=== PATIENT | female | born 1950 | race Caucasian/White ===

== ENCOUNTER → 2016-10-16 | Outpatient (CLI) | payer MEDICARE ==
[2016-10-16 18:04] LABS: ANION GAP 7 MMOL/L (5-14); BLOOD UREA NITROGEN 19 MG/DL (7-18); BUN/CREATININE RATIO 22; CALCIUM 8.6 MG/DL (8.5-10.1); CARBON DIOXIDE 23 MMOL/L (21-32); CHLORIDE 110 MMOL/L (98-107); CREATININE SERUM 0.85 MG/DL (0.60-1.30); GFR ESTIMATED > 60; GLUCOSE 95 MG/DL (70-105); POTASSIUM 4.8 MMOL/L (3.6-5.0); SODIUM 140 MMOL/L (135-145)
== END ==
LOC: LAB 15:49
PROVIDERS: ATTEND Internal Medicine Endocrinology, Diabetes & Metabolism
DX: M81.0 Age-related osteoporosis without current pathological fracture (principal)
CPT/HCPCS: 36415; 80048

== ENCOUNTER → 2017-01-04 | Outpatient (CLI) | payer MEDICARE ==
[2017-01-04 07:19] LABS: BASOPHILS % (AUTO) 1 % (0-10); EOSINOPHILS # (AUTO) 0.2 10^3/uL (0.0-0.3); EOSINOPHILS % (AUTO) 3 % (0-10); LYMPHOCYTES # (AUTO) 2.8 X 10^3 (1.0-4.0); LYMPHOCYTES % (AUTO) 40 % (12-44); MEAN CORPUSCULAR HEMOGLOBIN 31 PG (25-34); MEAN CORPUSCULAR HGB CONC 33 G/DL (32-36); MEAN CORPUSCULAR VOLUME 95 FL (80-99); MEAN PLATELET VOLUME 9.5 FL (7.4-10.4); MONOCYTES # (AUTO) 0.8 X 10^3 (0.0-1.0); MONOCYTES % (AUTO) 12 % (0-12); NEUTROPHILS # (AUTO) 3.2 X 10^3 (1.8-7.8); NEUTROPHILS % (AUTO) 45 % (42-75); PLATELET COUNT 361 10^3/uL (130-400); RED BLOOD COUNT 4.19 10^6/uL (4.35-5.85); RED CELL DISTRIBUTION WIDTH 13.5 % (10.0-14.5)
[2017-01-04 07:37] LABS: ALANINE AMINOTRANSFERASE 32 U/L (0-55); ANION GAP 10 MMOL/L (5-14); ASPARTATE AMINO TRANSFERASE 20 U/L (5-34); BILIRUBIN,TOTAL 0.4 MG/DL (0.1-1.0); BLOOD UREA NITROGEN 17 MG/DL (7-18); BUN/CREATININE RATIO 20 (0-20); CALCIUM 9.4 MG/DL (8.5-10.1); CARBON DIOXIDE 21 MMOL/L (21-32); CHLORIDE 111 MMOL/L (98-107); CHOLESTEROL 151 MG/DL (< 200); CREATININE SERUM 0.85 MG/DL (0.60-1.30); DIRECT LDL 83 MG/DL (1-129); GFR ESTIMATED > 60; GLUCOSE 110 MG/DL (70-105); HEMOLYSIS 6 (0-29); ICTERUS 0.4 (0-1.9); LIPEMIA 4 (0-49); MAGNESIUM 2.1 MG/DL (1.8-2.4); POTASSIUM 3.8 MMOL/L (3.6-5.0); SODIUM 142 MMOL/L (135-145); TOTAL PROTEIN 8.3 GM/DL (6.4-8.2); TRIGLYCERIDES 75 MG/DL (<150); VLDL CHOLESTEROL 15 MG/DL (5-40)
[2017-01-04 07:58] LABS: THYROID STIMULATING HORMONE 6.37 UIU/ML (0.35-4.94)
== END ==
LOC: LAB 06:42
PROVIDERS: ATTEND Family Medicine
DX: I10 Essential (primary) hypertension (principal); R25.2 Cramp and spasm; Z79.899 Other long term (current) drug therapy
CPT/HCPCS: 36415; 80053; 80061; 83036; 83735; 84439; 84443; 85025

== ENCOUNTER 2017-03-03 16:12 | Emergency (ER) | payer MEDICARE ==
[~2017-03-03] VITALS: Ht 165.1 cm; Wt 68.0 kg
[2017-03-03] MEDS ORDERED: LEVO25TA5 (16:48)
[2017-03-03] MEDS ORDERED: BUSP10TA95 (16:48)
[2017-03-03] MEDS ORDERED: TRAM50TA2 (16:48)
[2017-03-03] MEDS ORDERED: LORA1TAB (16:48)
[2017-03-03] MEDS ORDERED: TRAZODONE (16:48)
[2017-03-03] MEDS ORDERED: KETOROLAC 30 MG/ML VIAL IVP STA (16:56)
--- NOTE | 2017-03-03 17:09 | ED General ---
General Chief Complaint: Cough/Cold/Flu Symptoms Stated Complaint: COPD/R SIDE CHEST PAIN/PRODUCTIVE COUGH Nursing Triage Note: ARRIVED VIA AMB TO ROOM 09. COMPLAINS OF RIGHT SIDED CHEST PAIN WITH A PRODUCTIVE COUGH STARTING LAST NIGHT. STATES SHE STARTED A NEW JOB AT A [employer] AND NOT USE TO THE WORK ET THINKING SHE MIGHT HAVE PULLED A MUSCLE. Nursing Sepsis Screen: No Definite Risk Source of Information: Patient, Other Exam Limitations: No Limitations History of Present Illness Time Seen by Provider: 16:48 Initial Comments 66-year-old female patient presents to the emergency department complaints of right-sided chest/rib pain beginning yesterday. Also complains of clear productive cough. Reports starting a new job at [employer] and [employer] 2 weeks ago and states she may have pulled a muscle. Does report a h/o COPD that was diagnosed in 2013- on CXR here at [facility]. Location Injury Occurred: denies known injury Timing/Duration: 1-2 Days Modifying Factors: worse with Other (worse with palpation) Allergies and Home Medications Allergies Coded Allergies: Penicillins (Verified Allergy, Severe, RASH, 03/03/17) Home Medications Buspirone HCl 10 Mg Tablet, #60 (Reported) Levothyroxine Sodium 25 Mcg Tablet, #30 (Reported) Lorazepam 1 Mg Tablet, #30 (Reported) Prednisone 20 Mg Tab, 20 MG PO BID, #8 Ref 0 Prescribed by: CLAUDIA LARSON on 03/03/171855 Tramadol HCl 50 Mg Tablet, #90 (Reported) Tramadol HCl 50 Mg Tablet, 50 MG PO Q4H PRN for pain, #10 Ref 0 Prescribed by: CLAUDIA LARSON on 03/03/171855 [Trazodone] , #30 (Reported) Constitutional: No chills, No diaphoresis, No dizziness, No fever, No malaise EENTM: other (rhinorrhea a couple of days ago, but resolved now.), No ear pain , No nose congestion, No throat pain Respiratory: cough, No dyspnea on exertion, No hemoptysis, No orthopnea, phlegm , short of breath, wheezing Cardiovascular: see HPI, chest pain, No edema, No palpitations, No syncope Gastrointestinal: No abdominal pain, No constipation, No diarrhea, No loss of appetite, No nausea, No vomiting Genitourinary: no symptoms reported Musculoskeletal: see HPI, No back pain, No neck pain, other (rt sided rib pain) Skin: no symptoms reported Psychiatric/Neurological: No Symptoms Reported All Other Systems Reviewed Negative Unless Noted: Yes (Negative excepted noted.) Past Bibbehz-Enzbvk-Wkrpkw Hx Patient Social History Alcohol Use: Denies Use Recreational Drug Use: No Smoking Status: Current Everyday Smoker Recent Foreign Travel: No Contact w/Someone Who Travel: No Recent Infectious Disease Expo: No Respiratory Hx Respiratory Disorders: Yes Respiratory Disorders: COPD Cardiovascular Hx Cardiac Disorders: No Neurological Hx Neurological Disorders: No Genitourinary Hx Genitourinary Disorders: No Gastrointestinal Hx Gastrointestinal Disorders: No Musculoskeletal Hx Musculoskeletal Disorders: No Endocrine Hx Endocrine Disorders: Yes Endocrine Disorders: Hypothyroidsim HEENT HX ENT Disorders: No Psychosocial Hx Psychiatric Problems: Yes Behavioral Health Disorders: Sleep Difficulties, Anxiety, Depression Reviewed Nursing Assessment Reviewed/Agree w Nursing PMH: Yes Family Medical History Significant Family History: No Pertinent Family Hx Physical Exam Vital Signs Vital Sign - Last 12Hours 03/03/17 16:30 Temp 97.5 Pulse 70 Resp 16 B/P (MAP) 141/81 Pulse Ox 98 O2 Delivery Room Air Capillary Refill : Less Than 3 Seconds General Appearance: No Apparent Distress, WD/WN HEENT: PERRL/EOMI, Pharynx Normal Neck: Normal Inspection, Supple Respiratory: Lungs Clear, No Accessory Muscle Use, No Respiratory Distress, Decreased Breath Sounds (rt lung), No Rales, No Rhonci, No Wheezing, Other ( right sided anterior ribs ttp without deformity or swelling.) Cardiovascular: Regular Rate, Rhythm, No Edema, No Murmur, Normal Peripheral Pulses Gastrointestinal: Normal Bowel Sounds, No Organomegaly, Non Tender, Soft Back: Normal Inspection, No Vertebral Tenderness, No Decreased Range of Motion Extremity: Normal Capillary Refill, No Pedal Edema Neurologic/Psychiatric: Alert, Oriented x3, Normal Mood/Affect Skin: Normal Color, Warm/Dry Progress/Results/Core Measures Results/Orders Lab Results Laboratory Tests Test 03/03/17 17:05 Range/Units White Blood Count 6.0 4.3-11.0 10^3/uL Red Blood Count 3.84 L 4.35-5.85 10^6/uL Hemoglobin 12.0 11.5-16.0 G/DL Hematocrit 37 35-52 % Mean Corpuscular Volume 96 80-99 FL Mean Corpuscular Hemoglobin 31 25-34 PG Mean Corpuscular Hemoglobin Concent 33 32-36 G/DL Red Cell Distribution Width 13.7 10.0-14.5 % Platelet Count 280 130-400 10^3/uL Mean Platelet Volume 9.1 7.4-10.4 FL Neutrophils (%) (Auto) 70 42-75 % Lymphocytes (%) (Auto) 19 12-44 % Monocytes (%) (Auto) 8 0-12 % Eosinophils (%) (Auto) 2 0-10 % Basophils (%) (Auto) 0 0-10 % Neutrophils # (Auto) 4.2 1.8-7.8 X 10^3 Lymphocytes # (Auto) 1.2 1.0-4.0 X 10^3 Monocytes # (Auto) 0.5 0.0-1.0 X 10^3 Eosinophils # (Auto) 0.1 0.0-0.3 10^3/uL Basophils # (Auto) 0.0 0.0-0.1 10^3/uL Prothrombin Time 11.6 L 12.2-14.7 SEC INR Comment 0.9 0.8-1.4 Activated Partial Thromboplast Time 27 24-35 SEC D-Dimer 0.68 H 0.00-0.49 UG/ML Sodium Level 138 135-145 MMOL/L Potassium Level 4.2 3.6-5.0 MMOL/L Chloride Level 108 H 98-107 MMOL/L Carbon Dioxide Level 24 21-32 MMOL/L Anion Gap 6 5-14 MMOL/L Blood Urea Nitrogen 18 7-18 MG/DL Creatinine 0.91 0.60-1.30 MG/DL Estimat Glomerular Filtration Rate > 60 BUN/Creatinine Ratio 20 Glucose Level 109 H 70-105 MG/DL Calcium Level 9.3 8.5-10.1 MG/DL Magnesium Level 1.8 1.8-2.4 MG/DL Total Bilirubin 0.3 0.1-1.0 MG/DL Aspartate Amino Transf (AST/SGOT) 15 5-34 U/L Alanine Aminotransferase (ALT/SGPT) 16 0-55 U/L Alkaline Phosphatase 58 40-136 U/L Total Creatine Kinase 59 29-168 U/L Creatine Kinase MB 0.7 <6.6 NG/ML Troponin I < 0.30 <0.30 NG/ML Total Protein 7.0 6.4-8.2 GM/DL Albumin 3.3 3.2-4.5 GM/DL Free Thyroxine 0.71 0.70-1.48 NG/DL TSH [place] Testing 6.65 H 0.35-4.94 UIU/ML My Orders Orders - CLAUDIA LARSON Saline Lock/Iv-Start (03/03/17 16:56) Ekg Tracing (03/03/17 16:56) Cbc With Automated Diff (03/03/17 16:56) Comprehensive Metabolic Panel (03/03/17 16:56) Creatine Kinase (03/03/17 16:56) Creatine Kinase Mb (03/03/17 16:56) Fibrin Degradation Products (03/03/17 16:56) Magnesium (03/03/17 16:56) Protime With Inr (03/03/17 16:56) Partial Thromboplastin Time (03/03/17 16:56) Thyroid Analyzer (03/03/17 16:56) Troponin I (03/03/17 16:56) Chest 1 View, Ap/Pa Only (03/03/17 16:56) Ketorolac Injection (Toradol Injection) (03/03/17 16:56) Free T4 (Free Thyroxine) (03/03/17 17:05) Rx-Albuterol Inhaler (Rx-Proair) (03/03/17 18:52) Prednisone Tablet (Deltasone Tablet) (03/03/17 19:00) Rx-Tramadol Hcl (Rx-Ultram) (03/03/17 18:52) Vital Signs/I&O Blood Pressure Mean: 101 ECG Initial ECG Impression Date: Mar 03, 2017 Initial ECG Impression Time: 17:09 Initial ECG Rate: 57 Initial ECG Rhythm: S.Emerson Initial ECG Comparisson: No Previous ECG Available Comment Sinus rhythm with LAD. No STEMI or arrhythmia noted. ECG reviewed by Dr. Rivas. Diagnostic Imaging Diagonstic Imaging: Xray Plain Films/CT/US/NM/MRI: chest Comments FINDINGS: Normal heart size and pulmonary vascularity. The lungs are well aerated and clear. No large pleural effusion or pneumothorax is seen. The visualized osseous structures show no acute abnormalities. IMPRESSION: No acute cardiopulmonary process. Dictated by: Dictated on workstation # [id number] Reviewed: Reviewed by Me (radiology report reviewed by me. ) Departure Communication Progress Notes Laboratory findings and diagnostic study findings discussed with the patient. Patient reports improvement with medications given in the emergency department.. Patient was given albuterol inhaler in the emergency department for wheezing and SOB. Patient states she used to have an inhaler at home for the COPD, but rarely had to use it. States the inhaler and she did not get a refill. Patient is trying to quit smoking, but has not been able to stop due to stress. Patient is seeing Dr. Ganesh Hanley for this. I've advised patient to follow-up with Dr. Hanley for recheck. All return precautions were discussed with the patient as described in the discharge instructions of this report. Patient voices understanding and agrees with the treatment plan. Impression Impression: Primary Impression: Costochondritis Additional Impressions: History of COPD Hypothyroidism Qualified Codes: E03.9 - Hypothyroidism, unspecified Disposition: HOME, SELF-CARE Condition: Improved Departure-Patient Inst. Decision time for Depature: 18:55 Referrals: GANESH HANLEY MD (PCP/Family) Primary Care Physician Patient Instructions: Costochondritis (DC), Exacerbation of COPD (DC) Add. Discharge Instructions: All discharge instructions reviewed with patient and/or family. Voiced understanding. Medications as instructed. Tylenol extra strength over-the- counter as directed for pain. Ibuprofen 800 mg by mouth every 8 hours as needed for pain. Ice pack or heating pads as needed for pain. Follow-up with Dr. Ganesh Hanley has now patient this week for recheck and possible need for thyroid medication adjustment, call first thing Saturday morning for appointment time. Return to the emergency department for worsened pain, shortness of air, dizziness, difficulty swallowing, fever, or any other concerns. Scripts Tramadol HCl (Tramadol HCl) 50 Mg Tablet 50 MG PO Q4H Y for pain, #10 TAB 0 Refills Prov: CLAUDIA LARSON 03/03/17 Prednisone (Prednisone) 20 Mg Tab 20 MG PO BID, #8 TAB 0 Refills Prov: CLAUDIA LARSON 03/03/17 CLAUDIA LARSON Mar 03, 2017 17:09
[2017-03-03 17:19] LABS: BASOPHILS % (AUTO) 0 % (0-10); EOSINOPHILS # (AUTO) 0.1 10^3/uL (0.0-0.3); EOSINOPHILS % (AUTO) 2 % (0-10); LYMPHOCYTES # (AUTO) 1.2 X 10^3 (1.0-4.0); LYMPHOCYTES % (AUTO) 19 % (12-44); MEAN CORPUSCULAR HEMOGLOBIN 31 PG (25-34); MEAN CORPUSCULAR HGB CONC 33 G/DL (32-36); MEAN CORPUSCULAR VOLUME 96 FL (80-99); MEAN PLATELET VOLUME 9.1 FL (7.4-10.4); MONOCYTES # (AUTO) 0.5 X 10^3 (0.0-1.0); MONOCYTES % (AUTO) 8 % (0-12); NEUTROPHILS # (AUTO) 4.2 X 10^3 (1.8-7.8); NEUTROPHILS % (AUTO) 70 % (42-75); PLATELET COUNT 280 10^3/uL (130-400); RED BLOOD COUNT 3.84 10^6/uL (4.35-5.85); RED CELL DISTRIBUTION WIDTH 13.7 % (10.0-14.5)
[2017-03-03 17:27] LABS: INR 0.9 (0.8-1.4); PROTHROMBIN TIME PATIENT 11.6 SEC (12.2-14.7)
--- NOTE | 2017-03-03 17:27 | Diagnostic Imaging Report ---
INDICATION: Chest pain. COMPARISON: None. EXAMINATION: Single frontal view of the chest was obtained. FINDINGS: Normal heart size and pulmonary vascularity. The lungs are well aerated and clear. No large pleural effusion or pneumothorax is seen. The visualized osseous structures show no acute abnormalities. IMPRESSION: No acute cardiopulmonary process. Dictated by: Dictated on workstation # [id number]
[2017-03-03 17:37] LABS: ALANINE AMINOTRANSFERASE 16 U/L (0-55); ALBUMIN 3.3 GM/DL (3.2-4.5); ANION GAP 6 MMOL/L (5-14); ASPARTATE AMINO TRANSFERASE 15 U/L (5-34); BILIRUBIN,TOTAL 0.3 MG/DL (0.1-1.0); BLOOD UREA NITROGEN 18 MG/DL (7-18); BUN/CREATININE RATIO 20; CALCIUM 9.3 MG/DL (8.5-10.1); CARBON DIOXIDE 24 MMOL/L (21-32); CHLORIDE 108 MMOL/L (98-107); CREATINE KINASE 59 U/L (29-168); CREATININE SERUM 0.91 MG/DL (0.60-1.30); GFR ESTIMATED > 60; GLUCOSE 109 MG/DL (70-105); MAGNESIUM 1.8 MG/DL (1.8-2.4); POTASSIUM 4.2 MMOL/L (3.6-5.0); SODIUM 138 MMOL/L (135-145)
[2017-03-03 17:56] LABS: TROPONIN I < 0.30 NG/ML (<0.30)
[2017-03-03] MEDS ORDERED: RX-ALBUTEROL INHALER (PROAIR) 8 GM IH STA (18:52)
[2017-03-03] MEDS ORDERED: RX-TRAMADOL 50 MG (ULTRAM) TAB PPK#4 PO STA (18:52)
[2017-03-03] MEDS ORDERED: PRD20T PO (18:56)
[2017-03-03] MEDS ORDERED: TRAM50TA2 PO (18:56)
[2017-03-03] MEDS ORDERED: predniSONE 20 MG TAB PO ONE (19:00)
[2017-03-03 19:05] VITALS: BP 139/87
== END 2017-03-03 19:04 | disposition home or self-care (01) ==
LOC: EDUNIT# 16:12 → ER 16:14
DX: M94.0 Chondrocostal junction syndrome [Tietze] (principal); J44.9 Chronic obstructive pulmonary disease, unspecified; E03.9 Hypothyroidism, unspecified; F41.9 Anxiety disorder, unspecified; F32.9 Major depressive disorder, single episode, unspecified; F17.200 Nicotine dependence, unspecified, uncomplicated
CPT/HCPCS: 36415; 71010; 80053; 82550; 82553; 83735; 84439; 84443; 84484; 85025; 85379; 85610; 85730; 93005; 96374

== ENCOUNTER → 2017-10-23 | Outpatient (CLI) | payer MEDICARE ==
[~2017-10-23] MED LIST: BUSP10TA95; LEVO25TA5; LORA1TAB; PRD20T PO; TRAM50TA2; TRAM50TA2 PO; TRAZODONE
[2017-10-23 11:10] LABS: HEMOGLOBIN 13.2 G/DL (11.5-16.0); MEAN PLATELET VOLUME 9.2 FL (7.4-10.4); RED BLOOD COUNT 3.94 10^6/uL (4.35-5.85); RED CELL DISTRIBUTION WIDTH 12.9 % (10.0-14.5); WHITE BLOOD COUNT 6.9 10^3/uL (4.3-11.0)
[2017-10-23 11:43] LABS: ALANINE AMINOTRANSFERASE 146 U/L (0-55); ALBUMIN 3.9 GM/DL (3.2-4.5); ALKALINE PHOSPHATASE 140 U/L (40-136); BILIRUBIN,TOTAL 0.3 MG/DL (0.1-1.0); BUN/CREATININE RATIO 23; CALCIUM 9.2 MG/DL (8.5-10.1); CARBON DIOXIDE 25 MMOL/L (21-32); CHLORIDE 109 MMOL/L (98-107); CREATININE SERUM 0.75 MG/DL (0.60-1.30); GFR ESTIMATED > 60; GLUCOSE 101 MG/DL (70-105); POTASSIUM 4.1 MMOL/L (3.6-5.0); SODIUM 138 MMOL/L (135-145); TOTAL PROTEIN 8.2 GM/DL (6.4-8.2)
== END ==
LOC: LAB 10:51
PROVIDERS: ATTEND Internal Medicine Endocrinology, Diabetes & Metabolism
DX: M81.0 Age-related osteoporosis without current pathological fracture (principal)
CPT/HCPCS: 36415; 80053; 82306; 84443; 85027

== ENCOUNTER → 2017-10-31 | Outpatient (CLI) | payer MEDICARE ==
--- NOTE | 2017-10-31 09:34 | Diagnostic Imaging Report ---
Indication: Osteoporosis. Comparison: Made with prior study from 12/01/2015. Bone mineral analysis was performed of the lumbar spine and both hips. The bone mineral density of the lumbar spine L2-L4 is 0.993 with a T score of -1.7. This compares with 1.021 and -1.5 on prior. The bone mineral density of the left femoral neck is 0.673 with T score -2.6. This compares with 0.743 and -2.1. The bone mineral density of the right femoral neck is 0.636 with a T score -2.9. This compares with 0.693 and -2.5. Impression: Findings consistent with osteopenia of the lumbar spine with osteoporosis of bilateral femoral necks. Dictated by: Dictated on workstation # [id number]
== END ==
LOC: RAD 08:06
PROVIDERS: ATTEND Internal Medicine Endocrinology, Diabetes & Metabolism
DX: M81.0 Age-related osteoporosis without current pathological fracture (principal); M85.88 Other specified disorders of bone density and structure, other site
CPT/HCPCS: 77080

== ENCOUNTER 2022-03-25 08:36 | Inpatient (IN) | payer MEDICARE ==
[2022-03-25] VITALS (7 sets, daily range): BP systolic 97–135; BP diastolic 55–81
[~2022-03-25] VITALS: Ht 154.9 cm; Wt 52.8 kg
[~2022-03-25 08:36] MED LIST changes: -TRAM50TA2; -TRAM50TA2 PO; +TRM50T; +TRM50T PO
--- NOTE | 2022-03-25 09:01 | ED General ---
General Stated Complaint: SKIN TEAR Source of Information: Patient, EMS History of Present Illness Date Seen by Provider: Mar 25, 2022 Time Seen by Provider: 08:40 Initial Comments Patient is a 71-year-old female who presents to the emergency department by ambulance today chief complaint of skin tear to the left forearm. Patient states that she woke up at 1 point this morning and noticed blood "everywhere". She cleaned herself up and went back to bed. When she woke up she had continued bleeding and became scared. She does not remember falling during the night. She has no idea how she sustained the injury to her left forearm. She denies pain anywhere other than at the location of the skin tear. She has an obvious large bruise to the left forehead and left upper scalp. She is on Coumadin with a history of atrial fibrillation. She has multiple myeloma and is followed by a team in [place]. She states she lives by herself and continues to drive. She denies headache, vision changes. No chest pain or shortness of breath. No abdominal pain, nausea. No extremity pain other than the left forearm in the area of the skin tear. All other review of systems reviewed and negative except as stated. Severity: Mild Associated Systoms: Denies Symptoms Allergies and Home Medications Allergies Coded Allergies: Penicillins (Verified Allergy, Severe, RASH, 03/03/17) Patient Home Medication List Home Medication List Reviewed: Yes Allopurinol (Allopurinol) 100 Mg Tablet, 100 MG PO HS, (Reported) Entered as Reported by: KELLI OSORIO on 03/25/22 1433 Last Action: Reviewed Amiodarone HCl (Amiodarone HCl) 200 Mg Tablet, 200 MG PO DAILY, (Reported) Entered as Reported by: KELLI OSORIO on 03/25/22 1433 Last Action: Reviewed Buspirone HCl (Buspirone HCl) 10 Mg Tablet, 5 MG PO TID, (Reported) Entered as Reported by: MOLLY JOHNSON on 03/27/22 1240 Last Action: Reviewed Calcium Carbonate (Calcium) 500 Mg Calcium (1250 Mg) Tablet, 500 MG PO BID, (Reported) Entered as Reported by: MOLLY JOHNSON on 03/27/22 1240 Last Action: Reviewed Calcium Carbonate (Calcium) 500 Mg Calcium (1250 Mg) Tablet, 1,000 MG PO 1300, (Reported) Entered as Reported by: MOLLY JOHNSON on 03/27/221239 Last Action: Reviewed Cholecalciferol (Vitamin D3) (Vitamin D3) 25 Mcg (1000 Unit) Capsule, 75 MCG PO 1300, (Reported) Entered as Reported by: MOLLY JOHNSON on 03/27/221239 Last Action: Reviewed Cyanocobalamin (Vitamin B-12) (Vitamin B-12) 500 Mcg Tablet, 500 MCG PO HS, (Reported) Entered as Reported by: MOLLY JOHNSON on 03/27/221239 Last Action: Reviewed Fentanyl (Fentanyl Patch 25 MCG) 25 Mcg/Hour Patch.td72, 25 MCG TD Q72H, (Reported) Entered as Reported by: KELLI OSORIO on 03/25/221432 Last Action: Reviewed Ferrous Sulfate (Iron) 325 Mg (65 Mg Iron) Tablet, 325 MG PO DAILY, (Reported) Entered as Reported by: MOLLY JOHNSON on 03/27/221239 Last Action: Reviewed Furosemide (Furosemide) 20 Mg Tablet, 20 MG PO DAILY, (Reported) Entered as Reported by: MOLLY JOHNSON on 03/27/221239 Last Action: Reviewed Hydrocodone/Acetaminophen (Hydrocodone-Acetamin 10-325 mg) 10 Mg-325 Mg Tablet, 10-325 MG PO TID PRN for PAIN-MODERATE (5-7), (Reported) Entered as Reported by: KELLI OSORIO on 03/25/221432 Last Action: Reviewed Levothyroxine Sodium (Euthyrox) 50 Mcg Tablet, 50 MG PO DAILY, (Reported) Entered as Reported by: KELLI OSORIO on 03/25/221432 Last Action: Reviewed Lidocaine (Lidocaine 5% Patch) 5 % Adh..patch, 1-2 PATCH TD DAILY PRN for PAIN- BREAKTHROUGH, (Reported) Entered as Reported by: KELLI OSORIO on 03/25/221432 Last Action: Reviewed Metoprolol Tartrate (Metoprolol Tartrate) 25 Mg Tablet, 25 MG PO BID, (Reported) Entered as Reported by: KELLI OSORIO on 03/25/221432 Last Action: Reviewed Omeprazole (Omeprazole) 20 Mg Capsule.dr, 20 MG PO DAILY, (Reported) Entered as Reported by: KELLI OSORIO on 03/25/221432 Last Action: Reviewed Ondansetron (Ondansetron Odt) 4 Mg Tab.rapdis, 4 MG PO Q8H PRN for NAUSEA/VOMITING-1ST LINE, (Reported) Entered as Reported by: KELLI OSORIO on 03/25/221432 Last Action: Reviewed Potassium Chloride (Potassium Chloride) 20 Meq Tab.er.prt, 20 MEQ PO DAILY, (Reported) Entered as Reported by: KELLI OSORIO on 03/25/221432 Last Action: Reviewed Trazodone HCl (Trazodone HCl) 100 Mg Tablet, 100 MG PO HS PRN for SLEEP, (Reported) Entered as Reported by: KELLI OSORIO on 03/25/221432 Last Action: Reviewed Discontinued Medications Aspirin (Aspirin EC) 81 Mg Tablet.dr, 81 MG PO HS, (Reported) Entered as Reported by: MOLLY JOHNSON on 03/27/22 1240 Last Action: Reviewed Buspirone HCl (Buspirone HCl) 10 Mg Tablet, (Reported) Entered as Reported by: PRASHANT MINOR on 03/03/171647 Last Action: Discontinued Levothyroxine Sodium (Levothyroxine Sodium) 25 Mcg Tablet, (Reported) Discontinued Reason: No Longer Taking Entered as Reported by: PRASHANT MINOR on 03/03/171647 Last Action: Discontinued Lorazepam (Lorazepam) 1 Mg Tablet, (Reported) Discontinued Reason: No Longer Taking Entered as Reported by: PRASHANT MINOR on 03/03/171647 Last Action: Discontinued Prednisone (Prednisone) 20 Mg Tab, 20 MG PO BID Prescribed by: CLAUDIA LARSON on 03/03/171855 Last Action: Discontinued Tramadol HCl (Tramadol HCl) 50 Mg Tablet, (Reported) Discontinued Reason: No Longer Taking Entered as Reported by: PRASHANT MINOR on 03/03/171647 Last Action: Discontinued Tramadol HCl (Tramadol HCl) 50 Mg Tablet, 50 MG PO Q4H PRN for pain Discontinued Reason: No Longer Taking Prescribed by: CLAUDIA LARSON on 03/03/171855 Last Action: Discontinued Warfarin Sodium (Warfarin Sodium) 2.5 Mg Tablet, 2.5 MG PO GEORGE,TU,WE,TH,FR,SA @H, (Reported) Entered as Reported by: KELLI OSORIO on 03/25/22 1433 Last Action: Reviewed Warfarin Sodium (Warfarin Sodium) 2.5 Mg Tablet, 1.25 MG PO MON @HS, (Reported) Entered as Reported by: MOLLY JOHNSON on 03/27/22 1240 Last Action: Reviewed [Trazodone] , (Reported) Discontinued Reason: No Longer Taking Entered as Reported by: PRASHANT MINOR on 03/03/17 1648 Last Action: Discontinued Review of Systems Review of Systems Constitutional: see HPI EENTM: no symptoms reported Respiratory: no symptoms reported Cardiovascular: no symptoms reported Gastrointestinal: no symptoms reported : No Musculoskeletal: no symptoms reported Skin: other (skin tear left arm) All Other Systems Reviewed Negative Unless Noted: Yes Past Hagoqgk-Funicz-Soabob Hx Past Medical History Respiratory: Yes COPD Cardiac: No Neurological: No Genitourinary: No Gastrointestinal: No Musculoskeletal: No Endocrine: No Hypothyroidsim Cancer: No Psychosocial: Yes Sleep Difficulties, Anxiety, Depression Integumentary: No Family Medical History No Pertinent Family Hx Physical Exam Vital Signs Vital Signs - First Documented 03/25/22 08:45 Temp 36.4 Pulse 65 Resp 12 B/P (MAP) 97/55 (69) Pulse Ox 96 Capillary Refill : Height, Weight, BMI Height: 5'5.00" Weight: 150lbs. oz. 68.104276wt; BMI Method:Estimated General Appearance: No Apparent Distress, Chronically ill, Thin Eyes: Bilateral Eye Normal Inspection, Bilateral Eye PERRL, Bilateral Eye EOMI HEENT: PERRL/EOMI, TMs Normal, Moist Mucous Membranes Neck: Full Range of Motion, Non Tender Respiratory: Lungs Clear, Normal Breath Sounds, No Accessory Muscle Use, No Respiratory Distress Cardiovascular: Regular Rate, Rhythm, Normal Peripheral Pulses Gastrointestinal: Non Tender, Soft Extremity: Normal Inspection, No Calf Tenderness, No Pedal Edema Neurologic/Psychiatric: Alert, Oriented x3, No Motor/Sensory Deficits, Normal M ood/Affect, drapery cutter II-XII Norm as Tested Skin: Normal Color, Warm/Dry, Other (skin tear 3cm left forearm; mild bleeding; large hematoma left forehead - no opem wounds there.) Progress/Results/Core Measures Suspected Sepsis SIRS Temperature: Pulse: Respiratory Rate: Laboratory Tests 03/25/22 09:32: White Blood Count 3.6L Blood Pressure / Mean: Laboratory Tests 03/25/22 09:32: Creatinine 1.09, INR Comment 8.6*H, Platelet Count 104L Results/Orders Lab Results Laboratory Tests Test 03/25/22 09:32 Range/Units White Blood Count 3.6 L 4.3-11.0 10^3/uL Red Blood Count 2.25 L 3.80-5.11 10^6/uL Hemoglobin 8.0 L 11.5-16.0 g/dL Hematocrit 24 L 35-52 % Mean Corpuscular Volume 108 H 80-99 fL Mean Corpuscular Hemoglobin 36 H 25-34 pg Mean Corpuscular Hemoglobin Concent 33 32-36 g/dL Red Cell Distribution Width 17.2 H 10.0-14.5 % Platelet Count 104 L 130-400 10^3/uL Mean Platelet Volume 11.4 9.0-12.2 fL Immature Granulocyte % (Auto) 1 % Neutrophils (%) (Auto) 53 42-75 % Lymphocytes (%) (Auto) 27 12-44 % Monocytes (%) (Auto) 11 0-12 % Eosinophils (%) (Auto) 7 0-10 % Basophils (%) (Auto) 1 0-10 % Neutrophils # (Auto) 1.9 1.8-7.8 10^3/uL Lymphocytes # (Auto) 1.0 1.0-4.0 10^3/uL Monocytes # (Auto) 0.4 0.0-1.0 10^3/uL Eosinophils # (Auto) 0.2 0.0-0.3 10^3/uL Basophils # (Auto) 0.0 0.0-0.1 10^3/uL Immature Granulocyte # (Auto) 0.0 0.0-0.1 10^3/uL Percent Immature Platelet Fraction 5.3 0.0-7.6 % Prothrombin Time 71.3 *H 12.2-14.7 SEC INR Comment 8.6 *H 0.8-1.4 Sodium Level 145 135-145 MMOL/L Potassium Level 2.5 *L 3.6-5.0 MMOL/L Chloride Level 112 H 98-107 MMOL/L Carbon Dioxide Level 22 21-32 MMOL/L Anion Gap 11 5-14 MMOL/L Blood Urea Nitrogen 14 7-18 MG/DL Creatinine 1.09 0.60-1.30 MG/DL Estimat Glomerular Filtration Rate 54 BUN/Creatinine Ratio 13 Glucose Level 73 70-105 MG/DL Calcium Level 6.9 L 8.5-10.1 MG/DL My Orders Orders - KELLI TRAN MD Cbc With Automated Diff (03/25/22 09:01) Basic Metabolic Panel (03/25/22 09:01) Protime With Inr (03/25/22 09:01) Ct Head/Cervical Spine Wo (03/25/22 09:01) General/Regular (03/25/22 Lunch) Type And Screen (03/25/22 10:52) Fresh Frozen Plasma (03/25/22 10:52) Ns Iv 500 Ml (Sodium Chloride 0.9%) (03/25/22 11:00) Phytonadione Oral Solution (Mephyton Ora (03/25/22 11:00) Ed Admission (Communication) (03/25/22 11:54) Vital Signs/I&O 03/25/22 08:45 Temp 36.4 Pulse 65 Resp 12 B/P (MAP) 97/55 (69) Pulse Ox 96 Capillary Refill : Progress Note #1: Time: 08:59 Progress Note wound to left forearm cleansed and surgicell placed with dressing. No active bleeding. Progress Note #2: Time: 10:59 Progress Note Patient is quite agitated, confused as to where she is. SHe thinks she is in [place]. SHe knows the president is [place] but not the year or day of the week. SHe is VERY concerned about her little dog at home. (we will call PD and have them fruit picker machine operator her little dog and take it to a respite care facility here in [place]) - per GAVIOTA Johnston her nurse.)She states she still drives and goes back and forth to her team in [place] for Multiple Myeolma treatment. She says she has no "help" at home. I am very concerned about her safety at home and she does act quite concussed. Is hungry - would like to eat. Potassium is low at 2.5, Discussed with Dr Grayson - would like 1u of FFP and 5mg vit K PO. Will admit to cardiac step down - Dr Grayson is going to put in que'd orders. Diagnostic Imaging Diagonstic Imaging: CT Comments [facility], [place] NAME: BINDU [facility]ORR[facility] REC#: [id number] PT STATUS: REG ER : 1950 PHYSICIAN: KELLI TRAN MD ADMIT DATE: 03/25/22/ER Signed Date of Exam:03/25/22 CT HEAD/CERVICAL SPINE WO PROCEDURE: CT head and CT cervical spine without contrast. TECHNIQUE: Multiple contiguous axial images were obtained through the brain and cervical spine without the use of intravenous contrast. Sagittal and coronal reformations through the cervical spine were then performed. Auto Exposure Controls were utilized during the CT exam to meet ALARA standards for radiation dose reduction. INDICATION: Scalp contusion. Head and neck pain. Possible fall. Confusion. COMPARISON: None. FINDINGS: CT head: No large acute territorial ischemia, mass, or hemorrhage. No midline shift or mass effect. The ventricles, cortical sulci, and basilar cisterns are patent and unremarkable. The calvarium is intact. Small mucous retention cyst is seen in the left maxillary sinus. The mastoid air cells are clear. CT cervical spine: No acute fracture or dislocation is seen in the cervical spine. No focal osseous lesions. Vertebral body heights are well-maintained. There is generalized osteopenia. The craniocervical junction is well-maintained. Mild degenerative changes are seen in the cervical spine with disc osteophyte complexes and uncovertebral arthropathy. Soft tissues of the neck are unremarkable. Small left pleural effusion. IMPRESSION: 1. No hemorrhage or focal intra-axial mass. No CT evidence of large acute territorial ischemia. 2. No acute fracture or dislocation in the cervical spine. Dictated by: Dictated on workstation # [id number] Dict: 03/25/22 0959 Trans: 03/25/[address] [place] [address] [id number] Interpreted by: MARTINE MAKI DO Electronically signed by: MARTINE MAKI DO 03/25/22 1007 Departure Communication (Admissions) Time/Spoke to Admitting Phy: 10:[address] Grayson Impression Primary Impression: Hematoma of left parietal scalp Qualified Codes: S00.03XA - Contusion of scalp, initial encounter Additional Impressions: Skin tear Chronic anticoagulation Disposition: ADMITTED INPATIENT Condition: Stable Admissions Decision to Admit Reason: Admit from ER (General) Decision to Admit/Date: Mar 25, 2022 Time/Decision to Admit Time: 10:58 KELLI TRAN MD Mar 25, 2022 09:01
[2022-03-25 09:39] LABS: MEAN PLATELET VOLUME 11.4 fL (9.0-12.2)
[2022-03-25 09:41] LABS: BASOPHILS % (AUTO) 1 % (0-10); EOSINOPHILS # (AUTO) 0.2 10^3/uL (0.0-0.3); EOSINOPHILS % (AUTO) 7 % (0-10); HEMATOCRIT 24 % (35-52); LYMPHOCYTES % (AUTO) 27 % (12-44); MEAN CORPUSCULAR HEMOGLOBIN 36 pg (25-34); MEAN CORPUSCULAR HGB CONC 33 g/dL (32-36); MEAN CORPUSCULAR VOLUME 108 fL (80-99); MONOCYTES # (AUTO) 0.4 10^3/uL (0.0-1.0); MONOCYTES % (AUTO) 11 % (0-12); NEUTROPHILS # (AUTO) 1.9 10^3/uL (1.8-7.8); NEUTROPHILS % (AUTO) 53 % (42-75); PLATELET COUNT 104 10^3/uL (130-400); WHITE BLOOD COUNT 3.6 10^3/uL (4.3-11.0)
--- NOTE | 2022-03-25 10:03 | Diagnostic Imaging Report ---
PROCEDURE: CT head and CT cervical spine without contrast. TECHNIQUE: Multiple contiguous axial images were obtained through the brain and cervical spine without the use of intravenous contrast. Sagittal and coronal reformations through the cervical spine were then performed. Auto Exposure Controls were utilized during the CT exam to meet ALARA standards for radiation dose reduction. INDICATION: Scalp contusion. Head and neck pain. Possible fall. Confusion. COMPARISON: None. FINDINGS: CT head: No large acute territorial ischemia, mass, or hemorrhage. No midline shift or mass effect. The ventricles, cortical sulci, and basilar cisterns are patent and unremarkable. The calvarium is intact. Small mucous retention cyst is seen in the left maxillary sinus. The mastoid air cells are clear. CT cervical spine: No acute fracture or dislocation is seen in the cervical spine. No focal osseous lesions. Vertebral body heights are well-maintained. There is generalized osteopenia. The craniocervical junction is well-maintained. Mild degenerative changes are seen in the cervical spine with disc osteophyte complexes and uncovertebral arthropathy. Soft tissues of the neck are unremarkable. Small left pleural effusion. IMPRESSION: 1. No hemorrhage or focal intra-axial mass. No CT evidence of large acute territorial ischemia. 2. No acute fracture or dislocation in the cervical spine. Dictated by: Dictated on workstation # [id number]
[2022-03-25 10:06] LABS: CALCIUM 6.9 MG/DL (8.5-10.1)
[2022-03-25 10:10] LABS: CREATININE SERUM 1.09 MG/DL (0.60-1.30)
[2022-03-25 10:16] LABS: PROTHROMBIN TIME PATIENT 71.3 SEC (12.2-14.7)
[2022-03-25 10:17] LABS: INR 8.6 (0.8-1.4)
[2022-03-25 10:46] LABS: POTASSIUM 2.5 MMOL/L (3.6-5.0)
[2022-03-25] MEDS ORDERED: VITAMIN K 1 MG/ML ORAL SOLN 1 ML SYRINGE PO ONE (11:00)
[2022-03-25] MEDS ORDERED: NS IV 500 ML 500 ML IV SCH (11:00)
--- NOTE | 2022-03-25 11:06 | History & Physical-Hospitalist ---
History of Present Illness HPI/Chief Complaint Chief complaint: Altered mental status with coagulopathy HPI: This is a 71-year-old female who presented to the ER with a laceration that was bleeding patient was found to have INR of 8.6. Minimal history obtained from the patient due to confusion and agitation. Patient was wearing a tank top and has bands and other bizarre clothing items on. Source: RN/MD Exam Limitations: clinical condition Date Seen 03/25/22 Time Seen by a Provider: 12:00 Attending Physician PCP Admitting Physician: Attending Physician: Referring Physician Date of Admission Home Medications & Allergies Home Medications Reviewed patient Home Medication Reconciliation performed by pharmacy medication reconciliations surveying technician and/or nursing. Patients Allergies have been reviewed. Allergies Allergies Coded Allergies Penicillins (Verified Allergy, Severe, RASH, 03/03/17) Past Ersupxb-Lguuos-Yhrckb Hx Patient Social History Marrital Status: single Tobacco Use?: Yes Tobacco type used: Cigarettes Smoking Status: Current Everyday Smoker Smokeless type used: Chew Smokeless Tobacco Frequency: Current Everyday User Use of E-Cig and/or Vaping dev: No Alcohol Use?: No Pt feels they are or have been: No Immunizations Up To Date First/Initial COVID19 Vaccinat: 2020 Second COVID19 Vaccination Carlos: 2020 Current Status Advance Directives: No Communicates: Verbally Primary Language: Croatian Preferred Spoken Language: Croatian Past Medical History COPD Hypothyroidsim Sleep Difficulties, Anxiety, Depression Family Medical History No Pertinent Family Hx Review of Systems Constitutional: see HPI Physical Exam Physical Exam Vital Signs Vital Signs - First Documented 03/25/22 08:45 Temp 36.4 Pulse 65 Resp 12 B/P (MAP) 97/55 (69) Pulse Ox 96 Capillary Refill : Less Than 3 Seconds Height, Weight, BMI Height: 5'5.00" Weight: 150lbs. oz. 68.374837rf; 19.00 BMI Method:Estimated General Appearance: No Apparent Distress, Chronically ill, Thin Respiratory: Lungs Clear, Normal Breath Sounds Cardiovascular: Regular Rate, Rhythm Neurologic/Psychiatric: Other (Sedated) Results Results/Procedures Labs Laboratory Tests 03/25/22 09:32 Patient resulted labs reviewed. Assessment/Plan Admission Diagnosis Assessment: Altered mental status Coagulopathy from Coumadin 8.6 INR Laceration now bleeding stopped Plan: Monitor closely FFP and vitamin K given in ER Admission Status: Inpatient Order (span 2 midnights) Reason for Inpatient Admission: inr 8.6 with AMS YANA MAGALLANES DO Mar 25, 2022 11:06
[2022-03-25] MEDS ORDERED: BISACODYL 10 MG SUPP (DULCOLAX) PR PRN (14:00)
[2022-03-25] MEDS ORDERED: diphenhydrAMINE 50 MG/ML INJ (BENADRYL) IVP PRN (14:00)
[2022-03-25] MEDS ORDERED: ONDANSETRON 4 MG (ZOFRAN) ORAL DISSOLVE TAB PO PRN (14:00)
[2022-03-25] MEDS ORDERED: ONDANSETRON 4 MG/2 ML (SDV) Z0FRAN IV PRN (14:00)
[2022-03-25] MEDS ORDERED: HALOPERIDOL 5 MG/ML (HALDOL) VIAL IM PRN (14:00)
[2022-03-25] MEDS ORDERED: MELATONIN 3 MG TABLET PO PRN (14:00)
[2022-03-25] MEDS ORDERED: polyethylene glycoL POWDER 17 GM (MIRALAX) PACK PO PRN (14:00)
[2022-03-25] MEDS ORDERED: LACTULOSE SYRUP 10GM/15ML (ENULOSE) 30ML UDC PO PRN (14:00)
[2022-03-25] MEDS ORDERED: MILK OF MAGNESIA 400 MG/5 ML 30 ML UDC PO PRN (14:00)
[2022-03-25] MEDS ORDERED: diphenhydrAMINE 25 MG TAB (BENADRYL) PO PRN (14:00)
[2022-03-25] MEDS ORDERED: ACETAMINOPHEN 325 MG TABLET PO PRN (14:00)
[2022-03-25] MEDS ORDERED: CALCIUM CARBONATE 500 MG (TUMS) TAB.CHEW PO PRN (14:00)
[2022-03-25] MEDS ORDERED: ANTACID SUSP 30 ML UDC (MYLANTA) PO PRN (14:00)
[2022-03-25] MEDS ORDERED: POTA-179 PO (14:33)
[2022-03-25] MEDS ORDERED: FENT1PAT8 TD (14:33)
[2022-03-25] MEDS ORDERED: METO-333 PO (14:33)
[2022-03-25] MEDS ORDERED: ALLO100T PO (14:33)
[2022-03-25] MEDS ORDERED: LIDO700A45 TD (14:33)
[2022-03-25] MEDS ORDERED: HYDR-3820 PO (14:33)
[2022-03-25] MEDS ORDERED: ONDA4TAB11 PO (14:33)
[2022-03-25] MEDS ORDERED: AMIO200T65 PO (14:33)
[2022-03-25] MEDS ORDERED: WRF2.5T PO (14:33)
[2022-03-25] MEDS ORDERED: TRAZ-227 PO (14:33)
[2022-03-25] MEDS ORDERED: LEVO-129 PO (14:33)
[2022-03-25] MEDS ORDERED: OMEP20CA18 PO (14:33)
[2022-03-25] MEDS ORDERED: RT-ALBUTEROL/IPRATROPIUM 3 ML (DUONEB) VIAL INH PRN (15:00)
[2022-03-25 15:26] LABS: ALBUMIN 2.4 GM/DL (3.2-4.5)
[2022-03-25 15:29] LABS: TOTAL PROTEIN 4.4 GM/DL (6.4-8.2)
[2022-03-25 15:31] LABS: BILIRUBIN,TOTAL 0.5 MG/DL (0.1-1.0)
[2022-03-25 15:34] LABS: BILIRUBIN,DIRECT 0.3 MG/DL (0.0-0.3); BILIRUBIN,INDIRECT 0.2 MG/DL
[2022-03-25 15:35] LABS: MAGNESIUM 1.2 MG/DL (1.6-2.4)
[2022-03-25] MEDS ORDERED: NS IV 500 ML 500 ML ONE (16:03)
[2022-03-25] MEDS: KCL 20 MEQ TAB (K-DUR) PO SCH ×2 (16:24→18:18)
--- NOTE | 2022-03-25 18:36 | Tele-ICU Consult ---
Progress Note 71 y/o female with a hx of a fib on coumadin who injured her left arm and bled. Comes to ED anemic with INR over 8 PLAN: admit to ICU Monitor H/H correct coagulopathy Focused Exam Height, Weight, BMI Height: 5'5.00" Weight: 150lbs. oz. 68.697679ar; 22.00 BMI Method:Estimated Labs Laboratory Tests 03/25/22 09:32 Results Results/Procedures Labs Laboratory Tests 03/25/22 09:32 Patient resulted labs reviewed. Results Labs Labs Laboratory Tests 03/25/22 09:32: White Blood Count 3.6L, Red Blood Count 2.25L, Hemoglobin 8.0L, Hematocrit 24L, Mean Corpuscular Volume 108H, Mean Corpuscular Hemoglobin 36H, Mean Corpuscular Hemoglobin Concent 33, Red Cell Distribution Width 17.2H, Platelet Count 104L, Mean Platelet Volume 11.4, Immature Granulocyte % (Auto) 1, Neutrophils (%) (Auto) 53, Lymphocytes (%) (Auto) 27, Monocytes (%) (Auto) 11, Eosinophils (%) (Auto) 7, Basophils (%) (Auto) 1, Neutrophils # (Auto) 1.9, Lymphocytes # (Auto) 1.0, Monocytes # (Auto) 0.4, Eosinophils # (Auto) 0.2, Basophils # (Auto) 0.0, Immature Granulocyte # (Auto) 0.0, Percent Immature Platelet Fraction 5.3, Prothrombin Time 71.3*H, INR Comment 8.6*H, Sodium Level 145, Potassium Level 2.5*L, Chloride Level 112H, Carbon Dioxide Level 22, Anion Gap 11, Blood Urea Nitrogen 14, Creatinine 1.09, Estimat Glomerular Filtration Rate 54, BUN/Creatinine Ratio 13, Glucose Level 73, Calcium Level 6.9L 03/25/22 14:41: Magnesium Level 1.2L, Total Bilirubin 0.5, Direct Bilirubin 0.3, Indirect Bilirubin 0.2, Aspartate Amino Transf (AST/SGOT) 14, Alanine Aminotransferase (ALT/SGPT) 27, Alkaline Phosphatase 63, Total Protein 4.4L, Albumin 2.4L, Thyroid Stimulating Hormone (TSH) 2.97 ELIZABETH AHUMADA MD Mar 25, 2022 18:36
[2022-03-25] MEDS: DOCUSATE SODIUM 100 MG (COLACE) CAP PO SCH (19:04)
[2022-03-25] MEDS: SENNOSIDES 8.6 MG (SENOKOT) TAB PO SCH (19:05)
[2022-03-25] MEDS: morphine INJ 4 MG/ML 1 ML (VIAL/SYRINGE) IV PRN (22:07)
[2022-03-26] VITALS (15 sets, daily range): BP systolic 109–143; BP diastolic 51–94
[2022-03-26] MEDS: morphine INJ 4 MG/ML 1 ML (VIAL/SYRINGE) IV PRN (03:33)
[2022-03-26 05:41] LABS: BASOPHILS % (AUTO) 1 % (0-10); MEAN CORPUSCULAR HGB CONC 33 g/dL (32-36); PLATELET COUNT 106 10^3/uL (130-400)
[2022-03-26 05:43] LABS: EOSINOPHILS # (AUTO) 0.1 10^3/uL (0.0-0.3); EOSINOPHILS % (AUTO) 4 % (0-10); HEMATOCRIT 23 % (35-52); HEMOGLOBIN 7.5 g/dL (11.5-16.0); LYMPHOCYTES # (AUTO) 1.1 10^3/uL (1.0-4.0); LYMPHOCYTES % (AUTO) 33 % (12-44); MEAN CORPUSCULAR HEMOGLOBIN 36 pg (25-34); MEAN CORPUSCULAR VOLUME 107 fL (80-99); MEAN PLATELET VOLUME 11.6 fL (9.0-12.2); MONOCYTES # (AUTO) 0.5 10^3/uL (0.0-1.0); MONOCYTES % (AUTO) 14 % (0-12); NEUTROPHILS # (AUTO) 1.5 10^3/uL (1.8-7.8); NEUTROPHILS % (AUTO) 48 % (42-75); WHITE BLOOD COUNT 3.2 10^3/uL (4.3-11.0)
[2022-03-26 05:53] LABS: INR 1.4 (0.8-1.4); PROTHROMBIN TIME PATIENT 17.7 SEC (12.2-14.7)
[2022-03-26 05:54] LABS: ALBUMIN 2.4 GM/DL (3.2-4.5); POTASSIUM 2.9 MMOL/L (3.6-5.0)
[2022-03-26 05:57] LABS: TOTAL PROTEIN 4.3 GM/DL (6.4-8.2)
[2022-03-26 05:58] LABS: BILIRUBIN,TOTAL 0.5 MG/DL (0.1-1.0)
--- NOTE | 2022-03-26 06:58 | Progress Note - Hospitalist ---
Subjective HPI/CC On Admission Date Seen by Provider: Mar 26, 2022 Time Seen by Provider: 11:00 Chief complaint: Altered mental status with coagulopathy HPI: This is a 71-year-old female who presented to the ER with a laceration that was bleeding patient was found to have INR of 8.6. Minimal history obtained from the patient due to confusion and agitation. Patient was wearing a tank top and has bands and other bizarre clothing items on. Subjective/Events-last exam Much improved status INR 1/4 Consulting Cardiology Amiodarone restarted Home meds restarted Fentanyl patch and pain pills restarted Review of Systems General: Fatigue, Malaise Musculoskeletal: back pain Objective Exam Vital Signs Vital Signs Date Time Temp Pulse Resp B/P (MAP) Pulse Ox O2 Delivery O2 Flow Rate FiO2 03/26/22 16:32 37.2 71 20 137/70 (92) 94 Room Air Capillary Refill : Less Than 3 Seconds General Appearance: No Apparent Distress, WD/WN, Chronically ill Respiratory: Lungs Clear, Normal Breath Sounds Cardiovascular: Regular Rate, Rhythm Neurologic/Psychiatric: Alert, Oriented x3, No Motor/Sensory Deficits, Normal Mood/Affect Results/Procedures Lab Laboratory Tests 03/26/22 04:45 Patient resulted labs reviewed. Assessment/Plan Assessment and Plan Assess & Plan/Chief Complaint Assessment: Altered mental status improved Coagulopathy from Coumadin 8.6 INR now 1.4 s/p 1 unit FFP and vitamin K given in ER Laceration now bleeding stopped AF Falls Plan: Monitor closely Move to 4th Clinical Quality Measures DVT/VTE Risk/Contraindication: Contraindications-Pharm: Other *list below* Other: coagulopathy YANA MAGALLANES DO Mar 26, 2022 06:58
[2022-03-26] MEDS ORDERED: NS IV 500 ML 500 ML ONE (08:28)
[2022-03-26] MEDS: DOCUSATE SODIUM 100 MG (COLACE) CAP PO SCH ×2 (08:31→20:26)
[2022-03-26] MEDS: SENNOSIDES 8.6 MG (SENOKOT) TAB PO SCH ×2 (08:31→20:26)
[2022-03-26] MEDS: KCL 20 MEQ TAB (K-DUR) PO SCH ×3 (08:31→18:12)
[2022-03-26] MEDS: POTASSIUM CL 10MEQ/50ML IVPB 50 ML IV SCH ×8 (08:31→16:01)
[2022-03-26] MEDS: MAGNESIUM 1 GM/100 ML IVPB 100 ML IV SCH ×4 (08:31→11:52)
--- NOTE | 2022-03-26 09:43 | Tele-ICU Progress Note ---
Subjective Date Seen by a Provider: Mar 26, 2022 Time Seen by a Provider: 09:42 Subjective/Events-last exam (Tele-ICU Physician , Progress Note ) Available chart/ vitals / labs / Images reviewed Video assessment done using teleICU camera, rest of exam as per RN Discussed with RN Events overnight : Afebrile hemodynamically stable Respiratory - I/O = Drips: Pressors- no Consultants: Hospital course: A/P Altered mental status - CTH negative, now AAO Coagulopathy from Coumadin 8.6 INR -FFP and vitamin K given in ER - AC as per PCP / cards to resume vs NOAC Laceration from fall -now bleeding stopped Anemia - ? acute vs cheonic Electrolyte dysbalance, low protein - reported chronic diarrhea - as per PCP Lines : , (Central Line Necessity Reviewed) Saravia: OG: Nutrition: Analgesia: Anxiety/ delirium VTE Prophylaxis: follwo INR Stress Ulcer Prophylaxis: na Plans in collaboration with bedside consultants and IM MDs. Discussed with RN to reach out if any questions or concerns A total of 10 minutes of critical care time was devoted to this patient today, required to treat and/or prevent further deterioration of critical care condition ( as above ) . Sepsis Event Evaluation Height, Weight, BMI Height: 5'5.00" Weight: 150lbs. oz. 68.991020iu; 22.00 BMI Method:Estimated Exam Exam Patient acknowledged, consented, and participated in this virtual visit which was conducted using real time audio/video Vital Signs Date Time Temp Pulse Resp B/P (MAP) Pulse Ox O2 Delivery O2 Flow Rate FiO2 03/26/22 08:00 72 20 136/82 (100) 96 Room Air 03/26/22 07:25 68 03/26/22 07:23 36.8 64 19 132/72 (92) Room Air 03/26/22 06:00 62 14 130/78 (95) 94 Room Air 03/26/22 05:00 64 124/69 (87) 97 Room Air 03/26/22 04:00 65 132/69 (90) 97 Room Air 03/26/22 04:00 37.6 03/26/22 03:00 70 15 122/63 (82) 98 Room Air 03/26/22 02:00 66 13 124/67 (86) 96 Room Air 03/26/22 01:00 70 03/26/22 00:00 65 12 109/53 (71) 97 Room Air 03/25/22 20:00 Room Air 03/25/22 20:00 125 12 135/71 (92) 98 Room Air 03/25/22 20:00 36.8 03/25/22 19:00 72 03/25/22 18:52 37.3 79 17 115/81 98 Room Air 03/25/22 16:44 36.9 62 20 130/64 98 Room Air 03/25/22 16:29 37.1 62 18 127/74 100 Room Air 03/25/22 16:00 36.4 63 19 127/74 (91) 96 Room Air 03/25/22 14:55 36.4 56 96 03/25/22 14:17 56 03/25/22 14:00 36.2 54 18 114/61 (78) 100 Room Air 03/25/22 14:00 Room Air 03/25/22 13:45 65 18 102/60 98 I & O 03/26/22 07:00 Intake Total 1320 ml Output Total 2 ml Balance 1318 ml Height & Weight Height: 5'5.00" Weight: 150lbs. oz. 68.636848vd; 22.00 BMI Method:Estimated General Appearance: No Apparent Distress, Chronically ill, Thin HEENT: PERRL/EOMI, TMs Normal, Moist Mucous Membranes Neck: Full Range of Motion, Non Tender Respiratory: Lungs Clear, Normal Breath Sounds Cardiovascular: Regular Rate, Rhythm Capillary Refill: Less Than 3 Seconds Extremity: Normal Inspection, No Calf Tenderness, No Pedal Edema Neurologic/Psychiatric: Other (Sedated) Skin: Normal Color, Warm/Dry, Other (skin tear 3cm left forearm; mild bleeding; large hematoma left forehead - no opem wounds there.) Results Lab Laboratory Tests 03/25/22 09:32 03/26/22 04:45 Assessment/Plan Assessment/Plan 1 CM RIVERA MD Mar 26, 2022 09:43
[2022-03-26] MEDS ORDERED: traZODone 100 MG (DESYREL) TAB PO PRN (11:30)
[2022-03-26] MEDS ORDERED: ONDANSETRON 4 MG (ZOFRAN) ORAL DISSOLVE TAB PO PRN (11:30)
--- NOTE | 2022-03-26 11:40 | Physical Therapy Evaluation ---
PT Evaluation-General Medical Diagnosis Admission Date Mar 25, 2022 at 11:54 Medical Diagnosis: Mental status change; arm and head contusion from fall Onset Date: Mar 25, 2022 Therapy Diagnosis Therapy Diagnosis: impairment of mobility Height/Weight Height (Feet): 5 Height (Inches): 5.00 Weight (Pounds): 150 Precautions Precautions/Isolations: Fall Prevention, Standard Precautions Weight Bear Status Full Weight Bearing Full Weight Bearing Referral Physician: Ruth Grayson Reason for Referral: Evaluation/Treatment Medical History Pertinent Medical History: Atrial Fib, COPD, Hypothroidism Additional Medical History Multiple Myeloma, depression, anxiety Current History Pt admitted to ER with skin tear to the right arm. Pt has no recollection of falling. In the ER she was found to have a laceration on her head as well as a contusion. Pt had altered mental status with confusion and agitation. Social History Current Living Status: Alone Pt reports she lives alone. She does not use an assistive device for mobility but admits she was unsteady and fatigued easily prior to this event. Prior Prior Level of Function SCALE: Activities may be completed with or without assistive devices. 5-Hoxrwnghke-gcujkjj completes the activity by him/herself with no assistance from a helper. 5-Set-up or Clean-up Assistance-helper sets up or cleans up; patient completes activity. [place] assists only prior to or following the activity. 4-Supervision or Touching Assistance-helper provides verbal cues and/or touching/steadying and/or contact guard assistance as patient completes activity. Assistance may be provided throughout the activity or intermittently. 3-Partial/Moderate Assistance-helper does LESS THAN HALF the effort. [place] lifts, holds or supports trunk or limbs, but provides less than half the effort. 2-Substantial/Maximal Assistance-helper does MORE THAN HALF the effort. [place] lifts or holds trunk or limbs and provides more than half the effort. 7-Fmtyumyow-vtxzkq does ALL the effort. Patient does none of the effort to complete the activity. Or, the assistance of 2 or more helpers is required for the patient to complete the activity. If activity was not attempted, code reason: 7-Patient Refused. 9-Not Applicable-not attempted and the patient did not perform the activity before the current illness, exacerbation or injury. 10-Not Attempted due to Environmental Limitations-(lack of equipment, weather restraints, etc.). 88-Not Attempted due to Medical Conditions or Safety Concerns. Bed Mobility: 6 Transfers (B,C,W/C): 6 Gait: 6 Stairs: 6 PT Evaluation-Current Subjective Pt reports she has no recollection of falling. She admits to having physical decline, especially since being treated for her myelomo. Objective Patient Orientation: Person, Place, Time, Situation Attachments: Saravia Catheter, IV ROM/Strength ROM Lower Extremities WFL Strength Lower Extremities WFL Sensory Vision: Functional Hearing: Functional Sensation Right Upper Extremit: Intact Sensation Left Upper Extremity: Intact Transfers Roll Left to Right (QC): 6 Sit to Lying (QC): 6 Lying to Sitting/Side of Bed(Q: 6 Sit to Stand (QC): 4 Chair/Bxy-nl-Jxoiw Xfer(QC): 4 Min Assist for balance transitioning sit to stand. She did not need physical assist for lifting Gait Does the Patient Walk?: Yes Mode of Locomotion: Walk Anticipated Mode of Locomotion: Walk Walk 50 ft with 2 Turns(QC): 4 Gait Assistive Device: None Comments/Gait Description Ambulate 50ft with assist for IV pole and hand held assist for minor steadying of balance. Balance Sitting Static: Normal Sitting Dynamic: Normal Standing Static: Fair Standing Dynamic: Fair Assessment/Needs Pt has decreased strength and functional mobility due to disuse muscle atrophy and balance loss. She will benefit from PT to address strength, balance, and mobility issues. Rehab Potential: Good PT Hydroelectric Component Machinist Goals Hydroelectric Component Machinist Goals PT Usp Goals Time Frame: Apr 02, 2022 Roll Left & Right (QC): 6 Sit to Lying (QC): 6 Lying-Sitting on Side/Bed(QC): 6 Sit to Stand (QC): 6 Chair/Ghv-zq-Rojqw Xfer(QC): 6 Toilet Transfer (QC): 6 Walk 150 ft (QC): 6 4 Steps (QC): 6 PT Plan Problem List Problem List: Activity Tolerance, Functional Strength, Balance, Gait, Transfer Treatment/Plan Treatment Plan: Continue Plan of Care Treatment Plan: Bed Mobility, Education, Functional Strength, Gait Treatment Duration: Apr 02, 2022 Frequency: 11 times per week Estimated Hrs Per Day: .25 hour per day Patient and/or Family Agrees t: Yes Discharge Recommendations Target Placement home with home health services Time/GCodes Time In: 1015 Time Out: 1030 Total Billed Treatment Time: 15 Total Billed Treatment visit, evaluation moderate complexity 15min JEIMY MORRISON PT Mar 26, 2022 11:40
--- NOTE | 2022-03-26 11:59 | Occupational Therapy Eval ---
OT Evaluation-General/PLF Medical Diagnosis Admission Date Mar 25, 2022 at 11:54 Medical Diagnosis: Chonic anticoalgulation, concussion Onset Date: Mar 25, 2022 Therapy Diagnosis Therapy Diagnosis: impaired endurance Height/Weight Height (Feet): 5 Height (Inches): 5.00 Weight (Pounds): 150 Precautions Precautions/Isolations: Fall Prevention, Standard Precautions Safety Interventions: Bed Exit Alarm Referral Physician: Ruth Grayson Medical History Pertinent Medical History: Atrial Fib, COPD, Hypothroidism Current History Pt admitted to ER with skin tear to the right arm. Pt has no recollection of falling. In the ER she was found to have a laceration on her head as well as a contusion. Pt had altered mental status with confusion and agitation. Per patient, she lives alone in a single story home. Indep with adls and iadls at baseline, however does report fatigue/difficulty with bathing. She reports she was not using any AD but does own a walker. Reviewed History: Yes Social History Home: Single Level Current Living Status: Alone Steps Into Home: 1 Steps Inside Home: 0 ADL-Prior Level of Function SCALE: Activities may be completed with or without assistive devices. 1-Olrlplzjxe-oabxvks completes the activity by him/herself with no assistance from a helper. 5-Set-up or Clean-up Assistance-helper sets up or cleans up; patient completes activity. [place] assists only prior to or following the activity. 4-Supervision or Touching Assistance-helper provides verbal cues and/or touching/steadying and/or contact guard assistance as patient completes activity. Assistance may be provided throughout the activity or intermittently. 3-Partial/Moderate Assistance-helper does LESS THAN HALF the effort. [place] lifts, holds or supports trunk or limbs, but provides less than half the effort. 2-Substantial/Maximal Assistance-helper does MORE THAN HALF the effort. [place] lifts or holds trunk or limbs and provides more than half the effort. 6-Dfizxkpie-gqzkvy does ALL the effort. Patient does none of the effort to complete the activity. Or, the assistance of 2 or more helpers is required for the patient to complete the activity. If activity was not attempted, code reason: 7-Patient Refused. 9-Not Applicable-not attempted and the patient did not perform the activity before the current illness, exacerbation or injury. 10-Not Attempted due to Environmental Limitations-(lack of equipment, weather restraints, etc.). 88-Not Attempted due to Medical Conditions or Safety Concerns. Self Care: Independent Functional Cognition: Independent DME/Equipment: Tub/Shower (Pt reports sometimes she sits down in the tub to "soak" ) Drive Self: Yes (Car is broken down at the moment) OT Current Status Subjective Pt laying in bed with nurse tech in room upon arrival. She agrees to a OT therapy eval. Appearance Pt left lying in bed with all needs within reach. Mental Status/Objective Patient Orientation: Person, Place, Time, Situation Attachments: IV, Telemetry Current Glasses/Contacts: Yes (readers) Hearing Aids: No Dentures/Partials: Yes (at home) Upper Extremity ROM WNL for all ROM [place] Upper Extremity Coordination WNL Upper Extremity Sensation WNL Upper Extremity Strength 5/5 WNL Edema: None ADL-Treatment Eating (QC): 6 Oral Hygiene (QC): 6 (per clinical) Lower Body Dressing (QC): 6 (per clinical judgement) On/Off Footwear (QC): 6 Bed mobility: indep. Good sitting balance at edge. She was able to don/doff bilateral socks without difficulty. She stood with close supervision and able to maintain her balance without UE support. Pt reached in multiple planes, no LOB. Thus, anticipate no difficulty with managing clothing pre/post toileting. Pt does report that at home, she fatigues easily after bathing. Pt does have decreased endurance/strength due to disuse muscle atrophy. She could benefit from short term OT for education on energy conservation strategies/AE and overall strengthening. Education OT Patient Education: Purpose of tx/functional activities, Rehab process Teaching Recipient: Patient Teaching Methods: Discussion Response to Teaching: Verbalize Understanding OT Rod Tape Operator Goals Rod Tape Operator Goals Time Frame: Apr 02, 2022 Eating (QC): 6 Oral Hygiene (QC): 6 Toileting Hygiene (QC): 6 Shower/Bathe Self (QC): 6 Upper Body Dressing (QC): 6 Lower Body Dressing (QC): 6 On/Off Footwear (QC): 6 Indep with home exercise program Additional Goals: 1-Demonstrate ADL Tasks, 2-Verbalize Understanding, 3- ImproveStrength/[place] 1=Demonstrate adherence to instructed precautions during ADL tasks. 2=Patient will verbalize/demonstrate understanding of assistive devices/modifications for ADL. 3=Patient will improve strength/tolerance for activity to enable patient to perform ADL's. OT Education/Plan Problem List/Assessment Assessment: Decreased Activ Tolerance, Impaired I ADL's Discharge Recommendations Plan/Recommendations: Continue POC Therapy Discharge Recommendati: Home & Family (anticipate return home pending progress) Equpiment Recommendations-D/C: Bath Chair Treatment Plan/Plan of Care Treatment,Training & Education: Yes Patient would benefit from OT for education, treatment and training to promote independence in ADL's, mobility, safety and/or upper extremity function for ADL's. Plan of Care: ADL Retraining, Functional Mobility, UE Funct Exercise/Act Treatment Duration: Apr 02, 2022 Frequency: 3 times per week (3-5 per week) Estimated Hrs Per Day: .25 hour per day Agreement: Yes Rehab Potential: Fair Time/GCodes Start Time: 11:10 Stop Time: 11:28 Total Time Billed (hr/min): 18 Billed Treatment Time 1 visit Rea Dela Cruz OT Mar 26, 2022 11:59
[2022-03-26] MEDS ORDERED: FENTANYL PATCH REMOVAL TP SCH (12:59)
[2022-03-26] MEDS ORDERED: fentaNYL PATCH 25 MCG (DURAGESIC) TD SCH (13:00)
--- NOTE | 2022-03-26 16:04 | Consultation-Cardiology ---
HPI-Cardiology Cardiology Consultation: Date of Consultation 03/26/22 Time Seen by a Provider: 13:30 Date of Admission Attending Physician Keysha,Local Physician Admitting Physician Admitting Physician: Ruth Grayson DO Attending Physician: Ruth Grayson DO Consulting Physician DIANNE KESSLER MD, MA, FACP, FACC, FSCAI, CCDS Physician requesting consult: Dr Grayson HPI: Chief Complaint: Reason for Card consultation: H/o A Fib 71 yo woman admitted to Dr Grayson after she presented to the ER for treatment of an injury to the L forearm. This has been managed by the ER physician and Dr Grayson. The patient states that she had returned home from the grocery store and does not recall anything after that until she awoke on the floor and found herself bleeding from the L arm/forearm. She thinks she may have passed out. Has never passed out before. Does report a h/o A Fib diagnosed many years ago and for which she has followed with a senior construction project manager in [place]. Has recently moved here and has established pcp care with [facility] in [place], [place]. Has been on warfarin managed by her pcp. Was found to have significant elevated INR at admission. Denies cp or syncope. Occasionally has a feeling of pal (rapid, irreg heart beat) that resolves in a few min. This is chronic. Denies swelling. Denies fever or chills. Lives by herself Review of Systems-Cardiology Review of Systems Constitutional: malaise, tiredness; No weight loss, No weight gain Eyes: No vision change Ears/Nose/Throat: No ear discharge, No nasal drainage, No recent hearing loss Respiratory: As described under HPI Cardiovascular: As described under HPI Gastrointestinal: No diarrhea, No nausea, No vomiting Genitourinary: No dysuria, No hematuria, No urine frequency changes : No Musculoskeletal: back pain (chronic) Skin: other (she HPI) Psychiatric/Neurological: syncope (see HPI); No seizure, No focal weakness Hematologic: other (see HPI); No bleeding abnormalities All Other Systems Reviewed Negative Unless Noted: Yes SVF-Jjoggz-Hhxwii Hx Patient Social History Marrital Status: single Smoking Status: Current Everyday Smoker Have you traveled recently?: No Alcohol Use?: No Pt feels they are or have been: No Tobacco type used: Cigarettes Past Medical History PMH As described under Assessment. Family Medical History Family Medical History: Does not report fam h/o early CAD Allergies and Home Medications Allergies Coded Allergies: Penicillins (Verified Allergy, Severe, RASH, 03/03/17) Patient Home Medication List Home Medication List Reviewed: Yes Allopurinol (Allopurinol) 100 Mg Tablet, 100 MG PO DAILY, (Reported) Entered as Reported by: KELLI OSORIO on 03/25/221432 Last Action: Continued Amiodarone HCl (Amiodarone HCl) 200 Mg Tablet, 200 MG PO DAILY, (Reported) Entered as Reported by: KELLI OSORIO on 03/25/221432 Last Action: Continued Buspirone HCl (Buspirone HCl) 10 Mg Tablet, (Reported) Entered as Reported by: PRASHANT MINOR on 03/03/17 1648 Last Action: Held Fentanyl (Fentanyl Patch 25 MCG) 25 Mcg/Hour Patch.td72, 25 MCG TD Q72H, (Reported) Entered as Reported by: KELLI OSORIO on 03/25/221432 Last Action: Continued Hydrocodone/Acetaminophen (Hydrocodone-Acetamin 10-325 mg) 10 Mg-325 Mg Tablet, 10-325 MG PO TID PRN for PAIN-MODERATE (5-7), (Reported) Entered as Reported by: KELLI OSORIO on 03/25/221432 Last Action: Continued Levothyroxine Sodium (Euthyrox) 50 Mcg Tablet, 50 MG PO DAILY, (Reported) Entered as Reported by: KELLI OSORIO on 03/25/221432 Last Action: Continued Lidocaine (Lidocaine 5% Patch) 5 % Adh..patch, 1 PATCH TD DAILY, (Reported) Entered as Reported by: KELLI OSORIO on 03/25/221432 Last Action: Continued Metoprolol Tartrate (Metoprolol Tartrate) 25 Mg Tablet, 25 MG PO BID, (Reported) Entered as Reported by: KELLI OSORIO on 03/25/221432 Last Action: Continued Omeprazole (Omeprazole) 20 Mg Capsule.dr, 20 MG PO DAILY, (Reported) Entered as Reported by: KELLI OSORIO on 03/25/221432 Last Action: Continued Ondansetron (Ondansetron Odt) 4 Mg Tab.rapdis, 4 MG PO Q8H PRN for NAUSEA-1ST LINE, (Reported) Entered as Reported by: KELLI OSORIO on 03/25/221432 Last Action: Continued Potassium Chloride (Potassium Chloride) 20 Meq Tab.er.prt, 20 MEQ PO DAILY, (Reported) Entered as Reported by: KELLI OSORIO on 03/25/221432 Last Action: Continued Prednisone (Prednisone) 20 Mg Tab, 20 MG PO BID Prescribed by: CLAUDIA LARSON on 03/03/171855 Last Action: Held Trazodone HCl (Trazodone HCl) 100 Mg Tablet, 100 MG PO HS PRN for SLEEP, (Report ed) Entered as Reported by: KELLI OSORIO on 03/25/221432 Last Action: Continued Warfarin Sodium (Warfarin Sodium) 2.5 Mg Tablet, 2.5 MG PO DAILY, (Reported) Entered as Reported by: KELLI OSORIO on 03/25/221432 Last Action: Held Discontinued Medications Levothyroxine Sodium (Levothyroxine Sodium) 25 Mcg Tablet, (Reported) Discontinued Reason: No Longer Taking Entered as Reported by: PRASHANT MINOR on 03/03/171647 Last Action: Discontinued Lorazepam (Lorazepam) 1 Mg Tablet, (Reported) Discontinued Reason: No Longer Taking Entered as Reported by: PRASHANT MINOR on 03/03/171647 Last Action: Discontinued Tramadol HCl (Tramadol HCl) 50 Mg Tablet, (Reported) Discontinued Reason: No Longer Taking Entered as Reported by: PRASHANT MINOR on 03/03/171647 Last Action: Discontinued Tramadol HCl (Tramadol HCl) 50 Mg Tablet, 50 MG PO Q4H PRN for pain Discontinued Reason: No Longer Taking Prescribed by: CLAUDIA LARSON on 03/03/171855 Last Action: Discontinued [Trazodone] , (Reported) Discontinued Reason: No Longer Taking Entered as Reported by: PRASHANT MINOR on 03/03/171647 Last Action: Discontinued Physical Exam-Cardiology Physical Exam Vital Signs/I&O 03/26/22 03/26/22 03/26/22 03/26/22 04:00 04:00 05:00 06:00 Temp 37.6 Pulse 65 64 62 Resp 14 B/P (MAP) 132/69 (90) 124/69 (87) 130/78 (95) Pulse Ox 97 97 94 O2 Delivery Room Air Room Air Room Air 03/26/22 03/26/22 03/26/22 03/26/22 07:23 07:25 08:00 08:40 Temp 36.8 Pulse 64 68 72 Resp 19 20 B/P (MAP) 132/72 (92) 136/82 (100) Pulse Ox 96 O2 Delivery Room Air Room Air Room Air 03/26/22 03/26/22 03/26/22 03/26/22 09:53 10:00 11:00 12:00 Temp 37.1 Pulse 62 74 78 Resp 16 11 19 17 B/P (MAP) 132/61 (84) 132/94 (107) 113/51 (71) Pulse Ox 92 90 90 98 O2 Delivery Room Air Room Air Room Air Room Air 03/26/22 03/26/22 12:36 14:00 Pulse 76 75 Resp 31 B/P (MAP) 138/80 (99) Pulse Ox 91 O2 Delivery Room Air 03/26/22 00:00 Intake Total 720 ml Output Total 2 ml Balance 718 ml Capillary Refill : Less Than 3 Seconds Constitutional: AAO x 3, well-developed, well-nourished HEENT: EOMI, hearing is well preserved; No xanthelasmas are seen Respiratory: No accessory muscle use; other (fair to good, bilat air entry) Cardiovascular: regular rate-rhythm, S1 and S2, systolic murmur (soft DOMONIQUE at card base) Gastrointestinal: No tender; soft; No guarding, No rebound; audible bowel sounds Extremities: No clubbing, No cyanosis, No significant edema Neurologic/Psychiatric: oriented x 3, other (moves all limbs equally) Skin: No rash, No ulcerations; other (L elbow and upper forearm under dressing) Data Review Labs Laboratory Tests 03/26/22 04:45: White Blood Count 3.2L, Red Blood Count 2.11L, Hemoglobin 7.5L, Hematocrit 23L, Mean Corpuscular Volume 107H, Mean Corpuscular Hemoglobin 36H, Mean Corpuscular Hemoglobin Concent 33, Red Cell Distribution Width 17.2H, Platelet Count 106L, Mean Platelet Volume 11.6, Immature Granulocyte % (Auto) 1, Neutrophils (%) (Auto) 48, Lymphocytes (%) (Auto) 33, Monocytes (%) (Auto) 14H, Eosinophils (%) (Auto) 4, Basophils (%) (Auto) 1, Neutrophils # (Auto) 1.5L, Lymphocytes # (Auto) 1.1, Monocytes # (Auto) 0.5, Eosinophils # (Auto) 0.1, Basophils # (Auto) 0.0, Immature Granulocyte # (Auto) 0.0, Percent Immature Platelet Fraction 4.7, Prothrombin Time 17.7H, INR Comment 1.4, Sodium Level 143, Potassium Level 2.9L, Chloride Level 114H, Carbon Dioxide Level 20L, Anion Gap 9, Blood Urea Nitrogen 20H, Creatinine 1.00, Estimat Glomerular Filtration Rate 59, BUN/Creatinine Ratio 20, Glucose Level 91, Calcium Level 7.0L, Corrected Calcium 8.3L, Magnesium Level 1.2L, Total Bilirubin 0.5, Aspartate Amino Transf (AST/SGOT) 33, Alanine Aminotransferase (ALT/SGPT) 33, Alkaline Phosphatase 65, Total Protein 4.3L, Albumin 2.4L Laboratory Tests 03/25/22 09:32 03/26/22 04:45 A/P-Cardiology Assessment/Admission Diagnosis Syncope of undetermined etiology PAF, by history - currently NSR Supra-therapeutic INR Chronic tobacco use H/o hypertension Electrolyte abnormalities Discussion and Recomendations * Replenish electrolytes * Monitor labs * Keep on tele * Consider ILR * Echo * D/c warfarin. Consider NOACs after INR returns to below 2 * Advised to quit smoking immediately and completely Clinical Quality Measures DVT/VTE Risk/Contraindication: Contraindications-Pharm: Other *list below* Other: coagulopathy DIANNE KESSLER MD [facility] Mar 26, 2022 16:04
[2022-03-26] MEDS: meTOprolol TARTRATE 25 MG (LOPRESSOR) TABLET PO SCH (20:27)
[2022-03-27 00:44] VITALS: BP 139/73
[2022-03-27 04:24] VITALS: BP 127/62
[2022-03-27 05:37] LABS: HEMOGLOBIN 7.8 g/dL (11.5-16.0)
[2022-03-27 05:38] LABS: BASOPHILS % (AUTO) 1 % (0-10); EOSINOPHILS # (AUTO) 0.1 10^3/uL (0.0-0.3); EOSINOPHILS % (AUTO) 3 % (0-10); HEMATOCRIT 24 % (35-52); LYMPHOCYTES # (AUTO) 1.1 10^3/uL (1.0-4.0); LYMPHOCYTES % (AUTO) 34 % (12-44); MEAN CORPUSCULAR HEMOGLOBIN 36 pg (25-34); MEAN CORPUSCULAR HGB CONC 33 g/dL (32-36); MEAN CORPUSCULAR VOLUME 109 fL (80-99); MONOCYTES # (AUTO) 0.7 10^3/uL (0.0-1.0); MONOCYTES % (AUTO) 20 % (0-12); NEUTROPHILS # (AUTO) 1.4 10^3/uL (1.8-7.8); NEUTROPHILS % (AUTO) 41 % (42-75); PLATELET COUNT 116 10^3/uL (130-400); WHITE BLOOD COUNT 3.4 10^3/uL (4.3-11.0)
[2022-03-27 05:44] LABS: INR 1.1 (0.8-1.4); PROTHROMBIN TIME PATIENT 14.4 SEC (12.2-14.7)
[2022-03-27 05:46] LABS: ALBUMIN 2.4 GM/DL (3.2-4.5); POTASSIUM 4.1 MMOL/L (3.6-5.0)
[2022-03-27 05:47] LABS: CALCIUM 6.9 MG/DL (8.5-10.1)
[2022-03-27 05:49] LABS: TOTAL PROTEIN 4.4 GM/DL (6.4-8.2)
[2022-03-27 05:50] LABS: BILIRUBIN,TOTAL 0.5 MG/DL (0.1-1.0)
[2022-03-27 05:52] LABS: CREATININE SERUM 0.83 MG/DL (0.60-1.30)
[2022-03-27] MEDS ORDERED: LEVOTHYROXINE 50 MCG (LEVOTHROID) TAB PO SCH (06:30)
[2022-03-27 07:51] VITALS: BP 136/69
[2022-03-27] MEDS: DOCUSATE SODIUM 100 MG (COLACE) CAP PO SCH (08:06)
[2022-03-27] MEDS: SENNOSIDES 8.6 MG (SENOKOT) TAB PO SCH (08:06)
[2022-03-27] MEDS: KCL 20 MEQ TAB (K-DUR) PO SCH ×2 (08:13→13:33)
[2022-03-27] MEDS: meTOprolol TARTRATE 25 MG (LOPRESSOR) TABLET PO SCH (08:13)
[2022-03-27] MEDS ORDERED: LIDOCAINE 4% (SALONPAS) PATCH TOP SCH (09:00)
[2022-03-27] MEDS ORDERED: KCL 20 MEQ TAB (K-DUR) PO SCH (09:00)
[2022-03-27] MEDS ORDERED: ALLOPURINOL 100 MG (ZYLOPRIM) TAB PO SCH (09:00)
[2022-03-27] MEDS ORDERED: AMIODARONE 200 MG (CORDARONE) TAB PO SCH (09:00)
[2022-03-27] MEDS ORDERED: PANTOPRAZOLE 20 MG TABLET (PROTONIX) PO SCH (09:00)
[2022-03-27] MEDS ORDERED: OMEPRAZOLE 20 MG (PriLOSEC) CAP NON-FORMULARY PO SCH (09:00)
--- NOTE | 2022-03-27 10:26 | Physical Therapy Daily Note ---
PT Daily Note-Current Subjective Patient is very agreeable to participate with PT. Mental Status Patient Orientation: Normal For Age Transfers SCALE: Activities may be completed with or without assistive devices. 2-Ylnqhflyvq-lffmrnz completes the activity by him/herself with no assistance from a helper. 5-Set-up or Clean-up Assistance-helper sets up or cleans up; patient completes activity. Eckley assists only prior to or following the activity. 4-Supervision or Touching Assistance-helper provides verbal cues and/or touching/steadying and/or contact guard assistance as patient completes activity. Assistance may be provided throughout the activity or intermittently. 3-Partial/Moderate Assistance-helper does LESS THAN HALF the effort. Eckley lifts, holds or supports trunk or limbs, but provides less than half the effort. 2-Substantial/Maximal Assistance-helper does MORE THAN HALF the effort. Eckley lifts or holds trunk or limbs and provides more than half the effort. 5-Qzrzbkhit-wxwysz does ALL the effort. Patient does none of the effort to complete the activity. Or, the assistance of 2 or more helpers is required for the patient to complete the activity. If activity was not attempted, code reason: 7-Patient Refused. 9-Not Applicable-not attempted and the patient did not perform the activity before the current illness, exacerbation or injury. 10-Not Attempted due to Environmental Limitations-(lack of equipment, weather restraints, etc.). 88-Not Attempted due to Medical Conditions or Safety Concerns. Lying to Sitting/Side of Bed(Q: 6 Sit to Stand (QC): 6 Chair/Aqx-al-Uqetp Xfer(QC): 6 Weight Bearing Full Weight Bearing Full Weight Bearing Gait Training Distance: 500' Walk 10 feet (QC): 6 Walk 150 ft (QC): 6 Gait Assistive Device: None safe and functional with no deviation Assessment Patient is currently independent with all gross motor skills and does not require skilled PT intervention. PT to dismiss patient from services at this time. PT [facility] Goals Cloth Tester Goals PT [facility] Goals Time Frame: Apr 02, 2022 Roll Left & Right (QC): 6 Sit to Lying (QC): 6 Lying-Sitting on Side/Bed(QC): 6 Sit to Stand (QC): 6 Chair/Boj-qa-Sigtq Xfer(QC): 6 Toilet Transfer (QC): 6 Walk 150 ft (QC): 6 4 Steps (QC): 6 PT Plan Treatment/Plan Treatment Plan: Continue Plan of Care Treatment Plan: Bed Mobility, Education, Functional Strength, Gait Treatment Duration: Apr 02, 2022 Frequency: 11 times per week Estimated Hrs Per Day: .25 hour per day Patient and/or Family Agrees t: Yes Time/GCodes Time In: 901 Time Out: 910 Total Billed Treatment Time: 9 Total Billed Treatment 1 visit FA 9 min ODILON HENDRICKSON PT Mar 27, 2022 10:26
[2022-03-27] MEDS ORDERED: LIDOCAINE 1% INJ 20 ML VIAL ONE (11:00)
--- NOTE | 2022-03-27 11:00 | Discharge Summary ---
Discharge Summary Hospital Course Hospital Course Date of Admission: Mar 25, 2022 at 11:54 Admission Diagnosis : Family Physician/Provider: KeyshaLocal Physician Date of Discharge: 03/27/22 Discharge Diagnosis: [ ] Hospital Course: [ ] Labs and Pending Lab Test: Laboratory Tests 03/27/22 05:08: White Blood Count 3.4L, Red Blood Count 2.19L, Hemoglobin 7.8L, Hematocrit 24L, Mean Corpuscular Volume 109H, Mean Corpuscular Hemoglobin 36H, Mean Corpuscular Hemoglobin Concent 33, Red Cell Distribution Width 18.0H, Platelet Count 116L, Mean Platelet Volume 11.0, Immature Granulocyte % (Auto) 2, Neutrophils (%) (Auto) 41L, Lymphocytes (%) (Auto) 34, Monocytes (%) (Auto) 20H, Eosinophils (%) (Auto) 3, Basophils (%) (Auto) 1, Neutrophils # (Auto) 1.4L, Lymphocytes # (Auto) 1.1, Monocytes # (Auto) 0.7, Eosinophils # (Auto) 0.1, Basophils # (Auto) 0.0, Immature Granulocyte # (Auto) 0.1, Percent Immature Platelet Fraction 3.9, Prothrombin Time 14.4, INR Comment 1.1, Sodium Level 143, Potassium Level 4.1, Chloride Level 119H, Carbon Dioxide Level 18L, Anion Gap 6, Blood Urea Nitrogen 17, Creatinine 0.83, Estimat Glomerular Filtration Rate 74, BUN/Creatinine Ratio 20, Glucose Level 119H, Calcium Level 6.9L, Corrected Calcium 8.2L, Magnesium Level 1.6, Total Bilirubin 0.5, Aspartate Amino Transf (AST/SGOT) 30, Alanine Aminotransferase (ALT/SGPT) 32, Alkaline Phosphatase 65, Total Protein 4.4L, Albumin 2.4L Home Meds Active Reported Amiodarone HCl 200 Mg Tablet 200 Mg PO DAILY Metoprolol Tartrate 25 Mg Tablet 25 Mg PO BID Hydrocodone-Acetamin 10-325 mg (Hydrocodone/Acetaminophen) 10 Mg-325 Mg Tablet 10-325 Mg PO TID PRN Allopurinol 100 Mg Tablet 100 Mg PO DAILY Warfarin Sodium 2.5 Mg Tablet 2.5 Mg PO DAILY take 1 tablet every day except saturday take 1/2 tablet every saturday Trazodone HCl 100 Mg Tablet 100 Mg PO HS PRN Fentanyl Patch 25 MCG (Fentanyl) 25 Mcg/Hour Patch.td72 25 Mcg TD Q72H Ondansetron Odt (Ondansetron) 4 Mg Tab.rapdis 4 Mg PO Q8H PRN Lidocaine 5% Patch (Lidocaine) 5 % Adh..patch 1 Patch TD DAILY Euthyrox (Levothyroxine Sodium) 50 Mcg Tablet 50 Mg PO DAILY Potassium Chloride 20 Meq Tab.er.prt 20 Meq PO DAILY Omeprazole 20 Mg Capsule.dr 20 Mg PO DAILY Discharge Physical Examination Vital Signs Vital Signs Date Time Temp Pulse Resp B/P (MAP) Pulse Ox O2 Delivery O2 Flow Rate FiO2 03/27/22 08:25 Room Air 03/27/22 07:51 37.3 61 18 136/69 (91) 99 Allergies: Coded Allergies: Penicillins (Verified Allergy, Severe, RASH, 03/03/17) Discharge Summary Date of Admission Mar 25, 2022 at 11:54 Date of Discharge Discharge Date: Mar 27, 2022 Admission Diagnosis Assessment: Altered mental status Coagulopathy from Coumadin 8.6 INR Laceration now bleeding stopped Plan: Monitor closely FFP and vitamin K given in ER Discharge Diagnosis Assessment: Altered mental status improved Coagulopathy from Coumadin 8.6 INR now 1.4 s/p 1 unit FFP and vitamin K given in ER Laceration now bleeding stopped AF Falls Plan: Monitor closely Move to 4th Clinical Quality Measures DVT/VTE Risk/Contraindication: Contraindications-Pharm: Other *list below* Other: coagulopathy YANA MAGALLANES DO Mar 27, 2022 11:00
[2022-03-27 11:21] VITALS: BP 133/71
--- NOTE | 2022-03-27 11:51 | Occ Therapy Progress Note ---
Therapy Progress Note OT tx attempted this morning, pt out of room for a procedure. OT will attempt tx next available time. ALISIA ALVARADO OT Mar 27, 2022 11:51
[2022-03-27] MEDS ORDERED: LIDOCAINE 1% INJ 20 ML VIAL INJ ONE (12:00)
--- NOTE | 2022-03-27 12:13 | Progress Note - Hospitalist ---
JACKSON SALMON 03/27/22 1213: Subjective HPI/CC On Admission Date Seen by Provider: Mar 27, 2022 Time Seen by Provider: 12:08 Chief complaint: Altered mental status with coagulopathy HPI: This is a 71-year-old female who presented to the ER with a laceration that was bleeding patient was found to have INR of 8.6. Minimal history obtained from the patient due to confusion and agitation. Patient was wearing a tank top and has bands and other bizarre clothing items on. Subjective/Events-last exam Patient is feeling much better today Appetite is much improving. Chronic back pain is still bothering her, but no pain otherwise She is alert and orientated X3 Bowel movement was solid today 3 day hospital course Patient was admitted on 03-25-2022 after an episode of syncope, causing a laceration to her left forearm. She has a self reported history of A-fib. She has not been managing her INR that last couple of months. After her initial INR value of 8.4 she was started on FFP and vitamin K replacement therapy along with supportive care. She had a CT head scan on 03-25-2022 which showed no interracial hemorrhage or ischemia. Her INR was monitored over her stay and has improved to 1.1. Her back pain was treated adequately over her stay. Cardiology was consulted for her unknown episode of syncope, with possible placement of a loop recorder. Objective Exam Vital Signs Vital Signs Date Time Temp Pulse Resp B/P (MAP) Pulse Ox O2 Delivery O2 Flow Rate FiO2 03/27/22 11:21 37.2 60 18 133/71 (91) 98 Room Air Capillary Refill : Less Than 3 Seconds General Appearance: No Apparent Distress, WD/WN HEENT: Moist Mucous Membranes; No Pale Conjunctivae (R) Neck: Full Range of Motion, Normal Inspection, Non Tender, Supple Respiratory: Chest Non Tender, Lungs Clear, Normal Breath Sounds, No Accessory Muscle Use Cardiovascular: No Edema, No Gallop, No JVD Gastrointestinal: Normal Bowel Sounds, No Pulsatile Mass Rectal: Deferred Back: Decreased Range of Motion, Vertebral Tenderness Extremity: Normal Inspection, Normal Range of Motion Neurologic/Psychiatric: Alert, Oriented x3 Skin: Normal Color, Warm/Dry Lymphatic: No Adenopathy Results/Procedures Lab Laboratory Tests 03/27/22 05:08 Patient resulted labs reviewed. Assessment/Plan Assessment and Plan Assess & Plan/Chief Complaint Assessment/Plan: Coagulopathy with INR of 8.6-resolved Continue to montior and make sure patient has plan in place to monitor after discharge HTN Continue home medications Syncope of unknown origin Cardiology consulted Self reported A-fib Cardiology consulted Laceration of left forearm Wound was dressed and cleaned, watch for infection Clinical Quality Measures DVT/VTE Risk/Contraindication: Contraindications-Pharm: Other *list below* Other: coagulopathy RUTH MAGALLANES DO 03/27/222050: Supervisory-Addendum Brief Verification & Attestation Participated in pt care: history, MDM, physical Personally performed: exam, history, MDM, supervision of care Care discussed with: Medical Student Procedures: n/a Results interpretation: Verified all documentation Verification and Attestation of Medical Student E/M Service A medical student performed and documented this service in my presence. I reviewed and verified all information documented by the medical student and made modifications to such information, when appropriate. I personally performed the physical exam and medical decision making. Ruth Magallanes Mar 27, 2022,20:51 JACKSON SALMON Mar 27, 2022 12:13 RUTH MAGALLANES DO Mar 27, 2022 20:51
--- NOTE | 2022-03-27 12:19 | Progress Note - Cardiology ---
Cardiology SOAP Progress Note Subjective: No cp or palp or syncope or shortness of breath Chronic gen pain as before No focal weakness Chronic gen weakness as before Objective: I&O/Vital Signs 03/27/22 03/27/22 03/27/22 03/27/22 00:44 01:00 04:24 07:20 Temp 37.2 36.7 Pulse 69 75 59 57 Resp 20 20 B/P (MAP) 139/73 (95) 127/62 (83) Pulse Ox 96 99 O2 Delivery Room Air Room Air 03/27/22 03/27/22 03/27/22 07:51 08:25 11:21 Temp 37.3 37.2 Pulse 61 60 Resp 18 18 B/P (MAP) 136/69 (91) 133/71 (91) Pulse Ox 99 98 O2 Delivery Room Air Room Air Room Air 03/27/22 00:00 Intake Total 970 ml Output Total 925 ml Balance 45 ml Weight (Pounds): 150 Weight (Calculated Kilograms): [id number] Constitutional: AAO x 3, well-developed, well-nourished Respiratory: No accessory muscle use; other (fair to good, bilat air entry) Cardiovascular: regular rate-rhythm, S1 and S2, systolic murmur (soft DOMONIQUE at card base) Gastrointestional: No tender; soft; No guarding, No rebound; audible bowel sounds Extremities: No clubbing, No cyanosis, No significant edema Neurologic/Psychiatric: oriented x 3, other (moves all limbs equally) Skin: No rash, No ulcerations; other (L elbow and upper forearm under dressing) Results/Procedures: Labs Laboratory Tests 03/27/22 05:08: White Blood Count 3.4L, Red Blood Count 2.19L, Hemoglobin 7.8L, Hematocrit 24L, Mean Corpuscular Volume 109H, Mean Corpuscular Hemoglobin 36H, Mean Corpuscular Hemoglobin Concent 33, Red Cell Distribution Width 18.0H, Platelet Count 116L, Mean Platelet Volume 11.0, Immature Granulocyte % (Auto) 2, Neutrophils (%) (Auto) 41L, Lymphocytes (%) (Auto) 34, Monocytes (%) (Auto) 20H, Eosinophils (%) (Auto) 3, Basophils (%) (Auto) 1, Neutrophils # (Auto) 1.4L, Lymphocytes # (Auto) 1.1, Monocytes # (Auto) 0.7, Eosinophils # (Auto) 0.1, Basophils # (Auto) 0.0, Immature Granulocyte # (Auto) 0.1, Percent Immature Platelet Fraction 3.9, Prothrombin Time 14.4, INR Comment 1.1, Sodium Level 143, Potassium Level 4.1, Chloride Level 119H, Carbon Dioxide Level 18L, Anion Gap 6, Blood Urea Nitrogen 17, Creatinine 0.83, Estimat Glomerular Filtration Rate 74, BUN/Creatinine Ratio 20, Glucose Level 119H, Calcium Level 6.9L, Corrected Calcium 8.2L, Magnesium Level 1.6, Total Bilirubin 0.5, Aspartate Amino Transf (AST/SGOT) 30, Alanine Aminotransferase (ALT/SGPT) 32, Alkaline Phosphatase 65, Total Protein 4.4L, Albumin 2.4L Laboratory Tests 03/26/22 04:45 03/27/22 05:08 A/P: Assessment: Syncope of undetermined etiology PAF, by history - currently NSR Supra-therapeutic INR at presentation on 03/25/22 Severe anemia of undetermined etiology - Dr Grayson managing Chronic tobacco use H/o hypertension Elec abnormalities, corrected TSH normal on 03/25/22 Plan: * ILR implanted, given syncope in the setting of known sinus node dysfunction (eval for arrhythmia as a cause of her syncope) * D/c warfarin. Consider NOACs after INR returns to below 2 and anemia evaluated/treated. Dr Grayson/PCP to manage. Discussed with Dr Grayson * Advised to quit smoking immediately and completely * Outpt f/u advised and appointments made. She says she will decide if she wants her cardiac f/u in [place] (where it is currently) or if she will switch to [place], [place] where she currently resides * Advised continuing outpt f/u with pcp (she follows with the [facility] in [place], she says) DIANNE KESSLER MD FACP FAC CCDS Mar 27, 2022 12:19
[2022-03-27] MEDS ORDERED: CYAN500T8 PO (12:40)
[2022-03-27] MEDS ORDERED: WRF2.5T PO (12:40)
[2022-03-27] MEDS ORDERED: FURO20TA4 PO (12:40)
[2022-03-27] MEDS ORDERED: CHOL100048 PO (12:40)
[2022-03-27] MEDS ORDERED: CALC-823 PO ×2 (12:40)
[2022-03-27] MEDS ORDERED: FERR-84 PO (12:40)
[2022-03-27] MEDS ORDERED: BUSP10TA95 PO (12:40)
[2022-03-27] MEDS ORDERED: ASPI-1238 PO (12:40)
--- NOTE | 2022-03-27 15:33 | Discharge Summary ---
Discharge Summary Hospital Course Was the Problem List Reviewed?: Yes Problems/Dx: (1) Warfarin-induced coagulopathy (2) Hematoma of left parietal scalp Status: Acute Qualifiers: Qualified Codes: S00.03XA - Contusion of scalp, initial encounter (3) Skin tear (4) Chronic anticoagulation Status: Acute (5) Concussion (6) Hypokalemia Hospital Course Date of Admission: Mar 25, 2022 at 11:54 Admission Diagnosis : Family Physician/Provider: No,Local Physician Date of Discharge: 03/27/22 Discharge Diagnosis: [ ] Hospital Course: 3 day hospital course Patient was admitted on 03-25-2022 after an episode of syncope, causing a laceration to her left forearm. She has a self reported history of A-fib. She has not been managing her INR that last couple of months. After her initial INR value of 8.4 she was started on FFP and vitamin K replacement therapy along with supportive care. She had a CT head scan on 03-25-2022 which showed no interracial hemorrhage or ischemia. Her INR was monitored over her stay and has improved to 1.1. Her back pain was treated adequately over her stay. Cardiology was consulted for her unknown episode of syncope, with possible placement of a loop recorder. Labs and Pending Lab Test: Laboratory Tests 03/27/22 05:08: White Blood Count 3.4L, Red Blood Count 2.19L, Hemoglobin 7.8L, Hematocrit 24L, Mean Corpuscular Volume 109H, Mean Corpuscular Hemoglobin 36H, Mean Corpuscular Hemoglobin Concent 33, Red Cell Distribution Width 18.0H, Platelet Count 116L, Mean Platelet Volume 11.0, Immature Granulocyte % (Auto) 2, Neutrophils (%) (Auto) 41L, Lymphocytes (%) (Auto) 34, Monocytes (%) (Auto) 20H, Eosinophils (%) (Auto) 3, Basophils (%) (Auto) 1, Neutrophils # (Auto) 1.4L, Lymphocytes # (Auto) 1.1, Monocytes # (Auto) 0.7, Eosinophils # (Auto) 0.1, Basophils # (Auto) 0.0, Immature Granulocyte # (Auto) 0.1, Percent Immature Platelet Fraction 3.9, Prothrombin Time 14.4, INR Comment 1.1, Sodium Level 143, Potassium Level 4.1, Chloride Level 119H, Carbon Dioxide Level 18L, Anion Gap 6, Blood Urea Nitrogen 17, Creatinine 0.83, Estimat Glomerular Filtration Rate 74, BUN/Creatinine Ratio 20, Glucose Level 119H, Calcium Level 6.9L, Corrected Calcium 8.2L, Magnesium Level 1.6, Total Bilirubin 0.5, Aspartate Amino Transf (AST/SGOT) 30, Alanine Aminotransferase (ALT/SGPT) 32, Alkaline Phosphatase 65, Total Protein 4.4L, Albumin 2.4L Home Meds Active Reported Furosemide 20 Mg Tablet 20 Mg PO DAILY Vitamin B-12 (Cyanocobalamin (Vitamin B-12)) 500 Mcg Tablet 500 Mcg PO HS Iron (Ferrous Sulfate) 325 Mg (65 Mg Iron) Tablet 325 Mg PO DAILY Aspirin EC (Aspirin) 81 Mg Tablet.dr 81 Mg PO HS Vitamin D3 (Cholecalciferol (Vitamin D3)) 25 Mcg (1000 Unit) Capsule 75 Mcg PO 1300 Calcium (Calcium Carbonate) 500 Mg Calcium (1250 Mg) Tablet 1,000 Mg PO 1300 Calcium (Calcium Carbonate) 500 Mg Calcium (1250 Mg) Tablet 500 Mg PO BID Buspirone HCl 10 Mg Tablet 5 Mg PO TID TAKES OF A 10MG Warfarin Sodium 2.5 Mg Tablet 1.25 Mg PO MON @HS TAKES OF A 2.5MG Amiodarone HCl 200 Mg Tablet 200 Mg PO DAILY Metoprolol Tartrate 25 Mg Tablet 25 Mg PO BID Hydrocodone-Acetamin 10-325 mg (Hydrocodone/Acetaminophen) 10 Mg-325 Mg Tablet 10-325 Mg PO TID PRN Allopurinol 100 Mg Tablet 100 Mg PO HS Warfarin Sodium 2.5 Mg Tablet 2.5 Mg PO GEORGE,,WE,TH,FR,SA @H Trazodone HCl 100 Mg Tablet 100 Mg PO HS PRN Fentanyl Patch 25 MCG (Fentanyl) 25 Mcg/Hour Patch.td72 25 Mcg TD Q72H Ondansetron Odt (Ondansetron) 4 Mg Tab.rapdis 4 Mg PO Q8H PRN Lidocaine 5% Patch (Lidocaine) 5 % Adh..patch 1-2 Patch TD DAILY PRN APPLY TO LOWER BACK Euthyrox (Levothyroxine Sodium) 50 Mcg Tablet 50 Mg PO DAILY Potassium Chloride 20 Meq Tab.er.prt 20 Meq PO DAILY Omeprazole 20 Mg Capsule.dr 20 Mg PO DAILY Assessment/Pt Instructions PCP 1 week Discharge Planning: <30 minutes discharge planning Discharge Instructions Discharge Diet: No Restrictions Discharge Physical Examination Vital Signs Vital Signs Date Time Temp Pulse Resp B/P (MAP) Pulse Ox O2 Delivery O2 Flow Rate FiO2 03/27/22 12:09 58 03/27/22 11:21 37.2 18 133/71 (91) 98 Room Air General Appearance: No Apparent Distress, WD/WN, Chronically ill Allergies: Coded Allergies: Penicillins (Verified Allergy, Severe, RASH, 03/03/17) Discharge Summary Date of Admission Mar 25, 2022 at 11:54 Date of Discharge Discharge Date: Mar 27, 2022 Admission Diagnosis Assessment: Altered mental status Coagulopathy from Coumadin 8.6 INR Laceration now bleeding stopped Plan: Monitor closely FFP and vitamin K given in ER Discharge Diagnosis Assessment: Altered mental status improved Coagulopathy from Coumadin 8.6 INR now 1.4 s/p 1 unit FFP and vitamin K given in ER Laceration now bleeding stopped AF Falls Plan: Monitor closely Move to 4th Clinical Quality Measures DVT/VTE Risk/Contraindication: Contraindications-Pharm: Other *list below* Other: coagulopathy YANA MAGALLANES DO Mar 27, 2022 15:33
[2022-03-27 15:45] VITALS: BP 159/75
[2022-03-27 17:57] VITALS: BP 159/75
[2022-03-27] MEDS ORDERED: [UNRECOGNIZED DRUG - REMARK] TP SCH (21:00)
== END 2022-03-27 17:58 | disposition home health service (06) | DRG 813 ==
LOC: EDUNIT# 08:36 → ER 08:37 → CSD 11:54 → ICU 18:16 → 4TH 03-26 15:52
PROVIDERS: ADMIT Internal Medicine; ATTEND Internal Medicine
DX: D68.32 Hemorrhagic disorder due to extrinsic circulating anticoagulants (principal); S00.03XA Contusion of scalp, initial encounter; E87.6 Hypokalemia; I48.0 Paroxysmal atrial fibrillation; Z79.01 Long term (current) use of anticoagulants; J44.9 Chronic obstructive pulmonary disease, unspecified; E03.9 Hypothyroidism, unspecified; F41.9 Anxiety disorder, unspecified; F32.A Depression, unspecified; W18.30XA Fall on same level, unspecified, initial encounter; D64.9 Anemia, unspecified; I10 Essential (primary) hypertension; R55 Syncope and collapse; S51.812A Laceration without foreign body of left forearm, initial encounter; S06.0X0A Concussion without loss of consciousness, initial encounter; F17.210 Nicotine dependence, cigarettes, uncomplicated
CPT/HCPCS: 33285; 36415; 70450; 72125; 80048; 80053; 80076; 82607; 82728; 82746; 83540; 83550; 83735; 84443; 85025; 85610; 86850; 86900; 86901; 93005

== ENCOUNTER 2022-04-11 09:34 | Emergency (ER) | payer MEDICARE ==
[~2022-04-11] VITALS: Ht 157 cm; Wt 48.0 kg
[~2022-04-11 09:34] MED LIST changes: +ALLO100T PO; +AMIO200T65 PO; +ASPI-1238 PO; +BUSP10TA95 PO; +CALC-823 PO; +CHOL100048 PO; +CYAN500T8 PO; +FENT1PAT8 TD; +FERR-84 PO; +FURO20TA4 PO; +HYDR-3820 PO; +LEVO-129 PO; +LIDO700A45 TD; +METO-333 PO; +OMEP20CA18 PO; +ONDA4TAB11 PO; +POTA-179 PO; +TRAZ-227 PO; +WRF2.5T PO
--- NOTE | 2022-04-11 12:14 | ED General ---
General Chief Complaint: Abdominal/GI Problems Stated Complaint: DIARRHEA Nursing Triage Note: Pt reports general weakness and very liquidy diarrhea since leaving hospital approx 1 week ago. Pt reports appetite has been good but she has diarrhea approx 20 min after eating. Pt has multiple myeloma in remission but is currently having difficulty getting her cancer medications due to insurance changes. Source of Information: Patient Exam Limitations: No Limitations (CASI PIMENTEL MED STUDENT) History of Present Illness Date Seen by Provider: Apr 11, 2022 Time Seen by Provider: 12:12 Initial Comments Priscilla Soto is a 71 yo female who presents for diarrhea. Pt has self reported hx of afib on oral anticoagulation and multiple myeloma. She was just discharged from [facility] on 03/27 for syncope and left arm abrasion. Pt reports since she left the hospital, she has had watery diarrhea with pieces of food in it. She has tried imodium with no relief. This morning she developed nausea and abdominal pain. The abdominal pain is sharp in the RUQ and radiates over to the LUQ. She rates it a 7/10. She denies any blood in her stools. She occasionally has dizziness and lightheadedness upon standing, but she has not had issues with this since discharge. She has a good appetite and oral intake. Pt is very concer vidal about her potassium today and thinks this is the cause of her problems. She denies fever, chills, vomiting, GRIFFITHS, blurry vision, numbness or tingling. Pt states she had her gallbladder removed in the . She does still have her appendix though. Timing/Duration: Getting Worse, Other (2 weeks) (CASI PIMENTEL MED STUDENT) Allergies and Home Medications Allergies Coded Allergies: Penicillins (Verified Allergy, Severe, RASH, 03/03/17) Patient Home Medication List Home Medication List Reviewed: Yes (KELLI TRAN MD) Allopurinol (Allopurinol) 100 Mg Tablet, 100 MG PO HS, (Reported) Entered as Reported by: KELLI OSORIO on 03/25/22 1433 Amiodarone HCl (Amiodarone HCl) 200 Mg Tablet, 200 MG PO DAILY, (Reported) Entered as Reported by: KELLI OSORIO on 03/25/22 1433 Buspirone HCl (Buspirone HCl) 10 Mg Tablet, 5 MG PO TID, (Reported) Entered as Reported by: MOLLY JOHNSON on 03/27/22 124 Calcium Carbonate (Calcium) 500 Mg Calcium (1250 Mg) Tablet, 500 MG PO BID, (Reported) Entered as Reported by: MOLLY JOHNSON on 03/27/22 124 Calcium Carbonate (Calcium) 500 Mg Calcium (1250 Mg) Tablet, 1,000 MG PO 1300, (Reported) Entered as Reported by: MOLLY JOHNSON on 03/27/22 124 Cholecalciferol (Vitamin D3) (Vitamin D3) 25 Mcg (1000 Unit) Capsule, 75 MCG PO 1300, (Reported) Entered as Reported by: MOLLY JOHNSON on 03/27/22 124 Cyanocobalamin (Vitamin B-12) (Vitamin B-12) 500 Mcg Tablet, 500 MCG PO HS, (Reported) Entered as Reported by: MOLLY JOHNSON on 03/27/22 124 Fentanyl (Fentanyl Patch 25 MCG) 25 Mcg/Hour Patch.td72, 25 MCG TD Q72H, (Reported) Entered as Reported by: KELLI OSORIO on 03/25/22 1433 Ferrous Sulfate (Iron) 325 Mg (65 Mg Iron) Tablet, 325 MG PO DAILY, (Reported) Entered as Reported by: MOLLY JOHNSON on 03/27/22 124 Furosemide (Furosemide) 20 Mg Tablet, 20 MG PO DAILY, (Reported) Entered as Reported by: MOLLY JOHNSON on 03/27/22 124 Hydrocodone/Acetaminophen (Hydrocodone-Acetamin 10-325 mg) 10 Mg-325 Mg Tablet, 10-325 MG PO TID PRN for PAIN-MODERATE (5-7), (Reported) Entered as Reported by: KELLI OSORIO on 03/25/22 1433 Hydrocodone/Acetaminophen (Hydrocodone-Acetamin 5-325 mg) 5 Mg-325 Mg Tablet, 1 TAB PO Q6H PRN for PAIN-MODERATE (5-7) Prescribed by: KELLI TRAN on 04/11/22 1357 Levothyroxine Sodium (Euthyrox) 50 Mcg Tablet, 50 MG PO DAILY, (Reported) Entered as Reported by: KELLI OSORIO on 03/25/22 1433 Lidocaine (Lidocaine 5% Patch) 5 % Adh..patch, 1-2 PATCH TD DAILY PRN for PAIN- BREAKTHROUGH, (Reported) Entered as Reported by: KELLI OSORIO on 03/25/22 143 Metoprolol Tartrate (Metoprolol Tartrate) 25 Mg Tablet, 25 MG PO BID, (Reported) Entered as Reported by: KELLI OSORIO on 03/25/22 143 Omeprazole (Omeprazole) 20 Mg Capsule.dr, 20 MG PO DAILY, (Reported) Entered as Reported by: KELLI OSORIO on 03/25/22 143 Ondansetron (Ondansetron Odt) 4 Mg Tab.rapdis, 4 MG PO Q8H PRN for NAUSEA/VOMITING-1ST LINE, (Reported) Entered as Reported by: KELLI OSORIO on 03/25/22 143 Potassium Chloride (Potassium Chloride) 20 Meq Tab.er.prt, 20 MEQ PO DAILY, (Reported) Entered as Reported by: KELLI OSORIO on 03/25/22 143 Trazodone HCl (Trazodone HCl) 100 Mg Tablet, 100 MG PO HS PRN for SLEEP, (Reported) Entered as Reported by: KELLI OSORIO on 03/25/22 143 Review of Systems Review of Systems Constitutional: No chills; dizziness; No fever; weakness EENTM: nose congestion; No blurred vision, No vision loss Respiratory: cough; No short of breath Gastrointestinal: abdominal pain (RUQ); No constipation; diarrhea, nausea; No vomiting Genitourinary: No dysuria; frequency (on lasix) Musculoskeletal: No muscle pain Skin: No lesions, No lumps, No rash Psychiatric/Neurological: Denies Headache, Denies Numbness, Denies Paresthesia; Weakness Hematologic/Lymphatic: Easy Bruising Immunological/Allergic: no symptoms reported (CASI PIMENTEL STUDENT) Past Irgniau-Lpyihw-Qlgbml Hx Patient Social History Tobacco Use?: Yes Tobacco type used: Cigarettes Smoking Status: Current Everyday Smoker Substance use?: No Alcohol Use?: No Pt feels they are or have been: Unable to obtain ([employer]I P[employer] MED STUDENT) Immunizations Up To Date Influenza Vaccine Up-to-Date: No; Not Current First/Initial COVID19 Vaccinat: 2020 Second COVID19 Vaccination Carlos: 2020 Third COVID19 Vaccination Date: 2020 (CASI PIMENTEL A [employer] STUDENT) Past Medical History Respiratory: Yes COPD Cardiac: No Neurological: No Genitourinary: No Gastrointestinal: No Musculoskeletal: No Endocrine: No Hypothyroidsim Cancer: No Psychosocial: Yes Sleep Difficulties, Anxiety, Depression Integumentary: No (CASI PIMENTEL [employer] STUDENT) Family Medical History No Pertinent Family Hx (MARGARITOCASI [employer] STUDENT) Physical Exam Vital Signs Vital Signs - First Documented 04/11/22 10:36 Temp 36.9 Pulse 51 Resp 18 B/P (MAP) 152/93 (112) Pulse Ox 99 O2 Delivery Room Air (KELLI TRAN MD) Vital Signs Capillary Refill : Less Than 3 Seconds (ALBACOSMOCASI [employer] STUDENT) Height, Weight, BMI Height: 5'5.00" Weight: 150lbs. oz. 68.794943sy; 19.00 BMI Method:Estimated HEENT: PERRL/EOMI Neck: Full Range of Motion, Non Tender Respiratory: Chest Non Tender, Lungs Clear Cardiovascular: Regular Rate, Rhythm, No Murmur Gastrointestinal: Normal Bowel Sounds, Tenderness (diffuse) Extremity: Non Tender, No Pedal Edema Neurologic/Psychiatric: Alert, Oriented x3, Normal Mood/Affect Skin: Normal Color, Warm/Dry (CASI PIMENTEL [employer] STUDENT) General Appearance: No Apparent Distress, WD/WN (KELLI TRAN MD) Progress/Results/Core Measures Suspected Sepsis SIRS Temperature: Pulse: 51 Respiratory Rate: 18 Blood Pressure 152 /93 Mean: 112 (MARGARITOCASI Lesley [employer] STUDENT) Results/Orders Lab Results Laboratory Tests Test 04/11/22 12:00 Range/Units White Blood Count 4.4 4.3-11.0 10^3/uL Red Blood Count 2.74 L 3.80-5.11 10^6/uL Hemoglobin 9.9 L 11.5-16.0 g/dL Hematocrit 31 L 35-52 % Mean Corpuscular Volume 112 H 80-99 fL Mean Corpuscular Hemoglobin 36 H 25-34 pg Mean Corpuscular Hemoglobin Concent 32 32-36 g/dL Red Cell Distribution Width 15.6 H 10.0-14.5 % Platelet Count 130 130-400 10^3/uL Mean Platelet Volume 10.2 9.0-12.2 fL Immature Granulocyte % (Auto) 1 % Neutrophils (%) (Auto) 53 42-75 % Lymphocytes (%) (Auto) 36 12-44 % Monocytes (%) (Auto) 9 0-12 % Eosinophils (%) (Auto) 0 0-10 % Basophils (%) (Auto) 1 0-10 % Neutrophils # (Auto) 2.3 1.8-7.8 10^3/uL Lymphocytes # (Auto) 1.6 1.0-4.0 10^3/uL Monocytes # (Auto) 0.4 0.0-1.0 10^3/uL Eosinophils # (Auto) 0.0 0.0-0.3 10^3/uL Basophils # (Auto) 0.0 0.0-0.1 10^3/uL Immature Granulocyte # (Auto) 0.0 0.0-0.1 10^3/uL Sodium Level 141 135-145 MMOL/L Potassium Level 3.6 3.6-5.0 MMOL/L Chloride Level 109 H 98-107 MMOL/L Carbon Dioxide Level 22 21-32 MMOL/L Anion Gap 10 5-14 MMOL/L Blood Urea Nitrogen 13 7-18 MG/DL Creatinine 1.00 0.60-1.30 MG/DL Estimat Glomerular Filtration Rate 59 BUN/Creatinine Ratio 13 Glucose Level 102 70-105 MG/DL Calcium Level 7.8 L 8.5-10.1 MG/DL (KELLI TRAN MD) My Orders Orders - KELLI TRAN MD Ed Iv/Invasive Line Start (04/11/22 12:30) Cbc With Automated Diff (04/11/22 12:30) Basic Metabolic Panel (04/11/22 12:30) Isolation Central Supply Req (04/11/22 12:30) General/Regular (04/11/22 Lunch) Hydrocodone/Apap 5/325 Tablet (Lortab 5 (04/11/22 14:00) (KELLI TRAN MD) Vital Signs/I&O 04/11/22 04/11/22 10:36 15:06 Temp 36.9 Pulse 51 66 Resp 18 B/P (MAP) 152/93 (112) 130/67 Pulse Ox 99 96 O2 Delivery Room Air Room Air (KELLI TRAN MD) Vital Signs/I&O Capillary Refill : Less Than 3 Seconds (CASI PIMENTEL MED STUDENT) Blood Pressure Mean: 112 Progress Note : Time: 13:54 Progress Note 71-year-old female presents to the emergency department with a chief complaint of copious amounts of watery diarrhea. She had onset of this after admission on March 27 for syncopal episode and left upper extremity abrasion. Chronically anticoagulated on Coumadin. She had a supratherapeutic INR at that admission as well. Patient denies any black or bloody stools. She does have some right and left upper quadrant abdominal pain with decreased appetite. No fevers or chills. No shortness of breath, no urinary complaints. She occasionally feels a little weak and dizzy. She states she has diarrhea every single time she eats. Physical exam is remarkable for alert and perky 71-year-old female who appears adequately hydrated. Moist oral mucosa. Heart is regular, lungs are clear. Abdomen is soft and mildly tender in the upper quadrants. No peritoneal signs. Labs have been reviewed and are reassuring. C. difficile test on stool is pending. I discussed with her that we will follow-up on the C. difficile test in the next 24 to 48 hours. She is eating here in the department to help stimulate a bowel movement. Home with some hydrocodone. Follow-up with primary care as well as [facility]. She is comfortable with plan of care. All questions are sought and answered (KELLI TRAN MD) Departure Impression Primary Impression: Diarrhea Qualified Codes: R19.7 - Diarrhea, unspecified Additional Impression: Abdominal pain Qualified Codes: R10.10 - Upper abdominal pain, unspecified Disposition: 01 HOME, SELF-CARE Condition: Stable Departure-Patient Inst. Decision time for Depature: 13:56 (KELLI TRAN MD) Referrals: [facility],LOCAL PHYSICIAN (PCP) Primary Care Physician Patient Instructions: Diarrhea, Adult ED Add. Discharge Instructions: Drink plenty of fluids to stay well-hydrated such as dilute Gatorade, fitness perez. Continue your hydrocodone at home every 6 hours as needed for cramping pain. If you develop bloody stools or fever please come back to the emergency department. Please follow-up with your primary care doctor in [place] or with [facility] here in [place]. We will contact you in 24 to 48 hours regarding your C. difficile culture on your stool. If you need antibiotics we will provide them at that time. Scripts Hydrocodone/Acetaminophen (Hydrocodone-Acetamin 5-325 mg) 5 Mg-325 Mg Tablet 1 TAB PO Q6H PRN for PAIN-MODERATE (5-7), #12 TAB Prov: KELLI TRAN MD 04/11/22 Verification and Attestation of Medical Student E/M Service A medical student performed and documented this service in my presence. I reviewed and verified all information documented by the medical student and made modifications to such information, when appropriate. I personally performed the physical exam and medical decision making. Kelli Tran, Apr 11, 2022,13:58 (KELLI TRAN MD) CASI PIMENTEL A MED STUDENT Apr 11, 2022 12:14 KELLI TRAN MD Apr 11, 2022 13:58
[2022-04-11 12:38] LABS: BASOPHILS % (AUTO) 1 % (0-10); EOSINOPHILS % (AUTO) 0 % (0-10); HEMATOCRIT 31 % (35-52); HEMOGLOBIN 9.9 g/dL (11.5-16.0); LYMPHOCYTES # (AUTO) 1.6 10^3/uL (1.0-4.0); LYMPHOCYTES % (AUTO) 36 % (12-44); MEAN CORPUSCULAR HEMOGLOBIN 36 pg (25-34); MEAN CORPUSCULAR HGB CONC 32 g/dL (32-36); MEAN CORPUSCULAR VOLUME 112 fL (80-99); MEAN PLATELET VOLUME 10.2 fL (9.0-12.2); MONOCYTES # (AUTO) 0.4 10^3/uL (0.0-1.0); MONOCYTES % (AUTO) 9 % (0-12); NEUTROPHILS # (AUTO) 2.3 10^3/uL (1.8-7.8); NEUTROPHILS % (AUTO) 53 % (42-75); PLATELET COUNT 130 10^3/uL (130-400); WHITE BLOOD COUNT 4.4 10^3/uL (4.3-11.0)
[2022-04-11 12:43] LABS: POTASSIUM 3.6 MMOL/L (3.6-5.0)
[2022-04-11 12:45] LABS: CALCIUM 7.8 MG/DL (8.5-10.1)
[2022-04-11] MEDS ORDERED: ACHD5005 PO (13:57)
[2022-04-11] MEDS ORDERED: HYDROcodone/APAP 5 MG/325 MG (LORTAB) TAB PO ONE (14:00)
[2022-04-11 15:06] VITALS: BP 130/67
== END 2022-04-11 15:06 | disposition home or self-care (01) ==
LOC: EDUNIT# 09:34 → ER 09:35
DX: R19.7 Diarrhea, unspecified (principal); R10.84 Generalized abdominal pain; I48.91 Unspecified atrial fibrillation; F17.210 Nicotine dependence, cigarettes, uncomplicated; Z28.311 Partially vaccinated for COVID-19; Z79.01 Long term (current) use of anticoagulants
CPT/HCPCS: 36415; 80048; 85025

== ENCOUNTER 2022-05-02 13:32 | Emergency (ER) | payer MEDICARE ==
[~2022-05-02] VITALS: Ht 157 cm; Wt 44.4 kg
[~2022-05-02 13:32] MED LIST changes: +ACHD5005 PO
--- NOTE | 2022-05-02 13:55 | ED EENT ---
History of Present Illness General Chief Complaint: Oral/Throat Problems Stated Complaint: L EAR/JAW PAIN Source: patient Exam Limitations: no limitations History of Present Illness Date Seen by Provider: May 02, 2022 Time Seen by Provider: 13:55 Initial Comments This is a 71-year-old female who presented to the ER with complaints of left- sided ear and jaw pain, swollen tongue that has progressively worsened over the past week. Today her tongue is so swollen she is unable to swallow or talk, she is communicating with white board. States she has not been able to eat since . Does have a history of multiple myeloma and is on oral chemo. Has never had any previous reaction to her chemotherapy medication. Has never had these symptoms in the past. Pain is sharp and stabbing just behind her left ear, on the side of her throat and down the left side of her jaw. No fever, chills, nausea, vomiting. Allergies and Home Medications Allergies Coded Allergies: Penicillins (Verified Allergy, Severe, RASH, 03/03/17) Patient Home Medication List Home Medication List Reviewed: Yes Allopurinol (Allopurinol) 100 Mg Tablet, 100 MG PO HS, (Reported) Entered as Reported by: KELLI OSORIO on 03/25/22 1433 Amiodarone HCl (Amiodarone HCl) 200 Mg Tablet, 200 MG PO DAILY, (Reported) Entered as Reported by: KELLI OSORIO on 03/25/22 1433 Buspirone HCl (Buspirone HCl) 10 Mg Tablet, 5 MG PO TID, (Reported) Entered as Reported by: MOLLY JOHNSON on 03/27/22 1240 Calcium Carbonate (Calcium) 500 Mg Calcium (1250 Mg) Tablet, 500 MG PO BID, (Reported) Entered as Reported by: MOLLY JOHNSON on 03/27/22 1240 Calcium Carbonate (Calcium) 500 Mg Calcium (1250 Mg) Tablet, 1,000 MG PO 1300, (Reported) Entered as Reported by: MOLLY JOHNSON on 03/27/22 1240 Cholecalciferol (Vitamin D3) (Vitamin D3) 25 Mcg (1000 Unit) Capsule, 75 MCG PO 1300, (Reported) Entered as Reported by: MOLLY JOHNSON on 03/27/22 1240 Clindamycin HCl (Clindamycin HCl) 300 Mg Capsule, 300 MG PO TID Prescribed by: SHERRON HERNANDEZ on 05/03/22 0817 Cyanocobalamin (Vitamin B-12) (Vitamin B-12) 500 Mcg Tablet, 500 MCG PO HS, (Reported) Entered as Reported by: MOLLY JOHNSON on 03/27/22 1240 Fentanyl (Fentanyl Patch 25 MCG) 25 Mcg/Hour Patch.td72, 25 MCG TD Q72H, (Rep orted) Entered as Reported by: KELLI OSORIO on 03/25/22 1433 Ferrous Sulfate (Iron) 325 Mg (65 Mg Iron) Tablet, 325 MG PO DAILY, (Reported) Entered as Reported by: MOLLY JOHNSON on 03/27/22 1240 Furosemide (Furosemide) 20 Mg Tablet, 20 MG PO DAILY, (Reported) Entered as Reported by: MOLLY JOHNSON on 03/27/22 1240 Hydrocodone/Acetaminophen (Hydrocodone-Acetamin 10-325 mg) 10 Mg-325 Mg Tablet, 10-325 MG PO TID PRN for PAIN-MODERATE (5-7), (Reported) Entered as Reported by: KELLI OSORIO on 03/25/22 1433 Hydrocodone/Acetaminophen (Hydrocodone-Acetamin 5-325 mg) 5 Mg-325 Mg Tablet, 1 TAB PO Q6H PRN for PAIN-MODERATE (5-7) Prescribed by: KELLI TRAN on 04/11/22 1357 Levothyroxine Sodium (Euthyrox) 50 Mcg Tablet, 50 MG PO DAILY, (Reported) Entered as Reported by: KELLI OSORIO on 03/25/22 1433 Lidocaine (Lidocaine 5% Patch) 5 % Adh..patch, 1-2 PATCH TD DAILY PRN for PAIN- BREAKTHROUGH, (Reported) Entered as Reported by: KELLI OSORIO on 03/25/22 1433 Metoprolol Tartrate (Metoprolol Tartrate) 25 Mg Tablet, 25 MG PO BID, (Reported) Entered as Reported by: KELLI OSORIO on 03/25/22 1433 Omeprazole (Omeprazole) 20 Mg Capsule.dr, 20 MG PO DAILY, (Reported) Entered as Reported by: KELLI OSORIO on 03/25/22 1433 Ondansetron (Ondansetron Odt) 4 Mg Tab.rapdis, 4 MG PO Q8H PRN for NAUSEA/VOMITING-1ST LINE, (Reported) Entered as Reported by: KELLI OSORIO on 03/25/22 1433 Potassium Chloride (Potassium Chloride) 20 Meq Tab.er.prt, 20 MEQ PO DAILY, (Reported) Entered as Reported by: KELLI OSORIO on 03/25/22 1433 Trazodone HCl (Trazodone HCl) 100 Mg Tablet, 100 MG PO HS PRN for SLEEP, (Reported) Entered as Reported by: KELLI OSORIO on 03/25/22 1433 Review of Systems Review of Systems Constitutional: see HPI Past Qkkbfpw-Bxrxss-Ikzkvw Hx Patient Social History Tobacco Use?: No Substance use?: No Alcohol Use?: No Pt feels they are or have been: No Immunizations Up To Date First/Initial COVID19 Vaccinat: 2020 Second COVID19 Vaccination Carlos: 2020 Third COVID19 Vaccination Date: 2020 Past Medical History Surgery/Hospitalization HX: PMH: HTN, MULTIPLE MYLEOMA Respiratory: Yes COPD Cardiac: No Neurological: No Genitourinary: No Gastrointestinal: No Musculoskeletal: No Endocrine: No Hypothyroidsim Cancer: No Psychosocial: Yes Sleep Difficulties, Anxiety, Depression Integumentary: No Family Medical History No Pertinent Family Hx Physical Exam Vital Signs Vital Signs - First Documented 05/02/22 13:51 Temp 36.6 Pulse 66 Resp 18 B/P (MAP) 123/73 (90) Pulse Ox 97 Height, Weight, BMI Height: 5'5.00" Weight: 150lbs. oz. 68.032624in; 19.00 BMI Method:Estimated General Appearance: WD/WN, no apparent distress Eyes: bilateral eye normal inspection, bilateral eye PERRL, bilateral eye EOMI Ears: left ear other (pain/swelling over left mastoid ); bilateral ear auricle normal, bilateral ear canal normal, bilateral ear TM normal Nose: normal inspection; No discharge Mouth/Throat: mandibular swelling (left), tongue swollen, other (drooling) Neck: supple, lymphadenopathy (L) Cardiovascular: regular rate, rhythm, no edema Respiratory: lungs clear, normal breath sounds, no respiratory distress, no accessory muscle use Gastrointestinal: normal bowel sounds, non tender, soft Neurologic/Psychiatric: no motor/sensory deficits, alert, normal mood/affect, oriented x 3 Progress/Results/Core Measures Results/Orders Lab Results Laboratory Tests Test 05/02/22 13:50 Range/Units White Blood Count 4.2 L 4.3-11.0 10^3/uL Red Blood Count 3.01 L 3.80-5.11 10^6/uL Hemoglobin 10.8 L 11.5-16.0 g/dL Hematocrit 32 L 35-52 % Mean Corpuscular Volume 108 H 80-99 fL Mean Corpuscular Hemoglobin 36 H 25-34 pg Mean Corpuscular Hemoglobin Concent 33 32-36 g/dL Red Cell Distribution Width 14.7 H 10.0-14.5 % Platelet Count 108 L 130-400 10^3/uL Mean Platelet Volume 11.8 9.0-12.2 fL Immature Granulocyte % (Auto) 1 % Neutrophils (%) (Auto) 59 42-75 % Lymphocytes (%) (Auto) 27 12-44 % Monocytes (%) (Auto) 11 0-12 % Eosinophils (%) (Auto) 1 0-10 % Basophils (%) (Auto) 1 0-10 % Neutrophils # (Auto) 2.5 1.8-7.8 10^3/uL Lymphocytes # (Auto) 1.1 1.0-4.0 10^3/uL Monocytes # (Auto) 0.5 0.0-1.0 10^3/uL Eosinophils # (Auto) 0.0 0.0-0.3 10^3/uL Basophils # (Auto) 0.0 0.0-0.1 10^3/uL Immature Granulocyte # (Auto) 0.1 0.0-0.1 10^3/uL Neutrophils % (Manual) % Percent Immature Platelet Fraction 8.1 H 0.0-7.6 % Erythrocyte Sedimentation Rate 17 0-30 MM/HR Prothrombin Time 17.3 H 12.2-14.7 SEC INR Comment 1.4 0.8-1.4 Sodium Level 139 135-145 MMOL/L Potassium Level 2.4 *L 3.6-5.0 MMOL/L Chloride Level 112 H 98-107 MMOL/L Carbon Dioxide Level 19 L 21-32 MMOL/L Anion Gap 8 5-14 MMOL/L Blood Urea Nitrogen 14 7-18 MG/DL Creatinine 1.06 0.60-1.30 MG/DL Estimat Glomerular Filtration Rate 55 BUN/Creatinine Ratio 13 Glucose Level 118 H 70-105 MG/DL Calcium Level 6.9 L 8.5-10.1 MG/DL Corrected Calcium 7.5 L 8.5-10.1 MG/DL Total Bilirubin 0.8 0.1-1.0 MG/DL Aspartate Amino Transf (AST/SGOT) 11 5-34 U/L Alanine Aminotransferase (ALT/SGPT) 16 0-55 U/L Alkaline Phosphatase 70 40-136 U/L C-Reactive Protein High Sensitivity 1.57 H 0.00-0.50 MG/DL Total Protein 5.8 L 6.4-8.2 GM/DL Albumin 3.3 3.2-4.5 GM/DL Procalcitonin 0.08 <0.10 NG/ML Smear Scan YES My Orders Orders - SHERRON HERNANDEZ [employer] Cbc With Automated Diff (05/02/22 13:46) Comprehensive Metabolic Panel (05/02/22 13:46) Erythrocyte Sedimentation Rate (05/02/22 13:46) Hs C Reactive Protein (05/02/22 13:46) Diphenhydramine Injection (Benadryl Inje (05/02/22 14:00) Fentanyl Inj (Sublimaze Injection) (05/02/22 14:00) Ketorolac Injection (Toradol Injection) (05/02/22 14:00) Ct Neck (Soft Tissue) W (05/02/22 13:46) Ns (Ivpb) (Sodium Chloride 0.9% Ivpb Bag (05/02/22 14:15) Protime With Inr (05/02/22 14:19) Fentanyl Inj (Sublimaze Injection) (05/02/22 14:30) Iohexol Injection (Omnipaque 350 Mg/Ml 1 (05/02/22 14:30) Received Contrast (Hold Metformin- Contr (05/02/22 14:30) Ns (Ivpb) (Sodium Chloride 0.9% Ivpb Bag (05/02/22 14:30) Sodium Chloride Flush (Catheter Flush Sy (05/02/22 14:30) Manual Differential (05/02/22 13:50) Potassium Cl 10meq/50ml Ivpb (Kcl 10 Meq (05/02/22 14:45) Ns Iv 500 Ml (Sodium Chloride 0.9%) (05/02/22 14:45) Procalcitonin (Pct) (05/02/22 14:44) Hydrocodone/Apap 5/325 Tablet (Lortab 5 (05/02/22 16:00) Potassium Chloride (Tablet) (K Dur Table (05/02/22 16:00) Clindamycin Capsule (Cleocin Capsule) (05/02/22 16:00) Medications Given in ED Vital Signs/I&O 05/03/22 00:00 Intake Total 450 ml Balance 450 ml Progress Progress Note : Progress Note Patient examined, no acute distress. Airway patent. Patient is tearful, has low pain threshold. Orders placed for IV, fentanyl IV push, Benadryl 25 mg IV push. Basic labs obtained, on exam she has significant tenderness over her left mastoid and down the left mandible and into her neck. Imaging placed for CT neck with contrast. Labs reviewed, she is hypokalemic with a potassium of 2.4, states that she has chronic hypokalemia and she has been unable to take her potassium pills due to her symptoms. Orders placed for 10 mEq KCl IV with TKO fluids. Shortly after receiving Benadryl and Fentanyl her swelling and pain began to subside. Was able to swallow and talk her norm. Her CT scan shows left possible mild parotiditis. Requested drinks and food, was given sandwich tray, chips, and applesauce. Ate without difficulty. PO potassium and Clindamycin given prior to discharge. Discharge POC reviewed and she is agreeable with plan. Diagnostic Imaging Diagonstic Imaging: CT Comments [facility], [place] NAME: [facility] REC#: [id number] PT STATUS: REG ER : 1950 PHYSICIAN: SHERRON HERNANDEZ [employer] ADMIT DATE: 05/02/22/ER Draft Date of Exam:05/02/22 CT NECK (SOFT TISSUE) W PROCEDURE: CT neck soft tissue with contrast. TECHNIQUE: Multiple contiguous axial images were obtained through the neck after the administration of contrast. Auto Exposure Controls were utilized during the CT exam to meet ALARA standards for radiation dose reduction. INDICATION: Left ear swelling with severe pain. FINDINGS: There is asymmetric enlargement of the left parotid gland adjacent to the external auditory canal. No definite discrete mass or fluid collection is identified. There is no evidence of mucosal lesion within the hypopharynx or at the larynx. No pathologically enlarged adenopathy is seen. The visualized paranasal sinuses and mastoid air cells are clear. There is no evidence of middle ear cavity abnormality and the inner ear structures appear to be normal. The temporomandibular joints are unremarkable. There is no evidence of neck mass or fluid collection. No pathologic adenopathy is seen. There is no osseous lesion detected. There is mild carotid atherosclerotic disease. The thyroid gland is unremarkable as are the submandibular salivary glands. IMPRESSION: Possible mild left parotitis without drainable abscess or other acute abnormality detected. Dictated on workstation # [id number] Dict: 05/02/22 1524 Trans: 05/02/22 1534 [id number] Interpreted by: BEBETO CONNER MD Electronically signed by: Departure Impression Primary Impression: Parotitis Additional Impression: Hypokalemia Disposition: 01 HOME, SELF-CARE Condition: Improved Departure-Patient Inst. Decision time for Depature: 15:58 Referrals: NO,LOCAL PHYSICIAN (PCP/Family) Primary Care Physician Patient Instructions: Salivary Gland Infection (DC) Add. Discharge Instructions: Plan: 1. Patient here drinking plenty of fluids to stay hydrated, certain medications increase your risk of development of parotitis such as your Metoprolol. 2. Take antibiotics as directed and complete full course even if you begin to feel better. 3. You can suck on lemon drops or hard candies such as sour candy to help increase saliva production, this will help prevent recurrence he and will help relieve any potential obstructions. 4. You can massage the area to help stimulate the saliva glands, if you do not like candy you can also try orange juice any type of citrate food or drink will help. 5. If your symptoms worsen or you develop any new, concerning symptoms please return to the ER. 7. Call your primary care provider for follow-up for any persistent symptoms. All discharge instructions reviewed with patient and/or family. Voiced understanding. Scripts Clindamycin HCl (Clindamycin HCl) 300 Mg Capsule 300 MG PO TID for 10 Days, #30 CAP 0 Refills Prov: SHERRON HERNANDEZ [employer] 05/03/22 SHERRON HERNANDEZ [employer] May 02, 2022 13:55
[2022-05-02] MEDS ORDERED: fentaNYL INJ 100 MCG/2 ML AMP IVP ONE ×2 (14:00→14:30)
[2022-05-02] MEDS ORDERED: KETOROLAC 30 MG/ML VIAL IVP ONE (14:00)
[2022-05-02] MEDS ORDERED: diphenhydrAMINE 50 MG/ML INJ (BENADRYL) IVP ONE (14:00)
[2022-05-02] MEDS ORDERED: NS 100 ML (IVPB) BAG IV ONE ×2 (14:15→14:30)
[2022-05-02] MEDS ORDERED: IOHEXOL 350 MG/ML 100 ML (OMNIPAQUE 350) VIAL IV ONE ×2 (14:15→14:30)
[2022-05-02 14:19] LABS: EOSINOPHILS % (AUTO) 1 % (0-10); HEMATOCRIT 32 % (35-52); HEMOGLOBIN 10.8 g/dL (11.5-16.0); MEAN CORPUSCULAR HGB CONC 33 g/dL (32-36); MEAN PLATELET VOLUME 11.8 fL (9.0-12.2)
[2022-05-02 14:20] LABS: ALBUMIN 3.3 GM/DL (3.2-4.5); BASOPHILS % (AUTO) 1 % (0-10); LYMPHOCYTES # (AUTO) 1.1 10^3/uL (1.0-4.0); LYMPHOCYTES % (AUTO) 27 % (12-44); MEAN CORPUSCULAR HEMOGLOBIN 36 pg (25-34); MEAN CORPUSCULAR VOLUME 108 fL (80-99); MONOCYTES # (AUTO) 0.5 10^3/uL (0.0-1.0); MONOCYTES % (AUTO) 11 % (0-12); NEUTROPHILS # (AUTO) 2.5 10^3/uL (1.8-7.8); NEUTROPHILS % (AUTO) 59 % (42-75); PLATELET COUNT 108 10^3/uL (130-400); WHITE BLOOD COUNT 4.2 10^3/uL (4.3-11.0)
[2022-05-02 14:22] LABS: CALCIUM 6.9 MG/DL (8.5-10.1)
[2022-05-02 14:23] LABS: TOTAL PROTEIN 5.8 GM/DL (6.4-8.2)
[2022-05-02 14:25] LABS: BILIRUBIN,TOTAL 0.8 MG/DL (0.1-1.0)
[2022-05-02 14:27] LABS: CREATININE SERUM 1.06 MG/DL (0.60-1.30)
[2022-05-02] MEDS ORDERED: HOLD METFORMIN - RECEIVED CONTRAST 20 ML VIAL IV SCH (14:30)
[2022-05-02] MEDS ORDERED: CATHETER FLUSH 10 ML SYR IV PRN (14:30)
[2022-05-02 14:32] LABS: INR 1.4 (0.8-1.4); POTASSIUM 2.4 MMOL/L (3.6-5.0); PROTHROMBIN TIME PATIENT 17.3 SEC (12.2-14.7)
[2022-05-02 14:37] LABS: SMEAR SCAN COMMENT YES
[2022-05-02 14:40] LABS: ERYTHROCYTE SEDIMENTATION RATE 17 MM/HR (0-30)
[2022-05-02] MEDS ORDERED: NS IV 500 ML 500 ML IV ONE (14:45)
[2022-05-02] MEDS ORDERED: POTASSIUM CL 10MEQ/50ML IVPB 50 ML IV ONE (14:45)
--- NOTE | 2022-05-02 15:35 | Diagnostic Imaging Report ---
PROCEDURE: CT neck soft tissue with contrast. TECHNIQUE: Multiple contiguous axial images were obtained through the neck after the administration of contrast. Auto Exposure Controls were utilized during the CT exam to meet ALARA standards for radiation dose reduction. INDICATION: Left ear swelling with severe pain. FINDINGS: There is asymmetric enlargement of the left parotid gland adjacent to the external auditory canal. No definite discrete mass or fluid collection is identified. There is no evidence of mucosal lesion within the hypopharynx or at the larynx. No pathologically enlarged adenopathy is seen. The visualized paranasal sinuses and mastoid air cells are clear. There is no evidence of middle ear cavity abnormality and the inner ear structures appear to be normal. The temporomandibular joints are unremarkable. There is no evidence of neck mass or fluid collection. No pathologic adenopathy is seen. There is no osseous lesion detected. There is mild carotid atherosclerotic disease. The thyroid gland is unremarkable as are the submandibular salivary glands. IMPRESSION: Possible mild left parotitis without drainable abscess or other acute abnormality detected. Dictated by: Dictated on workstation # [id number]
[2022-05-02] MEDS ORDERED: CLINDAMYCIN 150 MG (CLEOCIN) CAP PO ONE (16:00)
[2022-05-02] MEDS ORDERED: KCL 20 MEQ TAB (K-DUR) PO NR (16:00)
[2022-05-02] MEDS ORDERED: HYDROcodone/APAP 5 MG/325 MG (LORTAB) TAB PO ONE (16:00)
[2022-05-02] MEDS ORDERED: CLIN-144 PO (16:05)
[2022-05-02 16:58] VITALS: BP 120/72
[2022-05-03] MEDS ORDERED: CLIN-144 PO (08:17)
== END 2022-05-02 16:58 | disposition home or self-care (01) ==
LOC: EDUNIT# 13:32 → ER 13:34
DX: K11.20 Sialoadenitis, unspecified (principal); E87.6 Hypokalemia; C90.00 Multiple myeloma not having achieved remission; Z92.21 Personal history of antineoplastic chemotherapy; Z88.0 Allergy status to penicillin
CPT/HCPCS: 36415; 70491; 80053; 84145; 85007; 85025; 85027; 85610; 85652; 86141

== ENCOUNTER 2022-05-06 23:32 | Emergency (ER) | payer MEDICARE ==
[~2022-05-06] VITALS: Ht 157 cm; Wt 44.1 kg
[~2022-05-06 23:32] MED LIST changes: +CLIN-144 PO
[2022-05-06 23:40] VITALS: BP 105/70
[2022-05-07 00:37] LABS: HEMATOCRIT 29 % (35-52); MEAN CORPUSCULAR VOLUME 106 fL (80-99)
[2022-05-07 00:39] LABS: BASOPHILS % (AUTO) 1 % (0-10); EOSINOPHILS # (AUTO) 0.1 10^3/uL (0.0-0.3); EOSINOPHILS % (AUTO) 1 % (0-10); HEMOGLOBIN 9.9 g/dL (11.5-16.0); LYMPHOCYTES # (AUTO) 1.4 10^3/uL (1.0-4.0); LYMPHOCYTES % (AUTO) 36 % (12-44); MEAN CORPUSCULAR HEMOGLOBIN 36 pg (25-34); MEAN CORPUSCULAR HGB CONC 34 g/dL (32-36); MEAN PLATELET VOLUME 11.6 fL (9.0-12.2); MONOCYTES # (AUTO) 0.5 10^3/uL (0.0-1.0); MONOCYTES % (AUTO) 13 % (0-12); NEUTROPHILS # (AUTO) 1.8 10^3/uL (1.8-7.8); NEUTROPHILS % (AUTO) 48 % (42-75); WHITE BLOOD COUNT 3.7 10^3/uL (4.3-11.0)
[2022-05-07 00:53] LABS: PROTHROMBIN TIME PATIENT 13.7 SEC (12.2-14.7)
[2022-05-07 01:00] LABS: PLATELET COUNT 142 10^3/uL (130-400)
[2022-05-07] MEDS ORDERED: ONDANSETRON 4 MG/2 ML (SDV) Z0FRAN IVP ONE (01:00)
[2022-05-07 01:02] LABS: ALANINE AMINOTRANSFERASE 22 U/L (0-55); ALBUMIN 2.9 GM/DL (3.2-4.5); ALKALINE PHOSPHATASE 56 U/L (40-136); AMYLASE 35 U/L (25-125); BILIRUBIN,TOTAL 0.3 MG/DL (0.1-1.0); BUN/CREATININE RATIO 8; CALCIUM 7.1 MG/DL (8.5-10.1); CARBON DIOXIDE 16 MMOL/L (21-32); CHLORIDE 112 MMOL/L (98-107); CREATININE SERUM 1.46 MG/DL (0.60-1.30); GFR ESTIMATED 38; GLUCOSE 99 MG/DL (70-105); LIPASE 239 U/L (8-78); POTASSIUM 2.9 MMOL/L (3.6-5.0); SODIUM 138 MMOL/L (135-145); TOTAL PROTEIN 5.1 GM/DL (6.4-8.2)
[2022-05-07 01:16] LABS: MAGNESIUM 1.1 MG/DL (1.6-2.4)
[2022-05-07 01:22] LABS: TSH (THYROID ANALYZER) 2.16 UIU/ML (0.35-4.94)
[2022-05-07] MEDS ORDERED: MAGNESIUM 1 GM/100 ML IVPB 100 ML IV ONE (01:30)
[2022-05-07] MEDS ORDERED: D5 1/2 NS W/KCL 20 MEQ/L 1,000 ML IV SCH (01:30)
--- NOTE | 2022-05-07 02:26 | ED General ---
General Chief Complaint: Abdominal/GI Problems Stated Complaint: DIARRHEA Nursing Triage Note: Pt presents with c/o nausea. She reports she was recently seen for a swollen salavary gland and placed on antibiotics. She reports that the gland is better, however she's had diarrhea which had been going on before the antibiotics. She states she just wants the nausea to go away. Source of Information: Patient History of Present Illness Date Seen by Provider: May 06, 2022 Time Seen by Provider: 23:22 Initial Comments PT ARRIVES VIA EMS FROM HOME--PT LIVES AT HOME ALONE C/O DIARRHEA X 3 MONTHS STATES SHE HAS HAD "15-20 OR MORE" STOOLS TODAY, AND HAS BEEN LIKE THIS FOR 3 MONTHS. NO BLACK/BLOODY/TARRY STOOLS DIARRHEA IS NOT ANY WORSE THAN IT HAS BEEN, AND HAS BEEN MUCH WORSE THAN THIS PREVIOUSLY C/O NAUSEA, NO VOMITING DENIES ABDOMINAL PAIN NO FEVER NO URINARY SYMPTOMS AND VOIDING A NORMAL AMOUNT PT STATES HER APPETITE IS GOOD--ATE SPAGHETTI AND A [employer] EARLIER STATES SHE ONLY DRINKS "CODE RED" AND NOTHING ELSE PT TOLD EMS THAT SHE CALLED THEM BECAUSE SHE WAS AFRAID TO GO TO SLEEP BECAUSE SHE WAS WORRIED SHE WAS GOING TO IN HER SLEEP AND WAS AFRAID TO BE ALONE, SO WANTED TO COME TO THE HOSPITAL SO SHE W0ULDN'T BE ALONE TONIGHT. HAS LONGSTANDING HISTORY OF ANXIETY, DEPRESSION AND SLEEP DISORDER PT HAS HAD SEVERAL VISITS RECENTLY LAST VISIT WAS 05/02/22 AND DX WITH PAROTITIS. RX FOR CLINDAMYCIN GIVE THOSE SYMPTOMS HAVE RESOLVED. DIARRHEA HAS NOT GOTTEN ANY WORSE SINCE TAKING THE ANTIBIOTICS. WAS HERE 04/11/22 FOR THIS SAME COMPLAINT OF DIARRHEA PT HAS NOT BEEN ABLE TO PROVIDE A STOOL SAMPLE ON PRIOR VISITS. PT HAS NOT FOLLOWED UP WITH ANYONE INSTRUCTED. PT HAS HISTORY OF MULTIPLE MYELOMA AND GOES TO ONCOLOGY IN [place] SHE HAS BEEN ON ORAL CHEMO FOR 3 1/2 YEARS AND IS IN REMISSION AT THIS TIME. SHE TAKES REVLIMID DAILY STATES SHE "TALKS TO THEM EVERY DAY" NEXT APPOINTMENT IS 05/16/22 FOR ROUTINE SCHEDULED FOLLOW UP STATES SHE DOES NOT HAVE A PRIMARY CARE DR--STATES ALL OF HER MEDICAL CARE IS FROM ONCOLOGIST IN [place]. HAD COVID-19 VACCINE X1--SOMETIME LAST YEAR. PCP: NONE Allergies and Home Medications Allergies Coded Allergies: Penicillins (Verified Allergy, Severe, RASH, 03/03/17) Patient Home Medication List Allopurinol (Allopurinol) 100 Mg Tablet, 100 MG PO HS, (Reported) Entered as Reported by: KELLI OSORIO on 03/25/22 1433 Amiodarone HCl (Amiodarone HCl) 200 Mg Tablet, 200 MG PO DAILY, (Reported) Entered as Reported by: KELLI OSORIO on 03/25/22 1433 Buspirone HCl (Buspirone HCl) 10 Mg Tablet, 5 MG PO TID, (Reported) Entered as Reported by: MOLLY JOHNSON on 03/27/22 1240 Calcium Carbonate (Calcium) 500 Mg Calcium (1250 Mg) Tablet, 500 MG PO BID, (Reported) Entered as Reported by: MOLLY JOHNSON on 03/27/22 1240 Calcium Carbonate (Calcium) 500 Mg Calcium (1250 Mg) Tablet, 1,000 MG PO 1300, (Reported) Entered as Reported by: MOLLY JOHNSON on 03/27/22 124 Calcium Citrate/Vitamin D3 (Calcium Citrate - Vit D Caplet) 315 Mg Calcium-5 Mcg (200 Unit) Tablet, 2 EACH PO DAILY Prescribed by: MEL CHILDRESS on 05/07/22 0340 Cholecalciferol (Vitamin D3) (Vitamin D3) 25 Mcg (1000 Unit) Capsule, 75 MCG PO 1300, (Reported) Entered as Reported by: MOLLY JOHNSON on 03/27/22 1240 Clindamycin HCl (Clindamycin HCl) 300 Mg Capsule, 300 MG PO TID Prescribed by: SHERRON HERNANDEZ on 05/03/22 0817 Cyanocobalamin (Vitamin B-12) (Vitamin B-12) 500 Mcg Tablet, 500 MCG PO HS, (Reported) Entered as Reported by: MOLLY JOHNSON on 03/27/22 1240 Fentanyl (Fentanyl Patch 25 MCG) 25 Mcg/Hour Patch.td72, 25 MCG TD Q72H, (Reported) Entered as Reported by: KELLI OSORIO on 03/25/22 1433 Ferrous Sulfate (Iron) 325 Mg (65 Mg Iron) Tablet, 325 MG PO DAILY, (Reported) Entered as Reported by: MOLLY JOHNSON on 03/27/22 1240 Furosemide (Furosemide) 20 Mg Tablet, 20 MG PO DAILY, (Reported) Entered as Reported by: MOLLY JOHNSON on 03/27/22 1240 Hydrocodone/Acetaminophen (Hydrocodone-Acetamin 10-325 mg) 10 Mg-325 Mg Tablet, 10-325 MG PO TID PRN for PAIN-MODERATE (5-7), (Reported) Entered as Reported by: KELLI OSORIO on 03/25/22 1433 Hydrocodone/Acetaminophen (Hydrocodone-Acetamin 5-325 mg) 5 Mg-325 Mg Tablet, 1 TAB PO Q6H PRN for PAIN-MODERATE (5-7) Prescribed by: KELLI TRAN on 04/11/22 1357 Lactobacillus Acidophilus (Acidophilus Lactobacillus) 1 Billion Unit/Gram Powder, 1 GM MC QID Prescribed by: MEL CHILDRESS on 05/07/22 0336 Levothyroxine Sodium (Euthyrox) 50 Mcg Tablet, 50 MG PO DAILY, (Reported) Entered as Reported by: KELLI OSORIO on 03/25/22 1433 Lidocaine (Lidocaine 5% Patch) 5 % Adh..patch, 1-2 PATCH TD DAILY PRN for PAIN- BREAKTHROUGH, (Reported) Entered as Reported by: KELLI OSORIO on 03/25/22 1433 Magnesium Oxide (Magnesium Oxide) 400 Mg Tablet, 400 MG PO BID Prescribed by: MEL CHILDRESS on 05/07/22 033 Metoprolol Tartrate (Metoprolol Tartrate) 25 Mg Tablet, 25 MG PO BID, (Reported) Entered as Reported by: KELLI OSORIO on 03/25/22 143 Omeprazole (Omeprazole) 20 Mg Capsule.dr, 20 MG PO DAILY, (Reported) Entered as Reported by: KELLI OSORIO on 03/25/22 143 Ondansetron (Ondansetron Odt) 4 Mg Tab.rapdis, 4 MG PO Q8H PRN for NAUSEA/VOMITING-1ST LINE, (Reported) Entered as Reported by: KELLI OSORIO on 03/25/22 143 Ondansetron (Ondansetron Odt) 4 Mg Tab.rapdis, 4 MG PO Q4H Prescribed by: MEL CHILDRESS on 05/07/22 033 Potassium Chloride (Potassium Chloride) 20 Meq Tab.er.prt, 20 MEQ PO DAILY, (Reported) Entered as Reported by: KELLI OSORIO on 03/25/22 1433 Potassium Chloride (Potassium Chloride) 20 Meq Tab.er.prt, 20 MEQ PO DAILY PRN Prescribed by: MEL CHILDRESS on 05/07/22 0336 Trazodone HCl (Trazodone HCl) 100 Mg Tablet, 100 MG PO HS PRN for SLEEP, (Reported) Entered as Reported by: KELLI OSORIO on 03/25/22 1433 Review of Systems Review of Systems Constitutional: no symptoms reported; No chills, No diaphoresis, No dizziness, No fever, No malaise, No weakness EENTM: no symptoms reported Respiratory: no symptoms reported Cardiovascular: no symptoms reported Gastrointestinal: see HPI; No abdominal pain, No constipation; diarrhea; No loss of appetite; nausea; No vomiting Genitourinary: no symptoms reported; No decreased output Musculoskeletal: no symptoms reported Skin: no symptoms reported Psychiatric/Neurological: Anxiety Hematologic/Lymphatic: See HPI Immunological/Allergic: see HPI Past Yylnqod-Gpkfhz-Eksxsk Hx Patient Social History Tobacco Use?: Yes Tobacco type used: Cigarettes Smoking Status: Current Everyday Smoker Substance use?: No Alcohol Use?: No Immunizations Up To Date Influenza Vaccine Up-to-Date: No; Not Current First/Initial COVID19 Vaccinat: 2020 Second COVID19 Vaccination Carlos: 2020 Third COVID19 Vaccination Date: 2020 Past Medical History Surgery/Hospitalization HX: PMH: HTN, MULTIPLE MYLEOMA Surgeries: No Respiratory: Yes COPD Cardiac: Yes Atrial Fibrillation, Hypertension Neurological: No NETWORK LEAD History: Menopausal Genitourinary: No Gastrointestinal: No Musculoskeletal: Yes Degenerate Disk Disease, Chronic Back Pain Endocrine: Yes Hypothyroidsim HEENT: Yes (PAROTIDITIS 05/02/22) Cancer: Yes Did You Recieve Any Treatments: Yes What Type of Treatment Did You: Chemotherapy MULTIPLE MYELOMA DX 2019 Psychosocial: Yes Sleep Difficulties, Anxiety, Depression Integumentary: No Blood Disorders: No Family Medical History No Pertinent Family Hx Physical Exam Vital Signs Vital Signs - First Documented 05/06/22 23:40 Temp 36.3 Pulse 55 Resp 20 B/P (MAP) 105/70 (82) Pulse Ox 96 O2 Delivery Room Air Capillary Refill : Less Than 3 Seconds Height, Weight, BMI Height: 5'5.00" Weight: 150lbs. oz. [id number]; 17.00 BMI Method:Estimated General Appearance: No Apparent Distress, WD/WN, Thin; No Other (WALKS INTO ER FROM AMBULANCE WITHOUT DIFFICULTY. DOES NOT APPEAR ILL OR TO BE IN ANY DISCOMFORT OR DISTRESS. ) HEENT: PERRL/EOMI, Moist Mucous Membranes Neck: Normal Inspection Respiratory: Normal Breath Sounds, No Accessory Muscle Use, No Respiratory Distress Cardiovascular: Regular Rate, Rhythm, No Murmur Gastrointestinal: Non Tender, Soft Extremity: Normal Inspection Neurologic/Psychiatric: Alert, Oriented x3 Skin: Normal Color, Warm/Dry Progress/Results/Core Measures Suspected Sepsis SIRS Temperature: Pulse: 55 Respiratory Rate: 20 Laboratory Tests 05/06/22 00:30: White Blood Count 3.7L Blood Pressure 105 /70 Mean: 82 Laboratory Tests 05/06/22 00:30: Creatinine 1.46H, Platelet Count 142, Total Bilirubin 0.3 05/07/22 00:30: INR Comment 1.0 Results/Orders Lab Results Laboratory Tests Test 05/06/22 00:01 05/06/22 00:30 05/06/22 03:18 05/07/22 00:30 Range/Units SARS-CoV-2 RNA (RT-PCR) Not Detected Not Detecte White Blood Count 3.7 L 4.3-11.0 10^3/uL Red Blood Count 2.76 L 3.80-5.11 10^6/uL Hemoglobin 9.9 L 11.5-16.0 g/dL Hematocrit 29 L 35-52 % Mean Corpuscular Volume 106 H 80-99 fL Mean Corpuscular Hemoglobin 36 H 25-34 pg Mean Corpuscular Hemoglobin Concent 34 32-36 g/dL Red Cell Distribution Width 14.6 H 10.0-14.5 % Platelet Count 142 130-400 10^3/uL Mean Platelet Volume 11.6 9.0-12.2 fL Immature Granulocyte % (Auto) 1 % Neutrophils (%) (Auto) 48 42-75 % Lymphocytes (%) (Auto) 36 12-44 % Monocytes (%) (Auto) 13 H 0-12 % Eosinophils (%) (Auto) 1 0-10 % Basophils (%) (Auto) 1 0-10 % Neutrophils # (Auto) 1.8 1.8-7.8 10^3/uL Lymphocytes # (Auto) 1.4 1.0-4.0 10^3/uL Monocytes # (Auto) 0.5 0.0-1.0 10^3/uL Eosinophils # (Auto) 0.1 0.0-0.3 10^3/uL Basophils # (Auto) 0.0 0.0-0.1 10^3/uL Immature Granulocyte # (Auto) 0.0 0.0-0.1 10^3/uL Percent Immature Platelet Fraction 6.0 0.0-7.6 % Sodium Level 138 135-145 MMOL/L Potassium Level 2.9 L 3.6-5.0 MMOL/L Chloride Level 112 H 98-107 MMOL/L Carbon Dioxide Level 16 L 21-32 MMOL/L Anion Gap 10 5-14 MMOL/L Blood Urea Nitrogen 12 7-18 MG/DL Creatinine 1.46 H 0.60-1.30 MG/DL Estimat Glomerular Filtration Rate 38 BUN/Creatinine Ratio 8 Glucose Level 99 70-105 MG/DL Calcium Level 7.1 L 8.5-10.1 MG/DL Corrected Calcium 8.0 L 8.5-10.1 MG/DL Magnesium Level 1.1 *L 1.6-2.4 MG/DL Total Bilirubin 0.3 0.1-1.0 MG/DL Aspartate Amino Transf (AST/SGOT) 18 5-34 U/L Alanine Aminotransferase (ALT/SGPT) 22 0-55 U/L Alkaline Phosphatase 56 40-136 U/L Total Protein 5.1 L 6.4-8.2 GM/DL Albumin 2.9 L 3.2-4.5 GM/DL Amylase Level 35 25-125 U/L Lipase 239 H 8-78 U/L TSH Bloomery Testing 2.16 0.35-4.94 UIU/ML Serum Alcohol < 10 <10 MG/DL Smear Scan Urine Color YELLOW Urine Clarity CLEAR Urine pH 6.0 5-9 Urine Specific Dearing >=1.030 1.016-1.022 Urine Protein 1+ H NEGATIVE Urine Glucose (UA) NEGATIVE NEGATIVE Urine Ketones NEGATIVE NEGATIVE Urine Nitrite NEGATIVE NEGATIVE Urine Bilirubin NEGATIVE NEGATIVE Urine Urobilinogen 0.2 < = 1.0 MG/DL Urine Leukocyte Esterase NEGATIVE NEGATIVE Urine RBC (Auto) NEGATIVE NEGATIVE Urine RBC NONE /HPF Urine WBC RARE /HPF Urine Squamous Epithelial Cells 0-2 /HPF Urine Crystals NONE /LPF Urine Bacteria NEGATIVE /HPF Urine Casts PRESENT /LPF Urine Hyaline Casts RARE /LPF Urine Mucus NEGATIVE /LPF Urine Opiates Screen NEGATIVE NEGATIVE Urine Oxycodone Screen NEGATIVE NEGATIVE Urine Methadone Screen NEGATIVE NEGATIVE Urine Propoxyphene Screen NEGATIVE NEGATIVE Urine Barbiturates Screen NEGATIVE NEGATIVE Ur Tricyclic Antidepressants Screen NEGATIVE NEGATIVE Urine Phencyclidine Screen NEGATIVE NEGATIVE Urine Amphetamines Screen NEGATIVE NEGATIVE Urine Methamphetamines Screen NEGATIVE NEGATIVE Urine Benzodiazepines Screen NEGATIVE NEGATIVE Urine Cocaine Screen NEGATIVE NEGATIVE Urine Cannabinoids Screen NEGATIVE NEGATIVE Prothrombin Time 13.7 12.2-14.7 SEC INR Comment 1.0 0.8-1.4 Activated Partial Thromboplast Time 29 24-35 SEC My Orders Orders - MEL CHILDRESS DO Ed Iv/Invasive Line Start (05/06/22 23:36) Alcohol (05/06/22 23:36) Amylase (05/06/22 23:36) Cbc With Automated Diff (05/06/22 23:36) Comprehensive Metabolic Panel (05/06/22 23:36) Drug Screen Stat (Urine) (05/06/22 23:36) Lipase (05/06/22 23:36) Magnesium (05/06/22 23:36) Thyroid Analyzer (05/06/22 23:36) Ua Culture If Indicated (05/06/22 23:36) Covid 19 Inhouse Test (05/06/22 23:36) Isolation Central Supply Req (05/06/22 23:36) Monitor-Rhythm Ecg Trace Only (05/06/22 23:36) Protime With Inr (05/07/22 00:11) Partial Thromboplastin Time (05/07/22 00:11) Ondansetron Injection (Zofran Injectio (05/07/22 01:00) D5 1/2 Ns W/Kcl 20 Meq/L (Dextrose 5%/0. (05/07/22 01:30) Magnesium 1 Gm/100 Ml Ivpb (Magnesium Ambrocio (05/07/22 01:30) Medications Given in ED Current Medications Medications Dose Ordered Sig/Tirso Route Start Time Stop Time Status Last Admin Dose Admin Magnesium Sulfate/ Dextrose 100 ml @ 100 mls/hr ONCE ONCE IV 05/07/22 01:30 05/07/22 02:29 DC 05/07/22 01:41 100 MLS/HR Ondansetron HCl 4 mg ONCE ONCE IVP 10/17/22 01:00 05/07/22 01:01 DC 05/07/22 01:05 4 MG Vital Signs/I&O 05/06/22 23:40 Temp 36.3 Pulse 55 Resp 20 B/P (MAP) 105/70 (82) Pulse Ox 96 O2 Delivery Room Air Capillary Refill : Less Than 3 Seconds Blood Pressure Mean: 82 Progress Note : Progress Note PLACED IN ISOLATION ROOM PPE WORN COVID TESTING DONE GIVEN: -IV FLUIDS -MAGNESIUM -ZOFRAN NO VOMITING NO STOOLS DURING ER STAY PT HAD NO COMPLAINTS OF ANY KIND DURING ER STAY PT DECLINES CT SCAN. Departure Impression Primary Impression: REPORTED DIARRHEA Additional Impressions: Hypomagnesemia Hypokalemia Hypocalcemia Renal insufficiency History of multiple myeloma Disposition: HOME, SELF-CARE Condition: Stable Departure-Patient Inst. Decision time for Depature: 03:59 Referrals: NO,LOCAL PHYSICIAN (PCP/Family) Primary Care Physician Patient Instructions: Diarrhea, Adult ED, High Potassium Diet, Hypokalemia (DC), Low Magnesium Level (DC), Hypocalcemia (DC) Add. Discharge Instructions: CLEAR LIQUIDS--WATER, BROTH, JELLO, GATORADE NO ENERGY DRINKS, OR SODAS OR TEA OR COFFEE AVOID MILK PRODUCTS BRATS DIET--BANANAS, RICE, APPLESAUCE, TOAST, SALTINES START TAKING BENEFIBER EVERY DAY TAKE MULTIVITAMIN WITH IRON DAILY FOLLOW UP WITH YOUR DR THIS WEEK FOR FURTHER CARE ESTABLISH WITH LOCAL FAMILY DR OF CHOICE FOR ROUTINE MEDICAL CARE--LIST PROVIDED. All discharge instructions reviewed with patient and/or family. Voiced understanding. Scripts Calcium Citrate/Vitamin D3 (Calcium Citrate - Vit D Caplet) 315 Mg Calcium-5 Mcg (200 Unit) Tablet 2 EACH PO DAILY, #20 TAB Prov: FIOR,MEL K DO 05/07/22 Ondansetron (Ondansetron Odt) 4 Mg Tab.rapdis 4 MG PO Q4H for Nausea/Vomiting, #10 TAB Prov: FIOR,MEL K DO 05/07/22 Magnesium Oxide (Magnesium Oxide) 400 Mg Tablet 400 MG PO BID, #20 TAB Prov: FIOR,MEL K DO 05/07/22 Potassium Chloride (Potassium Chloride) 20 Meq Tab.er.prt 20 MEQ PO DAILY PRN, #10 TAB Prov: FIOR,MEL K DO 05/07/22 Lactobacillus Acidophilus (Acidophilus Lactobacillus) 1 Billion Unit/Gram Powder 1 GM MC QID for 10 Days, #1 EA Prov: MEL CHILDRESS DO 05/07/22 Work/School Note: Local Medical Staff Listing MEL CHILDRESS DO May 07, 2022 02:26
[2022-05-07 03:25] LABS: BILIRUBIN,URINE NEGATIVE (NEGATIVE); CLARITY,URINE CLEAR; COLOR,URINE YELLOW; GLUCOSE, URINE (UA) NEGATIVE (NEGATIVE); KETONES,URINE NEGATIVE (NEGATIVE); LEUKOCYTE ESTERASE ,URINE NEGATIVE (NEGATIVE); NITRITE,URINE NEGATIVE (NEGATIVE); PROTEIN,URINE 1+ (NEGATIVE)
[2022-05-07] MEDS ORDERED: LACT1POW8 MC (03:36)
[2022-05-07] MEDS ORDERED: MAGN400T7 PO (03:36)
[2022-05-07] MEDS ORDERED: ONDA4TAB11 PO (03:36)
[2022-05-07] MEDS ORDERED: POTA-179 PO (03:36)
[2022-05-07] MEDS ORDERED: CALC-822 PO (03:40)
[2022-05-07 03:42] LABS: AMPHETAMINE SCREEN, URINE NEGATIVE (NEGATIVE); BARBITURATE SCREEN URINE NEGATIVE (NEGATIVE); BENZODIAZEPINES SCREEN URINE NEGATIVE (NEGATIVE); CANNABINOID SCREEN, URINE NEGATIVE (NEGATIVE); COCAINE SCREEN URINE NEGATIVE (NEGATIVE); METHADONE STAT NEGATIVE (NEGATIVE); OPIATE SCREEN URINE NEGATIVE (NEGATIVE); OXYCODONE STAT NEGATIVE (NEGATIVE); PROPOXYPHENE STAT NEGATIVE (NEGATIVE); TRICYCLIC ANTIDEPRESSANTS SCRE NEGATIVE (NEGATIVE)
[2022-05-07 03:57] LABS: BACTERIA,URINE NEGATIVE /HPF; SQUAMOUS EPITHELIAL CELL,UR 0-2 /HPF; WBC,URINE RARE /HPF
[2022-05-07 03:58] LABS: HYALINE CASTS, URINE RARE /LPF
== END 2022-05-07 05:39 | disposition home or self-care (01) ==
LOC: EDUNIT# 23:32 → ER 23:33
DX: E83.42 Hypomagnesemia (principal); E87.6 Hypokalemia; E83.51 Hypocalcemia; N28.9 Disorder of kidney and ureter, unspecified; F17.210 Nicotine dependence, cigarettes, uncomplicated; R19.7 Diarrhea, unspecified; Z85.79 Personal history of other malignant neoplasms of lymphoid, hematopoietic and related tissues; Z20.822 Contact with and (suspected) exposure to COVID-19
CPT/HCPCS: 80053; 80306; 81000; 82150; 83690; 83735; 84443; 85025; 85610; 85730; 87636; 93041; 99284; G0480; 36415; 80320

== ENCOUNTER 2022-05-18 14:17 | Emergency (ER) | payer MEDICARE ==
[~2022-05-18] VITALS: Ht 157.4 cm; Wt 49.8 kg
[~2022-05-18 14:17] MED LIST changes: +CALC-822 PO; +LACT1POW8 MC; +MAGN400T7 PO
[2022-05-18 14:34] LABS: BASOPHILS # (AUTO) 0.1 10^3/uL (0.0-0.1); BASOPHILS % (AUTO) 1 % (0-10); EOSINOPHILS # (AUTO) 0.1 10^3/uL (0.0-0.3); EOSINOPHILS % (AUTO) 2 % (0-10); HEMATOCRIT 31 % (35-52); HEMOGLOBIN 10.3 g/dL (11.5-16.0); LYMPHOCYTES # (AUTO) 2.3 10^3/uL (1.0-4.0); LYMPHOCYTES % (AUTO) 46 % (12-44); MEAN CORPUSCULAR HEMOGLOBIN 36 pg (25-34); MEAN CORPUSCULAR HGB CONC 33 g/dL (32-36); MEAN CORPUSCULAR VOLUME 108 fL (80-99); MEAN PLATELET VOLUME 10.8 fL (9.0-12.2); MONOCYTES # (AUTO) 0.4 10^3/uL (0.0-1.0); MONOCYTES % (AUTO) 7 % (0-12); NEUTROPHILS # (AUTO) 2.1 10^3/uL (1.8-7.8); NEUTROPHILS % (AUTO) 43 % (42-75); PLATELET COUNT 201 10^3/uL (130-400); WHITE BLOOD COUNT 4.9 10^3/uL (4.3-11.0)
[2022-05-18 14:45] LABS: ALBUMIN 3.4 GM/DL (3.2-4.5)
[2022-05-18 14:46] LABS: CHLORIDE 104 MMOL/L (98-107); POTASSIUM 4.1 MMOL/L (3.6-5.0); SODIUM 139 MMOL/L (135-145)
[2022-05-18 14:47] LABS: CALCIUM 7.7 MG/DL (8.5-10.1)
--- NOTE | 2022-05-18 14:47 | ED Cough/URI ---
General Chief Complaint: Respiratory Problems Stated Complaint: SOA Nursing Triage Note: PT ARRIVED POV WITH CONCERNS OF LEGS BEING SWOLLEN, SOB, AND WEAKNESS. Source: patient Exam Limitations: no limitations History of Present Illness Date Seen by Provider: May 18, 2022 Time Seen by Provider: 14:42 Initial Comments To ER yelling and screaming with shortness of breath legs swollen and general weakness. She sees Dr. Begum from cardiology but does not have a family doctor here. Timing/Duration: just prior to arrival Severity/Quality: moderate Associated Symptoms: cough Allergies and Home Medications Allergies Coded Allergies: Penicillins (Verified Allergy, Severe, RASH, 03/03/17) Patient Home Medication List Home Medication List Reviewed: Yes Allopurinol (Allopurinol) 100 Mg Tablet, 100 MG PO HS, (Reported) Entered as Reported by: KELLI OSORIO on 03/25/22 1433 Amiodarone HCl (Amiodarone HCl) 200 Mg Tablet, 200 MG PO DAILY, (Reported) Entered as Reported by: KELLI OSORIO on 03/25/22 1433 Buspirone HCl (Buspirone HCl) 10 Mg Tablet, 5 MG PO TID, (Reported) Entered as Reported by: MOLLY JOHNSON on 03/27/22 1240 Calcium Carbonate (Calcium) 500 Mg Calcium (1250 Mg) Tablet, 500 MG PO BID, (Reported) Entered as Reported by: MOLLY JOHNSON on 03/27/22 1240 Calcium Carbonate (Calcium) 500 Mg Calcium (1250 Mg) Tablet, 1,000 MG PO 1300, (Reported) Entered as Reported by: MOLLY JOHNSON on 03/27/22 1240 Calcium Citrate/Vitamin D3 (Calcium Citrate - Vit D Caplet) 315 Mg Calcium-5 Mcg (200 Unit) Tablet, 2 EACH PO DAILY Prescribed by: MEL CHILDRESS on 05/07/22 0340 Cholecalciferol (Vitamin D3) (Vitamin D3) 25 Mcg (1000 Unit) Capsule, 75 MCG PO 1300, (Reported) Entered as Reported by: MOLLY JOHNSON on 03/27/22 1240 Clindamycin HCl (Clindamycin HCl) 300 Mg Capsule, 300 MG PO TID Prescribed by: SHERRON HERNANDEZ on 05/03/22 0817 Cyanocobalamin (Vitamin B-12) (Vitamin B-12) 500 Mcg Tablet, 500 MCG PO HS, (Reported) Entered as Reported by: MOLLY JOHNSON on 03/27/22 1240 Fentanyl (Fentanyl Patch 25 MCG) 25 Mcg/Hour Patch.td72, 25 MCG TD Q72H, (Reported) Entered as Reported by: KELLI OSORIO on 03/25/22 143 Ferrous Sulfate (Iron) 325 Mg (65 Mg Iron) Tablet, 325 MG PO DAILY, (Reported) Entered as Reported by: MOLLY JOHNSON on 03/27/22 124 Furosemide (Furosemide) 20 Mg Tablet, 20 MG PO DAILY, (Reported) Entered as Reported by: MOLLY JOHNSON on 03/27/22 1240 Hydrocodone/Acetaminophen (Hydrocodone-Acetamin 10-325 mg) 10 Mg-325 Mg Tablet, 10-325 MG PO TID PRN for PAIN-MODERATE (5-7), (Reported) Entered as Reported by: KELLI OSORIO on 03/25/22 143 Hydrocodone/Acetaminophen (Hydrocodone-Acetamin 5-325 mg) 5 Mg-325 Mg Tablet, 1 TAB PO Q6H PRN for PAIN-MODERATE (5-7) Prescribed by: KELLI TRAN on 04/11/22 1357 Lactobacillus Acidophilus (Acidophilus Lactobacillus) 1 Billion Unit/Gram Powder, 1 GM MC QID Prescribed by: MEL CHILDRESS on 05/07/22 033 Levothyroxine Sodium (Euthyrox) 50 Mcg Tablet, 50 MG PO DAILY, (Reported) Entered as Reported by: KELLI OSORIO on 03/25/22 143 Lidocaine (Lidocaine 5% Patch) 5 % Adh..patch, 1-2 PATCH TD DAILY PRN for PAIN- BREAKTHROUGH, (Reported) Entered as Reported by: KELLI OSORIO on 03/25/22 143 Magnesium Oxide (Magnesium Oxide) 400 Mg Tablet, 400 MG PO BID Prescribed by: MEL CHILDRESS on 05/07/22 033 Metoprolol Tartrate (Metoprolol Tartrate) 25 Mg Tablet, 25 MG PO BID, (Reported) Entered as Reported by: KELLI OSORIO on 03/25/22 143 Omeprazole (Omeprazole) 20 Mg Capsule.dr, 20 MG PO DAILY, (Reported) Entered as Reported by: KELLI OSORIO on 03/25/22 1433 Ondansetron (Ondansetron Odt) 4 Mg Tab.rapdis, 4 MG PO Q8H PRN for NAUSEA/VOMITING-1ST LINE, (Reported) Entered as Reported by: KELLI OSORIO on 03/25/22 143 Ondansetron (Ondansetron Odt) 4 Mg Tab.rapdis, 4 MG PO Q4H Prescribed by: MEL CHILDRESS on 05/07/22 0336 Potassium Chloride (Potassium Chloride) 20 Meq Tab.er.prt, 20 MEQ PO DAILY, (Reported) Entered as Reported by: KELLI OSORIO on 03/25/22 143 Potassium Chloride (Potassium Chloride) 20 Meq Tab.er.prt, 20 MEQ PO DAILY PRN Prescribed by: MEL CHILDRESS on 05/07/22 033 Trazodone HCl (Trazodone HCl) 100 Mg Tablet, 100 MG PO HS PRN for SLEEP, (Reported) Entered as Reported by: KELLI OSORIO on 03/25/22 143 Review of Systems Review of Systems Constitutional: see HPI EENTM: see HPI Respiratory: see HPI, short of breath Cardiovascular: no symptoms reported Genitourinary: no symptoms reported Musculoskeletal: no symptoms reported Skin: no symptoms reported Psychiatric/Neurological: No Symptoms Reported Hematologic/Lymphatic: No Symptoms Reported Past Uvkwrzd-Anomtj-Llnfnv Hx Patient Social History Tobacco Use?: Yes Tobacco type used: Cigars Smoking Status: Current Everyday Smoker Substance use?: No Alcohol Use?: No Immunizations Up To Date Influenza Vaccine Up-to-Date: No; Not Current First/Initial COVID19 Vaccinat: 2020 Second COVID19 Vaccination Carlos: 2020 Third COVID19 Vaccination Date: 2020 Past Medical History Surgery/Hospitalization HX: PMH: HTN, MULTIPLE MYLEOMA Surgeries: No Respiratory: Yes COPD Cardiac: Yes Atrial Fibrillation, Hypertension Neurological: No [employer] History: Menopausal Genitourinary: No Gastrointestinal: No Musculoskeletal: Yes Degenerate Disk Disease, Chronic Back Pain Endocrine: Yes Hypothyroidsim HEENT: Yes (PAROTIDITIS 05/02/22) Cancer: Yes Did You Recieve Any Treatments: Yes What Type of Treatment Did You: Chemotherapy Psychosocial: Yes Sleep Difficulties, Anxiety, Depression Integumentary: No Blood Disorders: No Family Medical History No Pertinent Family Hx Physical Exam Vital Signs - First Documented 05/18/22 14:20 Temp 36.7 Pulse 90 B/P (MAP) 164/98 (120) Pulse Ox 98 O2 Delivery Room Air Capillary Refill : Height: 5'5.00" Weight: 150lbs. oz. [id number]; 20.00 BMI Method:Estimated General Appearance: WD/WN, no apparent distress Eyes: Bilateral Eye Normal Inspection, Bilateral Eye PERRL, Bilateral Eye EOMI HEENT: PERRL/EOMI, normal ENT inspection Neck: non-tender, full range of motion Respiratory: no respiratory distress, no accessory muscle use Cardiovascular: regular rate, rhythm, no murmur Gastrointestinal: normal bowel sounds, non tender, soft Extremities: normal range of motion Neurologic/Psychiatric: alert, normal mood/affect, oriented x 3 Skin: normal color, warm/dry Progress/Results/Core Measures Suspected Sepsis SIRS Temperature: Pulse: 90 Respiratory Rate: Laboratory Tests 05/18/22 14:28: White Blood Count 4.9 Blood Pressure 164 /98 Mean: 120 Laboratory Tests 05/18/22 14:28: Creatinine 1.58H, Platelet Count 201, Total Bilirubin 0.4 Results/Orders Lab Results Laboratory Tests Test 05/18/22 14:28 Range/Units White Blood Count 4.9 4.3-11.0 10^3/uL Red Blood Count 2.88 L 3.80-5.11 10^6/uL Hemoglobin 10.3 L 11.5-16.0 g/dL Hematocrit 31 L 35-52 % Mean Corpuscular Volume 108 H 80-99 fL Mean Corpuscular Hemoglobin 36 H 25-34 pg Mean Corpuscular Hemoglobin Concent 33 32-36 g/dL Red Cell Distribution Width 15.5 H 10.0-14.5 % Platelet Count 201 130-400 10^3/uL Mean Platelet Volume 10.8 9.0-12.2 fL Immature Granulocyte % (Auto) 0 % Neutrophils (%) (Auto) 43 42-75 % Lymphocytes (%) (Auto) 46 H 12-44 % Monocytes (%) (Auto) 7 0-12 % Eosinophils (%) (Auto) 2 0-10 % Basophils (%) (Auto) 1 0-10 % Neutrophils # (Auto) 2.1 1.8-7.8 10^3/uL Lymphocytes # (Auto) 2.3 1.0-4.0 10^3/uL Monocytes # (Auto) 0.4 0.0-1.0 10^3/uL Eosinophils # (Auto) 0.1 0.0-0.3 10^3/uL Basophils # (Auto) 0.1 0.0-0.1 10^3/uL Immature Granulocyte # (Auto) 0.0 0.0-0.1 10^3/uL Sodium Level 139 135-145 MMOL/L Potassium Level 4.1 3.6-5.0 MMOL/L Chloride Level 104 98-107 MMOL/L Carbon Dioxide Level 24 21-32 MMOL/L Anion Gap 11 5-14 MMOL/L Blood Urea Nitrogen 32 H 7-18 MG/DL Creatinine 1.58 H 0.60-1.30 MG/DL Estimat Glomerular Filtration Rate 34 BUN/Creatinine Ratio 20 Glucose Level 115 H 70-105 MG/DL Calcium Level 7.7 L 8.5-10.1 MG/DL Corrected Calcium 8.2 L 8.5-10.1 MG/DL Magnesium Level 1.6 1.6-2.4 MG/DL Total Bilirubin 0.4 0.1-1.0 MG/DL Aspartate Amino Transf (AST/SGOT) 30 5-34 U/L Alanine Aminotransferase (ALT/SGPT) 32 0-55 U/L Alkaline Phosphatase 82 40-136 U/L Troponin I < 0.028 <0.028 NG/ML B-Type Natriuretic Peptide 365.7 H <100.0 PG/ML Total Protein 6.0 L 6.4-8.2 GM/DL Albumin 3.4 3.2-4.5 GM/DL Thyroid Stimulating Hormone (TSH) 3.50 0.35-4.94 UIU/ML My Orders Orders - PRITESH JAUREGUI APRN Cbc With Automated Diff (05/18/22 14:23) Comprehensive Metabolic Panel (05/18/22 14:23) Thyroid Stimulating Hormone (05/18/22 14:23) Magnesium (05/18/22 14:23) Troponin I Grady (05/18/22 14:23) Ekg Tracing (05/18/22 14:23) Bnp Grady (05/18/22 14:23) Chest 1 View, Ap/Pa Only (05/18/22 14:23) Ed Iv/Invasive Line Start (05/18/22 14:23) Lorazepam Injection (Ativan Injection) (05/18/22 15:15) Medications Given in ED Current Medications Medications Dose Ordered Sig/Tirso Route Start Time Stop Time Status Last Admin Dose Admin Lorazepam 0.5 mg ONCE PRN IVP 05/18/22 15:15 05/18/22 15:18 0.5 MG Vital Signs/I&O 05/18/22 14:20 Temp 36.7 Pulse 90 B/P (MAP) 164/98 (120) Pulse Ox 98 O2 Delivery Room Air Capillary Refill : Blood Pressure Mean: 120 Departure Communication (Admissions) NAME: BINDU MORRISON MED REC#: [id number] PT STATUS: REG ER : 1950 PHYSICIAN: PRITESH JAUREGUI APRN ADMIT DATE: 05/18/22/ER Draft Date of Exam:05/18/22 CHEST 1 VIEW, AP/PA ONLY INDICATION: Dyspnea. COMPARISON: 03/03/2017. TECHNIQUE: Single radiograph of the chest dated 05/18/2022. FINDINGS: The cardiac silhouette is mildly enlarged. No significant pulmonary vascular congestion. Loop recorder overlying the left chest is identified. Additional surgical clips and chain sutures are noted overlying the left upper abdomen. Vertebroplasty changes near the thoracolumbar junction. Calcifications overlying the cardiac silhouette are felt to relate to valvular calcifications. Low lung volumes. Minimal interstitial opacities within the medial right lung base. No additional focal pulmonary opacity. No pleural effusion. No pneumothorax. No acute osseous abnormality. IMPRESSION: Low lung volumes with minimal right basilar atelectasis or less likely pneumonitis medially. Additional postsurgical and chronic findings as above. Dictated on workstation # [id number] Dict: 05/18/22 1509 Trans: 05/18/22 1514 [id number] Interpreted by: ASHLEY FLANAGAN MD Electronically signed by: Impression Primary Impression: Pedal edema Disposition: 01 HOME, SELF-CARE Condition: Stable Departure-Patient Inst. Decision time for Depature: 15:56 Referrals: NO,LOCAL PHYSICIAN (PCP/Family) Primary Care Physician Patient Instructions: Swelling Add. Discharge Instructions: Follow-up with Dr. Begum next week. Return to ER for any concerns. All discharge instructions reviewed with patient and/or family. Voiced understanding. PRITESH JAUREGUI CONE TRUCKER May 18, 2022 14:47
[2022-05-18 14:48] LABS: GLUCOSE 115 MG/DL (70-105)
[2022-05-18 14:49] LABS: CARBON DIOXIDE 24 MMOL/L (21-32)
[2022-05-18 14:50] LABS: BILIRUBIN,TOTAL 0.4 MG/DL (0.1-1.0)
[2022-05-18 14:51] LABS: ALKALINE PHOSPHATASE 82 U/L (40-136)
[2022-05-18 14:52] LABS: CREATININE SERUM 1.58 MG/DL (0.60-1.30); GFR ESTIMATED 34
[2022-05-18 14:53] LABS: BUN/CREATININE RATIO 20
[2022-05-18 14:54] LABS: ALANINE AMINOTRANSFERASE 32 U/L (0-55); MAGNESIUM 1.6 MG/DL (1.6-2.4)
[2022-05-18] MEDS ORDERED: LORazepam INJ 2 MG/ML (ATIVAN) VIAL IVP PRN (15:15)
--- NOTE | 2022-05-18 15:15 | Diagnostic Imaging Report ---
INDICATION: Dyspnea. COMPARISON: 03/03/2017. TECHNIQUE: Single radiograph of the chest dated 05/18/2022. FINDINGS: The cardiac silhouette is mildly enlarged. No significant pulmonary vascular congestion. Loop recorder overlying the left chest is identified. Additional surgical clips and chain sutures are noted overlying the left upper abdomen. Vertebroplasty changes near the thoracolumbar junction. Calcifications overlying the cardiac silhouette are felt to relate to valvular calcifications. Low lung volumes. Minimal interstitial opacities within the medial right lung base. No additional focal pulmonary opacity. No pleural effusion. No pneumothorax. No acute osseous abnormality. IMPRESSION: Low lung volumes with minimal right basilar atelectasis or less likely pneumonitis medially. Additional postsurgical and chronic findings as above. Dictated by: Dictated on workstation # [id number]
[2022-05-18 16:21] VITALS: BP 126/97
== END 2022-05-18 16:21 | disposition home or self-care (01) ==
LOC: EDUNIT# 14:17 → ER 14:18
DX: R60.0 Localized edema (principal); F17.290 Nicotine dependence, other tobacco product, uncomplicated; Z28.310 Unvaccinated for COVID-19
CPT/HCPCS: 36415; 71045; 80053; 83735; 83880; 84443; 84484; 85025

== ENCOUNTER 2022-05-31 02:17 | Observation (INO) | payer MEDICARE ==
[~2022-05-31] VITALS: Ht 157 cm; Wt 48.8 kg
[2022-05-31] MEDS ORDERED: dilTIAZem DRIP PRE-MIX 125 ML IV STA (02:26)
[2022-05-31 02:41] LABS: BASOPHILS % (AUTO) 1 % (0-10); EOSINOPHILS % (AUTO) 1 % (0-10); HEMATOCRIT 39 % (35-52); HEMOGLOBIN 12.5 g/dL (11.5-16.0); LYMPHOCYTES % (AUTO) 27 % (12-44); MEAN CORPUSCULAR HEMOGLOBIN 36 pg (25-34); MEAN CORPUSCULAR HGB CONC 32 g/dL (32-36); MEAN CORPUSCULAR VOLUME 110 fL (80-99); MONOCYTES # (AUTO) 0.4 10^3/uL (0.0-1.0); MONOCYTES % (AUTO) 11 % (0-12); NEUTROPHILS # (AUTO) 2.2 10^3/uL (1.8-7.8); NEUTROPHILS % (AUTO) 60 % (42-75); PLATELET COUNT 188 10^3/uL (130-400); WHITE BLOOD COUNT 3.6 10^3/uL (4.3-11.0)
[2022-05-31 02:55] LABS: ALBUMIN 3.3 GM/DL (3.2-4.5); INR 1.9 (0.8-1.4); POTASSIUM 3.6 MMOL/L (3.6-5.0); PROTHROMBIN TIME PATIENT 22.3 SEC (12.2-14.7)
[2022-05-31 02:56] LABS: CALCIUM 8.7 MG/DL (8.5-10.1)
[2022-05-31 02:57] LABS: TOTAL PROTEIN 6.2 GM/DL (6.4-8.2)
[2022-05-31 02:59] LABS: BILIRUBIN,TOTAL 0.5 MG/DL (0.1-1.0)
[2022-05-31 03:01] LABS: CREATININE SERUM 1.19 MG/DL (0.60-1.30)
[2022-05-31 03:04] LABS: MAGNESIUM 1.6 MG/DL (1.6-2.4)
[2022-05-31] MEDS ORDERED: ONDANSETRON 4 MG/2 ML (SDV) Z0FRAN IVP ONE (03:30)
[2022-05-31] MEDS ORDERED: NS IV 500 ML 500 ML ONE (03:49)
[2022-05-31] MEDS ORDERED: NS IV 500 ML 500 ML IV ONE (04:00)
--- NOTE | 2022-05-31 04:06 | ED General ---
General Chief Complaint: Respiratory Problems Stated Complaint: RESP PROBLEMS Nursing Triage Note: Pt presents with c/o shortness of breath that started approx 8 hours ago. PT reports onset of cough approx 24 hours ago with increased cp when she coughs. Pt has hx of a-fib and is uncontrolled upon arrival. Pt received neb tx from ems which she states is helping Source of Information: Patient, Old Records Exam Limitations: No Limitations History of Present Illness Date Seen by Provider: May 31, 2022 Time Seen by Provider: 02:18 Initial Comments This is 71-year-old woman presents to the emergency room via EMS with primary complaint of shortness of breath. She has had some chest discomfort and cough as well. Heart rate is as high as the 160s. She has history of paroxysmal atrial fibrillation and is presently anticoagulated with Xarelto. She denies any fever. She is quite anxious. She received an albuterol treatment in route. She is not wheezing at present and is moving air well. Her local medical housekeeper is Dr. Begum. Her primary care provider is in the [facility]. She appears to be in atrial flutter with RVR on assessment. Patient also reports history of multiple myeloma. Allergies and Home Medications Allergies Coded Allergies: Penicillins (Verified Allergy, Severe, RASH, 03/03/17) Patient Home Medication List Home Medication List Reviewed: Yes Allopurinol (Allopurinol) 100 Mg Tablet, 100 MG PO HS, (Reported) Entered as Reported by: KELLI OSORIO on 03/25/22 1433 Amiodarone HCl (Amiodarone HCl) 200 Mg Tablet, 200 MG PO DAILY, (Reported) Entered as Reported by: KELLI OSORIO on 03/25/22 1433 Buspirone HCl (Buspirone HCl) 10 Mg Tablet, 5 MG PO TID, (Reported) Entered as Reported by: MOLLY JOHNSON on 03/27/22 1240 Calcium Carbonate (Calcium) 500 Mg Calcium (1250 Mg) Tablet, 500 MG PO BID, (Reported) Entered as Reported by: MOLLY JOHNSON on 03/27/22 1240 Calcium Carbonate (Calcium) 500 Mg Calcium (1250 Mg) Tablet, 1,000 MG PO 1300, (Reported) Entered as Reported by: MOLLY JOHNSON on 03/27/22 1240 Calcium Citrate/Vitamin D3 (Calcium Citrate - Vit D Caplet) 315 Mg Calcium-5 Mcg (200 Unit) Tablet, 2 EACH PO DAILY Prescribed by: MEL CHILDRESS on 05/07/22 0340 Cholecalciferol (Vitamin D3) (Vitamin D3) 25 Mcg (1000 Unit) Capsule, 75 MCG PO 1300, (Reported) Entered as Reported by: MOLLY JOHNSON on 03/27/22 1240 Clindamycin HCl (Clindamycin HCl) 300 Mg Capsule, 300 MG PO TID Prescribed by: SHERRON HERNANDEZ on 05/03/22 0817 Cyanocobalamin (Vitamin B-12) (Vitamin B-12) 500 Mcg Tablet, 500 MCG PO HS, (Reported) Entered as Reported by: MOLLY JOHNSON on 03/27/22 1240 Fentanyl (Fentanyl Patch 25 MCG) 25 Mcg/Hour Patch.td72, 25 MCG TD Q72H, (Reported) Entered as Reported by: KELLI OSORIO on 03/25/22 1433 Ferrous Sulfate (Iron) 325 Mg (65 Mg Iron) Tablet, 325 MG PO DAILY, (Reported) Entered as Reported by: MOLLY JOHNSON on 03/27/22 1240 Furosemide (Furosemide) 20 Mg Tablet, 20 MG PO DAILY, (Reported) Entered as Reported by: MOLLY JOHNSON on 03/27/22 1240 Hydrocodone/Acetaminophen (Hydrocodone-Acetamin 10-325 mg) 10 Mg-325 Mg Tablet, 10-325 MG PO TID PRN for PAIN-MODERATE (5-7), (Reported) Entered as Reported by: KELLI OSORIO on 03/25/22 1433 Hydrocodone/Acetaminophen (Hydrocodone-Acetamin 5-325 mg) 5 Mg-325 Mg Tablet, 1 TAB PO Q6H PRN for PAIN-MODERATE (5-7) Prescribed by: KELLI TRAN on 04/11/22 1357 Lactobacillus Acidophilus (Acidophilus Lactobacillus) 1 Billion Unit/Gram Powd er, 1 GM MC QID Prescribed by: MEL CHILDRESS on 05/07/22 0336 Levothyroxine Sodium (Euthyrox) 50 Mcg Tablet, 50 MG PO DAILY, (Reported) Entered as Reported by: KELLI OSORIO on 03/25/22 1433 Lidocaine (Lidocaine 5% Patch) 5 % Adh..patch, 1-2 PATCH TD DAILY PRN for PAIN- BREAKTHROUGH, (Reported) Entered as Reported by: KELLI OSORIO on 03/25/221432 Magnesium Oxide (Magnesium Oxide) 400 Mg Tablet, 400 MG PO BID Prescribed by: MEL CHILDRESS on 05/07/22335 Metoprolol Tartrate (Metoprolol Tartrate) 25 Mg Tablet, 25 MG PO BID, (Reported) Entered as Reported by: KELLI OSORIO on 03/25/221432 Omeprazole (Omeprazole) 20 Mg Capsule.dr, 20 MG PO DAILY, (Reported) Entered as Reported by: KELLI OSORIO on 03/25/221432 Ondansetron (Ondansetron Odt) 4 Mg Tab.rapdis, 4 MG PO Q8H PRN for NAUSEA/VOMITING-1ST LINE, (Reported) Entered as Reported by: KELLI OSORIO on 03/25/221432 Ondansetron (Ondansetron Odt) 4 Mg Tab.rapdis, 4 MG PO Q4H Prescribed by: MEL CHILDRESS on 05/07/22335 Potassium Chloride (Potassium Chloride) 20 Meq Tab.er.prt, 20 MEQ PO DAILY, (Reported) Entered as Reported by: KELLI OSORIO on 03/25/221432 Potassium Chloride (Potassium Chloride) 20 Meq Tab.er.prt, 20 MEQ PO DAILY PRN Prescribed by: MEL CHILDRESS on 05/07/22335 Trazodone HCl (Trazodone HCl) 100 Mg Tablet, 100 MG PO HS PRN for SLEEP, (Reported) Entered as Reported by: KELLI OSORIO on 03/25/221432 Review of Systems Review of Systems Constitutional: no symptoms reported EENTM: no symptoms reported Respiratory: see HPI Cardiovascular: see HPI Gastrointestinal: nausea Genitourinary: no symptoms reported : No Musculoskeletal: no symptoms reported Skin: no symptoms reported Psychiatric/Neurological: See HPI Hematologic/Lymphatic: No Symptoms Reported Immunological/Allergic: no symptoms reported Past Nqtphih-Dygpsd-Ktzqgi Hx Patient Social History Tobacco Use?: Yes Tobacco type used: Cigarettes Smoking Status: Current Everyday Smoker Use of E-Cig and/or Vaping dev: No Substance use?: No Alcohol Use?: No Immunizations Up To Date First/Initial COVID19 Vaccinat: 2020 Second COVID19 Vaccination Carlos: 2020 Third COVID19 Vaccination Date: 2020 Past Medical History Surgery/Hospitalization HX: PMH: HTN, MULTIPLE MYLEOMA Surgeries: No Respiratory: Yes COPD Cardiac: Yes Atrial Fibrillation, Hypertension Neurological: No : No [employer] History: Menopausal Genitourinary: No Gastrointestinal: No Musculoskeletal: Yes Degenerate Disk Disease, Chronic Back Pain Endocrine: Yes Hypothyroidsim HEENT: Yes (PAROTIDITIS 05/02/22) Cancer: Yes Did You Recieve Any Treatments: Yes What Type of Treatment Did You: Chemotherapy Psychosocial: Yes Sleep Difficulties, Anxiety, Depression Integumentary: No Blood Disorders: No Family Medical History No Pertinent Family Hx Physical Exam Vital Signs Vital Signs - First Documented 05/31/22 02:20 Temp 36.7 Pulse 135 Resp 20 B/P (MAP) 111/92 (98) Pulse Ox 99 O2 Delivery T Piece O2 Flow Rate 8.00 Capillary Refill : Less Than 3 Seconds Height, Weight, BMI Height: 5'5.00" Weight: 150lbs. oz. 68.741599mg; 20.00 BMI Method:Estimated General Appearance: WD/WN, Moderate Distress, Thin HEENT: PERRL/EOMI, Normal ENT Inspection Neck: Normal Inspection; No JVD Respiratory: Lungs Clear, Normal Breath Sounds, No Accessory Muscle Use, Other (Tachypnea) Cardiovascular: No Edema, No Murmur, Tachycardia Gastrointestinal: Non Tender, Soft Extremity: Normal Inspection, Non Tender, No Pedal Edema Neurologic/Psychiatric: Alert, Oriented x3, No Motor/Sensory Deficits, Other (Anxious) Skin: Normal Color, Warm/Dry Progress/Results/Core Measures Suspected Sepsis SIRS Temperature: Pulse: 142 Respiratory Rate: 20 Laboratory Tests 05/31/22 02:35: White Blood Count 3.6L Blood Pressure 111 /92 Mean: 98 Laboratory Tests 05/31/22 02:35: Creatinine 1.19, INR Comment 1.9H, Platelet Count 188, Total Bilirubin 0.5 Results/Orders Lab Results Laboratory Tests Test 05/31/22 02:35 Range/Units White Blood Count 3.6 L 4.3-11.0 10^3/uL Red Blood Count 3.52 L 3.80-5.11 10^6/uL Hemoglobin 12.5 11.5-16.0 g/dL Hematocrit 39 35-52 % Mean Corpuscular Volume 110 H 80-99 fL Mean Corpuscular Hemoglobin 36 H 25-34 pg Mean Corpuscular Hemoglobin Concent 32 32-36 g/dL Red Cell Distribution Width 14.7 H 10.0-14.5 % Platelet Count 188 130-400 10^3/uL Mean Platelet Volume 11.0 9.0-12.2 fL Immature Granulocyte % (Auto) 1 % Neutrophils (%) (Auto) 60 42-75 % Lymphocytes (%) (Auto) 27 12-44 % Monocytes (%) (Auto) 11 0-12 % Eosinophils (%) (Auto) 1 0-10 % Basophils (%) (Auto) 1 0-10 % Neutrophils # (Auto) 2.2 1.8-7.8 10^3/uL Lymphocytes # (Auto) 1.0 1.0-4.0 10^3/uL Monocytes # (Auto) 0.4 0.0-1.0 10^3/uL Eosinophils # (Auto) 0.0 0.0-0.3 10^3/uL Basophils # (Auto) 0.0 0.0-0.1 10^3/uL Immature Granulocyte # (Auto) 0.0 0.0-0.1 10^3/uL Prothrombin Time 22.3 H 12.2-14.7 SEC INR Comment 1.9 H 0.8-1.4 Activated Partial Thromboplast Time 42 H 24-35 SEC Sodium Level 143 135-145 MMOL/L Potassium Level 3.6 3.6-5.0 MMOL/L Chloride Level 109 H 98-107 MMOL/L Carbon Dioxide Level 21 21-32 MMOL/L Anion Gap 13 5-14 MMOL/L Blood Urea Nitrogen 16 7-18 MG/DL Creatinine 1.19 0.60-1.30 MG/DL Estimat Glomerular Filtration Rate 48 BUN/Creatinine Ratio 13 Glucose Level 125 H 70-105 MG/DL Calcium Level 8.7 8.5-10.1 MG/DL Corrected Calcium 9.3 8.5-10.1 MG/DL Magnesium Level 1.6 1.6-2.4 MG/DL Total Bilirubin 0.5 0.1-1.0 MG/DL Aspartate Amino Transf (AST/SGOT) 20 5-34 U/L Alanine Aminotransferase (ALT/SGPT) 33 0-55 U/L Alkaline Phosphatase 113 40-136 U/L Myoglobin 54.7 10.0-92.0 NG/ML Troponin I < 0.028 <0.028 NG/ML C-Reactive Protein High Sensitivity 2.64 H 0.00-0.50 MG/DL B-Type Natriuretic Peptide 192.4 H <100.0 PG/ML Total Protein 6.2 L 6.4-8.2 GM/DL Albumin 3.3 3.2-4.5 GM/DL Thyroid Stimulating Hormone (TSH) 1.61 0.35-4.94 UIU/ML Free Thyroxine 0.94 0.70-1.48 NG/DL Influenza Type A (RT-PCR) Not Detected Not Detecte Influenza Type B (RT-PCR) Not Detected Not Detecte SARS-CoV-2 RNA (RT-PCR) Not Detected Not Detecte My Orders Orders - DARREN PATEL MD Covid 19 Inhouse Test (05/31/22 02:18) Influenza A And B By Pcr (05/31/22) Ekg Tracing (05/31/22) Cbc With Automated Diff (05/31/22) Magnesium (05/31/22) Chest 1 View, Ap/Pa Only (05/31/22) Comprehensive Metabolic Panel (05/31/22) Myoglobin Serum (05/31/22) Protime With Inr (05/31/22) Partial Thromboplastin Time (05/31/22) O2 (05/31/22) Monitor-Rhythm Ecg Trace Only (05/31/22) Lipid Panel (06/01/22 06:00) Ed Iv/Invasive Line Start (05/31/22) Bnp [place] (05/31/22) Troponin I [place] (05/31/22) Hs C Reactive Protein (05/31/22) Diltiazem Drip Pre-Mix (Cardizem Drip Pr (05/31/22:) Diltiazem Injection (Cardizem Injection) (05/31/22 02:30) Ondansetron Injection (Zofran Injectio (05/31/22 03:30) Ekg Tracing (05/31/22 03:21) Ns Iv 500 Ml (Sodium Chloride 0.9%) (05/31/22 04:00) Ns Iv 500 Ml (Sodium Chloride 0.9%) (05/31/22 03:49) Lorazepam Tablet (Ativan Tablet) (05/31/22 04:15) Medications Given in ED Current Medications Medications Dose Ordered Sig/Tirso Route Start Time Stop Time Status Last Admin Dose Admin Diltiazem HCl 5 mg ONCE ONCE IVP 05/31/22 02:30 05/31/22 02:31 DC 05/31/22 02:56 5 MG Ondansetron HCl 4 mg ONCE ONCE IVP 05/31/22 03:30 05/31/22 03:31 DC 05/31/22 03:38 4 MG Sodium Chloride 500 ml @ 0 mls/hr Q0M ONCE IV 05/31/22 04:00 05/31/22 04:01 DC 05/31/22 03:59 0 MLS/HR Vital Signs/I&O 05/31/22 05/31/22 05/31/22 05/31/22 02:20 02:33 02:56 02:57 Temp 36.7 Pulse 135 141 142 Resp 20 B/P (MAP) 111/92 (98) Pulse Ox 99 100 O2 Delivery T Piece Nasal Cannula O2 Flow Rate 8.00 2.00 Capillary Refill : Less Than 3 Seconds Blood Pressure Mean: 98 Progress Note : Progress Note Cardizem bolus and drip were initiated. Cardizem did not initially have much impact on her heart rate and her blood pressure dropped to the 90s systolic. A 500 mL normal saline bolus was infused. Eventually, Cardizem drip resulted in breakthrough sustained runs of sinus rhythm with a rate in the 80s. Patient is already anticoagulated with Xarelto. Dr. Sterling was consulted. Patient was admitted to the ICU on continued Cardizem drip. We discussed CODE STATUS, and she would like to have a DNR order. Report was given to eICU. Patient received Ativan 0.25 mg orally for anxiety. ECG EKG #1: EKG Time: 02:28 Rate: 133 Rhythm: A Fib/Flutter ECG Impression: Atrial Fibrillation w/RVR Comment Atrial flutter with RVR. No ST elevation or depression. Left axis deviation. EKG #2: EKG Time: 03:25 Rate: 159 Rhythm: A Fib/Flutter ECG Impression: Atrial Fibrillation w/RVR Comment Atrial flutter with RVR. No ST elevation. Questionable ST depression. Diagnostic Imaging Diagonstic Imaging: Xray Plain Films/CT/US/NM/MRI: chest Comments Chest x-ray viewed by me. Report not yet available. No acute abnormalities appreciated. Departure Communication (Admissions) Time/Spoke to Admitting Phy: 04:02 Dr. Grayson Time/Spoke to Consulting Phy: 04:00 Dr. Sterling Impression Primary Impression: Atrial flutter with rapid ventricular response Additional Impressions: Dyspnea Qualified Codes: R06.00 - Dyspnea, unspecified Anxiety Disposition: ADMITTED INPATIENT Condition: Stable Admissions Decision to Admit Reason: Admit from ER (General) Decision to Admit/Date: May 31, 2022 Time/Decision to Admit Time: 04:00 Departure-Patient Inst. Referrals: NO,LOCAL PHYSICIAN (PCP/Family) Primary Care Physician Copy Copies To 1: DIANNE BEGUM MD FACP FACC DARREN MARTIN MD May 31, 2022 04:06
[2022-05-31] MEDS ORDERED: LORazepam 0.5 MG (ATIVAN) TABLET PO ONE (04:15)
[2022-05-31 04:53] LABS: FREE T4 (FREE THYROXINE) 0.94 NG/DL (0.70-1.48)
[2022-05-31] MEDS: dilTIAZem DRIP PRE-MIX 125 ML IV SCH (05:37)
[2022-05-31] MEDS ORDERED: ACETAMINOPHEN 500 MG TAB (TYLENOL) PO PRN (05:45)
[2022-05-31] MEDS ORDERED: LACTATED RINGERS 1,000 ML IV SCH (05:45)
[2022-05-31] MEDS: LORazepam 0.5 MG (ATIVAN) TABLET PO PRN ×3 (06:34→17:51)
[2022-05-31] MEDS: meTOprolol TARTRATE 25 MG (LOPRESSOR) TABLET PO SCH ×2 (07:47→20:58)
[2022-05-31] MEDS ORDERED: FLU QUAD HIGH DOSE 240 MCG/0.7 ML 2022-23 (FLUZONE) IM ONE (08:15)
--- NOTE | 2022-05-31 08:35 | Diagnostic Imaging Report ---
INDICATION: Chest pain COMPARISON: 05/18/2022. TECHNIQUE: Single radiograph of the chest dated 05/31/2022. FINDINGS: Loop recorder is again seen overlying the left chest. The cardiac silhouette is within normal limits in size. Mitral valve annular calcifications are present. No significant pulmonary vascular congestion. Postsurgical changes overlie the left upper abdomen. Prior vertebroplasty changes. The lungs are better aerated than the prior examination and now appear clear of focal pulmonary opacity. No significant pleural effusion. No pneumothorax. No acute osseous abnormality. IMPRESSION: Postsurgical changes without acute cardiopulmonary abnormality. Dictated by: Dictated on workstation # [id number]
[2022-05-31] MEDS ORDERED: AMIODARONE 200 MG (CORDARONE) TAB PO SCH (09:00)
--- NOTE | 2022-05-31 09:29 | Tele-ICU Consult ---
History of Present Illness History of Present Illness Date Seen by Provider: May 31, 2022 Time Seen by Provider: 09:28 Date of Admission (Tele-ICU Physician , consultation as per request of PCP Service provided via interactive audio and video telecommunications E-CARE system to a patient admitted to ICU bed in [facility]. Available chart/ vitals / labs / Images reviewed H&P is from ER notes Patient's information available about PMH, Shx, Fhx allergy reviewed inEMR. ROS as per chart and RN report Now in ICU, hemodynamically stable Video assessment done using teleICU camera, rest of exam as per RN Discussed with RN. Consultants: Hospital course: (05/31) 71yr F admitted for Afib RVR. A/P A fib RVR 160s- converted at 5 am to SINUS - cardizem gtt - AC on xrelto RNFA - ECHO in progress Dyspnea - cxr clear , possible combination of anxiety/bronchospasm /VO Anxiety - tx with ativan in ER - resume home meds Coagulopathy - on xarelto RNFA , INR 1.9 Chronic Anemia - Hb 12 now Hypoxia - 2 l - to wean off chronic musculr pain - as per PCP reported chronic diarrhea - as per RN had formed stool as per notes " discussed CODE STATUS, and she would like to have a DNR order" Lines : periph , (Central Line Necessity Reviewed) Saravia:05/31 OG: Nutrition: po Analgesia: Anxiety/ delirium VTE Prophylaxis: xarelto Stress Ulcer Prophylaxis: ppi Plans in collaboration with bedside consultants and IM MDs. Discussed with RN to reach out if any questions or concerns A total of 31 minutes of critical care time was devoted to this patient today, required to treat and/or prevent further deterioration of critical care condition ( as above ) . I am remotely monitoring this patient from another state. I am unable to do the bedside exam, and history/physical and pertinent information is taken from other notes in the computer and bedside staff. . Allergies and Home Medications Allergies Coded Allergies: Penicillins (Verified Allergy, Severe, RASH, 03/03/17) Home Medications Allopurinol 100 Mg Tablet, 100 MG PO HS, (Reported) Amiodarone HCl 200 Mg Tablet, 200 MG PO DAILY, (Reported) Buspirone HCl 10 Mg Tablet, 5 MG PO TID, (Reported) TAKES OF A 10MG Calcium Carbonate 500 Mg Calcium (1250 Mg) Tablet, 500 MG PO BID, (Reported) Calcium Carbonate 500 Mg Calcium (1250 Mg) Tablet, 1,000 MG PO 1300, (Reported) Calcium Citrate/Vitamin D3 315 Mg Calcium-5 Mcg (200 Unit) Tablet, 2 EACH PO DAILY Prescribed by: MEL CHILDRESS on 05/07/22 0340 Cholecalciferol (Vitamin D3) 25 Mcg (1000 Unit) Capsule, 75 MCG PO 1300, (Reported) Clindamycin HCl 300 Mg Capsule, 300 MG PO TID Prescribed by: SHERRON HERNANDEZ on 05/03/22 0817 Cyanocobalamin (Vitamin B-12) 500 Mcg Tablet, 500 MCG PO HS, (Reported) Fentanyl 25 Mcg/Hour Patch.td72, 25 MCG TD Q72H, (Reported) Ferrous Sulfate 325 Mg (65 Mg Iron) Tablet, 325 MG PO DAILY, (Reported) Furosemide 20 Mg Tablet, 20 MG PO DAILY, (Reported) Hydrocodone/Acetaminophen 10 Mg-325 Mg Tablet, 10-325 MG PO TID PRN for PAIN-MODERATE (5-7), (Reported) Hydrocodone/Acetaminophen 5 Mg-325 Mg Tablet, 1 TAB PO Q6H PRN for PAIN-MODERATE (5-7) Prescribed by: KELLI TRAN on 04/11/22 1357 Lactobacillus Acidophilus 1 Billion Unit/Gram Powder, 1 GM MC QID Prescribed by: EML CHILDRESS on 05/07/22335 Levothyroxine Sodium 50 Mcg Tablet, 50 MG PO DAILY, (Reported) Lidocaine 5 % Adh..patch, 1-2 PATCH TD DAILY PRN for PAIN-BREAKTHROUGH, (Reported) APPLY TO LOWER BACK Magnesium Oxide 400 Mg Tablet, 400 MG PO BID Prescribed by: MEL CHILDRESS on 05/07/22335 Metoprolol Tartrate 25 Mg Tablet, 25 MG PO BID, (Reported) Omeprazole 20 Mg Capsule.dr, 20 MG PO DAILY, (Reported) Ondansetron 4 Mg Tab.rapdis, 4 MG PO Q8H PRN for NAUSEA/VOMITING-1ST LINE, (Reported) Ondansetron 4 Mg Tab.rapdis, 4 MG PO Q4H Prescribed by: MEL CHILDRESS on 05/07/22 033 Potassium Chloride 20 Meq Tab.er.prt, 20 MEQ PO DAILY, (Reported) Potassium Chloride 20 Meq Tab.er.prt, 20 MEQ PO DAILY PRN Prescribed by: MEL CHILDRESS on 05/07/22 0336 Trazodone HCl 100 Mg Tablet, 100 MG PO HS PRN for SLEEP, (Reported) Past Medical/Social/Family Hx Patient Social History Tobacco Use?: Yes Tobacco type used: Cigarettes Smoking Status: Current Everyday Smoker Use of E-Cig and/or Vaping dev: No Substance use?: No Alcohol Use?: No Pt stated abuse/neglect: No Immunizations Up To Date Influenza Vaccine Up-to-Date: No; Not Current First/Initial COVID19 Vaccinat: 2020 Second COVID19 Vaccination Carlos: 2020 Current Status status: No Advance Directives: No Communicates: Verbally Primary Language: Swiss Preferred Spoken Language: Swiss Is interpretation needed?: No Review of Systems Constitutional: see HPI Focused Exam Height, Weight, BMI Height: 5'5.00" Weight: 150lbs. oz. 68.781868iv; 18.29 BMI Method:Estimated Exam Exam Patient acknowledged, consented, and participated in this virtual visit which was conducted using real time audio/video Vital Signs Date Time Temp Pulse Resp B/P (MAP) Pulse Ox O2 Delivery O2 Flow Rate FiO2 05/31/22 08:01 36.4 05/31/22 08:00 98 Nasal Cannula 2.00 05/31/22 08:00 97 156/82 (106) 94 Nasal Cannula 2.00 05/31/22 07:49 100 Nasal Cannula 2.00 05/31/22 07:24 92 05/31/22 07:00 86 139/85 (103) 100 Nasal Cannula 2.00 05/31/22 06:00 81 139/71 (93) 100 Nasal Cannula 2.00 05/31/22 05:52 80 05/31/22 05:43 37.3 82 20 143/81 (101) 100 Nasal Cannula 2.00 05/31/22 05:37 100 Nasal Cannula 2.00 05/31/22 02:57 142 05/31/22 02:56 141 05/31/22 02:33 100 Nasal Cannula 2.00 05/31/22 02:20 36.7 135 20 111/92 (98) 99 T Piece 8.00 I & O 05/31/22 06:59 Intake Total 500 ml Output Total 0 ml Balance 500 ml Height & Weight Height: 5'5.00" Weight: 150lbs. oz. 68.535402tr; 18.29 BMI Method:Estimated General Appearance: WD/WN, Mild Distress, Moderate Distress, Thin HEENT: PERRL/EOMI, Normal ENT Inspection Neck: Normal Inspection; No JVD Respiratory: Lungs Clear, Normal Breath Sounds, No Accessory Muscle Use, Other (Tachypnea) Cardiovascular: No Edema, No Murmur, Tachycardia Capillary Refill: Less Than 3 Seconds Extremity: Normal Inspection, Non Tender, No Pedal Edema Neurologic/Psychiatric: Alert, Oriented x3, No Motor/Sensory Deficits, Other (Anxious) Skin: Normal Color, Warm/Dry Results Lab Laboratory Tests 05/31/22 02:35 Assessment/Plan Assessment/Plan 1 CM RIVERA MD May 31, 2022 09:29
[2022-05-31] MEDS ORDERED: HYDROcodone/APAP 5 MG/325 MG (LORTAB) TAB PO PRN (11:00)
[2022-05-31] MEDS ORDERED: MELATONIN 3 MG TABLET PO PRN (11:00)
[2022-05-31] MEDS ORDERED: LOPERAMIDE 2 MG (IMODIUM) TABLET PO PRN (11:00)
[2022-05-31] MEDS ORDERED: BISACODYL 10 MG SUPP (DULCOLAX) PR PRN (11:00)
[2022-05-31] MEDS ORDERED: CALCIUM CARBONATE 500 MG (TUMS) TAB.CHEW PO PRN (11:00)
[2022-05-31] MEDS ORDERED: ONDANSETRON 4 MG (ZOFRAN) ORAL DISSOLVE TAB PO PRN (11:00)
[2022-05-31] MEDS ORDERED: DOCUSATE SODIUM 100 MG (COLACE) CAP PO PRN (11:00)
[2022-05-31] MEDS ORDERED: MENTHOL/ZINC OXIDE (CALMOSEPTINE) 113 GM TUBE TP PRN (11:00)
[2022-05-31] MEDS ORDERED: fentaNYL PATCH 25 MCG (DURAGESIC) TD SCH (11:00)
[2022-05-31] MEDS ORDERED: LACTULOSE SYRUP 10GM/15ML (ENULOSE) 30ML UDC PO PRN (11:00)
[2022-05-31] MEDS ORDERED: diphenhydrAMINE 25 MG TAB (BENADRYL) PO PRN (11:00)
[2022-05-31] MEDS: LIDOCAINE 4% (SALONPAS) PATCH TOP SCH (11:13)
--- NOTE | 2022-05-31 11:14 | Consultation-Cardiology ---
HPI-Cardiology Cardiology Consultation Date of Consultation 05/31/22 Date of Admission 05/31/22 Time Seen by Provider: 10:00 Indication: Chest pain, atrial flutter on EKG YO Wells is a 71yo female with hx of COPD, multiple myeloma, 3A kidney failure, and paroxysmal AFib who was brought to the ED by EMS following acute onset SOB and chest pain yesterday evening. Her sx began 2 nights ago with a cough with yellow phlegm production. She does experience some SOB at baseline, but this was much worse. Her CP was a 7/10 diffuse pain with radiation into both arms and her neck. She is unsure if she was experiencing palpitations at that time, but she had no syncope or edema. On arrival to the ED, her HR was in the 160s. Her EKG demonstrated atrial flutter with RVR and moderate ST depression. Her CXR was unremarkable. She was given a cardizem bolus and was put on a cardizem drip, after which she returned to sinus rhythm. Her coag panel was elevated (PT 22.3, INR 1.9, APTT 42), as was her BNP (192.4) and CRP (2.64). Her TSH was normal. She was given ativan for anxiety and we were consulted for her cardiac care. She is currently experiencing the same amount and type of CP. She usually wears a fentanyl patch at home, which has run out. She also takes hydocodone at home, and expresses her desire for increased pain control. She states that her multiple myeloma is in remission, and her care for that is in [place]. She recently started with [facility] for cardiac care, and had a loop recorder put in 6 weeks ago. She is hypertensive in room (164/87) and her O2 sat is in the 80s. Home Medications & Allergies Allergies: Coded Allergies: Penicillins (Verified Allergy, Severe, RASH, 03/03/17) Home Medication List Reviewed: Yes PDT-[id number]-Dvlrna Hx Patient Social History Marital Status: single Employed/Student: unemployed Recreational Drug Use: No Smoking Status: Current Everyday Smoker (1-2 cigarettes/day) Type Used: Cigarettes Have you traveled recently?: No Alcohol Use?: No Substance type: Opiates/Opioids Family Medical History Significant Family History: Heart Disease (dad, 3 siblings of cardiac issues >age 60) Review of Systems-General Review of Systems Constitutional: No fever; malaise, weakness EENTM: No nose congestion, No throat pain Respiratory: cough, dyspnea on exertion, phlegm, short of breath, wheezing Cardiovascular: chest pain; No edema, No syncope Gastrointestinal: No constipation, No diarrhea; nausea Genitourinary: No dysuria, No frequency : No Musculoskeletal: other (reports "pain everywhere" especially in R hip/leg that has had surgery) Skin: dryness Psychiatric/Neurological: Anxiety Review of 10 organ systems is as per the history of present illness, otherwise negative. Reviewed Test Results Reviewed Test Results Lab Laboratory Tests 05/31/22 02:35 Laboratory Tests 05/31/22 02:35: White Blood Count 3.6L, Red Blood Count 3.52L, Mean Corpuscular Volume 110H, Mean Corpuscular Hemoglobin 36H, Red Cell Distribution Width 14.7H, Prothrombin Time 22.3H, INR Comment 1.9H, Activated Partial Thromboplast Time 42H, Chloride Level 109H, Glucose Level 125H, C-Reactive Protein High Sensitivity 2.64H, B- Type Natriuretic Peptide 192.4H, Total Protein 6.2L 05/31/22 11:13: Radiology FINDINGS: Loop recorder is again seen overlying the left chest. The cardiac silhouette is within normal limits in size. Mitral valve annular calcifications are present. No significant pulmonary vascular congestion. Postsurgical changes overlie the left upper abdomen. Prior vertebroplasty changes. The lungs are better aerated than the prior examination and now appear clear of focal pulmonary opacity. No significant pleural effusion. No pneumothorax. No acute osseous abnormality. IMPRESSION: Postsurgical changes without acute cardiopulmonary abnormality. ECHOCARDIOGRAM (05/31/22): 1. This is a technically difficult study due to poor acoustic windows secondary to patient's body habitus. A limited number of measurements could be obtained. 2. Left ventricle: The cavity size appears normal. Systolic function is normal. The estimated ejection fraction is 60-65%. There are no regional wall motion abnormalities identified on this technically difficult study. Doppler parameters are consistent with abnormal left ventricular relaxation (grade 1 diastolic dysf unction). 3. Mitral valve: The annulus is moderately calcified. The leaflets are mildly thickened and mildly calcified. There is mild to moderate mitral stenosis with a mean gradient of 6 mmHg but an accurate mitral valve area could not be obtained. 4. Aortic valve: There is mild aortic valve sclerosis. 5. Tricuspid valve: There is mild tricuspid regurgitation. 6. Pulmonary arteries: The estimated pulmonary artery systolic pressure is 38 mmHg assuming a right atrial pressure of 5 mmHg. ECG Impression ECG Initial ECG Rhythm: A Fib/Flutter Initial ECG Intervals: Normal Comment Initial electrocardiogram from the emergency room shows probable atrial flutter with 2-1 AV block and nonspecific ST-T wave changes. Follow-up electrocardiogram from the ICU shows sinus rhythm with occasional premature supraventricular complexes, left atrial abnormality, left anterior hemiblock and nonspecific ST-T wave changes. Physical Exam Physical Exam Vital Signs Vital Signs - First Documented 05/31/22 02:20 Temp 36.7 Pulse 135 Resp 20 B/P (MAP) 111/92 (98) Pulse Ox 99 O2 Delivery T Piece O2 Flow Rate 8.00 Capillary Refill : Less Than 3 Seconds Height, Weight, BMI Height: 5'5.00" Weight: 150lbs. oz. 68.027562ej; 18.29 BMI Method:Estimated General Appearance: Anxious, Mild Distress, Thin HEENT: PERRL/EOMI, Normal ENT Inspection Neck: Normal Inspection; No JVD Respiratory: Accessory Muscle Use, Wheezing, Other (Tachypnea; bilateral course lung sounds) Cardiovascular: Regular Rate, Rhythm, No Edema, Diastolic Murmur Gastrointestinal: Soft, Tenderness (diffuse reported) Extremity: Normal Inspection, Non Tender, No Pedal Edema Neurologic/Psychiatric: Alert, Oriented x3, Other (Anxious) Skin: Normal Color, Warm/Dry Comments Dr. Sterling: General: Alert. Mild respiratory distress while talking. She appears underweight, chronically ill and older than her stated age. Eye: Extraocular movements are intact. Conjunctivae are clear. There are no xanthelasma. HENT: Normocephalic. Atraumatic. Carotid pulsations 2/2 without bruits. Neck: Jugular venous pressure does not appear elevated. No thyromegaly appreciated. Respiratory: Lungs have diffusely decreased breath sounds with scattered wheezes and rhonchi. Respirations are non-labored. Breath sounds are equal. Symmetrical chest wall expansion. Cardiovascular: Normal rate. Regular rhythm. Distant S1/S2. No murmur. No gallop. Point of maximal impulse is not appear displaced. Good pulses equal in all extremities. No edema. Gastrointestinal: Soft. Normal bowel sounds. Skin: Skin turgor is normal. There is no pallor. Musculoskeletal: No kyphosis or scoliosis appreciated. Neurologic: Alert and oriented to person, place, time. Cranial nerves 3-12 appear grossly intact. The patient has good motor tone strength in the upper and lower extremities bilaterally. Psychiatric: Cooperative. Appropriate mood & affect. A/P-Cardiology Admission Diagnosis (1) Typical atrial flutter Status: Acute Assessment & Plan: She presented with what appeared to be typical atrial flutter. She also has an apparent history of paroxysmal atrial fibrillation. She had been started on amiodarone by an outside provider about 1-1/2 years ago. I would suggest that we stop amiodarone at this time. We will continue rivaroxaban for stroke prophylaxis. She is on the lower dose due to GFR below 50 (similar to creatinine clearance). I will resume her metoprolol to tartrate. If she needs another antiarrhythmic drug, we may need to consider dofetilide or sotalol. (2) Mitral stenosis Status: Chronic Assessment & Plan: She has mild to moderate mitral stenosis noted on her echo cardiogram as outlined above. This should not be causing symptoms but will need to be followed longitudinally. (3) Primary hypertension Status: Chronic Assessment & Plan: Continue Metroprolol tartrate. (4) Chronic anticoagulation Status: Acute Assessment & Plan: Continue rivaroxaban at the reduced dose. (5) Stage 3a chronic kidney disease Assessment & Plan: As above, she is on the lower dose of rivaroxaban due to her chronic kidney disease. (6) Acute on chronic respiratory failure with hypoxemia Assessment & Plan: I suspect this is primarily due to underlying lung disease with ongoing cigarette smoking and does not represent heart failure. Assessment/Plan Acute on Chronic respiratory failure 3A kidney disease Chest pain Typical atrial flutter Obtain EKG Continue her amiodarone, metoprolol, and Xarelto- Xarelto dose lowered based on Cr clearance <50 Troponin is undetectable, may consider outpatient stress test if EKG is normal May be a candidate for ablation in the future Lidocaine patch and hydrocodone for pain control managed by inpatient team Supervisory-Addendum Brief Verification & Attestation Participated in pt care: history, MDM, physical Personally performed: exam, history, MDM, supervision of care Care discussed with: Medical Student Procedures: n/a Results interpretation: Verified all documentation I personally saw and examined the patient is outlined above. I independently performed my own history and physical, and impression and plan. EWA POWELL May 31, 2022 11:14 ANTONIO STERLING JR, MD May 31, 2022 12:35
[2022-05-31 11:21] LABS: TRIGLYCERIDES 73 MG/DL (<150); VLDL CHOLESTEROL 15 MG/DL (5-40)
[2022-05-31 11:26] LABS: CHOLESTEROL 116 MG/DL (< 200); HDL CHOLESTEROL 72 MG/DL (40-60)
--- NOTE | 2022-05-31 11:57 | Short Stay Summary ---
ELIZABETH CRUZ 05/31/22 1157: History of Present Illness History of Present Illness Reason for visit/HPI Patient is a 71 year old woman who presented to the ER with a primary complaint of SOB, accompanied by chest discomfort and cough. HR in 160's. History of paroxysmal A-fib anticoagulated with xarelto. EMS administered albuterol in route to the hospital. Initial EKG appeared to show atrial flutter with RVR. Past medical history of multiple myeloma, HTN, hypothyroidism, COPD, degenerative disk disease, anxiety, depression. On multiple drugs including: amiodarone, metoprolol, furosemide, levothyroxine. Diltiazem bolus and drip started in ER, systolic BP dropped to the 90's and patient was administered 500 ml saline bolus. A short time later, breakthrough, sustained runs of sinus rhythm occurred with HR in the 80's. Initial chest x-ray was unremarkable. She was then transferred up to the ICU for further management. This morning she states that she is feeling really bad. Indicates severe SOB, nausea with dry heaving, diffuse body pain that she rates as a 7/10, constant chest pain, and minor headache. She notes that her SOB started the day before yesterday and began with a productive cough that progressed to general dyspnea. She denies fever, urinary problems, constipation, or diarrhea. Date of Admission May 31, 2022 at 04:02 Date of Discharge 05/31/2022 Time Seen by Provider: 08:40 Attending Physician Keysha,Local Physician Admitting Physician Admitting Physician: Ruth Magallanes DO Attending Physician: Ruth Magallanes DO Consult Ramses Sterling MD Allergies and Home Medications Allergies Coded Allergies: Penicillins (Verified Allergy, Severe, RASH, 03/03/17) Patient Home Medication List Home Medication List Reviewed: Yes Allopurinol (Allopurinol) 100 Mg Tablet, 100 MG PO HS, (Reported) Entered as Reported by: KELLI OSORIO on 03/25/22 143 Last Action: Continued Amiodarone HCl (Amiodarone HCl) 200 Mg Tablet, 200 MG PO DAILY, (Reported) Entered as Reported by: KELLI OSORIO on 03/25/22 143 Last Action: Held Buspirone HCl (Buspirone HCl) 10 Mg Tablet, 5 MG PO TID, (Reported) Entered as Reported by: MOLLY JOHNSON on 03/27/221239 Last Action: Continued Calcium Carbonate (Calcium) 500 Mg Calcium (1250 Mg) Tablet, 500 MG PO TID, (Reported) Entered as Reported by: MOLLY JOHNSON on 03/27/221239 Last Action: Held Cholecalciferol (Vitamin D3) (Vitamin D3) 25 Mcg (1000 Unit) Capsule, 100 MCG PO 1200, (Reported) Entered as Reported by: MOLLY JOHNSON on 03/27/221239 Last Action: Held Cyanocobalamin (Vitamin B-12) (Vitamin B-12) 500 Mcg Tablet, 500 MCG PO HS, (Reported) Entered as Reported by: MOLLY JOHNSON on 03/27/221239 Last Action: Held Fentanyl (Fentanyl Patch 25 MCG) 25 Mcg/Hour Patch.td72, 25 MCG TD Q72H, (Reported) Entered as Reported by: KELLI OSORIO on 03/25/221432 Last Action: Held Furosemide (Furosemide) 20 Mg Tablet, 20 MG PO DAILY, (Reported) Entered as Reported by: MOLLY JOHNSON on 03/27/221239 Last Action: Held Hydrocodone/Acetaminophen (Hydrocodone-Acetamin 10-325 mg) 10 Mg-325 Mg Tablet, 10-325 MG PO TID PRN for PAIN-MODERATE (5-7), (Reported) Entered as Reported by: KELLI OSORIO on 03/25/221432 Last Action: Held Levothyroxine Sodium (Euthyrox) 50 Mcg Tablet, 50 MG PO DAILY, (Reported) Entered as Reported by: KELLI OSORIO on 03/25/221432 Last Action: Continued Lidocaine (Lidocaine 5% Patch) 5 % Adh..patch, 1-2 PATCH TD DAILY PRN for PAIN- BREAKTHROUGH, (Reported) Entered as Reported by: KELLI OSORIO on 03/25/221432 Last Action: Held Magnesium Oxide (Magnesium) 400 Mg Magnesium Tablet, 400 MG PO 1200, (Reported) Entered as Reported by: MOLLY JOHNSON on 05/31/22 141 Last Action: Held Metoprolol Tartrate (Metoprolol Tartrate) 25 Mg Tablet, 25 MG PO BID, (Reported) Entered as Reported by: KELLI OSORIO on 03/25/221432 Last Action: Continued Omeprazole (Omeprazole) 20 Mg Capsule.dr, 20 MG PO DAILY, (Reported) Entered as Reported by: KELLI OSORIO on 03/25/221432 Last Action: Continued Potassium Chloride (Potassium Chloride) 20 Meq Tab.er.prt, 20 MEQ PO DAILY, (Reported) Entered as Reported by: KELLI OSORIO on 03/25/221432 Last Action: Continued Rivaroxaban (Xarelto) 20 Mg Tablet, 20 MG PO HS, (Reported) Entered as Reported by: MOLLY JOHNSON on 05/31/22 141 Last Action: Held Trazodone HCl (Trazodone HCl) 100 Mg Tablet, 100 MG PO HS, (Reported) Entered as Reported by: KELLI OSORIO on 03/25/221432 Last Action: Continued Discontinued Medications Calcium Carbonate (Calcium) 500 Mg Calcium (1250 Mg) Tablet, 1,000 MG PO 1300, (Reported) Discontinued Reason: Duplicate Order Entered as Reported by: MOLLY JOHNSON on 03/27/22 124 Last Action: Discontinued Calcium Citrate/Vitamin D3 (Calcium Citrate - Vit D Caplet) 315 Mg Calcium-5 Mcg (200 Unit) Tablet, 2 EACH PO DAILY Discontinued Reason: Duplicate Order Prescribed by: MEL CHILDRESS on 05/07/22 034 Last Action: Discontinued Clindamycin HCl (Clindamycin HCl) 300 Mg Capsule, 300 MG PO TID Discontinued Reason: No Longer Taking Prescribed by: SHERRON HERNANDEZ on 05/03/22 0817 Last Action: Discontinued Ferrous Sulfate (Iron) 325 Mg (65 Mg Iron) Tablet, 325 MG PO DAILY, (Reported) Discontinued Reason: No Longer Taking Entered as Reported by: MOLLY JOHNSON on 03/27/22 124 Last Action: Discontinued Hydrocodone/Acetaminophen (Hydrocodone-Acetamin 5-325 mg) 5 Mg-325 Mg Tablet, 1 TAB PO Q6H PRN for PAIN-MODERATE (5-7) Discontinued Reason: No Longer Taking Prescribed by: KELLI TRAN on 04/11/22 1357 Last Action: Discontinued Lactobacillus Acidophilus (Acidophilus Lactobacillus) 1 Billion Unit/Gram Powder, 1 GM MC QID Discontinued Reason: No Longer Taking Prescribed by: MEL CHILDRESS on 10/17/22 0336 Last Action: Discontinued Magnesium Oxide (Magnesium Oxide) 400 Mg Tablet, 400 MG PO BID Discontinued Reason: Duplicate Order Prescribed by: MEL CHILDRESS on 05/07/22335 Last Action: Discontinued Ondansetron (Ondansetron Odt) 4 Mg Tab.rapdis, 4 MG PO Q8H PRN for NAUSEA/VOMITING-1ST LINE, (Reported) Discontinued Reason: No Longer Taking Entered as Reported by: KELLI OSORIO on 03/25/22 1433 Last Action: Discontinued Ondansetron (Ondansetron Odt) 4 Mg Tab.rapdis, 4 MG PO Q4H Discontinued Reason: No Longer Taking Prescribed by: MEL CHILDRESS on 05/07/22335 Last Action: Discontinued Potassium Chloride (Potassium Chloride) 20 Meq Tab.er.prt, 20 MEQ PO DAILY PRN Discontinued Reason: Duplicate Order Prescribed by: MEL CHILDRESS on 05/07/22335 Last Action: Discontinued Past Bksvegn-Ccevgx-Orlbht Hx Patient Social History Marrital Status: single Employed/Student: unemployed Smoking Status: Current Everyday Smoker (1-2 cigarettes/day) Have you traveled recently?: No Alcohol Use?: No Substance type: Opiates/Opioids Pt feels they are or have been: No Tobacco type used: Cigarettes Surgeries No Respiratory Yes COPD Cardiovascular Yes Atrial Fibrillation, Hypertension Neurological No Reproductive System : No [employer] MED[employer] CLAIMS History: Menopausal Genitourinary No Gastrointestinal No Musculoskeletal Yes Degenerate Disk Disease, Chronic Back Pain Endocrine History of Endocrine Disorders: Yes Endocrine Disorders: Hypothyroidsim HEENT History of HEENT Disorders: Yes (PAROTIDITIS 05/02/22) Cancer Yes (Multiple Myeloma) Did You Recieve Any Treatments: Yes Type of Treatment: Chemotherapy Psychosocial History of Psychiatric Problem: Yes Behavioral Health Disorders: Sleep Difficulties, Anxiety, Depression Integumentary History of Skin or Integumenta: No Blood Transfusions History of Blood Disorders: No Family Medical History Significant Family History: Heart Disease (dad, 3 siblings of cardiac issues >age 60) Review of Systems Constitutional: see HPI; No chills, No fever; malaise, weight loss EENTM: no symptoms reported; No blurred vision, No double vision Respiratory: see HPI, cough, phlegm (yellow), short of breath, wheezing Cardiovascular: see HPI, chest pain; No edema, No syncope Gastrointestinal: no symptoms reported, see HPI; No abdominal pain, No constipation, No diarrhea; nausea; No vomiting Genitourinary: no symptoms reported; No dysuria, No frequency, No hematuria, No incontinence : No Musculoskeletal: other (Generalized full-body muscle and joint pain) Skin: no symptoms reported Psychiatric/Neurological: See HPI, Anxiety, Depressed, Headache (Minor) Physical Exam Vital Signs Vital Signs - First Documented 05/31/22 02:20 Temp 36.7 Pulse 135 Resp 20 B/P (MAP) 111/92 (98) Pulse Ox 99 O2 Delivery T Piece O2 Flow Rate 8.00 Capillary Refill : Less Than 3 Seconds Height, Weight, BMI Height: 5'5.00" Weight: 150lbs. oz. 68.996405ve; 18.29 BMI Method:Estimated General Appearance: Anxious, Chronically ill, Moderate Distress, Thin HEENT: PERRL/EOMI, Normal ENT Inspection Neck: Full Range of Motion, Normal Inspection, Non Tender, Supple; No Carotid Bruit, No JVD, No Thyromegaly Respiratory: Chest Non Tender, Accessory Muscle Use, Respiratory Distress, Wheezing (Bilateral ragged wheezes present bilaterally) Cardiovascular: Regular Rate, Rhythm (Heart sounds distant but seems to be in regular rate and rhythm), No Edema, No Gallop, No JVD, No Murmur, Normal Peripheral Pulses Gastrointestinal: Normal Bowel Sounds, No Organomegaly, No Pulsatile Mass, Non Tender, Soft Back: Normal Inspection Extremity: Normal Inspection, Normal Range of Motion, No Pedal Edema Neurologic/Psychiatric: Alert, Oriented x3, No Motor/Sensory Deficits Skin: Normal Color, Warm/Dry Lymphatic: No Adenopathy Clinical Quality Measures DVT/VTE Risk/Contraindication: VTE Addressed: Yes VTE Present on Admission: No Short Stay Diagnosis Discharge Diagnosis-Short Stay Admission Diagnosis: Atrial flutter with RVR Acute on chronic respiratory failure Dyspnea History of atrial fibrillation Multiple myeloma Stage 3A kidney disease Primary hypertension COPD Mitral stenosis Chronic anticoagulation Anxiety Depression Hypothyroidism Final Discharge Diagnosis: Atrial flutter with RVR - seemingly resolved Acute on chronic respiratory failure Dyspnea History of atrial fibrillation Multiple myeloma Stage 3A kidney disease Primary hypertension COPD Mitral stenosis Chronic anticoagulation Anxiety Depression Hypothyroidism Conclusion Labs Laboratory Tests 05/31/22 02:35: White Blood Count 3.6L, Red Blood Count 3.52L, Hemoglobin 12.5, Hematocrit 39, Mean Corpuscular Volume 110H, Mean Corpuscular Hemoglobin 36H, Mean Corpuscular Hemoglobin Concent 32, Red Cell Distribution Width 14.7H, Platelet Count 188, Mean Platelet Volume 11.0, Immature Granulocyte % (Auto) 1, Neutrophils (%) (Auto) 60, Lymphocytes (%) (Auto) 27, Monocytes (%) (Auto) 11, Eosinophils (%) (Auto) 1, Basophils (%) (Auto) 1, Neutrophils # (Auto) 2.2, Lymphocytes # (Auto) 1.0, Monocytes # (Auto) 0.4, Eosinophils # (Auto) 0.0, Basophils # (Auto) 0.0, Immature Granulocyte # (Auto) 0.0, Prothrombin Time 22.3H, INR Comment 1.9H, Activated Partial Thromboplast Time 42H, Sodium Level 143, Potassium Level 3.6, Chloride Level 109H, Carbon Dioxide Level 21, Anion Gap 13, Blood Urea Nitrogen 16, Creatinine 1.19, Estimat Glomerular Filtration Rate 48, BUN/Creatinine Ratio 13, Glucose Level 125H, Calcium Level 8.7, Corrected Calcium 9.3, Magnesium Level 1.6, Total Bilirubin 0.5, Aspartate Amino Transf (AST/SGOT) 20, Alanine Aminotransferase (ALT/SGPT) 33, Alkaline Phosphatase 113, Myoglobin 54.7, Troponin I < 0.028, C-Reactive Protein High Sensitivity 2.64H, B-Type Natriuretic Peptide 192.4H, Total Protein 6.2L, Albumin 3.3, Thyroid Stimulating Hormone (TSH) 1.61, Free Thyroxine 0.94, Influenza Type A (RT-PCR) Not Detected, Influenza Type B (RT-PCR) Not Detected, SARS-CoV-2 RNA (RT-PCR) Not Detected 05/31/22 11:13: Triglycerides Level 73, Cholesterol Level 116, LDL Cholesterol Direct 29, VLDL Cholesterol 15, HDL Cholesterol 72H 05/31/22 11:36: Conclusion/Plan Atrial flutter with RVR - seemingly resolved, continue amiodarone, metoprolol, and xarelto on discharge per cardiology recommendations. Xarelto dose was decreased due to a Cr clearance less than 50. Troponin was in normal limits. Cardiology may consider outpatient stress test and possible future ablation. Acute on chronic respiratory failure - Patient currently on 2 L O2 via [place]. May need home oxygen. May consider albuterol/ipratropium for further control of SOB. Dyspnea History of atrial fibrillation Multiple myeloma - pain managed with fentanyl patch 25 mcg, oxycontin 2x daily, lortab as needed. Likely needs F/U with her cancer team in [place] for further management. Stage 3A kidney disease - continue monitoring for progression of chronic kidney disease in outpatient setting Primary hypertension - continue medical management COPD Mitral stenosis (mild) - cardiology does not recommend correction at this time Chronic anticoagulation - continue xarelto, dose decreased per cardiology Anxiety - cointinue benzodiazepine Depression Hypothyroidism - continue levothyroxine RUTH MAGALLANES DO 06/01/22 0412: History of Present Illness History of Present Illness Reason for visit/HPI AF RVR Date of Admission 06/01/22 Date of Discharge 0000 Time Seen by Provider: 09:00 Allergies and Home Medications Allergies Coded Allergies: Penicillins (Verified Allergy, Severe, RASH, 03/03/17) Patient Home Medication List Allopurinol (Allopurinol) 100 Mg Tablet, 100 MG PO HS, (Reported) Entered as Reported by: KELLI OSORIO on 03/25/221432 Last Action: Continued Amiodarone HCl (Amiodarone HCl) 200 Mg Tablet, 200 MG PO DAILY, (Reported) Entered as Reported by: KELLI OSORIO on 03/25/221432 Last Action: Held Buspirone HCl (Buspirone HCl) 10 Mg Tablet, 5 MG PO TID, (Reported) Entered as Reported by: MOLLY JOHNSON on 03/27/221239 Last Action: Continued Calcium Carbonate (Calcium) 500 Mg Calcium (1250 Mg) Tablet, 500 MG PO TID, (Reported) Entered as Reported by: MOLLY JOHNSON on 03/27/221239 Last Action: Held Cholecalciferol (Vitamin D3) (Vitamin D3) 25 Mcg (1000 Unit) Capsule, 100 MCG PO 1200, (Reported) Entered as Reported by: MOLLY JOHNSON on 03/27/221239 Last Action: Held Cyanocobalamin (Vitamin B-12) (Vitamin B-12) 500 Mcg Tablet, 500 MCG PO HS, (Reported) Entered as Reported by: MOLLY JOHNSON on 03/27/221239 Last Action: Held Fentanyl (Fentanyl Patch 25 MCG) 25 Mcg/Hour Patch.td72, 25 MCG TD Q72H, (Reported) Entered as Reported by: KELLI OSORIO on 03/25/221432 Last Action: Held Furosemide (Furosemide) 20 Mg Tablet, 20 MG PO DAILY, (Reported) Entered as Reported by: MOLLY JOHNSON on 03/27/22 1240 Last Action: Held Hydrocodone/Acetaminophen (Hydrocodone-Acetamin 10-325 mg) 10 Mg-325 Mg Tablet, 10-325 MG PO TID PRN for PAIN-MODERATE (5-7), (Reported) Entered as Reported by: KELLI OSORIO on 03/25/221432 Last Action: Held Levothyroxine Sodium (Euthyrox) 50 Mcg Tablet, 50 MG PO DAILY, (Reported) Entered as Reported by: KELLI OSORIO on 03/25/221432 Last Action: Continued Lidocaine (Lidocaine 5% Patch) 5 % Adh..patch, 1-2 PATCH TD DAILY PRN for PAIN- BREAKTHROUGH, (Reported) Entered as Reported by: KELLI OSORIO on 03/25/221432 Last Action: Held Magnesium Oxide (Magnesium) 400 Mg Magnesium Tablet, 400 MG PO 1200, (Reported) Entered as Reported by: MOLLY JOHNSON on 05/31/221417 Last Action: Held Metoprolol Tartrate (Metoprolol Tartrate) 25 Mg Tablet, 25 MG PO BID, (Reported) Entered as Reported by: KELLI OSORIO on 03/25/221432 Last Action: Continued Omeprazole (Omeprazole) 20 Mg Capsule.dr, 20 MG PO DAILY, (Reported) Entered as Reported by: KELLI OSORIO on 03/25/221432 Last Action: Continued Potassium Chloride (Potassium Chloride) 20 Meq Tab.er.prt, 20 MEQ PO DAILY, (Reported) Entered as Reported by: KELLI OSORIO on 03/25/221432 Last Action: Continued Rivaroxaban (Xarelto) 20 Mg Tablet, 20 MG PO HS, (Reported) Entered as Reported by: MOLLY JOHNSON on 05/31/221417 Last Action: Held Trazodone HCl (Trazodone HCl) 100 Mg Tablet, 100 MG PO HS, (Reported) Entered as Reported by: KELLI OSORIO on 9/4/22 1433 Last Action: Continued Discontinued Medications Calcium Carbonate (Calcium) 500 Mg Calcium (1250 Mg) Tablet, 1,000 MG PO 1300, (Reported) Discontinued Reason: Duplicate Order Entered as Reported by: MOLLY JOHNSON on 03/27/22 124 Last Action: Discontinued Calcium Citrate/Vitamin D3 (Calcium Citrate - Vit D Caplet) 315 Mg Calcium-5 Mcg (200 Unit) Tablet, 2 EACH PO DAILY Discontinued Reason: Duplicate Order Prescribed by: MEL CHILDRESS on 05/07/22339 Last Action: Discontinued Clindamycin HCl (Clindamycin HCl) 300 Mg Capsule, 300 MG PO TID Discontinued Reason: No Longer Taking Prescribed by: SHERRON HERNANDEZ on 05/03/22 0817 Last Action: Discontinued Ferrous Sulfate (Iron) 325 Mg (65 Mg Iron) Tablet, 325 MG PO DAILY, (Reported) Discontinued Reason: No Longer Taking Entered as Reported by: MOLLY JOHNSON on 03/27/221239 Last Action: Discontinued Hydrocodone/Acetaminophen (Hydrocodone-Acetamin 5-325 mg) 5 Mg-325 Mg Tablet, 1 TAB PO Q6H PRN for PAIN-MODERATE (5-7) Discontinued Reason: No Longer Taking Prescribed by: KELLI TRAN on 04/11/22 1357 Last Action: Discontinued Lactobacillus Acidophilus (Acidophilus Lactobacillus) 1 Billion Unit/Gram Powder, 1 GM MC QID Discontinued Reason: No Longer Taking Prescribed by: MEL CHILDRESS on 05/07/22335 Last Action: Discontinued Magnesium Oxide (Magnesium Oxide) 400 Mg Tablet, 400 MG PO BID Discontinued Reason: Duplicate Order Prescribed by: MEL CHILDRESS on 05/07/22335 Last Action: Discontinued Ondansetron (Ondansetron Odt) 4 Mg Tab.rapdis, 4 MG PO Q8H PRN for NAUSEA/VOMITING-1ST LINE, (Reported) Discontinued Reason: No Longer Taking Entered as Reported by: KELLI OSORIO on 03/25/22 143 Last Action: Discontinued Ondansetron (Ondansetron Odt) 4 Mg Tab.rapdis, 4 MG PO Q4H Discontinued Reason: No Longer Taking Prescribed by: MEL CHILDRESS on 05/07/22335 Last Action: Discontinued Potassium Chloride (Potassium Chloride) 20 Meq Tab.er.prt, 20 MEQ PO DAILY PRN Discontinued Reason: Duplicate Order Prescribed by: MEL CHILDRESS on 05/07/22 0336 Last Action: Discontinued Past Lxlyniu-Myitcz-Cwnubn Hx Patient Social History Marrital Status: single Employed/Student: retired Cardiovascular Atrial Fibrillation, High Cholesterol, Hypertension Review of Systems Constitutional: see HPI Physical Exam General Appearance: Anxious, Chronically ill, Mild Distress Respiratory: Crackles, Decreased Breath Sounds Cardiovascular: Irregularly Irregular, Tachycardia Short Stay Diagnosis Discharge Diagnosis-Short Stay Admission Diagnosis: AF RVR Final Discharge Diagnosis: AF RVR MM COPD Conclusion Conclusion/Plan ICU Dr Sterling consult Supervisory-Addendum Brief Verification & Attestation Participated in pt care: history, MDM, physical Personally performed: exam, history, MDM, supervision of care Care discussed with: Medical Student Procedures: n/a Results interpretation: Verified all documentation Verification and Attestation of Medical Student E/M Service A medical student performed and documented this service in my presence. I reviewed and verified all information documented by the medical student and made modifications to such information, when appropriate. I personally performed the physical exam and medical decision making. Ruth Magallanes, Jun 01, 2022,04:11 ELIZABETH CRUZ May 31, 2022 11:57 RUTH MAGALLANES DO Jun 01, 2022 04:12
[2022-05-31 12:37] LABS: ABG BASE EXCESS 0.6 MMOL/L (-2.5-2.5); ABG OXYGEN SATURATION 92 % (94-100); ABG PCO2 38 MMHG (35-45); ABG PH 7.42 (7.37-7.43); ABG PO2 60 MMHG (79-93); ABG TCO2 25.7 MMOL/L (21.0-31.0); INSPIRED O2 RA; PATIENT TEMP 37; VENTILATOR NO
--- NOTE | 2022-05-31 13:39 | Physical Therapy Evaluation ---
PT Evaluation-General Medical Diagnosis Admission Date May 31, 2022 at 04:02 Medical Diagnosis: SOB Onset Date: May 31, 2022 Therapy Diagnosis Therapy Diagnosis: General Weakness, Debility Height/Weight Height (Feet): 5 Height (Inches): 5.00 Weight (Pounds): 150 Precautions Precautions/Isolations: Fall Prevention, Standard Precautions Weight Bear Status Right Lower Extremity: Right Full Weight Bearing Left Lower Extremity: Left Full Weight Bearing Referral Physician: Kenan Reason for Referral: Evaluation/Treatment Medical History Pertinent Medical History: Atrial Fib, COPD, HTN, Hypothroidism Additional Medical History Surgery/Hospitalization HX: PMH: HTN, MULTIPLE MYLEOMA Surgeries: No Respiratory: Yes COPD Cardiac: Yes Atrial Fibrillation, Hypertension Neurological: No : 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 Genitourinary: No Gastrointestinal: No Musculoskeletal: Yes Degenerate Disk Disease, Chronic Back Pain Endocrine: Yes Hypothyroidsim HEENT: Yes (PAROTIDITIS 05/02/22) Cancer: Yes Did You Recieve Any Treatments: Yes What Type of Treatment Did You: Chemotherapy Psychosocial: Yes Sleep Difficulties, Anxiety, Depression Integumentary: No Blood Disorders: No Current History ER secondary to SOB Reviewed History: Yes Social History Home: Single Level Current Living Status: Alone Entry Into Home: Stairs With Railing PT Steps Into Home: 2 Prior Prior Level of Function SCALE: Activities may be completed with or without assistive devices. 4-Onqkywkyrr-piintjo completes the activity by him/herself with no assistance from a helper. 5-Set-up or Clean-up Assistance-helper sets up or cleans up; patient completes activity. [place] assists only prior to or following the activity. 4-Supervision or Touching Assistance-helper provides verbal cues and/or touching/steadying and/or contact guard assistance as patient completes activi ty. Assistance may be provided throughout the activity or intermittently. 3-Partial/Moderate Assistance-helper does LESS THAN HALF the effort. [place] lifts, holds or supports trunk or limbs, but provides less than half the effort. 2-Substantial/Maximal Assistance-helper does MORE THAN HALF the effort. [place] lifts or holds trunk or limbs and provides more than half the effort. 1-Kylzhfieq-zpxmjb does ALL the effort. Patient does none of the effort to complete the activity. Or, the assistance of 2 or more helpers is required for the patient to complete the activity. If activity was not attempted, code reason: 7-Patient Refused. 9-Not Applicable-not attempted and the patient did not perform the activity before the current illness, exacerbation or injury. 10-Not Attempted due to Environmental Limitations-(lack of equipment, weather restraints, etc.). 88-Not Attempted due to Medical Conditions or Safety Concerns. Bed Mobility: 6 Transfers (B,C,W/C): 6 Gait: 6 Stairs: 6 Indoor Mobility (Ambulation): Independent Stairs: Independent Prior Devices Use: None PT Evaluation-Current Subjective Patient in bed pre-tx, reports no pain, agrees to PT. Objective Patient Orientation: Person, Place, Situation Attachments: Saravia Catheter ROM/Strength ROM Lower Extremities BLE WFL Strength Lower Extremities LLE (hip flexion 4-/5, knee extension 5/5, knee flexion 4/5, DF 5/5), RLE (hip flexion 3/5, knee flexion 4-/5, knee extension 4+/5, DF 5/5) Integumentary/Posture Bowel Incontinence: No Bladder Incontinence: No Neuromuscular (Tone, Coordination, Reflexes) Coordination intact Sensory Vision: Functional Hearing: Functional Sensation Right Lower Extremit: Intact Sensation Left Lower Extremity: Intact Transfers Roll Left to Right (QC): 4 Lying to Sitting/Side of Bed(Q: 4 Sit to Stand (QC): 4 SBA Gait Mode of Locomotion: Walk Anticipated Mode of Locomotion: Walk Distance: 5' Gait Assistive Device: FWW Comments/Gait Description Patient unable to walk more than 5' currently from bed to chair, feeling nauseous and unsteady. Balance Sitting Static: Normal Sitting Dynamic: Normal Standing Static: Fair Standing Dynamic: Fair Treatment LE Strengthening (AP x10, LAQ x10, Marching x10) Assessment/Needs Patient unable to walk more than 5' due to unsteadiness, anxiety, and feeling nauseous. Patient strength diminished mostly on RLE, but some on LLE as well. Rehab Potential: Fair PT Trimmer Hand Goals Trimmer Hand Goals PT Trimmer Hand Goals Time Frame: Jun 09, 2022 Roll Left & Right (QC): 6 Sit to Lying (QC): 6 Lying-Sitting on Side/Bed(QC): 6 Sit to Stand (QC): 6 Chair/Ihb-fj-Mosgu Xfer(QC): 6 Walk 10 feet (QC): 4 (SBA) Walk 50ft with 2 Turns (QC): 4 (SBA) PT Plan Problem List Problem List: Activity Tolerance, Functional Strength, Safety, Balance, Gait, Transfer, Bed Mobility, ROM Treatment/Plan Treatment Plan: Continue Plan of Care Treatment Plan: Bed Mobility, Education, Functional Activity Elton, Functional Strength, Gait, Safety, Therapeutic Exercise, Transfers Treatment Duration: Jun 09, 2022 Frequency: 6 times per week Estimated Hrs Per Day: .25 hour per day Patient and/or Family Agrees t: Yes Safety Risks/Education Patient Education: Transfer Techniques, Correct Positioning, Safety Issues Teaching Recipient: Patient Teaching Methods: Demonstration, Discussion Response to Teaching: Reinforcement Needed Discharge Recommendations Therapy Discharge Recommendati: Home & Family Time Time In: 1240 Time Out: 1252 DATE: May 31, 2022 Total Billed Treatment Time: 12 Total Billed Treatment 1 visit EVM 12min ODILON HENDRICKSON PT May 31, 2022 13:39
--- NOTE | 2022-05-31 14:01 | Occupational Therapy Eval ---
OT Evaluation-General/PLF Medical Diagnosis Admission Date May 31, 2022 at 04:02 Medical Diagnosis: SOB Onset Date: May 31, 2022 Therapy Diagnosis Therapy Diagnosis: decreased ADL status Height/Weight Height (Feet): 5 Height (Inches): 5.00 Weight (Pounds): 150 Precautions Precautions/Isolations: Fall Prevention, Standard Precautions Referral Physician: Kenan Referral Reason: Evaluation/Treatment Medical History Pertinent Medical History: Atrial Fib, COPD, HTN, Hypothroidism Additional Medical History HTN, COPD, afib, DDD, anxiety/depression Current History ED with SOB, chest discomfort, HR 160's Social History Home: Single Level Current Living Status: Alone Entry Into Home: Stairs With Railing Steps Into Home: 2 ADL-Prior Level of Function SCALE: Activities may be completed with or without assistive devices. 3-Uqppmitdff-mefacrd completes the activity by him/herself with no assistance from a helper. 5-Set-up or Clean-up Assistance-helper sets up or cleans up; patient completes activity. [place] assists only prior to or following the activity. 4-Supervision or Touching Assistance-helper provides verbal cues and/or touching/steadying and/or contact guard assistance as patient completes activity. Assistance may be provided throughout the activity or intermittently. 3-Partial/Moderate Assistance-helper does LESS THAN HALF the effort. [place] lifts, holds or supports trunk or limbs, but provides less than half the effort. 2-Substantial/Maximal Assistance-helper does MORE THAN HALF the effort. [place] lifts or holds trunk or limbs and provides more than half the effort. 6-Qbgutbboi-kvlbiw does ALL the effort. Patient does none of the effort to complete the activity. Or, the assistance of 2 or more helpers is required for the patient to complete the activity. If activity was not attempted, code reason: 7-Patient Refused. 9-Not Applicable-not attempted and the patient did not perform the activity before the current illness, exacerbation or injury. 10-Not Attempted due to Environmental Limitations-(lack of equipment, weather restraints, etc.). 88-Not Attempted due to Medical Conditions or Safety Concerns. ADL PLOF Comments Pt reports IND with ADLS and functional mobility at PLOF, no AD. She has been struggling with depression lately, and hasn't been taking care of herself like she should Self Care: Independent Functional Cognition: Independent DME/Equipment: Tub/Shower OT Current Status Subjective Pt up in recliner, agreeable to OT Tx. Pt requests breathing tx, nurse notified. Pt SOB throughout tx, even with talking. Mental Status/Objective Patient Orientation: Person, Place, Time, Situation Attachments: Saravia Catheter Current Upper Extremity ROM WFL ADL-Treatment Eating (QC): 6 (IND per nursing report. ) On/Off Footwear (QC): 6 (IND at recliner.) Other Treatments Pt in recliner, agreeable to OT Tx. Pt provided information about PLOF and home set up and participated in UE Screen. Pt easily distracted, talking about various stories requiring redirection to conversation/task. Pt SOB throughout conversation, requiring cue to slow down with talking and take rest breaks. Pt demo'd ability to doff/don gripper socks, independently. Pt requested breathing tx multiple times throughout session, declines further OT tx at this time due to SOB. Nurse notified of pt's request. Post tx, pt in recliner, call light in reach and all needs met. Education OT Patient Education: Correct positioning, Energy conservation, Modified ADL techniques, Progress toward Goal/Update tx plan, Purpose of tx/functional activities, Rehab process Teaching Recipient: Patient Teaching Methods: Discussion Response to Teaching: Verbalize Understanding OT Guardian Family Member Goals Guardian Family Member Goals Time Frame: Jun 08, 2022 Eating (QC): 6 Oral Hygiene (QC): 6 Toileting Hygiene (QC): 6 Shower/Bathe Self (QC): 6 Upper Body Dressing (QC): 6 Lower Body Dressing (QC): 6 On/Off Footwear (QC): 6 Additional Goals: 1-Demonstrate ADL Tasks, 2-Verbalize Understanding, 3- ImproveStrength/Elton 1=Demonstrate adherence to instructed precautions during ADL tasks. 2=Patient will verbalize/demonstrate understanding of assistive devices/modifications for ADL. 3=Patient will improve strength/tolerance for activity to enable patient to perform ADL's. OT Education/Plan Problem List/Assessment Assessment: Decreased Activ Tolerance, Decreased UE Strength, Impaired Funct Balance, Impaired I ADL's, Impaired Self-Care Skills Pt would benefit from short term skilled OT services for education on energy conservation techniques, increasing BUE strength and activity tolerance, and increasing safety and independence with ADLs and functional mobility to maximize LOF for safe return home. Discharge Recommendations Plan/Recommendations: Continue POC Treatment Plan/Plan of Care Patient would benefit from OT for education, treatment and training to promote independence in ADL's, mobility, safety and/or upper extremity function for ADL's. Plan of Care: ADL Retraining, Functional Mobility, UE Funct Exercise/Act Treatment Duration: Jun 08, 2022 Frequency: 3 times per week (3-5 times per week) Estimated Hrs Per Day: .25 hour per day Agreement: Yes Rehab Potential: Fair Time Start Time: 13:38 Stop Time: 13:49 DATE: May 31, 2022 Total Time Billed (hr/min): 11 Billed Treatment Time 1, ALISIA MEDRANO OT May 31, 2022 14:01
[2022-05-31] MEDS ORDERED: MAGN400T39 PO (14:18)
[2022-05-31] MEDS ORDERED: RIVA20TA PO (14:18)
[2022-05-31 14:25] VITALS: BP 143/79
[2022-05-31] MEDS ORDERED: RT-ALBUTEROL/IPRATROPIUM 3 ML (DUONEB) VIAL INH PRN (14:30)
[2022-05-31] MEDS: RT-ALBUTEROL/IPRATROPIUM 3 ML (DUONEB) VIAL INH SCH ×2 (14:52→21:14)
[2022-05-31] MEDS ORDERED: RIVAROXABAN 15 MG TABLET (XARELTO) PO SCH (17:00)
[2022-05-31] MEDS: polyethylene glycoL POWDER 17 GM (MIRALAX) PACK PO SCH (19:37)
[2022-05-31] MEDS: SENNA W/DOCUSATE (SENOKOT S) TABLET PO SCH (19:37)
[2022-05-31] MEDS ORDERED: ALLOPURINOL 100 MG (ZYLOPRIM) TAB ONE (20:57)
[2022-05-31] MEDS ORDERED: busPIRone 5 MG (BUSPAR) TAB ONE (20:57)
[2022-05-31] MEDS ORDERED: traZODone 100 MG (DESYREL) TAB ONE (20:57)
[2022-05-31] MEDS ORDERED: LIDOCAINE PATCH REMOVAL TP SCH (21:00)
[2022-05-31] MEDS ORDERED: meTOprolol TARTRATE 25 MG (LOPRESSOR) TABLET PO SCH (21:00)
[2022-05-31] MEDS ORDERED: ALLOPURINOL 100 MG (ZYLOPRIM) TAB PO SCH (21:00)
[2022-05-31] MEDS ORDERED: traZODone 100 MG (DESYREL) TAB PO SCH (21:00)
[2022-06-01] MEDS: RT-ALBUTEROL/IPRATROPIUM 3 ML (DUONEB) VIAL INH SCH ×2 (03:22→09:39)
[2022-06-01] MEDS: dilTIAZem DRIP PRE-MIX 125 ML IV SCH (04:29)
[2022-06-01] MEDS ORDERED: NS IV 500 ML 500 ML IV PRN (04:30)
[2022-06-01] MEDS: ONDANSETRON 4 MG/2 ML (SDV) Z0FRAN IVP PRN ×2 (04:41→12:38)
[2022-06-01 05:07] LABS: BASOPHILS % (AUTO) 1 % (0-10); EOSINOPHILS % (AUTO) 1 % (0-10); HEMATOCRIT 28 % (35-52); HEMOGLOBIN 8.9 g/dL (11.5-16.0); LYMPHOCYTES # (AUTO) 0.8 10^3/uL (1.0-4.0); LYMPHOCYTES % (AUTO) 39 % (12-44); MEAN CORPUSCULAR HEMOGLOBIN 36 pg (25-34); MEAN CORPUSCULAR HGB CONC 32 g/dL (32-36); MEAN CORPUSCULAR VOLUME 111 fL (80-99); MEAN PLATELET VOLUME 10.6 fL (9.0-12.2); MONOCYTES # (AUTO) 0.3 10^3/uL (0.0-1.0); MONOCYTES % (AUTO) 15 % (0-12); NEUTROPHILS # (AUTO) 0.9 10^3/uL (1.8-7.8); NEUTROPHILS % (AUTO) 43 % (42-75); PLATELET COUNT 134 10^3/uL (130-400)
[2022-06-01 05:34] LABS: ALBUMIN 2.7 GM/DL (3.2-4.5); BILIRUBIN,TOTAL 0.3 MG/DL (0.1-1.0); CALCIUM 7.6 MG/DL (8.5-10.1); CREATININE SERUM 0.93 MG/DL (0.60-1.30); MAGNESIUM 1.5 MG/DL (1.6-2.4); POTASSIUM 4.3 MMOL/L (3.6-5.0)
[2022-06-01] MEDS: MAGNESIUM 1 GM/100 ML IVPB 100 ML IV SCH (05:51)
[2022-06-01] MEDS ORDERED: KCL 20 MEQ TAB (K-DUR) PO SCH ×2 (06:00→09:00)
[2022-06-01] MEDS ORDERED: MAGNESIUM 1 GM/100 ML IVPB 100 ML IV SCH (06:00)
[2022-06-01] MEDS ORDERED: POTASSIUM CL 10MEQ/50ML IVPB 50 ML IV SCH (06:00)
[2022-06-01] MEDS ORDERED: LEVOTHYROXINE 50 MCG (LEVOTHROID) TAB PO SCH (07:00)
--- NOTE | 2022-06-01 08:05 | Cardiology Progress Note ---
Subjective Date Seen by Provider: Jun 01, 2022 Time Seen by Provider: 07:50 Subjective/Events-last exam Pt's SOB is much improved from yesterday. She still has a cough, so she doesn't consider herself quite back to her baseline yet. Her chest pain has improved to 4/10 (she states her usual is about a 3/10). She ate breakfast this morning and was able to ambulate with PT. Her breathing returned to normal about a minute a fter exertion. Denies edema and syncope. Dr. Sterling: Her breathing is much improved today. She denies chest pain, palpitations, syncope, or ankle edema. Certain portions of this document may have been dictated utilizing voice recognition technology. Inherent to this technology, typographical and grammatical errors may exist. As much as I am diligent to identify and correct these mistakes, some errors may remain in the document. Focused Exam Respiratory: No Accessory Muscle Use, No Respiratory Distress, Decreased Breath Sounds Cardiovascular: Regular Rate, Rhythm, No Murmur Skin: normal color, warm/dry Objective-Cardiology Exam Last Set of Vital Signs Vital Signs 05/31/22 06/01/22 06/01/22 14:25 09:39 14:00 Pulse 65 Resp 18 Pulse Ox 99 O2 Delivery Room Air O2 Flow Rate 1.00 FiO2 28 I&O Intake and Output 06/01/22 00:00 Intake Total 2144 ml Output Total 915 ml Balance 1229 ml Intake Oral 1244 ml IV Total 900 ml Output Urine Total 915 ml # Bowel Movements 3 Daily Weight Change Yes, 14-23 lbs General: Alert, Oriented X3, Cooperative, No Acute Distress HEENT: Atraumatic, EOMI Neck: Supple Lungs: Other (diminished breath sounds, slight rhonci bilat) Heart: Regular Rate, No Murmurs Abdomen: No Tenderness Extremities: No Edema Skin: No Rashes Neuro: Normal Gait, Normal Speech Psych/Mental Status: Mental Status NL, Mood NL Other physical findings Dr. Sterling: General: Alert. No acute distress. She is wearing oxygen by nasal cannula. She appears underweight and chronically ill. Eye: No xanthelasma. HENT: Normocephalic. Neck: Jugular venous pressure does not appear elevated. Respiratory: Lungs are clear to auscultation. Respirations are non-labored. Breath sounds are equal. Symmetrical chest wall expansion. Cardiovascular: Normal rate. Regular rhythm. No murmur. No gallop. No edema. Gastrointestinal: Soft. Normal bowel sounds. Skin: Warm. Dry. Neurologic: Alert and oriented to person, place, time. Cranial nerves 3-11 grossly intact. Psychiatric: Cooperative. Appropriate mood & affect. Results Lab Laboratory Tests 06/01/22 04:36 A/P-Cardiology Admission Diagnosis (1) Atrial flutter with rapid ventricular response Status: Acute (2) Primary hypertension Status: Chronic (3) Mitral stenosis Status: Chronic (4) Anxiety Status: Acute (5) Typical atrial flutter Status: Acute (6) History of multiple myeloma Status: Acute (7) Renal insufficiency Status: Acute (8) Chronic anticoagulation Status: Acute Assessment/Plan Acute on Chronic respiratory failure 3A kidney disease Chest pain Typical atrial flutter Continue her amiodarone, metoprolol, and Xarelto Troponin is undetectable, may consider outpatient stress test if EKG is normal May be a candidate for ablation in the future Lidocaine patch, fentanyl patch, and hydrocodone for pain control managed by inpatient team DR. STERLING: Atrial flutter, typical. This resolved following admission. She had been on amiodarone and despite this, developed atrial flutter. I have discontinued the amiodarone. We may need to consider an alternative antiarrhythmic drug following discharge. Continue rivaroxaban at the reduced dose due to chronic kidney disease. From a cardiac standpoint, she can be discharged home once her noncardiac issues are improved. I have asked the hospital staff to get her a follow-up appointment with her regular ring sorter, Dr. Begum, within the next couple of weeks. Mitral stenosis. Her echocardiogram from this admission shows mild to moderate mitral stenosis. I would not suspect this to be contributing to her symptoms but will need to be followed longitudinally by her regular ring sorter. Essential hypertension. Blood pressure has been reasonably controlled with the present medication. Acute on chronic respiratory failure with hypoxia. I suspect this is primarily due to her underlying chronic obstructive pulmonary disease with ongoing cigarette smoking. Cigarette smoker. Cessation was again strongly encouraged. Diagnosis/Problems Diagnosis/Problems (1) Atrial flutter with rapid ventricular response Status: Acute (2) Dyspnea Status: Acute Qualifiers: Qualified Codes: R06.00 - Dyspnea, unspecified (3) Primary hypertension Status: Chronic (4) Mitral stenosis Status: Chronic (5) Anxiety Status: Acute (6) Typical atrial flutter Status: Acute (7) History of multiple myeloma Status: Acute (8) Renal insufficiency Status: Acute (9) Chronic anticoagulation Status: Acute Clinical Quality Measures DVT/VTE Risk/Contraindication: VTE Addressed: Yes VTE Present on Admission: No Supervisory-Addendum Brief Verification & Attestation Participated in pt care: history, MDM, physical Personally performed: exam, history, MDM Care discussed with: Medical Student Procedures: n/a Results interpretation: Verified all documentation I independently performed my own history and physical as well as impression and plan. I also reviewed the medical student notes. EWA POWELL Jun 01, 2022 08:05 ANTONIO STERLING JR, MD Jun 01, 2022 08:54
[2022-06-01] MEDS: busPIRone 5 MG (BUSPAR) TAB PO SCH ×2 (08:37→12:33)
[2022-06-01] MEDS: meTOprolol TARTRATE 25 MG (LOPRESSOR) TABLET PO SCH (08:37)
[2022-06-01] MEDS: polyethylene glycoL POWDER 17 GM (MIRALAX) PACK PO SCH (08:38)
[2022-06-01] MEDS: SENNA W/DOCUSATE (SENOKOT S) TABLET PO SCH (08:38)
[2022-06-01] MEDS: LIDOCAINE 4% (SALONPAS) PATCH TOP SCH (08:38)
[2022-06-01] MEDS ORDERED: PANTOPRAZOLE 20 MG TABLET (PROTONIX) PO SCH (09:00)
--- NOTE | 2022-06-01 10:57 | Physical Therapy Daily Note ---
PT Daily Note-Current Subjective Patient reports she is feeling much better. Agrees to PT. Pain Section J - Health Conditions 1. Rarely or not at all 2. Occasionally 3. Frequently 4. Almost constantly 8. Unable to answer Pain Effect on Sleep: 1 Pain Interference with Therapy: 1 Pain Interference w/Day-to-Day: 1 Mental Status Patient Orientation: Normal For Age Attachments: Saravia Catheter Transfers SCALE: Activities may be completed with or without assistive devices. 0-Gowututsek-yppuxtg completes the activity by him/herself with no assistance from a helper. 5-Set-up or Clean-up Assistance-helper sets up or cleans up; patient completes activity. [place] assists only prior to or following the activity. 4-Supervision or Touching Assistance-helper provides verbal cues and/or touching/steadying and/or contact guard assistance as patient completes activity. Assistance may be provided throughout the activity or intermittently. 3-Partial/Moderate Assistance-helper does LESS THAN HALF the effort. [place] lifts, holds or supports trunk or limbs, but provides less than half the effort. 2-Substantial/Maximal Assistance-helper does MORE THAN HALF the effort. [place] lifts or holds trunk or limbs and provides more than half the effort. 4-Uiaolyqdz-anofbj does ALL the effort. Patient does none of the effort to complete the activity. Or, the assistance of 2 or more helpers is required for the patient to complete the activity. If activity was not attempted, code reason: 7-Patient Refused. 9-Not Applicable-not attempted and the patient did not perform the activity before the current illness, exacerbation or injury. 10-Not Attempted due to Environmental Limitations-(lack of equipment, weather restraints, etc.). 88-Not Attempted due to Medical Conditions or Safety Concerns. Sit to Stand (QC): 6 Weight Bearing Right Lower Extremity: Right Full Weight Bearing Left Lower Extremity: Left Full Weight Bearing Gait Training Distance: 400' Walk 10 feet (QC): 6 Walk 50 ft with 2 Turns(QC): 6 Walk 150 ft (QC): 6 Gait Assistive Device: FWW safe and functional with no deviation Assessment Patient is currently at independent PLOF with all gross motor skills and has been instructed to ambulate PRN independently in hallway. RN notified. PT to dismiss patient from services at this time. PT Bad Credit Collector Goals Mcc Goals PT Bad Credit Collector Goals Time Frame: Jun 09, 2022 Roll Left & Right (QC): 6 Sit to Lying (QC): 6 Lying-Sitting on Side/Bed(QC): 6 Sit to Stand (QC): 6 Chair/Dvi-wj-Dkxyo Xfer(QC): 6 Walk 10 feet (QC): 4 (SBA) Walk 50ft with 2 Turns (QC): 4 (SBA) PT Plan Treatment/Plan Treatment Plan: Discontinue PT Treatment Plan: Bed Mobility, Education, Functional Activity [place], Functional Strength, Gait, Safety, Therapeutic Exercise, Transfers Treatment Duration: Jun 09, 2022 Frequency: 6 times per week Estimated Hrs Per Day: .25 hour per day Patient and/or Family Agrees t: Yes Time Time In: 737 Time Out: 747 DATE: Jun 01, 2022 Total Billed Treatment Time: 10 Total Billed Treatment 1 visit FA 10 min ODILON HENDRICKSON PT Jun 01, 2022 10:57
[2022-06-01] MEDS ORDERED: RIVA15TA2 PO (11:04)
--- NOTE | 2022-06-01 11:06 | Discharge Summary ---
Diagnosis/Chief Complaint Date of Admission May 31, 2022 at 04:02 Date of Discharge Discharge Date: Jun 01, 2022 Discharge Diagnosis S Patient is a 71 year old woman who presented to the ER with a primary complaint of SOB, accompanied by chest discomfort and cough. HR in 160's. History of paroxysmal A-fib anticoagulated with xarelto. EMS administered albuterol in route to the hospital. Initial EKG appeared to show atrial flutter with RVR. Past medical history of multiple myeloma, HTN, hypothyroidism, COPD, degenerative disk disease, anxiety, depression. On multiple drugs including: amiodarone, metoprolol, furosemide, levothyroxine. Diltiazem bolus and drip started in ER, systolic BP dropped to the 90's and patient was administered 500 ml saline bolus. A short time later, breakthrough, sustained runs of sinus rhythm occurred with HR in the 80's. Initial chest x-ray was unremarkable. She was then transferred up to the ICU for further management. On 04/30, she indicated that severe SOB, nausea with dry heaving, and diffuse body pain that she rated as a 7/10. On initial physical exam, her breathing was labored with accessory muscle use. Auscultation of lungs revealed ragged wheezes bilaterally with regular, albeit distant, heart sounds. Dr. Sterling was consulted for further arrhythmia management and discontinued the patient's amiodarone and conducted an echocardiogram. She was placed on lortab and a 25 mcg fentanyl pat ch for pain we well as initiated on albuterol ipratropium for respiratory distress. As of 05/01 the patient is doing much better. Still notes painful breathing and cough, sore abdomen, SOB with exertion, and bilateral flank pain. In addition, she complains of nausea, a minor headache, and rates her pain around 4/10. Her breathing is much improved today and she denies constipation, diarrhea, blurred vision, palpitations, swelling, or chills. O Vitals: T: 37.7 RR: 22 HR: 72 O2: 100 on room air Labs: WBC: 2.0 RBC: 2.5 HGB: 8.9 HCT: 28 Ca: 7.6 corrected to 8.6 M.5 AB.42 38 60 PE: Patient appears chronically ill, in no acute distress, thin, alert x oriented 3x, and cooperative Heart (RRR), wheezing noted in right upper lobe on pulmonary auscultation, CVA tenderness bilaterally, no pre-tibial edema Pulses equal bilaterally in radial and dorsalis pedis, 2+ No confusion or loss of sensation Echocardiogram found EF of 60-65%, moderate calcification of mitral valve with mild to moderate aortic stenosis, mild aortic valve sclerosis, mild tricuspid regurgitation. -Ramses Sterling MD A/P Atrial flutter with RVR - seemingly resolved, amiodarone DC'd, metoprolol, and xarelto on discharge per cardiology recommendations. Xarelto dose was decreased to 15 mg due to a Cr clearance less than 50. Troponin was in normal limits. Cardiology may consider outpatient stress test and possible future ablation. Acute on chronic respiratory failure - Patient O2 discontinued. May need home oxygen. Albuterol/ipratropium initiated with remarkable recovery of acute respiratory function. Dyspnea History of atrial fibrillation Multiple myeloma - pain managed with fentanyl patch 25 mcg, oxycontin 2x daily, lortab as needed. Likely needs F/U with her cancer team in [place] for further management. Stage 3A kidney disease - continue monitoring for progression of chronic kidney disease in outpatient setting Primary hypertension - continue medical management COPD - continue medical management Mitral stenosis (mild) - cardiology does not recommend correction at this time Chronic anticoagulation - continue xarelto, dose decreased to 15 mg per cardiology Anxiety - cointinue benzodiazepine Depression Hypothyroidism - continue levothyroxine Patient to be discharged with possible home health ELIZABETH CRUZ Reason Hospital Visit AF RVR Discharge Summary Discharge Physical Examination Allergies: Coded Allergies: Penicillins (Verified Allergy, Severe, RASH, 03/03/17) Vitals & I&Os Vital Signs Date Time Temp Pulse Resp B/P (MAP) Pulse Ox O2 Delivery O2 Flow Rate FiO2 06/01/22 14:00 65 18 99 Room Air 06/01/22 12:00 116/76 (89) 06/01/22 12:00 37.1 06/01/22 09:39 1.00 05/31/22 14:25 28 General Appearance: Alert, Oriented X3, Cooperative Respiratory: Clear to Auscultation Cardiovascular: Regular Rate Psych/Mental Status: Mental Status NL Hospital Course Was the Problem List Reviewed?: Yes S Patient is a 71 year old woman who presented to the ER with a primary complaint of SOB, accompanied by chest discomfort and cough. HR in 160's. History of paroxysmal A-fib anticoagulated with xarelto. EMS administered albuterol in route to the hospital. Initial EKG appeared to show atrial flutter with RVR. Past medical history of multiple myeloma, HTN, hypothyroidism, COPD, de generative disk disease, anxiety, depression. On multiple drugs including: amiodarone, metoprolol, furosemide, levothyroxine. Diltiazem bolus and drip started in ER, systolic BP dropped to the 90's and patient was administered 500 ml saline bolus. A short time later, breakthrough, sustained runs of sinus rhythm occurred with HR in the 80's. Initial chest x-ray was unremarkable. She was then transferred up to the ICU for further management. On 04/30, she indicated that severe SOB, nausea with dry heaving, and diffuse body pain that she rated as a 7/10. On initial physical exam, her breathing was labored with accessory muscle use. Auscultation of lungs revealed ragged wheezes bilaterally with regular, albeit distant, heart sounds. Dr. Sterling was consulted for further arrhythmia management and discontinued the patient's amiodarone and conducted an echocardiogram. She was placed on lortab and a 25 mcg fentanyl patch for pain we well as initiated on albuterol ipratropium for respiratory distress. As of 05/01 the patient is doing much better. Still notes painful breathing and cough, sore abdomen, SOB with exertion, and bilateral flank pain. In addition, she complains of nausea, a minor headache, and rates her pain around 4/10. Her breathing is much improved today and she denies constipation, diarrhea, blurred vision, palpitations, swelling, or chills. O Vitals: T: 37.7 RR: 22 HR: 72 O2: 100 on room air Labs: WBC: 2.0 RBC: 2.5 HGB: 8.9 HCT: 28 Ca: 7.6 corrected to 8.6 M.5 AB.42 38 60 PE: Patient appears chronically ill, in no acute distress, thin, alert x oriented 3x, and cooperative Heart (RRR), wheezing noted in right upper lobe on pulmonary auscultation, CVA tenderness bilaterally, no pre-tibial edema Pulses equal bilaterally in radial and dorsalis pedis, 2+ No confusion or loss of sensation Echocardiogram found EF of 60-65%, moderate calcification of mitral valve with mild to moderate aortic stenosis, mild aortic valve sclerosis, mild tricuspid regurgitation. -Ramses Sterling MD A/P Atrial flutter with RVR - seemingly resolved, amiodarone DC'd, metoprolol, and xarelto on discharge per cardiology recommendations. Xarelto dose was decreased to 15 mg due to a Cr clearance less than 50. Troponin was in normal limits. Cardiology may consider outpatient stress test and possible future ablation. Acute on chronic respiratory failure - Patient O2 discontinued. May need home oxygen. Albuterol/ipratropium initiated with remarkable recovery of acute respiratory function. Dyspnea History of atrial fibrillation Multiple myeloma - pain managed with fentanyl patch 25 mcg, oxycontin 2x daily, lortab as needed. Likely needs F/U with her cancer team in [place] for further management. Stage 3A kidney disease - continue monitoring for progression of chronic kidney disease in outpatient setting Primary hypertension - continue medical management COPD - continue medical management Mitral stenosis (mild) - cardiology does not recommend correction at this time Chronic anticoagulation - continue xarelto, dose decreased to 15 mg per cardiology Anxiety - cointinue benzodiazepine Depression Hypothyroidism - continue levothyroxine Patient to be discharged with possible home health ELIZABETH CRUZ Labs (last 24 hrs) Laboratory Tests 05/31/22 02:35: White Blood Count 3.6L, Red Blood Count 3.52L, Hemoglobin 12.5, Hematocrit 39, Mean Corpuscular Volume 110H, Mean Corpuscular Hemoglobin 36H, Mean Corpuscular Hemoglobin Concent 32, Red Cell Distribution Width 14.7H, Platelet Count 188, Mean Platelet Volume 11.0, Immature Granulocyte % (Auto) 1, Neutrophils (%) (Auto) 60, Lymphocytes (%) (Auto) 27, Monocytes (%) (Auto) 11, Eosinophils (%) (Auto) 1, Basophils (%) (Auto) 1, Neutrophils # (Auto) 2.2, Lymphocytes # (Auto) 1.0, Monocytes # (Auto) 0.4, Eosinophils # (Auto) 0.0, Basophils # (Auto) 0.0, Immature Granulocyte # (Auto) 0.0, Prothrombin Time 22.3H, INR Comment 1.9H, Activated Partial Thromboplast Time 42H, Sodium Level 143, Potassium Level 3.6, Chloride Level 109H, Carbon Dioxide Level 21, Anion Gap 13, Blood Urea Nitrogen 16, Creatinine 1.19, Estimat Glomerular Filtration Rate 48, BUN/Creatinine Ratio 13, Glucose Level 125H, Calcium Level 8.7, Corrected Calcium 9.3, Magnesium Level 1.6, Total Bilirubin 0.5, Aspartate Amino Transf (AST/SGOT) 20, Alanine Aminotransferase (ALT/SGPT) 33, Alkaline Phosphatase 113, Myoglobin 54.7, Troponin I < 0.028, C-Reactive Protein High Sensitivity 2.64H, B-Type N atriuretic Peptide 192.4H, Total Protein 6.2L, Albumin 3.3, Thyroid Stimulating Hormone (TSH) 1.61, Free Thyroxine 0.94, Influenza Type A (RT-PCR) Not Detected, Influenza Type B (RT-PCR) Not Detected, SARS-CoV-2 RNA (RT-PCR) Not Detected 05/31/22 11:13: Triglycerides Level 73, Cholesterol Level 116, LDL Cholesterol Direct 29, VLDL Cholesterol 15, HDL Cholesterol 72H 05/31/22 12:31: Blood Gas Puncture Site R BRACH, Blood Gas Patient Temperature 37, Arterial Blood pH 7.42, Arterial Blood Partial Pressure CO2 38, Arterial Blood Partial Pressure O2 60L, Arterial Blood HCO3 25, Arterial Blood Total CO2 25.7, Arterial Blood Oxygen Saturation 92L, Arterial Blood Base Excess 0.6, Drew Test NA, Blood Gas Ventilator Setting NO, Blood Gas Inspired Oxygen RA 06/01/22 04:36: White Blood Count 2.0L, Red Blood Count 2.50L, Hemoglobin 8.9#L, Hematocrit 28L, Mean Corpuscular Volume 111H, Mean Corpuscular Hemoglobin 36H, Mean Corpuscular Hemoglobin Concent 32, Red Cell Distribution Width 14.7H, Platelet Count 134, Me an Platelet Volume 10.6, Immature Granulocyte % (Auto) 1, Neutrophils (%) (Auto) 43, Lymphocytes (%) (Auto) 39, Monocytes (%) (Auto) 15H, Eosinophils (%) (Auto) 1, Basophils (%) (Auto) 1, Neutrophils # (Auto) 0.9L, Lymphocytes # (Auto) 0.8L, Monocytes # (Auto) 0.3, Eosinophils # (Auto) 0.0, Basophils # (Auto) 0.0, Immat ure Granulocyte # (Auto) 0.0, Sodium Level 137, Potassium Level 4.3, Chloride Level 106, Carbon Dioxide Level 24, Anion Gap 7, Blood Urea Nitrogen 15, Creatinine 0.93, Estimat Glomerular Filtration Rate 65, BUN/Creatinine Ratio 16, Glucose Level 113H, Calcium Level 7.6L, Corrected Calcium 8.6, Magnesium Level 1.5L, Total Bilirubin 0.3, Aspartate Amino Transf (AST/SGOT) 16, Alanine Aminotransferase (ALT/SGPT) 23, Alkaline Phosphatase 88, Total Protein 5.0L, Albumin 2.7L, Phosphorus Level 3.0 Microbiology 05/31/22 MRSA Screen - Final, Complete Pending Labs Microbiology Date/Time Source Procedure Growth Status 05/31/22 05:50 Nasal MRSA Screen - Final Complete Laboratory Tests 05/31/22 02:35: White Blood Count 3.6, Red Blood Count 3.52, Hemoglobin 12.5, Hematocrit 39, Mean Corpuscular Volume 110, Mean Corpuscular Hemoglobin 36, Mean Corpuscular Hemoglobin Concent 32, Red Cell Distribution Width 14.7, Platelet Count 188, Mean Platelet Volume 11.0, Immature Granulocyte % (Auto) 1, Neutrophils (%) (Auto) 60, Lymphocytes (%) (Auto) 27, Monocytes (%) (Auto) 11, Eosinophils (%) (Auto) 1, Basophils (%) (Auto) 1, Neutrophils # (Auto) 2.2, Lymphocytes # (Auto) 1.0, Monocytes # (Auto) 0.4, Eosinophils # (Auto) 0.0, Basophils # (Auto) 0.0, Immature Granulocyte # (Auto) 0.0, Prothrombin Time 22.3, INR Comment 1.9, Act ivated Partial Thromboplast Time 42, Sodium Level 143, Potassium Level 3.6, Chloride Level 109, Carbon Dioxide Level 21, Anion Gap 13, Blood Urea Nitrogen 16, Creatinine 1.19, Estimat Glomerular Filtration Rate 48, BUN/Creatinine Ratio 13, Glucose Level 125, Calcium Level 8.7, Corrected Calcium 9.3, Magnesium Level 1.6, Total Bilirubin 0.5, Aspartate Amino Transf (AST/SGOT) 20, Alanine Aminotransferase (ALT/SGPT) 33, Alkaline Phosphatase 113, Myoglobin 54.7, Troponin I < 0.028, C-Reactive Protein High Sensitivity 2.64, B-Type Natriuretic Peptide 192.4, Total Protein 6.2, Albumin 3.3, Thyroid Stimulating Hormone (TSH) 1.61, Free Thyroxine 0.94, Influenza Type A (RT-PCR) Not Detected, Influenza Type B (RT-PCR) Not Detected, SARS-CoV-2 RNA (RT-PCR) Not Detected 05/31/22 11:13: Triglycerides Level 73, Cholesterol Level 116, LDL Cholesterol Direct 29, VLDL Cholesterol 15, HDL Cholesterol 72 05/31/22 12:31: Blood Gas Puncture Site R BRACH, Blood Gas Patient Temperature 37, Arterial Blood pH 7.42, Arterial Blood Partial Pressure CO2 38, Arterial Blood Partial Pressure O2 60, Arterial Blood HCO3 25, Arterial Blood Total CO2 25.7, Arterial Blood Oxygen Saturation 92, Arterial Blood Base Excess 0.6, Drew Test NA, Blood Gas Ventilator Setting NO, Blood Gas Inspired Oxygen RA 06/01/22 04:36: White Blood Count 2.0, Red Blood Count 2.50, Hemoglobin 8.9, Hematocrit 28, Mean Corpuscular Volume 111, Mean Corpuscular Hemoglobin 36, Mean Corpuscular Hemoglobin Concent 32, Red Cell Distribution Width 14.7, Platelet Count 134, Mean Platelet Volume 10.6, Immature Granulocyte % (Auto) 1, Neutrophils (%) (Auto) 43, Lymphocytes (%) (Auto) 39, Monocytes (%) (Auto) 15, Eosinophils (%) (Auto) 1, Basophils (%) (Auto) 1, Neutrophils # (Auto) 0.9, Lymphocytes # (Auto) 0.8, Monocytes # (Auto) 0.3, Eosinophils # (Auto) 0.0, Basophils # (Auto) 0.0, Immature Granulocyte # (Auto) 0.0, Sodium Level 137, Potassium Level 4.3, Chloride Level 106, Carbon Dioxide Level 24, Anion Gap 7, Blood Urea Nitrogen 15, Creatinine 0.93, Estimat Glomerular Filtration Rate 65, BUN/Creatinine Ratio 16, Glucose Level 113, Calcium Level 7.6, Corrected Calcium 8.6, Magnesium Level 1.5, Total Bilirubin 0.3, Aspartate Amino Transf (AST/SGOT) 16, Alanine Giles otransferase (ALT/SGPT) 23, Alkaline Phosphatase 88, Total Protein 5.0, Albumin 2.7, Phosphorus Level 3.0 Discharge Home Medications: Active Scripts Active Xarelto Tablet (Rivaroxaban) 15 Mg Tablet 15 Mg PO DAILY@1700 Reported Magnesium (Magnesium Oxide) 400 Mg Magnesium Tablet 400 Mg PO 1200 Furosemide 20 Mg Tablet 20 Mg PO DAILY Vitamin B-12 (Cyanocobalamin (Vitamin B-12)) 500 Mcg Tablet 500 Mcg PO HS Vitamin D3 (Cholecalciferol (Vitamin D3)) 25 Mcg (1000 Unit) Capsule 100 Mcg PO 1200 TAKES 4 CAPS Calcium (Calcium Carbonate) 500 Mg Calcium (1250 Mg) Tablet 500 Mg PO TID Buspirone HCl 10 Mg Tablet 5 Mg PO TID TAKES OF A 10MG Metoprolol Tartrate 25 Mg Tablet 25 Mg PO BID Hydrocodone-Acetamin 10-325 mg (Hydrocodone/Acetaminophen) 10 Mg-325 Mg Tablet 10-325 Mg PO TID PRN Allopurinol 100 Mg Tablet 100 Mg PO HS Trazodone HCl 100 Mg Tablet 100 Mg PO HS Fentanyl Patch 25 MCG (Fentanyl) 25 Mcg/Hour Patch.td72 25 Mcg TD Q72H Lidocaine 5% Patch (Lidocaine) 5 % Adh..patch 1-2 Patch TD DAILY PRN APPLY TO LOWER BACK Euthyrox (Levothyroxine Sodium) 50 Mcg Tablet 50 Mg PO DAILY Potassium Chloride 20 Meq Tab.er.prt 20 Meq PO DAILY Omeprazole 20 Mg Capsule.dr 20 Mg PO DAILY Instructions to patient/family Please see electronic discharge instructions given to patient. Clinical Quality Measures DVT/VTE Risk/Contraindication: VTE Addressed: Yes VTE Present on Admission: No YANA MAGALLANES DO Jun 01, 2022 11:05
--- NOTE | 2022-06-01 11:59 | Progress Note ---
ELIZABETH CRUZ 06/01/22 1159: Progress Note S Patient is a 71 year old woman who presented to the ER with a primary complaint of SOB, accompanied by chest discomfort and cough. HR in 160's. History of paroxysmal A-fib anticoagulated with xarelto. EMS administered albuterol in route to the hospital. Initial EKG appeared to show atrial flutter with RVR. Past medical history of multiple myeloma, HTN, hypothyroidism, COPD, degenerative disk disease, anxiety, depression. On multiple drugs including: amiodarone, metoprolol, furosemide, levothyroxine. Diltiazem bolus and drip started in ER, systolic BP dropped to the 90's and patient was administered 500 ml saline bolus. A short time later, breakthrough, sustained runs of sinus rh ythm occurred with HR in the 80's. Initial chest x-ray was unremarkable. She was then transferred up to the ICU for further management. On 04/30, she indicated that severe SOB, nausea with dry heaving, and diffuse body pain that she rated as a 7/10. On initial physical exam, her breathing was labored with accessory muscle use. Auscultation of lungs revealed ragged wheezes bilaterally with regular, albeit distant, heart sounds. Dr. Sterling was consulted for further arrhythmia management and discontinued the patient's amiodarone and conducted an echocardiogram. She was placed on lortab and a 25 mcg fentanyl patch for pain we well as initiated on albuterol ipratropium for respiratory distress. As of 05/01 the patient is doing much better. Still notes painful breathing and cough, sore abdomen, SOB with exertion, and bilateral flank pain. In addition, she complains of nausea, a minor headache, and rates her pain around 4/10. Her breathing is much improved today and she denies constipation, diarrhea, blurred vision, palpitations, swelling, or chills. O Vitals: T: 37.7 RR: 22 HR: 72 O2: 100 on room air Labs: WBC: 2.0 RBC: 2.5 HGB: 8.9 HCT: 28 Ca: 7.6 corrected to 8.6 M.5 AB.42 38 60 PE: Patient appears chronically ill, in no acute distress, thin, alert x oriented 3x, and cooperative Heart (RRR), wheezing noted in right upper lobe on pulmonary auscultation, CVA tenderness bilaterally, no pre-tibial edema Pulses equal bilaterally in radial and dorsalis pedis, 2+ No confusion or loss of sensation Echocardiogram found EF of 60-65%, moderate calcification of mitral valve with mild to moderate aortic stenosis, mild aortic valve sclerosis, mild tricuspid regurgitation. -Ramses Sterling MD A/P Atrial flutter with RVR - seemingly resolved, amiodarone DC'd, metoprolol, and xarelto on discharge per cardiology recommendations. Xarelto dose was decreased to 15 mg due to a Cr clearance less than 50. Troponin was in normal limits. Cardiology may consider outpatient stress test and possible future ablation. Acute on chronic respiratory failure - Patient O2 discontinued. May need home oxygen. Albuterol/ipratropium initiated with remarkable recovery of acute respiratory function. Dyspnea History of atrial fibrillation Multiple myeloma - pain managed with fentanyl patch 25 mcg, oxycontin 2x daily, lortab as needed. Likely needs F/U with her cancer team in [place] for further management. Stage 3A kidney disease - continue monitoring for progression of chronic kidney disease in outpatient setting Primary hypertension - continue medical management COPD - continue medical management Mitral stenosis (mild) - cardiology does not recommend correction at this time Chronic anticoagulation - continue xarelto, dose decreased to 15 mg per cardiology Anxiety - cointinue benzodiazepine Depression Hypothyroidism - continue levothyroxine Patient to be discharged with possible home health RUTH MAGALLANES DO 06/02/22 0549: Supervisory-Addendum Brief Verification & Attestation Participated in pt care: history, MDM, physical Personally performed: exam, history, MDM, supervision of care Care discussed with: Medical Student Procedures: n/a Results interpretation: Verified all documentation Verification and Attestation of Medical Student E/M Service A medical student performed and documented this service in my presence. I reviewed and verified all information documented by the medical student and made modifications to such information, when appropriate. I personally performed the physical exam and medical decision making. Ruth Magallanes, Jun 02, 2022,05:49 ELIZABETH CRUZ Jun 01, 2022 11:59 RUTH MAGALLANES DO Jun 02, 2022 05:49
--- NOTE | 2022-06-01 12:29 | Occ Therapy Progress Note ---
Therapy Progress Note Per nrsg pt is completing all ADLs independently and is discharging from hospital today. OT to discharge pt from services. AVEL KYLE Jun 01, 2022 12:29
--- NOTE | 2022-06-01 12:52 | Tele-ICU Progress Note ---
Subjective Date Seen by a Provider: Jun 01, 2022 Time Seen by a Provider: 09:41 Subjective/Events-last exam (Tele-ICU Physician , Progress Note ) Service provided via interactive audio and video telecommunications E-CARE system to a patient admitted to ICU bed in [facility]. Available chart/ vitals / labs / Images reviewed Video assessment done using teleICU camera, rest of exam as per RN Discussed with RN Events overnight : Afebrile hemodynamically stable Respiratory - I/O = Drips: Pressors- no Consultants: Hospital course: (05/31) 71yr F admitted for Afib RVR. 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 Discussed with RN to reach out if any questions or concerns A total of 10 minutes of critical care time was devoted to this patient today, required to treat and/or prevent further deterioration of critical care con dition ( as above ) . I am remotely monitoring this patient from another state. I am unable to do the bedside exam, and history/physical and pertinent information is taken from other notes in the computer and bedside staff. . Sepsis Event Evaluation Height, Weight, BMI Height: 5'5.00" Weight: 150lbs. oz. [id number]; 19.79 BMI Method:Estimated Exam Exam Patient acknowledged, consented, and participated in this virtual visit which was conducted using real time audio/video Vital Signs Date Time Temp Pulse Resp B/P (MAP) Pulse Ox O2 Delivery O2 Flow Rate FiO2 06/01/22 12:00 75 17 116/76 (89) 98 Room Air 06/01/22 11:00 72 23 111/73 (86) 95 Room Air 06/01/22 10:00 81 18 106/59 (75) 98 Room Air 06/01/22 09:39 99 Room Air 1.00 06/01/22 09:00 66 23 94/51 (65) 99 Room Air 06/01/22 08:00 68 21 106/73 (84) 99 Room Air 06/01/22 08:00 95 Room Air 06/01/22 07:53 36.9 06/01/22 07:00 93 06/01/22 07:00 61 20 102/67 (79) 98 Room Air 06/01/22 06:00 72 22 110/62 (78) 100 Room Air 06/01/22 05:58 Room Air 06/01/22 05:00 67 27 103/59 (74) 98 Nasal Cannula 2.00 06/01/22 04:20 37.7 06/01/22 04:00 68 28 107/58 (74) 100 Nasal Cannula 2.00 06/01/22 04:00 100 Nasal Cannula 2.00 06/01/22 03:22 98 Nasal Cannula 1.00 06/01/22 03:00 68 28 105/60 (75) 100 Nasal Cannula 2.00 06/01/22 02:00 74 31 109/62 (78) 100 Nasal Cannula 2.00 06/01/22 01:00 80 06/01/22 01:00 73 28 120/58 (78) 99 Nasal Cannula 2.00 06/01/22 00:27 Nasal Cannula 2.00 06/01/22 00:00 73 28 116/65 (82) 96 Room Air 05/31/22 23:50 37.8 Room Air 05/31/22 23:20 96 Room Air 05/31/22 23:00 65 33 105/60 (75) 97 Room Air 05/31/22 22:00 66 29 112/61 (78) 96 Room Air 05/31/22 21:14 97 Room Air 0.00 05/31/22 21:00 82 121/96 (104) Room Air 05/31/22 20:00 75 39 144/84 (104) 97 Room Air 05/31/22 19:30 97 Room Air 05/31/22 19:00 38.0 89 24 132/87 (102) 97 Room Air 05/31/22 19:00 80 05/31/22 18:43 Room Air 05/31/22 18:00 80 48 144/81 (102) 99 Room Air 05/31/22 17:00 77 28 130/53 (78) 95 Room Air 05/31/22 16:00 78 44 148/103 (118) 95 Room Air 05/31/22 16:00 96 Room Air 05/31/22 14:50 98 Room Air 05/31/22 14:25 36.9 78 100 28 05/31/22 13:43 79 20 155/81 (105) 98 Room Air 05/31/22 13:37 77 05/31/22 13:00 87 30 155/81 (105) 100 Nasal Cannula 2.00 I & O 06/01/22 07:00 Intake Total 1844 ml Output Total 1240 ml Balance 604 ml Height & Weight Height: 5'5.00" Weight: 150lbs. oz. 68.203697xs; 19.79 BMI Method:Estimated General Appearance: Anxious, Chronically ill, Mild Distress HEENT: PERRL/EOMI, Normal ENT Inspection Neck: Normal Inspection; No JVD Respiratory: No Accessory Muscle Use, No Respiratory Distress, Decreased Breath Sounds Cardiovascular: Regular Rate, Rhythm, No Murmur Capillary Refill: Less Than 3 Seconds Extremity: Normal Inspection, Non Tender, No Pedal Edema Neurologic/Psychiatric: Alert, Oriented x3, Other (Anxious) Skin: Normal Color, Warm/Dry Lymphatic: No Adenopathy Results Lab Laboratory Tests 05/31/22 02:35 06/01/22 04:36 Assessment/Plan Assessment/Plan 1 CM RIVERA MD Jun 01, 2022 12:51
[2022-06-03] MEDS ORDERED: FENTANYL PATCH REMOVAL TP SCH (10:59)
== END 2022-06-01 12:38 | disposition home or self-care (01) ==
LOC: ER 02:17 → EDUNIT# 02:17 → UNDOADMOB 04:02 → ICU 04:02 → UNDODISOB 06-01 12:38
PROVIDERS: ADMIT Internal Medicine; ATTEND Internal Medicine
DX: I48.92 Unspecified atrial flutter (principal); I48.91 Unspecified atrial fibrillation; N18.31 Chronic kidney disease, stage 3a; I12.9 Hypertensive chronic kidney disease with stage 1 through stage 4 chronic kidney disease, or unspecified chronic kidney disease; J44.9 Chronic obstructive pulmonary disease, unspecified; I34.2 Nonrheumatic mitral (valve) stenosis; Z79.01 Long term (current) use of anticoagulants; F41.9 Anxiety disorder, unspecified; F32.A Depression, unspecified; E03.9 Hypothyroidism, unspecified; C90.00 Multiple myeloma not having achieved remission; Z79.899 Other long term (current) drug therapy; Z79.890 Hormone replacement therapy; F17.210 Nicotine dependence, cigarettes, uncomplicated; Z28.311 Partially vaccinated for COVID-19
CPT/HCPCS: 71045; 80053 ×2; 80061; 82805; 83735 ×2; 83874; 83880; 84100; 84439; 84443; 84484; 85025 ×2; 85610; 85730; 86141; 87081; 87636; 93005 ×2; 93041; 94640 ×2; 96361; 96375; 96376; 97162; 97166; 97530; 99285; C8929; G0378; 36415; 93306

== ENCOUNTER 2022-07-19 12:36 | Emergency (ER) | payer MEDICARE ==
[~2022-07-19 12:36] MED LIST changes: +MAGN400T39 PO; +RIVA15TA2 PO; +RIVA20TA PO
[2022-07-19] MEDS ORDERED: ONDANSETRON 4 MG (ZOFRAN) ORAL DISSOLVE TAB SL STA (12:48)
--- NOTE | 2022-07-19 13:04 | ED Lower Extremity ---
General Chief Complaint: Lower Extremity Stated Complaint: FOOT PAIN History of Present Illness Date Seen by Provider: Jul 19, 2022 Time Seen by Provider: 12:40 Initial Comments 71-year-old female presents via EMS for left foot pain. She states that she has had bunions for years and was scheduled to have surgery 3 to 4 years ago but had to cancel due to a cancer diagnosis. She lives alone at home with her dog and per EMS it appears she has been bedbound for several days. Patient reports she does not have family in town and does not drive. She denies injury to her foot, she has history of gout and takes allopurinol. She reports not taking her medication for the last 3 to 4 days. Patient does not use O2 at home, but was 88-92% SaO2, but she is yelling and her SaO2 goes down. When resting in bed it is 96-98%. Onset: other (ongoing) Severity: moderate Pain/Injury Location: left foot Method of Injury: unknown Modifying Factors: Improves With Rest Allergies and Home Medications Allergies Coded Allergies: Penicillins (Verified Allergy, Severe, RASH, 03/03/17) Patient Home Medication List Home Medication List Reviewed: Yes Allopurinol (Allopurinol) 100 Mg Tablet, 100 MG PO HS, (Reported) Entered as Reported by: KELLI OSORIO on 03/25/22 1433 Buspirone HCl (Buspirone HCl) 10 Mg Tablet, 5 MG PO TID, (Reported) Entered as Reported by: MOLLY JOHNSON on 03/27/22 1240 Calcium Carbonate (Calcium) 500 Mg Calcium (1250 Mg) Tablet, 500 MG PO TID, (Reported) Entered as Reported by: MOLLY JOHNSON on 03/27/22 1240 Cholecalciferol (Vitamin D3) (Vitamin D3) 25 Mcg (1000 Unit) Capsule, 100 MCG PO 1200, (Reported) Entered as Reported by: MOLLY JOHNSON on 03/27/22 1240 Cyanocobalamin (Vitamin B-12) (Vitamin B-12) 500 Mcg Tablet, 500 MCG PO HS, (Reported) Entered as Reported by: MOLLY JOHNSON on 03/27/22 1240 Fentanyl (Fentanyl Patch 25 MCG) 25 Mcg/Hour Patch.td72, 25 MCG TD Q72H, (Reported) Entered as Reported by: KELLI OSORIO on 03/25/22 1433 Furosemide (Furosemide) 20 Mg Tablet, 20 MG PO DAILY, (Reported) Entered as Reported by: MOLLY JOHNSON on 03/27/22 1240 Hydrocodone/Acetaminophen (Hydrocodone-Acetamin 10-325 mg) 10 Mg-325 Mg Tablet, 10-325 MG PO TID PRN for PAIN-MODERATE (5-7), (Reported) Entered as Reported by: KELLI OSORIO on 03/25/22 1433 Levothyroxine Sodium (Euthyrox) 50 Mcg Tablet, 50 MG PO DAILY, (Reported) Entered as Reported by: KELLI OSORIO on 03/25/22 1433 Lidocaine (Lidocaine 5% Patch) 5 % Adh..patch, 1-2 PATCH TD DAILY PRN for PAIN- BREAKTHROUGH, (Reported) Entered as Reported by: KELLI OSORIO on 03/25/22 1433 Magnesium Oxide (Magnesium) 400 Mg Magnesium Tablet, 400 MG PO 1200, (Reported) Entered as Reported by: MOLLY JOHNSON on 05/31/22 1418 Metoprolol Tartrate (Metoprolol Tartrate) 25 Mg Tablet, 25 MG PO BID, (Reported) Entered as Reported by: KELLI OSORIO on 03/25/22 1433 Omeprazole (Omeprazole) 20 Mg Capsule.dr, 20 MG PO DAILY, (Reported) Entered as Reported by: KELLI OSORIO on 03/25/22 1433 Potassium Chloride (Potassium Chloride) 20 Meq Tab.er.prt, 20 MEQ PO DAILY, (Reported) Entered as Reported by: KELLI OSORIO on 03/25/22 1433 Rivaroxaban (Xarelto Tablet) 15 Mg Tablet, 15 MG PO DAILY@1700 Prescribed by: YANA MAGALLANES on 06/01/22 1104 Trazodone HCl (Trazodone HCl) 100 Mg Tablet, 100 MG PO HS, (Reported) Entered as Reported by: KELLI OSORIO on 03/25/22 1433 Review of Systems Constitutional: no symptoms reported, see HPI Musculoskeletal: see HPI, joint pain (left foot) All Other Systems Reviewed Negative Unless Noted: Yes Past Jkfawze-Jeywsn-Yjmjdo Hx Immunizations Up To Date First/Initial COVID19 Vaccinat: 2020 Second COVID19 Vaccination Carlos: 2020 Third COVID19 Vaccination Date: 2020 Past Medical History Surgery/Hospitalization HX: PMH: HTN, MULTIPLE MYLEOMA Surgeries: No Respiratory: Yes COPD Cardiac: Yes Atrial Fibrillation, High Cholesterol, Hypertension Neurological: No VIDEO INTERN History: Menopausal Genitourinary: No Gastrointestinal: No Musculoskeletal: Yes Degenerate Disk Disease, Chronic Back Pain Endocrine: Yes Hypothyroidsim HEENT: Yes (PAROTIDITIS 05/02/22) Cancer: Yes (Multiple Myeloma) Did You Recieve Any Treatments: Yes What Type of Treatment Did You: Chemotherapy Psychosocial: Yes Sleep Difficulties, Anxiety, Depression Integumentary: No Blood Disorders: No Family Medical History Reviewed Nursing Family Hx Heart Disease Physical Exam Vital Signs Vital Signs - First Documented 07/19/22 12:37 Temp 36.4 Pulse 79 Resp 16 B/P (MAP) 144/67 (92) Capillary Refill : Height, Weight, BMI Height: 5'5.00" Weight: 150lbs. oz. 68.052270wp; 19.79 BMI Method:Estimated General Appearance: WD/WN, mild distress Neck: non-tender, full range of motion, supple, normal inspection Cardiovascular: normal peripheral pulses, regular rate, rhythm Respiratory: chest non-tender, lungs clear, normal breath sounds Gastrointestinal: normal bowel sounds, non tender, soft Back: normal inspection, no CVA tenderness, other (Assessed skin to back and sacrum, no erythem or ulcers noted. ) Knees: bilateral knee non-tender, bilateral knee normal inspection, bilateral k nee normal range of motion Feet: right foot non-tender, right foot normal inspection; bilateral foot sulaiman l range of motion; left foot bone tenderness, left foot limited range of motion, left foot pain, left foot soft tissue tenderness, left foot swelling, left foot other (mild bunion deformity 1st MTP, Erythem noted at 1st, 3rd adn 4th toes. ) Neurologic/Tendon: normal sensation, normal motor functions, normal tendon functions Neurologic/Psychiatric: no motor/sensory deficits, alert, normal mood/affect, oriented x 3 Skin: normal color, warm/dry Progress/Results/Core Measures Results/Orders Lab Results Laboratory Tests Test 07/19/22 13:05 07/19/22 13:42 Range/Units White Blood Count 4.5 4.3-11.0 10^3/uL Red Blood Count 3.25 L 3.80-5.11 10^6/uL Hemoglobin 11.3 L 11.5-16.0 g/dL Hematocrit 34 L 35-52 % Mean Corpuscular Volume 106 H 80-99 fL Mean Corpuscular Hemoglobin 35 H 25-34 pg Mean Corpuscular Hemoglobin Concent 33 32-36 g/dL Red Cell Distribution Width 16.2 H 10.0-14.5 % Platelet Count 70 L 130-400 10^3/uL Mean Platelet Volume 12.3 H 9.0-12.2 fL Immature Granulocyte % (Auto) 1 % Neutrophils (%) (Auto) 78 H 42-75 % Lymphocytes (%) (Auto) 9 L 12-44 % Monocytes (%) (Auto) 11 0-12 % Eosinophils (%) (Auto) 0 0-10 % Basophils (%) (Auto) 0 0-10 % Neutrophils # (Auto) 3.5 1.8-7.8 10^3/uL Lymphocytes # (Auto) 0.4 L 1.0-4.0 10^3/uL Monocytes # (Auto) 0.5 0.0-1.0 10^3/uL Eosinophils # (Auto) 0.0 0.0-0.3 10^3/uL Basophils # (Auto) 0.0 0.0-0.1 10^3/uL Immature Granulocyte # (Auto) 0.0 0.0-0.1 10^3/uL Percent Immature Platelet Fraction 6.1 0.0-7.6 % Sodium Level 138 135-145 MMOL/L Potassium Level 3.0 L 3.6-5.0 MMOL/L Chloride Level 105 98-107 MMOL/L Carbon Dioxide Level 23 21-32 MMOL/L Anion Gap 10 5-14 MMOL/L Blood Urea Nitrogen 9 7-18 MG/DL Creatinine 0.86 0.60-1.30 MG/DL Estimat Glomerular Filtration Rate 71 BUN/Creatinine Ratio 10 Glucose Level 124 H 70-105 MG/DL Uric Acid 3.9 2.6-7.2 MG/DL Calcium Level 7.6 L 8.5-10.1 MG/DL Corrected Calcium 8.5 8.5-10.1 MG/DL Total Bilirubin 1.6 H 0.1-1.0 MG/DL Aspartate Amino Transf (AST/SGOT) 11 5-34 U/L Alanine Aminotransferase (ALT/SGPT) 24 0-55 U/L Alkaline Phosphatase 71 40-136 U/L Total Protein 5.6 L 6.4-8.2 GM/DL Albumin 2.9 L 3.2-4.5 GM/DL Smear Scan YES Urine Color YELLOW Urine Clarity CLEAR Urine pH 6.0 5-9 Urine Specific Greig 1.025 H 1.016-1.022 Urine Protein 1+ H NEGATIVE Urine Glucose (UA) NEGATIVE NEGATIVE Urine Ketones TRACE H NEGATIVE Urine Nitrite NEGATIVE NEGATIVE Urine Bilirubin NEGATIVE NEGATIVE Urine Urobilinogen 1.0 < = 1.0 MG/DL Urine Leukocyte Esterase NEGATIVE NEGATIVE Urine RBC (Auto) TRACE-I H NEGATIVE Urine RBC 0-2 /HPF Urine WBC 0-2 /HPF Urine Squamous Epithelial Cells 0-2 /HPF Urine Crystals PRESENT H /LPF Urine Amorphous Sediment MOD SHIRLENE URATES H /LPF Urine Bacteria NEGATIVE /HPF Urine Casts NONE /LPF Urine Mucus SMALL H /LPF Urine Culture Indicated NO My Orders Orders - KHADRA CASTRO Cbc With Automated Diff (07/19/22 12:48) Comprehensive Metabolic Panel (07/19/22 12:48) Ua Culture If Indicated (07/19/22 12:48) Ondansetron Oral Dissolve Tab (Zofran (07/19/22 12:48) Tramadol Tablet (Ultram Tablet) (07/19/22 12:48) Foot, Left, 3 Views (07/19/22 12:57) Uric Acid (07/19/22 13:23) Potassium Chloride (Tablet) (Klor Con Ta (07/19/22 14:17) Hydrocodone/Apap 5/325 Tablet (Lortab 5 (07/19/22 14:22) Vital Signs/I&O 07/19/22 07/19/22 12:37 14:33 Temp 36.4 36.4 Pulse 79 74 Resp 16 16 B/P (MAP) 144/67 (92) 140/67 Progress Progress Note : Time: 12:40 Progress Note patient assessed, will obtain labs and x-ray of left foot. Tramadol 50 mg for pain and Zofran 4 mg for nausea. She is drinking water and requesting TV remote, also wants EMS to arrange animal control to take care of her dog. 1315 x-rays shows no acute findings, moderate arthritis, loose bodies. Uric acid WNL. 1400 Hypokalemia, will give K+ 30 mEq. Pain not improved, will give Hydrocodone 5/325mg. Walking shoe for foot. Discharge instructions and return precautions reviewed with the patient. Taxi called for transportation to home. Patient agreeable with plan. Diagnostic Imaging Diagonstic Imaging: Xray Plain Films/CT/US/NM/MRI: other (foot) Comments NAME: BINDU MORRISON [facility] REC#: [id number] PT STATUS: REG ER : 1950 PHYSICIAN: KHADRA CASTRO ADMIT DATE: 07/19/22/ER Draft Date of Exam:07/19/22 FOOT, LEFT, 3 VIEWS INDICATION: Foot pain. COMPARISON: None available. TECHNIQUE: Three radiographs of the left foot are obtained dated 07/19/2022. FINDINGS: Mild hallux valgus and metatarsus primus varus with bunion formation. This is associated with mild degenerative changes of the first MTP joint. No acute fracture or dislocation. No destructive osseous process. The Lisfranc joint is well aligned. Small plantar calcaneal enthesophytes. Mild background vascular calcifications. Calcifications are identified between the bases of the third and fourth digit proximal phalanges. IMPRESSION: No acute osseous abnormality with mild scattered degenerative changes. Mild hallux valgus and metatarsus primus varus with bunion formation. Focal calcifications between the bases of the third and fourth digit proximal phalanges. This could simply be artifactual and related to calcifications within the skin surface. Dystrophic calcifications from prior injury would be an additional consideration. Dictated on workstation # [id number] Dict: 07/19/22 1314 Trans: 07/19/22 1328 [id number] Interpreted by: ASHLEY FLANAGAN MD Electronically signed by: Reviewed: Reviewed by Me Departure Impression Primary Impression: Left foot pain Additional Impression: Gout Qualified Codes: M1A.9XX0 - Chronic gout, unspecified, without tophus (tophi) Disposition: 01 HOME, SELF-CARE Condition: Improved Departure-Patient Inst. Decision time for Depature: 14:00 Referrals: [facility] [place] ([place]P) Primary Care Physician Patient Instructions: Gout (DC) Add. Discharge Instructions: Resume all of your home medications, as prescribed. Use home pain medications. Follow up with primary care provider or establish care at [facility]. Return to the emergency dept for new, urgent healthcare needs. All discharge instructions reviewed with patient and/or family. Voiced understanding. KHADRA CASTRO Jul 19, 2022 13:04
[2022-07-19 13:07] LABS: HEMOGLOBIN 11.3 g/dL (11.5-16.0); MEAN CORPUSCULAR HEMOGLOBIN 35 pg (25-34); MEAN CORPUSCULAR HGB CONC 33 g/dL (32-36)
[2022-07-19 13:09] LABS: BASOPHILS % (AUTO) 0 % (0-10); EOSINOPHILS % (AUTO) 0 % (0-10); HEMATOCRIT 34 % (35-52); LYMPHOCYTES # (AUTO) 0.4 10^3/uL (1.0-4.0); LYMPHOCYTES % (AUTO) 9 % (12-44); MEAN CORPUSCULAR VOLUME 106 fL (80-99); MEAN PLATELET VOLUME 12.3 fL (9.0-12.2); MONOCYTES # (AUTO) 0.5 10^3/uL (0.0-1.0); MONOCYTES % (AUTO) 11 % (0-12); NEUTROPHILS # (AUTO) 3.5 10^3/uL (1.8-7.8); NEUTROPHILS % (AUTO) 78 % (42-75); PLATELET COUNT 70 10^3/uL (130-400); WHITE BLOOD COUNT 4.5 10^3/uL (4.3-11.0)
[2022-07-19 13:11] LABS: SMEAR SCAN COMMENT YES
--- NOTE | 2022-07-19 13:28 | Diagnostic Imaging Report ---
INDICATION: Foot pain. COMPARISON: None available. TECHNIQUE: Three radiographs of the left foot are obtained dated 07/19/2022. FINDINGS: Mild hallux valgus and metatarsus primus varus with bunion formation. This is associated with mild degenerative changes of the first MTP joint. No acute fracture or dislocation. No destructive osseous process. The Lisfranc joint is well aligned. Small plantar calcaneal enthesophytes. Mild background vascular calcifications. Calcifications are identified between the bases of the third and fourth digit proximal phalanges. IMPRESSION: No acute osseous abnormality with mild scattered degenerative changes. Mild hallux valgus and metatarsus primus varus with bunion formation. Focal calcifications between the bases of the third and fourth digit proximal phalanges. This could simply be artifactual and related to calcifications within the skin surface. Dystrophic calcifications from prior injury would be an additional consideration. Dictated by: Dictated on workstation # [id number]
[2022-07-19 13:31] LABS: ALBUMIN 2.9 GM/DL (3.2-4.5); BILIRUBIN,TOTAL 1.6 MG/DL (0.1-1.0); CALCIUM 7.6 MG/DL (8.5-10.1); CREATININE SERUM 0.86 MG/DL (0.60-1.30); TOTAL PROTEIN 5.6 GM/DL (6.4-8.2)
[2022-07-19 13:55] LABS: BILIRUBIN,URINE NEGATIVE (NEGATIVE); CLARITY,URINE CLEAR; COLOR,URINE YELLOW; GLUCOSE, URINE (UA) NEGATIVE (NEGATIVE); KETONES,URINE TRACE (NEGATIVE); LEUKOCYTE ESTERASE ,URINE NEGATIVE (NEGATIVE); NITRITE,URINE NEGATIVE (NEGATIVE); PROTEIN,URINE 1+ (NEGATIVE)
[2022-07-19 14:05] LABS: AMORPHOUS SEDIMENT,UR MOD AMOR URATES /LPF; BACTERIA,URINE NEGATIVE /HPF; RBC,URINE 0-2 /HPF; SQUAMOUS EPITHELIAL CELL,UR 0-2 /HPF; WBC,URINE 0-2 /HPF
[2022-07-19] MEDS ORDERED: KCL 10 MEQ TAB (MICRO K) PO STA (14:17)
[2022-07-19] MEDS ORDERED: HYDROcodone/APAP 5 MG/325 MG (LORTAB) TAB PO STA (14:22)
[2022-07-19 14:33] VITALS: BP 140/67
== END 2022-07-19 14:40 | disposition home or self-care (01) ==
LOC: EDUNIT# 12:42 → ER 12:44
DX: M10.9 Gout, unspecified (principal); R11.0 Nausea; E87.6 Hypokalemia
CPT/HCPCS: 36415; 73630; 80053; 81000; 84550; 85025

== ENCOUNTER 2022-07-21 10:30 | Inpatient (IN) | payer MEDICARE ==
[~2022-07-21] VITALS: Ht 154.9 cm; Wt 59.9 kg
--- NOTE | 2022-07-21 10:42 | ED General ---
General Chief Complaint: General Problems/Pain Stated Complaint: WEAKNESS Nursing Triage Note: ARRIVED VIA AMBULANCE FROM HOME WITH COMPLAINTS OF CONTINUED GOUT IN HER LEFT FOOT THAT IS NOT ALLOWING HER TO TAKE CARE OF HERSELF AT HOME. Source of Information: Patient, Old Records Exam Limitations: No Limitations History of Present Illness Date Seen by Provider: Jul 21, 2022 Time Seen by Provider: 10:31 Initial Comments This 71-year-old woman presents to the emergency room with complaints of left foot pain, swelling, and erythema that has been worsening over the past several days. She was seen in the ER 2 days ago and felt to be having an exacerbation of gout. She had not been taking her medications because they were making her nauseous. Since returning home her symptoms have worsened and she is not able to ambulate due to pain in her left foot. She is afebrile. She has A. fib with RVR at present. She reports compliance with her Xarelto with last dose being last night. She lives alone and is not able to care for herself in her present condition. She is anxious and tearful. She had an admission at this facility in May for atrial flutter with RVR. Patient has history of multiple myeloma and states she receives treatment for that in [place]. She reports being treated with chemotherapy. She reports her primary care is provided by [facility]. She recently established care with Gertrude Cruz. Allergies and Home Medications Allergies Coded Allergies: Penicillins (Verified Allergy, Severe, RASH, 03/03/17) Patient Home Medication List Home Medication List Reviewed: Yes Allopurinol (Allopurinol) 100 Mg Tablet, 100 MG PO HS, (Reported) Entered as Reported by: KELLI OSORIO on 03/25/22 1433 Buspirone HCl (Buspirone HCl) 10 Mg Tablet, 5 MG PO TID, (Reported) Entered as Reported by: MOLLY JOHNSON on 03/27/22 1240 Calcium Carbonate (Calcium) 500 Mg Calcium (1250 Mg) Tablet, 500 MG PO TID, (Rep orted) Entered as Reported by: MOLLY JOHNSON on 03/27/22 1240 Cholecalciferol (Vitamin D3) (Vitamin D3) 25 Mcg (1000 Unit) Capsule, 100 MCG PO 1200, (Reported) Entered as Reported by: MOLLY JOHNSON on 03/27/22 1240 Cyanocobalamin (Vitamin B-12) (Vitamin B-12) 500 Mcg Tablet, 500 MCG PO HS, (Reported) Entered as Reported by: MOLLY JOHNSON on 03/27/22 1240 Fentanyl (Fentanyl Patch 25 MCG) 25 Mcg/Hour Patch.td72, 25 MCG TD Q72H, (Reported) Entered as Reported by: KELLI OSORIO on 03/25/22 1433 Furosemide (Furosemide) 20 Mg Tablet, 20 MG PO DAILY, (Reported) Entered as Reported by: MOLLY JOHNSON on 03/27/22 1240 Hydrocodone/Acetaminophen (Hydrocodone-Acetamin 10-325 mg) 10 Mg-325 Mg Tablet, 10-325 MG PO TID PRN for PAIN-MODERATE (5-7), (Reported) Entered as Reported by: KELLI OSORIO on 03/25/22 143 Levothyroxine Sodium (Euthyrox) 50 Mcg Tablet, 50 MG PO DAILY, (Reported) Entered as Reported by: KELLI OSORIO on 03/25/22 1433 Lidocaine (Lidocaine 5% Patch) 5 % Adh..patch, 1-2 PATCH TD DAILY PRN for PAIN- BREAKTHROUGH, (Reported) Entered as Reported by: KELLI OSORIO on 03/25/22 1433 Magnesium Oxide (Magnesium) 400 Mg Magnesium Tablet, 400 MG PO 1200, (Reported) Entered as Reported by: MOLLY JOHNSON on 05/31/22 1418 Metoprolol Tartrate (Metoprolol Tartrate) 25 Mg Tablet, 25 MG PO BID, (Reported) Entered as Reported by: KELLI OSORIO on 03/25/22 1433 Omeprazole (Omeprazole) 20 Mg Capsule.dr, 20 MG PO DAILY, (Reported) Entered as Reported by: KELLI OSORIO on 03/25/22 1433 Potassium Chloride (Potassium Chloride) 20 Meq Tab.er.prt, 20 MEQ PO DAILY, (Reported) Entered as Reported by: KELLI OSORIO on 03/25/22 1433 Rivaroxaban (Xarelto Tablet) 15 Mg Tablet, 15 MG PO DAILY@1700 Prescribed by: YANA MAGALLANES on 06/01/22 1104 Trazodone HCl (Trazodone HCl) 100 Mg Tablet, 100 MG PO HS, (Reported) Entered as Reported by: KELLI OSORIO on 03/25/22 1433 Review of Systems Review of Systems Constitutional: no symptoms reported EENTM: no symptoms reported Respiratory: no symptoms reported Cardiovascular: see HPI Gastrointestinal: no symptoms reported Genitourinary: no symptoms reported : No Musculoskeletal: see HPI Skin: see HPI Psychiatric/Neurological: Anxiety Hematologic/Lymphatic: No Symptoms Reported Immunological/Allergic: no symptoms reported Past Xivfvwu-Dlvszj-Ktdhrn Hx Patient Social History Tobacco Use?: Yes Smoking Status: Current Someday Smoker Substance use?: No Alcohol Use?: No Immunizations Up To Date First/Initial COVID19 Vaccinat: UNKNOWN Second COVID19 Vaccination Carlos: 2020 Third COVID19 Vaccination Date: 2020 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: [place] Past Medical History Surgery/Hospitalization HX: PMH: HTN, MULTIPLE MYLEOMA, GOUT, Surgeries: No Respiratory: Yes COPD Cardiac: Yes Atrial Fibrillation, High Cholesterol, Hypertension Neurological: No : 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 Genitourinary: No Gastrointestinal: No Musculoskeletal: Yes Degenerate Disk Disease, Chronic Back Pain Endocrine: Yes Hypothyroidsim HEENT: Yes (PAROTIDITIS 05/02/22) Cancer: Yes (Multiple Myeloma) Did You Recieve Any Treatments: Yes What Type of Treatment Did You: Chemotherapy Psychosocial: Yes Sleep Difficulties, Anxiety, Depression Integumentary: No Blood Disorders: No Family Medical History Heart Disease Physical Exam Vital Signs Vital Signs - First Documented 07/21/22 10:31 Temp 36.7 Pulse 116 Resp 16 B/P (MAP) 120/104 (109) Pulse Ox 98 O2 Delivery Room Air Capillary Refill : Height, Weight, BMI Height: 5'5.00" Weight: 150lbs. oz. 68.030365zt; 18.00 BMI Method:Estimated General Appearance: WD/WN, Anxious, Mild Distress, Thin HEENT: PERRL/EOMI, Normal ENT Inspection Neck: Normal Inspection Respiratory: Lungs Clear, Normal Breath Sounds, No Accessory Muscle Use Cardiovascular: No Murmur, Irregularly Irregular, Tachycardia Gastrointestinal: Normal Bowel Sounds, Non Tender, Soft Extremity: Other (Left lower extremity demonstrates edema, tenderness, warmth, and swelling from the toes up to the knee region. Sensation, movement, and capillary refill intact.) Neurologic/Psychiatric: Alert, Oriented x3, No Motor/Sensory Deficits, Other (Anxious) Skin: Warm/Dry, Other (See extremity exam) Focused Exam Lactate Level 07/21/22 13:05: Lactic Acid Level 1.13 Lactic Acid Level Laboratory Tests Test 07/21/22 13:05 Lactic Acid Level 1.13 MMOL/L (0.50-2.00) Progress/Results/Core Measures Suspected Sepsis SIRS Temperature: Pulse: 116 Respiratory Rate: 16 Laboratory Tests 07/21/22 11:13: White Blood Count 4.8 Blood Pressure 120 /104 Mean: 109 07/21/22 13:05: Lactic Acid Level 1.13 Laboratory Tests 07/21/22 11:13: Creatinine 0.83, INR Comment 1.2, Platelet Count 63L, Total Bilirubin 2.0H Results/Orders Lab Results Laboratory Tests Test 07/21/22 11:13 07/21/22 13:05 Range/Units White Blood Count 4.8 4.3-11.0 10^3/uL Red Blood Count 3.07 L 3.80-5.11 10^6/uL Hemoglobin 10.9 L 11.5-16.0 g/dL Hematocrit 33 L 35-52 % Mean Corpuscular Volume 108 H 80-99 fL Mean Corpuscular Hemoglobin 36 H 25-34 pg Mean Corpuscular Hemoglobin Concent 33 32-36 g/dL Red Cell Distribution Width 15.8 H 10.0-14.5 % Platelet Count 63 L 130-400 10^3/uL Mean Platelet Volume 13.0 H 9.0-12.2 fL Immature Granulocyte % (Auto) 2 % Neutrophils (%) (Auto) 72 42-75 % Lymphocytes (%) (Auto) 12 12-44 % Monocytes (%) (Auto) 12 0-12 % Eosinophils (%) (Auto) 2 0-10 % Basophils (%) (Auto) 1 0-10 % Neutrophils # (Auto) 3.4 1.8-7.8 10^3/uL Lymphocytes # (Auto) 0.6 L 1.0-4.0 10^3/uL Monocytes # (Auto) 0.6 0.0-1.0 10^3/uL Eosinophils # (Auto) 0.1 0.0-0.3 10^3/uL Basophils # (Auto) 0.0 0.0-0.1 10^3/uL Immature Granulocyte # (Auto) 0.1 0.0-0.1 10^3/uL Percent Immature Platelet Fraction 8.5 H 0.0-7.6 % Erythrocyte Sedimentation Rate 45 H 0-30 MM/HR Prothrombin Time 16.0 H 12.2-14.7 SEC INR Comment 1.2 0.8-1.4 Activated Partial Thromboplast Time 38 H 24-35 SEC Sodium Level 138 135-145 MMOL/L Potassium Level 3.2 L 3.6-5.0 MMOL/L Chloride Level 105 98-107 MMOL/L Carbon Dioxide Level 24 21-32 MMOL/L Anion Gap 9 5-14 MMOL/L Blood Urea Nitrogen 10 7-18 MG/DL Creatinine 0.83 0.60-1.30 MG/DL Estimat Glomerular Filtration Rate 74 BUN/Creatinine Ratio 12 Glucose Level 138 H 70-105 MG/DL Uric Acid 2.6 2.6-7.2 MG/DL Calcium Level 7.3 L 8.5-10.1 MG/DL Corrected Calcium 8.3 L 8.5-10.1 MG/DL Total Bilirubin 2.0 H 0.1-1.0 MG/DL Aspartate Amino Transf (AST/SGOT) 13 5-34 U/L Alanine Aminotransferase (ALT/SGPT) 18 0-55 U/L Alkaline Phosphatase 72 40-136 U/L C-Reactive Protein High Sensitivity 21.84 H 0.00-0.50 MG/DL Total Protein 5.5 L 6.4-8.2 GM/DL Albumin 2.7 L 3.2-4.5 GM/DL Thyroid Stimulating Hormone (TSH) 1.68 0.35-4.94 UIU/ML Free Thyroxine 0.84 0.70-1.48 NG/DL Lactic Acid Level 1.13 0.50-2.00 MMOL/L My Orders Orders - DARREN PATEL MD Cbc With Automated Diff (07/21/22 10:36) Comprehensive Metabolic Panel (07/21/22 10:36) Hs C Reactive Protein (07/21/22 10:36) Erythrocyte Sedimentation Rate (07/21/22 10:36) Ed Iv/Invasive Line Start (07/21/22 10:36) Fentanyl Inj (Sublimaze Injection) (07/21/22 10:45) Ns Iv 1000 Ml (Sodium Chloride 0.9%) (07/21/22 10:45) Uric Acid (07/21/22 10:36) Ekg Tracing (07/21/22 10:36) Monitor-Rhythm Ecg Trace Only (07/21/22 10:36) Morphine Injection (Morphine Injection (07/21/22 11:08) Diltiazem Drip Pre-Mix (Cardizem Drip Pr (07/21/22 11:15) Diltiazem Injection (Cardizem Injection) (07/21/22 11:15) Ct Extremity Lower Left W (07/21/22 11:53) Blood Culture (07/21/22 11:55) Sputum Culture (07/21/22 11:55) Urinalysis (07/21/22 11:55) Urine Culture (07/21/22 11:55) Protime With Inr (07/21/22 11:55) Partial Thromboplastin Time (07/21/22 11:55) Chest 1 View, Ap/Pa Only (07/21/22 11:55) Vital Signs Adult Sepsis Patie Q15M (07/21/22 11:55) O2 (07/21/22 11:55) Remove Rings In Anticipation O (07/21/22 11:55) Lactic Acid Analyzer (07/21/22 11:55) Iohexol Injection (Omnipaque 350 Mg/Ml 1 (07/21/22 12:15) Received Contrast (Hold Metformin- Contr (07/21/22 12:15) Ns (Ivpb) (Sodium Chloride 0.9% Ivpb Bag (07/21/22 12:15) Thyroid Stimulating Hormone (07/21/22 12:41) Free T4 (Free Thyroxine) (07/21/22 12:41) Meropenem (Merrem 1000 Mg) (07/21/22 13:00) Diltiazem Injection (Cardizem Injection) (07/21/22 13:15) Ed Admission (Communication) (07/21/22 13:04) Medications Given in ED Current Medications Medications Dose Ordered Sig/Tirso Route Start Time Stop Time Status Last Admin Dose Admin Diltiazem HCl 5 mg ONCE ONCE IVP 07/21/22 11:15 07/21/22 11:16 DC 07/21/22 11:28 5 MG Fentanyl Citrate 50 mcg ONCE ONCE IVP 07/21/22 10:45 07/21/22 10:46 DC 07/21/22 10:47 50 MCG Iohexol 100 ml ONCE ONCE IV 07/21/22 12:15 07/21/22 12:16 DC 07/21/22 12:41 100 ML Meropenem 1000 mg/ Sodium Chloride 100 ml @ 200 mls/hr ONCE ONCE IV 07/21/22 13:00 07/21/22 13:29 DC 07/21/22 14:22 200 MLS/HR Sodium Chloride 100 ml ONCE ONCE IV 07/21/22 12:15 07/21/22 12:16 DC 07/21/22 12:41 80 ML Vital Signs/I&O 07/21/22 07/21/22 07/21/22 10:31 11:28 11:33 Temp 36.7 Pulse 116 144 125 Resp 16 B/P (MAP) 120/104 (109) 148/76 115/82 Pulse Ox 98 O2 Delivery Room Air Capillary Refill : Blood Pressure Mean: 109 Progress Note : Time: 12:09 Progress Note Patient is noted to be in atrial fibrillation with RVR. IV fluids were infused and she was started on a Cardizem bolus and drip. Heart rate has not improved much. I have concerned about infectious process in the left lower extremity. CT has been ordered to evaluate for abscess or other deep tissue infection. Pain has been treated with fentanyl and morphine. She has a fentanyl patch on her right chest as well. She remains alert, anxious, and talkative. Septic work-up has additionally been ordered. I did note patient has a worsening thrombocytopenia. Uric acid is normal. CRP is markedly elevated. I discussed admission which she is agreeable to. We discussed CODE STATUS, and she would like to remain full code as long as there is potential for resuming and meaningful quality of life. ECG Initial ECG Impression Date: Jul 21, 2022 Initial ECG Impression Time: 10:55 Initial ECG Rate: 159 Initial ECG Rhythm: A Fib/Flutter Initial ECG Impression: Atrial Fibrillation w/RVR Comment Atrial fibrillation with RVR. No ST elevation. Minimal ST depression. No definite axis deviation or other abnormal intervals. Diagnostic Imaging Diagonstic Imaging: Xray Plain Films/CT/US/NM/MRI: chest Comments NAME: IBNDU MORRISON MED REC#: [id number] PT STATUS: ADM IN : 1950 PHYSICIAN: DARREN PATEL MD ADMIT DATE: 07/21/22/ICU Signed Date of Exam:07/21/22 CHEST 1 VIEW, AP/PA ONLY EXAMINATION: Chest radiograph, portable AP view. DATE: 07/21/2022 12:25 PM INDICATION: 71-year-old female, workup for cause of sepsis. COMPARISON: Chest radiograph May 31, 2022. FINDINGS: There is blunting the left lateral costophrenic angle and nonspecific left basilar airspace consolidation which is unchanged since the prior study. There are surgical clips and sutures overlying the left upper quadrant. Size and mediastinal contours appear unchanged. There is no identified pneumothorax. The right lung appears grossly clear. IMPRESSION: 1. Nonspecific left basilar airspace consolidation which may reflect pleural effusion, infiltrate, and/or atelectasis. Dictated by: Dictated on workstation # [id number] Dict: 07/21/22 1227 Trans: 07/21/[address] [place] [address] [id number] Interpreted by: BRENDA ALBA MD Electronically signed by: BRENDA ALBA MD 07/21/22 1356 Diagonstic Imaging: CT Plain Films/CT/US/NM/MRI: leg Comments CT of the left leg and foot viewed by me and report reviewed. See report below: NAME: BINDU MORRISON MED REC#: [id number] PT STATUS: ADM IN : 1950 PHYSICIAN: DARREN PATEL MD ADMIT DATE: 07/21/22/ICU Signed Date of Exam:07/21/22 CT EXTREMITY LOWER LEFT W PROCEDURE: CT left lower extremity with contrast. TECHNIQUE: Multiple axial images of the left lower extremity were obtained after intravenous administration of iodinated contrast. Auto Exposure Controls were utilized during the CT exam to meet ALARA standards for radiation dose reduction. Date: July 21, 2022. Indication: 71-year-old female, left lower extremity redness and swelling. Comparison: Left foot radiographs July 19, 2022. Findings: There are notable limitations of the exam given the very large [id number] of acquisition. Ideally, targeted small field of view images would be obtained at this specific area or areas of concern. The complete distal extent of the phalanges is not in the included [id number]. There is no cortical or aggressive bone destruction. There is no identified periosteal reaction. There is no identified acute fracture. There is a peripherally enhancing fluid collection with a proximal to distal extent of approximately 4.5 cm, volar to dorsal extent of 3.2 cm, and transverse dimension of 3.2 cm which has medial extent in the region of the third metatarsal phalangeal joint and third proximal phalanx and lateral extent near the level of the fifth digit phalanges and fifth metatarsophalangeal joint. There is internal area of ossification at this location. This is extending both volar and dorsal to bone. The joint spaces appear fairly well-preserved at the level of the foot and ankle. There is no identified bone erosion. There is no large tibiotalar or subtalar joint effusion. There is preservation of normal fat attenuation in the sinus tarsi the. There is chondrocalcinosis. There is no knee joint effusion. There is patellofemoral compartment joint space loss. Impression: 1. There are notable limitations of overall evaluation given the very large [id number] of acquisition. 2. Peripherally enhancing fluid collection both volar and dorsal to bone at the level of the third through fifth digits centered in the region of the metatarsophalangeal joints and proximal phalanges. This is concerning for an abscess. 3. No CT evidence of osteomyelitis. 4. No findings to specifically suggest septic arthritis. Dictated by: Dictated on workstation # [id number] Dict: 07/21/22 1247 Trans: 07/21/22 1352 [facility] [id number] Interpreted by: BRENDA ALBA MD Electronically signed by: BRENDA ABLA MD 07/21/22 1358 Departure Communication (Admissions) Time/Spoke to Admitting Phy: 13:00 Dr. Kenan Friedman at 1305 Dr. Akers at Impression Primary Impression: Atrial fibrillation with RVR Additional Impressions: Cellulitis of left leg Unable to care for self Thrombocytopenia Hypokalemia Disposition: ADMITTED INPATIENT Condition: Improved Admissions Decision to Admit Reason: Admit from ER (General) Decision to Admit/Date: Jul 21, 2022 Time/Decision to Admit Time: 13:00 Departure-Patient Inst. Referrals: NO,LOCAL PHYSICIAN (PCP/Family) Primary Care Physician DARREN PATEL MD Jul 21, 2022 10:42
[2022-07-21] MEDS ORDERED: NS IV 1000 ML 1,000 ML IV SCH (10:45)
[2022-07-21] MEDS ORDERED: fentaNYL INJ 100 MCG/2 ML AMP IVP ONE (10:45)
[2022-07-21] MEDS ORDERED: morphine INJ 10 MG/ML 1ML (SYR OR VIAL) IVP STA ×2 (11:08→13:44)
[2022-07-21] MEDS ORDERED: dilTIAZem DRIP PRE-MIX 125 ML IV SCH (11:15)
[2022-07-21 11:20] LABS: EOSINOPHILS # (AUTO) 0.1 10^3/uL (0.0-0.3); EOSINOPHILS % (AUTO) 2 % (0-10)
[2022-07-21 11:22] LABS: BASOPHILS % (AUTO) 1 % (0-10); HEMATOCRIT 33 % (35-52); HEMOGLOBIN 10.9 g/dL (11.5-16.0); LYMPHOCYTES # (AUTO) 0.6 10^3/uL (1.0-4.0); LYMPHOCYTES % (AUTO) 12 % (12-44); MEAN CORPUSCULAR HEMOGLOBIN 36 pg (25-34); MEAN CORPUSCULAR HGB CONC 33 g/dL (32-36); MEAN CORPUSCULAR VOLUME 108 fL (80-99); MONOCYTES # (AUTO) 0.6 10^3/uL (0.0-1.0); MONOCYTES % (AUTO) 12 % (0-12); NEUTROPHILS # (AUTO) 3.4 10^3/uL (1.8-7.8); NEUTROPHILS % (AUTO) 72 % (42-75); PLATELET COUNT 63 10^3/uL (130-400); WHITE BLOOD COUNT 4.8 10^3/uL (4.3-11.0)
[2022-07-21 11:30] LABS: ALBUMIN 2.7 GM/DL (3.2-4.5); POTASSIUM 3.2 MMOL/L (3.6-5.0)
[2022-07-21 11:31] LABS: CALCIUM 7.3 MG/DL (8.5-10.1)
[2022-07-21 11:32] LABS: TOTAL PROTEIN 5.5 GM/DL (6.4-8.2)
[2022-07-21 11:36] LABS: CREATININE SERUM 0.83 MG/DL (0.60-1.30)
[2022-07-21 11:39] LABS: URIC ACID 2.6 MG/DL (2.6-7.2)
[2022-07-21 12:07] LABS: INR 1.2 (0.8-1.4)
[2022-07-21 12:10] LABS: ERYTHROCYTE SEDIMENTATION RATE 45 MM/HR (0-30)
[2022-07-21] MEDS ORDERED: IOHEXOL 350 MG/ML 100 ML (OMNIPAQUE 350) VIAL IV ONE (12:15)
[2022-07-21] MEDS ORDERED: HOLD METFORMIN - RECEIVED CONTRAST 20 ML VIAL IV SCH (12:15)
[2022-07-21] MEDS ORDERED: NS 100 ML (IVPB) BAG IV ONE (12:15)
--- NOTE | 2022-07-21 12:42 | Diagnostic Imaging Report ---
EXAMINATION: Chest radiograph, portable AP view. DATE: 07/21/2022 12:25 PM INDICATION: 71-year-old female, workup for cause of sepsis. COMPARISON: Chest radiograph May 31, 2022. FINDINGS: There is blunting the left lateral costophrenic angle and nonspecific left basilar airspace consolidation which is unchanged since the prior study. There are surgical clips and sutures overlying the left upper quadrant. Size and mediastinal contours appear unchanged. There is no identified pneumothorax. The right lung appears grossly clear. IMPRESSION: 1. Nonspecific left basilar airspace consolidation which may reflect pleural effusion, infiltrate, and/or atelectasis. Dictated by: Dictated on workstation # [id number]
[2022-07-21] MEDS ORDERED: MEROPENEM 1,000 MG in NS (IVPB) 100 ML IV ONE (13:00)
--- NOTE | 2022-07-21 13:27 | Consultation-Cardiology ---
HPI-Cardiology Cardiology Consultation Date of Consultation 07/21/22 Date of Admission Time Seen by Provider: :22 Indication: Atrial fibrillation HPI 71-year-old lady with history of atrial flutter, admitted in May 2022 for atrial flutter and seen by Dr. Sterling. Patient was maintained on amiodarone and Xarelto. She started earlier last week to have pain and swelling in her left foot. Had erythema. She became nauseous. She continued to take her Xarelto but stopped most of the other medication. Came into the emergency room for increasing weakness, fatigue and palpitation. She was noted to be in atrial fibrillation with rapid ventricular response. She denied any chest pain, no syncope or near syncopal episodes Home Medications & Allergies Allergies: Coded Allergies: Penicillins (Verified Allergy, Severe, RASH, 03/03/17) Home Medication List Reviewed: Yes IMD-Xllaex-Nqtlzf Hx Patient Social History Marital Status: Employed/Student: retired Smoking Status: Current Someday Smoker Type Used: Cigarettes Have you traveled recently?: No Alcohol Use?: No Past Medical History Discussed below Family Medical History Significant Family History: Heart Disease Review of Systems-General Review of Systems Constitutional: see HPI, malaise, weakness EENTM: see HPI, no symptoms reported Respiratory: see HPI; No cough; dyspnea on exertion; No hemoptysis, No orthopnea, No phlegm, No short of breath, No stridor, No wheezing, No other Cardiovascular: see HPI; No chest pain; edema; No Hx of Intervention; p alpitations; No syncope, No vascular heart diseas, No other Gastrointestinal: no symptoms reported, see HPI Genitourinary: no symptoms reported, see HPI : No Musculoskeletal: see HPI Skin: see HPI, other (Cellulitis) Psychiatric/Neurological: Anxiety Reviewed Test Results Reviewed Test Results Lab Laboratory Tests Test 07/21/22 11:13 07/21/22 13:05 Range/Units White Blood Count 4.8 4.3-11.0 10^3/uL Red Blood Count 3.07 L 3.80-5.11 10^6/uL Hemoglobin 10.9 L 11.5-16.0 g/dL Hematocrit 33 L 35-52 % Mean Corpuscular Volume 108 H 80-99 fL Mean Corpuscular Hemoglobin 36 H 25-34 pg Mean Corpuscular Hemoglobin Concent 33 32-36 g/dL Red Cell Distribution Width 15.8 H 10.0-14.5 % Platelet Count 63 L 130-400 10^3/uL Mean Platelet Volume 13.0 H 9.0-12.2 fL Immature Granulocyte % (Auto) 2 % Neutrophils (%) (Auto) 72 42-75 % Lymphocytes (%) (Auto) 12 12-44 % Monocytes (%) (Auto) 12 0-12 % Eosinophils (%) (Auto) 2 0-10 % Basophils (%) (Auto) 1 0-10 % Neutrophils # (Auto) 3.4 1.8-7.8 10^3/uL Lymphocytes # (Auto) 0.6 L 1.0-4.0 10^3/uL Monocytes # (Auto) 0.6 0.0-1.0 10^3/uL Eosinophils # (Auto) 0.1 0.0-0.3 10^3/uL Basophils # (Auto) 0.0 0.0-0.1 10^3/uL Immature Granulocyte # (Auto) 0.1 0.0-0.1 10^3/uL Percent Immature Platelet Fraction 8.5 H 0.0-7.6 % Erythrocyte Sedimentation Rate 45 H 0-30 MM/HR Prothrombin Time 16.0 H 12.2-14.7 SEC INR Comment 1.2 0.8-1.4 Activated Partial Thromboplast Time 38 H 24-35 SEC Sodium Level 138 135-145 MMOL/L Potassium Level 3.2 L 3.6-5.0 MMOL/L Chloride Level 105 98-107 MMOL/L Carbon Dioxide Level 24 21-32 MMOL/L Anion Gap 9 5-14 MMOL/L Blood Urea Nitrogen 10 7-18 MG/DL Creatinine 0.83 0.60-1.30 MG/DL Estimat Glomerular Filtration Rate 74 BUN/Creatinine Ratio 12 Glucose Level 138 H 70-105 MG/DL Uric Acid 2.6 2.6-7.2 MG/DL Calcium Level 7.3 L 8.5-10.1 MG/DL Corrected Calcium 8.3 L 8.5-10.1 MG/DL Total Bilirubin 2.0 H 0.1-1.0 MG/DL Aspartate Amino Transf (AST/SGOT) 13 5-34 U/L Alanine Aminotransferase (ALT/SGPT) 18 0-55 U/L Alkaline Phosphatase 72 40-136 U/L C-Reactive Protein High Sensitivity 21.84 H 0.00-0.50 MG/DL Total Protein 5.5 L 6.4-8.2 GM/DL Albumin 2.7 L 3.2-4.5 GM/DL Lactic Acid Level 1.13 0.50-2.00 MMOL/L Physical Exam Physical Exam Vital Signs Vital Signs - First Documented 07/21/22 10:31 Temp 36.7 Pulse 116 Resp 16 B/P (MAP) 120/104 (109) Pulse Ox 98 O2 Delivery Room Air Capillary Refill : Height, Weight, BMI Height: 5'5.00" Weight: 150lbs. oz. 68.301879fh; 18.00 BMI Method:Estimated General Appearance: WD/WN, Anxious, Mild Distress, Thin HEENT: PERRL/EOMI, Normal ENT Inspection Neck: Normal Inspection Respiratory: Lungs Clear, Normal Breath Sounds, No Accessory Muscle Use Cardiovascular: No Murmur, Irregularly Irregular, Tachycardia Gastrointestinal: Normal Bowel Sounds, Non Tender, Soft Extremity: Other (Left lower extremity demonstrates edema, tenderness, warmth, and swelling from the toes up to the knee region. Sensation, movement, and capillary refill intact.) Neurologic/Psychiatric: Alert, Oriented x3, No Motor/Sensory Deficits, Other (Anxious) Skin: Warm/Dry, Other (See extremity exam) A/P-Cardiology Admission Diagnosis Atrial fibrillation with rapid ventricular response Palpitation Cellulitis Chronic renal insufficiency Assessment/Plan Atrial fibrillation with rapid ventricular response Patient was hospitalized in May 2022 with atrial flutter. She did not respond to amiodarone. She was discharged on Xarelto and metoprolol. Currently starting on Cardizem bolus and a drip. Continue on Xarelto and me toprolol Add IV fluid Nausea and vomiting, loss of appetite secondary to infection Starting IV fluid and monitor tolerance and response Cellulitis of the right foot. Work-up is in progress, starting antibiotic and managed by primary care physician Mitral valve stenosis, mild to moderate per echocardiogram in May 2022. Hypertension, monitor blood pressure Chronic renal insufficiency, continue to monitor renal function Tobaccoism, educated on smoking cessation. RAMIRO MONTERROSO MD Jul 21, 2022 13:27
[2022-07-21 13:28] LABS: FREE T4 (FREE THYROXINE) 0.84 NG/DL (0.70-1.48)
[2022-07-21] MEDS ORDERED: KCL 10 MEQ TAB (MICRO K) PO ONE (13:30)
[2022-07-21] MEDS ORDERED: LACTATED RINGERS 1,000 ML IV ONE (13:30)
--- NOTE | 2022-07-21 13:55 | Diagnostic Imaging Report ---
PROCEDURE: CT left lower extremity with contrast. TECHNIQUE: Multiple axial images of the left lower extremity were obtained after intravenous administration of iodinated contrast. Auto Exposure Controls were utilized during the CT exam to meet ALARA standards for radiation dose reduction. Date: July 21, 2022. Indication: 71-year-old female, left lower extremity redness and swelling. Comparison: Left foot radiographs July 19, 2022. Findings: There are notable limitations of the exam given the very large wjiaj-jc-gosl of acquisition. Ideally, targeted small field of view images would be obtained at this specific area or areas of concern. The complete distal extent of the phalanges is not in the included fvawv-mw-itfn. There is no cortical or aggressive bone destruction. There is no identified periosteal reaction. There is no identified acute fracture. There is a peripherally enhancing fluid collection with a proximal to distal extent of approximately 4.5 cm, volar to dorsal extent of 3.2 cm, and transverse dimension of 3.2 cm which has medial extent in the region of the third metatarsal phalangeal joint and third proximal phalanx and lateral extent near the level of the fifth digit phalanges and fifth metatarsophalangeal joint. There is internal area of ossification at this location. This is extending both volar and dorsal to bone. The joint spaces appear fairly well-preserved at the level of the foot and ankle. There is no identified bone erosion. There is no large tibiotalar or subtalar joint effusion. There is preservation of normal fat attenuation in the sinus tarsi the. There is chondrocalcinosis. There is no knee joint effusion. There is patellofemoral compartment joint space loss. Impression: 1. There are notable limitations of overall evaluation given the very large cdfxx-sh-xawj of acquisition. 2. Peripherally enhancing fluid collection both volar and dorsal to bone at the level of the third through fifth digits centered in the region of the metatarsophalangeal joints and proximal phalanges. This is concerning for an abscess. 3. No CT evidence of osteomyelitis. 4. No findings to specifically suggest septic arthritis. Dictated by: Dictated on workstation # [id number]
[2022-07-21] MEDS ORDERED: BISACODYL 10 MG SUPP (DULCOLAX) PR PRN (14:30)
[2022-07-21] MEDS ORDERED: NS IV 500 ML 500 ML IV PRN (14:30)
[2022-07-21] MEDS ORDERED: MILK OF MAGNESIA 400 MG/5 ML 30 ML UDC PO PRN (14:30)
[2022-07-21] MEDS ORDERED: ACETAMINOPHEN 325 MG TABLET PO PRN (14:30)
[2022-07-21] MEDS ORDERED: diphenhydrAMINE 50 MG/ML INJ (BENADRYL) IVP PRN (14:30)
[2022-07-21] MEDS ORDERED: CALCIUM CARBONATE 500 MG (TUMS) TAB.CHEW PO PRN (14:30)
[2022-07-21] MEDS ORDERED: VANCOMYCIN INJECTION 0.1 MG in NS (IVPB) 250 ML IV SCH (14:30)
[2022-07-21] MEDS ORDERED: ONDANSETRON 4 MG/2 ML (SDV) Z0FRAN IV PRN (14:30)
[2022-07-21] MEDS ORDERED: diphenhydrAMINE 25 MG TAB (BENADRYL) PO PRN (14:30)
[2022-07-21] MEDS ORDERED: polyethylene glycoL POWDER 17 GM (MIRALAX) PACK PO PRN (14:30)
[2022-07-21] MEDS ORDERED: ONDANSETRON 4 MG (ZOFRAN) ORAL DISSOLVE TAB PO PRN (14:30)
[2022-07-21] MEDS ORDERED: MELATONIN 3 MG TABLET PO PRN (14:30)
[2022-07-21] MEDS ORDERED: ANTACID SUSP 30 ML UDC (MYLANTA) PO PRN (14:30)
[2022-07-21] MEDS ORDERED: LACTULOSE SYRUP 10GM/15ML (ENULOSE) 30ML UDC PO PRN (14:30)
[2022-07-21] MEDS: dilTIAZem DRIP PRE-MIX 125 ML IV SCH ×2 (14:39→22:05)
[2022-07-21] MEDS ORDERED: VANCOMYCIN 1 GM/NS 250 ML IVPB IV NR ×2 (15:00)
--- NOTE | 2022-07-21 15:18 | History & Physical-Hospitalist ---
History of Present Illness Date Seen 07/21/22 Attending Physician [place] PCP Admitting Physician: Ruth Grayson DO Attending Physician: Ruth Grayson DO Referring Physician Date of Admission Jul 21, 2022 at 13:05 Home Medications & Allergies Home Medications Reviewed patient Home Medication Reconciliation performed by pharmacy medication reconciliations shampoo technician and/or nursing. Patients Allergies have been reviewed. 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 oz. 68.362371gl; 18.00 BMI Method:Estimated Results Results/Procedures Labs Laboratory Tests 07/21/22 11:13 Patient resulted labs reviewed. Clinical Quality Measures DVT/VTE Risk/Contraindication: Contraindications-Mechi: Other *list below* Other: leg cellulitis RUTH GRAYSON DO Jul 21, 2022 15:17
[2022-07-21] MEDS: inSUlin ASPART (NovoLOG) 1 UNIT/0.01 ML (CHARGE PER UNIT) SC SCH ×2 (16:05→21:01)
[2022-07-21] MEDS: NS IV 1000 ML 1,000 ML IV SCH (16:10)
[2022-07-21] MEDS: MAGNESIUM 1 GM/100 ML IVPB 100 ML IV SCH ×4 (16:10→20:53)
[2022-07-21 16:22] VITALS: BP 120/104
[2022-07-21] MEDS ORDERED: RT-ALBUTEROL/IPRATROPIUM 3 ML (DUONEB) VIAL INH PRN (16:30)
[2022-07-21] MEDS: HYDROmorphone 2 MG/ML VIAL (DILAUDID) IV PRN ×2 (17:06→22:05)
[2022-07-21] MEDS: RIVAROXABAN 20 MG TABLET (XARELTO) PO SCH (17:07)
--- NOTE | 2022-07-21 17:35 | Tele-ICU Consult ---
History of Present Illness History of Present Illness Date Seen by Provider: Jul 21, 2022 Time Seen by Provider: 17:33 Date of Admission 07/21/22 Reason for Visit: Atrial fibrillation History of Present Illness (Tele-ICU Physician , consultation) Available chart/ vitals / labs / Images reviewed H&P is from ER notes Patient's information available about PMH, allergy reviewed in EMR. ROS as per chart and RN report Video assessment done using teleICU camera, rest of exam as per RN Discussed with RN. She is a 71-year-old female with past medical history of COPD, multiple myeloma, chronic kidney disease and paroxysmal atrial fibrillation presented to the emergency room with a complaint of for pain and swelling in her left foot and she had a erythema. She is found to have a atrial fibrillation with rapid ventricular rate. Cardiology consultation has been requested and subsequently admitted to the intensive care unit on Cardizem drip. She is found to have low platelet count when compared to before but she was not on any heparin she was on Xarelto. She also has a chronic anemia probably related to her multiple myeloma. Impression 1. Atrial fibrillation with rapid ventricular rate. 2. Left foot cellulitis 3. History of mitral stenosis mild to moderate 4. Chronic kidney disease 5. Thrombocytopenia probably related to her multiple myeloma but will monitor 6. History of tobacco abuse disorder. Recommendations 1. Atrial fibrillation management per cardiology 2. Continue IV antibiotics broad-spectrum for her foot infection 3. Continue to monitor her platelet count. 4. She would probably benefit from a oncology consultation. Coordination of care with consultants and primary MD. Allergies and Home Medications Allergies Coded Allergies: Penicillins (Verified Allergy, Severe, RASH, 03/03/17) Home Medications Allopurinol 100 Mg Tablet, 100 MG PO HS, (Reported) Buspirone HCl 10 Mg Tablet, 5 MG PO TID, (Reported) TAKES OF A 10MG Calcium Carbonate 500 Mg Calcium (1250 Mg) Tablet, 500 MG PO TID, (Reported) Cholecalciferol (Vitamin D3) 25 Mcg (1000 Unit) Capsule, 100 MCG PO 1200, (Reported) TAKES 4 CAPS Cyanocobalamin (Vitamin B-12) 500 Mcg Tablet, 500 MCG PO HS, (Reported) Fentanyl 25 Mcg/Hour Patch.td72, 25 MCG TD Q72H, (Reported) Furosemide 20 Mg Tablet, 20 MG PO DAILY, (Reported) Hydrocodone/Acetaminophen 10 Mg-325 Mg Tablet, 10-325 MG PO TID PRN for PAIN- MODERATE (5-7), (Reported) Levothyroxine Sodium 50 Mcg Tablet, 50 MG PO DAILY, (Reported) Lidocaine 5 % Adh..patch, 1-2 PATCH TD DAILY PRN for PAIN-BREAKTHROUGH, (Reported) APPLY TO LOWER BACK Magnesium Oxide 400 Mg Magnesium Tablet, 400 MG PO 1200, (Reported) Metoprolol Tartrate 25 Mg Tablet, 25 MG PO BID, (Reported) Omeprazole 20 Mg Capsule.dr, 20 MG PO DAILY, (Reported) Potassium Chloride 20 Meq Tab.er.prt, 20 MEQ PO DAILY, (Reported) Rivaroxaban 15 Mg Tablet, 15 MG PO DAILY@1700 Prescribed by: YANA MAGALLANES on 06/01/22 1104 Trazodone HCl 100 Mg Tablet, 100 MG PO HS, (Reported) Past Medical/Social/Family Hx Patient Social History Marrital Status: Employed/Student: retired Tobacco Use?: Yes Smoking Status: Current Someday Smoker Substance use?: No Alcohol Use?: No Immunizations Up To Date Influenza Vaccine Up-to-Date: Yes; Up-to-Date First/Initial COVID19 Vaccinat: UNKNOWN Second COVID19 Vaccination Carlos: 2020 Tetanus Booster (TDap): Unknown Current Status Advance Directives: No Communicates: Verbally Primary Language: Paraguayan Preferred Spoken Language: Paraguayan Is interpretation needed?: No Review of Systems Constitutional: see HPI Focused Exam Lactate Level 07/21/22 13:05: Lactic Acid Level 1.13 Height, Weight, BMI Height: 5'5.00" Weight: 150lbs. oz. 68.154640um; 20.63 BMI Method:Estimated Exam Exam Patient acknowledged, consented, and participated in this virtual visit which was conducted using real time audio/video Vital Signs Date Time Temp Pulse Resp B/P (MAP) Pulse Ox O2 Delivery O2 Flow Rate FiO2 07/21/22 16:22 36.7 116 98 21 07/21/22 16:00 108 13 94/59 (71) 92 Room Air 07/21/22 16:00 98 Room Air 07/21/22 15:27 36.7 07/21/22 15:00 128 19 108/89 (95) 94 Room Air 07/21/22 14:27 109 07/21/22 14:00 140 28 116/80 (92) 94 Room Air 07/21/22 14:00 98 Room Air 07/21/22 13:45 122 16 112/82 97 07/21/22 13:10 121 102/70 07/21/22 11:33 125 115/82 07/21/22 11:28 144 148/76 07/21/22 10:31 36.7 116 16 120/104 (109) 98 Room Air Height & Weight Height: 5'5.00" Weight: 150lbs. oz. 68.755558nm; 20.63 BMI Method:Estimated General Appearance: WD/WN, Anxious, Mild Distress, Thin HEENT: PERRL/EOMI, Normal ENT Inspection Neck: Normal Inspection Respiratory: Lungs Clear, Normal Breath Sounds, No Accessory Muscle Use Cardiovascular: No Murmur, Irregularly Irregular, Tachycardia Extremity: Other (Left lower extremity demonstrates edema, tenderness, warmth, and swelling from the toes up to the knee region. Sensation, movement, and capillary refill intact.) Neurologic/Psychiatric: Alert, Oriented x3, No Motor/Sensory Deficits, Other (Anxious) Skin: Warm/Dry, Other (See extremity exam) Results Lab Laboratory Tests 07/21/22 11:13 Assessment/Plan Assessment/Plan as above Critical Care: Critically Ill Patient Time spent with patient (mins): 25 MARIVEL ALARCON MD Jul 21, 2022 17:35
[2022-07-21] MEDS: RT-ALBUTEROL/IPRATROPIUM 3 ML (DUONEB) VIAL INH SCH (20:14)
[2022-07-21] MEDS: SENNOSIDES 8.6 MG (SENOKOT) TAB PO SCH (20:53)
[2022-07-21] MEDS: MEROPENEM 500 MG in NS (IVPB) 100 ML IV SCH (20:53)
[2022-07-21] MEDS: DOCUSATE SODIUM 100 MG (COLACE) CAP PO SCH (20:53)
[2022-07-21] MEDS: traZODone 100 MG (DESYREL) TAB PO SCH (21:08)
--- NOTE | 2022-07-21 21:57 | Consultation - Surgery ---
History of Present Illness History of Present Illness Patient Consulted On(kj/time) 07/21/22 21:51 Date Seen by Provider: Jul 21, 2022 Time Seen by Provider: 16:55 Reason for Visit: Atrial fibrillation History of Present Illness Consult requested by Dr. Magallanes for left lower extremity cellulitis. Patient is a 71 year old female who has been having worsening pain and swelling in the left lower extremity. This has been going on a little more than 3 days. Was evaluated in ED 2 days ago. Since worsening pain she returned for evaluation. Pain is severe and can't walk on it. Touching or trying to walk on it makes worse. Laying still makes better. Was given medications which she has hard time taking since they made her nauseated. She also with Afib c rvr and started on Cardizem drip. Is on Xarelto which she states i compliant with. Patient currently denies n/v fever sweats chills shortness of breath or chest pain. Had CT scan of left lower extremity: 1. There are notable limitations of overall evaluation given the very large gnoqt-qr-mlro of acquisition. 2. Peripherally enhancing fluid collection both volar and dorsal to bone at the level of the third through fifth digits centered in the region of the metatarsophalangeal joints and proximal phalanges. This is concerning for an abscess. 3. No CT evidence of osteomyelitis. 4. No findings to specifically suggest septic arthritis. Allergies and Home Medications Allergies Coded Allergies: Penicillins (Verified Allergy, Severe, RASH, 03/03/17) Patient Home Medication List Home Medication List Reviewed: Yes Allopurinol (Allopurinol) 100 Mg Tablet, 100 MG PO HS, (Reported) Entered as Reported by: KELLI OSORIO on 03/25/22 1433 Buspirone HCl (Buspirone HCl) 10 Mg Tablet, 5 MG PO TID, (Reported) Entered as Reported by: MOLLY JOHNSON on 03/27/22 1240 Calcium Carbonate (Calcium) 500 Mg Calcium (1250 Mg) Tablet, 500 MG PO TID, (Reported) Entered as Reported by: MOLLY JOHNSON on 03/27/22 1240 Cholecalciferol (Vitamin D3) (Vitamin D3) 25 Mcg (1000 Unit) Capsule, 100 MCG PO 1200, (Reported) Entered as Reported by: MOLLY JOHNSON on 03/27/22 1240 Cyanocobalamin (Vitamin B-12) (Vitamin B-12) 500 Mcg Tablet, 500 MCG PO HS, (Reported) Entered as Reported by: MOLLY JOHNSON on 03/27/22 1240 Fentanyl (Fentanyl Patch 25 MCG) 25 Mcg/Hour Patch.td72, 25 MCG TD Q72H, (Reported) Entered as Reported by: KELLI OSORIO on 03/25/22 1433 Furosemide (Furosemide) 20 Mg Tablet, 20 MG PO DAILY, (Reported) Entered as Reported by: MOLLY JOHNSON on 03/27/22 1240 Hydrocodone/Acetaminophen (Hydrocodone-Acetamin 10-325 mg) 10 Mg-325 Mg Tablet, 10-325 MG PO TID PRN for PAIN-MODERATE (5-7), (Reported) Entered as Reported by: KELLI OSORIO on 03/25/22 143 Levothyroxine Sodium (Euthyrox) 50 Mcg Tablet, 50 MG PO DAILY, (Reported) Entered as Reported by: KELLI OSORIO on 03/25/22 143 Lidocaine (Lidocaine 5% Patch) 5 % Adh..patch, 1-2 PATCH TD DAILY PRN for PAIN- BREAKTHROUGH, (Reported) Entered as Reported by: KELLI OSORIO on 03/25/22 143 Magnesium Oxide (Magnesium) 400 Mg Magnesium Tablet, 400 MG PO 1200, (Reported) Entered as Reported by: MOLLY JOHNSON on 05/31/22 1418 Metoprolol Tartrate (Metoprolol Tartrate) 25 Mg Tablet, 25 MG PO BID, (Reported) Entered as Reported by: KELLI OSORIO on 03/25/22 1433 Omeprazole (Omeprazole) 20 Mg Capsule.dr, 20 MG PO DAILY, (Reported) Entered as Reported by: KELLI OSORIO on 03/25/22 1433 Potassium Chloride (Potassium Chloride) 20 Meq Tab.er.prt, 20 MEQ PO DAILY, (Reported) Entered as Reported by: KELLI OSORIO on 03/25/22 143 Rivaroxaban (Xarelto Tablet) 15 Mg Tablet, 15 MG PO DAILY@1700 Prescribed by: YANA MAGALLANES on 06/01/22 1104 Trazodone HCl (Trazodone HCl) 100 Mg Tablet, 100 MG PO HS, (Reported) Entered as Reported by: KELLI OSORIO on 03/25/22 5925 Past Rwzrlwu-Uliumz-Fwcsxc Hx Patient Social History Smoking Status: Current Someday Smoker Type Used: Cigarettes Alcohol Use?: No Have you traveled recently?: No Immunizations Up To Date Date of Influenza Vaccine: May 22, 2022 Surgeries History of Surgeries: No Respiratory History of Respiratory Disorde: Yes Respiratory Disorders: COPD Cardiovascular History of Cardiac Disorders: Yes Cardiac Disorders: Atrial Fibrillation, High Cholesterol, Hypertension Neurological History of Neurological Disord: No Reproductive System : 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 Genitourinary History of Genitourinary Disor: No Gastrointestinal History of Gastrointestinal Di: No Musculoskeletal History of Musculoskeletal Dis: Yes Musculoskeletal Disorders: Degenerate Disk Disease, Chronic Back Pain Endocrine History of Endocrine Disorders: Yes Endocrine Disorders: Hypothyroidsim HEENT History of HEENT Disorders: Yes (PAROTIDITIS 05/02/22) Cancer History of Cancer: Yes (Multiple Myeloma) Psychosocial History of Psychiatric Problem: Yes Behavioral Health Disorders: Sleep Difficulties, Anxiety, Depression Integumentary History of Skin or Integumenta: No Blood Transfusions History of Blood Disorders: No Reviewed Nursing Assessment Reviewed/Agree w Nursing PMH: Yes Family Medical History Significant Family History: Heart Disease Review of Systems-General Constitutional: No chills EENTM: No blurred vision, No double vision Respiratory: No cough, No dyspnea on exertion Cardiovascular: No chest pain; edema (lle) Gastrointestinal: No abdominal pain; nausea; No vomiting Genitourinary: No decreased output, No discharge Musculoskeletal: No back pain, No joint pain Skin: change in color (lle) Psychiatric/Neurological: Denies Anxiety, Denies Depressed, Denies Emotional Problems Physical Exam-General Problems Physical Exam Vital Signs Vital Signs - First Documented 07/21/22 07/21/22 10:31 16:22 Temp 36.7 Pulse 116 Resp 16 B/P (MAP) 120/104 (109) Pulse Ox 98 O2 Delivery Room Air FiO2 21 Capillary Refill : Greater Than 3 Seconds General Appearance: WD/WN, no apparent distress HEENT: PERRL/EOMI, normal ENT inspection Neck: non-tender, supple Respiratory: chest non-tender, no respiratory distress, no accessory muscle use Cardiovascular: no JVD; No JVD; irregularly irregular Gastrointestinal: non tender, soft Rectal: deferred Back: no CVA tenderness, no vertebral tenderness Extremities: other (left lower extremity foot swollen does not feel fluctuant, is warm to touch and edema present mild tenderness) Neurologic/Psychiatric: alert, normal mood/affect, oriented x 3 Skin: warm/dry, other (erythema left foot dorsum and coming slightly up lower extremity) Lymphatic: no adenopathy Data Review Labs Laboratory Tests 07/21/22 11:13: White Blood Count 4.8, Red Blood Count 3.07L, Hemoglobin 10.9L, Hematocrit 33L, Mean Corpuscular Volume 108H, Mean Corpuscular Hemoglobin 36H, Mean Corpuscular Hemoglobin Concent 33, Red Cell Distribution Width 15.8H, Platelet Count 63L, Mean Platelet Volume 13.0H, Immature Granulocyte % (Auto) 2, Neutrophils (%) (Auto) 72, Lymphocytes (%) (Auto) 12, Monocytes (%) (Auto) 12, Eosinophils (%) (Auto) 2, Basophils (%) (Auto) 1, Neutrophils # (Auto) 3.4, Lymphocytes # (Auto) 0.6L, Monocytes # (Auto) 0.6, Eosinophils # (Auto) 0.1, Basophils # (Auto) 0.0, Immature Granulocyte # (Auto) 0.1, Percent Immature Platelet Fraction 8.5H, Sean throcyte Sedimentation Rate 45H, Prothrombin Time 16.0H, INR Comment 1.2, Activated Partial Thromboplast Time 38H, Sodium Level 138, Potassium Level 3.2L, Chloride Level 105, Carbon Dioxide Level 24, Anion Gap 9, Blood Urea Nitrogen 10, Creatinine 0.83, Estimat Glomerular Filtration Rate 74, BUN/Creatinine Ratio 12, Glucose Level 138H, Uric Acid 2.6, Calcium Level 7.3L, Corrected Calcium 8.3L, Total Bilirubin 2.0H, Aspartate Amino Transf (AST/SGOT) 13, Alanine Aminotransferase (ALT/SGPT) 18, Alkaline Phosphatase 72, C-Reactive Protein High Sensitivity 21.84H, Total Protein 5.5L, Albumin 2.7L, Thyroid Stimulating Hormone (TSH) 1.68, Free Thyroxine 0.84 07/21/22 13:05: Lactic Acid Level 1.13 07/21/22 14:41: Magnesium Level 1.1*L 07/21/22 15:32: Glucometer 57*L 07/21/22 16:12: Glucometer 160H 07/21/22 21:00: Glucometer 157H Assessment/Plan Assessment/Plan Assessment/Plan left foot/lower extremity cellulitis afib rvr skilled nursing anticogaulation continue abx i do not feel fluctuance at foot at this time could be early abscess though, try conservative measures iv fluids on Cardizem drip continue to monitor foot for any changes, if more evidence for abscess would do i and d patient in agreement with plan. Clinical Quality Measures DVT/VTE Risk/Contraindication: Contraindications-Mechi: Other *list below* Other: leg cellulitis KORINA CRANE DO Jul 21, 2022 21:57
[2022-07-22] MEDS: RT-ALBUTEROL/IPRATROPIUM 3 ML (DUONEB) VIAL INH SCH ×4 (02:24→20:31)
[2022-07-22] MEDS: HYDROmorphone 2 MG/ML VIAL (DILAUDID) IV PRN ×5 (03:50→23:09)
[2022-07-22] MEDS: VANCOMYCIN 500 MG/NS 100 ML IVPB IV SCH ×4 (03:51→15:10)
--- NOTE | 2022-07-22 04:54 | History & Physical-Hospitalist ---
History of Present Illness HPI/Chief Complaint Chief complaint: Mitch geronimo with RVR with right foot cellulitis severe in nature HPI: This is a 71-year-old female known to me from prior admit history of chronic pain and receives palliative care management in [place] who just establish her care with [facility] who presented to the ER with right foot cellulitis with early abscess formation requiring general surgery consultation and incision and drainage and atrial fibrillation with rapid ventricular response. Dr. Friedman has been consulted. Patient remains on Cardizem drip. Pain is an issue so restarted her fentanyl patch at 25 mcg and increase the Dilaudid. Antibiotics maintained. Source: patient Exam Limitations: no limitations Date Seen 07/22/22 Time Seen by a Provider: 05:00 Attending Physician [place] PCP Admitting Physician: Ruth Grayson DO Attending Physician: Ruth Grayson DO Referring Physician Date of Admission Jul 21, 2022 at 13:05 Home Medications & Allergies Home Medications Reviewed patient Home Medication Reconciliation performed by pharmacy medication reconciliations automation technician and/or nursing. Patients Allergies have been reviewed. Allergies Allergies Coded Allergies Penicillins (Verified Allergy, Severe, RASH, 03/03/17) Past Hbxsctq-Lmrnjb-Trbvus Hx Patient Social History Marrital Status: Employed/Student: retired Tobacco Use?: Yes Smoking Status: Current Someday Smoker Substance use?: No Alcohol Use?: No Immunizations Up To Date Date of Influenza Vaccine: May 22, 2022 First/Initial COVID19 Vaccinat: UNKNOWN Second COVID19 Vaccination Carlos: 2020 Tetanus Booster (TDap): Unknown Current Status Advance Directives: No Communicates: Verbally Primary Language: Guamanian Preferred Spoken Language: Guamanian Is interpretation needed?: No Past Medical History COPD Atrial Fibrillation, High Cholesterol, Hypertension 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 Degenerate Disk Disease, Chronic Back Pain Hypothyroidsim Did You Recieve Any Treatments: Yes What Type of Treatment Did You: Chemotherapy Sleep Difficulties, Anxiety, Depression Blood Disorders: No Family Medical History Heart Disease Review of Systems Constitutional: see HPI EENTM: no symptoms reported Respiratory: no symptoms reported Cardiovascular: no symptoms reported Gastrointestinal: no symptoms reported Genitourinary: no symptoms reported Musculoskeletal: joint pain Skin: no symptoms reported Psychiatric/Neurological: Depressed Physical Exam Physical Exam Vital Signs Vital Signs - First Documented 07/21/22 07/21/22 10:31 16:22 Temp 36.7 Pulse 116 Resp 16 B/P (MAP) 120/104 (109) Pulse Ox 98 O2 Delivery Room Air FiO2 21 Capillary Refill : Less Than 3 Seconds Height, Weight, BMI Height: 5'5.00" Weight: 150lbs. oz. 68.366739bc; 20.63 BMI Method:Estimated General Appearance: Anxious, Chronically ill, Mild Distress, Thin Eyes: Right Eye Normal Inspection, Right Eye PERRL HEENT: PERRL/EOMI, Normal ENT Inspection, Pharynx Normal, Moist Mucous Membranes Neck: Full Range of Motion, Normal Inspection, Non Tender Respiratory: Chest Non Tender, Lungs Clear, Normal Breath Sounds, No Accessory Muscle Use, No Respiratory Distress Cardiovascular: No Edema, No Gallop, No JVD, No Murmur, Normal Peripheral Pulses, Irregularly Irregular, Tachycardia Gastrointestinal: Normal Bowel Sounds, No Organomegaly, No Pulsatile Mass, Non Tender, Soft Back: Normal Inspection, No CVA Tenderness, No Vertebral Tenderness Extremity: Normal Capillary Refill, Normal Inspection, Normal Range of Motion, Non Tender, No Calf Tenderness, No Pedal Edema, Inflammation, Pedal Edema (Right foot), Swelling (Right foot) Neurologic/Psychiatric: Alert, Oriented x3, No Motor/Sensory Deficits, Normal Mood/Affect, studio potter II-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 Assessment/Plan Admission Diagnosis Assessment: Atrial flutter with RVR Sepsis Right foot cellulitis with early abscess formation Acute on chronic respiratory failure maintain on O2 Dyspnea chronic issue History of atrial fibrillation Multiple myeloma - pain managed with fentanyl patch 25 mcg, oxycontin 2x daily, lortab as needed. Likely needs F/U with her cancer team in [place] for further management. Stage 3A kidney disease - continue monitoring for progression of chronic kidney disease in outpatient setting Primary hypertension - continue medical management COPD - continue medical management Mitral stenosis (mild) - cardiology does not recommend correction at this time Chronic anticoagulation - continue xarelto, dose decreased to 15 mg per cardiology Anxiety - cointinue benzodiazepine Depression Hypothyroidism - continue levothyroxine Plan: ICU Cardizem drip Cardiology consult appreciated General surgery consult appreciated Supportive care Increased pain meds IV antibiotics Admission Status: Inpatient Order (span 2 midnights) Reason for Inpatient Admission: Sepsis with A. fib with RVR Diagnosis/Problems Diagnosis/Problems (1) Atrial fibrillation with RVR Status: Acute Clinical Quality Measures DVT/VTE Risk/Contraindication: Contraindications-Mechi: Other *list below* Other: leg cellulitis RUTH GRAYSON DO Jul 22, 2022 04:54
[2022-07-22 05:39] LABS: BASOPHILS % (AUTO) 0 % (0-10); EOSINOPHILS # (AUTO) 0.1 10^3/uL (0.0-0.3); EOSINOPHILS % (AUTO) 3 % (0-10); HEMATOCRIT 27 % (35-52); HEMOGLOBIN 8.6 g/dL (11.5-16.0); LYMPHOCYTES # (AUTO) 0.4 10^3/uL (1.0-4.0); LYMPHOCYTES % (AUTO) 9 % (12-44); MEAN CORPUSCULAR HEMOGLOBIN 35 pg (25-34); MEAN CORPUSCULAR HGB CONC 32 g/dL (32-36); MEAN CORPUSCULAR VOLUME 108 fL (80-99); MEAN PLATELET VOLUME 11.9 fL (9.0-12.2); MONOCYTES # (AUTO) 0.7 10^3/uL (0.0-1.0); MONOCYTES % (AUTO) 14 % (0-12); NEUTROPHILS # (AUTO) 3.4 10^3/uL (1.8-7.8); NEUTROPHILS % (AUTO) 73 % (42-75); PLATELET COUNT 63 10^3/uL (130-400); WHITE BLOOD COUNT 4.6 10^3/uL (4.3-11.0)
[2022-07-22 06:00] LABS: ALBUMIN 2.6 GM/DL (3.2-4.5); POTASSIUM 2.8 MMOL/L (3.6-5.0)
[2022-07-22 06:01] LABS: CALCIUM 6.6 MG/DL (8.5-10.1)
[2022-07-22 06:04] LABS: BILIRUBIN,TOTAL 0.8 MG/DL (0.1-1.0)
[2022-07-22 06:06] LABS: CREATININE SERUM 0.83 MG/DL (0.60-1.30); PHOSPHORUS 1.8 MG/DL (2.3-4.7)
[2022-07-22] MEDS: KCL 20 MEQ TAB (K-DUR) PO SCH (06:07)
[2022-07-22] MEDS: POTASSIUM CL 10MEQ/50ML IVPB 50 ML IV SCH (06:07)
[2022-07-22 06:09] LABS: MAGNESIUM 1.8 MG/DL (1.6-2.4)
[2022-07-22] MEDS: MAGNESIUM 1 GM/100 ML IVPB 100 ML IV SCH (06:12)
[2022-07-22] MEDS: inSUlin ASPART (NovoLOG) 1 UNIT/0.01 ML (CHARGE PER UNIT) SC SCH ×4 (06:13→20:55)
[2022-07-22] MEDS ORDERED: KCL 20 MEQ TAB (K-DUR) PO ONE ×3 (06:15→10:15)
[2022-07-22] MEDS: MEROPENEM 500 MG in NS (IVPB) 100 ML IV SCH ×3 (06:18→20:53)
[2022-07-22] MEDS: fentaNYL PATCH 25 MCG (DURAGESIC) TD SCH (06:19)
--- NOTE | 2022-07-22 07:38 | Tele-ICU Progress Note ---
Subjective Date Seen by a Provider: Jul 22, 2022 Time Seen by a Provider: 07:33 Subjective/Events-last exam She is a 71-year-old female with past medical history of COPD, multiple myeloma, chronic kidney disease and paroxysmal atrial fibrillation presented to the emergency room with a complaint of for pain and swelling in her left foot and she had a erythema. She is found to have a atrial fibrillation with rapid ventr icular rate. Cardiology consultation has been requested and subsequently admitted to the intensive care unit on Cardizem drip. She is found to have low platelet count when compared to before but she was not on any heparin she was on Xarelto. She also has a chronic anemia probably related to her multiple myeloma. Current HR 100 to 120, still on IV Cardizem @ 15 mg/h Still on IV Vancomycin/Meorpenem for right foot cellulitis-blister 3d toe I reviewed CXR from today shows, bilateral basilar infiltrates plt count still low at 63k Sepsis Event Evaluation Height, Weight, BMI Height: 5'5.00" Weight: 150lbs. oz. 68.891667ya; 20.88 BMI Method:Estimated Focused Exam Lactate Level 07/21/22 13:05: Lactic Acid Level 1.13 Exam Exam Patient acknowledged, consented, and participated in this virtual visit which was conducted using real time audio/video Vital Signs Date Time Temp Pulse Resp B/P (MAP) Pulse Ox O2 Delivery O2 Flow Rate FiO2 07/22/22 07:16 98 Room Air 07/22/22 06:00 120 24 105/77 (86) Room Air 07/22/22 05:00 134 17 117/96 (103) Room Air 07/22/22 04:15 97 11 119/68 (85) 98 Room Air 07/22/22 03:56 36.6 96 Room Air 07/22/22 03:55 95 Room Air 07/22/22 03:00 113 15 136/67 (90) 100 Room Air 07/22/22 02:28 98 Room Air 07/22/22 02:00 104 14 126/71 (89) 94 Room Air 07/22/22 01:00 108 14 117/77 (90) 88 Room Air 07/22/22 01:00 108 07/22/22 00:25 36.5 Room Air 07/22/22 00:22 97 Room Air 07/22/22 00:00 134 18 132/81 (98) Room Air 07/21/22 23:00 134 24 102/77 (85) Room Air 07/21/22 22:05 101 112/68 07/21/22 22:00 118 15 121/73 (89) 92 Room Air 07/21/22 21:30 121 14 113/62 (79) Room Air 07/21/22 20:18 98 Room Air 07/21/22 20:00 96 13 110/65 (80) Room Air 07/21/22 20:00 96 Room Air 07/21/22 19:14 36.3 07/21/22 19:00 103 21 102/60 (74) Room Air 07/21/22 19:00 103 07/21/22 19:00 Room Air 07/21/22 18:00 101 18 112/68 (83) 94 Room Air 07/21/22 17:00 101 15 89/65 (73) 90 Room Air 07/21/22 16:22 36.7 116 98 21 07/21/22 16:00 108 13 94/59 (71) 92 Room Air 07/21/22 16:00 98 Room Air 07/21/22 15:27 36.7 07/21/22 15:00 128 19 108/89 (95) 94 Room Air 07/21/22 14:27 109 07/21/22 14:00 140 28 116/80 (92) 94 Room Air 07/21/22 14:00 98 Room Air 07/21/22 13:45 122 16 112/82 97 07/21/22 13:10 121 102/70 07/21/22 11:33 125 115/82 07/21/22 11:28 144 148/76 07/21/22 10:31 36.7 116 16 120/104 (109) 98 Room Air I & O 07/22/22 07:00 Intake Total 4798 ml Output Total 1050 ml Balance 3748 ml Height & Weight Height: 5'5.00" Weight: 150lbs. oz. 68.324317oz; 20.88 BMI Method:Estimated General Appearance: WD/WN, Anxious, Mild Distress, Thin HEENT: PERRL/EOMI, Normal ENT Inspection Neck: Normal Inspection Respiratory: Lungs Clear, Normal Breath Sounds, No Accessory Muscle Use Cardiovascular: No Murmur, Irregularly Irregular, Tachycardia Capillary Refill: Less Than 3 Seconds Gastrointestinal: non tender, soft Extremity: Other (Left lower extremity demonstrates edema, tenderness, warmth, and swelling from the toes up to the knee region. Sensation, movement, and c apillary refill intact.) Neurologic/Psychiatric: Alert, Oriented x3, No Motor/Sensory Deficits, Other (Anxious) Skin: Warm/Dry, Other (See extremity exam) Results Lab Laboratory Tests 07/21/22 11:13 07/22/22 05:25 Assessment/Plan Assessment/Plan A fib with RVR-will continue on IV Cardizem Low plts, will follow Has Hx of myeloma cellulitis Right foot, PNA, will continue on same abx Potassium 2.8, was replaced, will get BMP at 4 pm Critical Care: Critically Ill Patient Time spent with patient (mins): 25 ELIZABETH MESSINA MD Jul 22, 2022 07:38
--- NOTE | 2022-07-22 08:44 | Diagnostic Imaging Report ---
EXAMINATION: Chest 1 view HISTORY: Atrial fibrillation COMPARISON: 07/21/2022 FINDINGS: There is a small left pleural effusion with overlying atelectasis or pneumonia. Heart size is normal. A loop recorder projects over the heart. There are surgical clips in the left upper abdomen. There has been vertebral plasty of two thoracic vertebrae. IMPRESSION: 1. Small left pleural effusion with overlying atelectasis or pneumonia. Dictated by: Dictated on workstation # [id number]
[2022-07-22] MEDS: DOCUSATE SODIUM 100 MG (COLACE) CAP PO SCH ×2 (08:45→20:54)
[2022-07-22] MEDS: NS IV 1000 ML 1,000 ML IV SCH (08:46)
[2022-07-22] MEDS: SENNOSIDES 8.6 MG (SENOKOT) TAB PO SCH ×2 (08:46→20:55)
[2022-07-22] MEDS: dilTIAZem DRIP PRE-MIX 125 ML IV SCH (09:31)
--- NOTE | 2022-07-22 10:12 | Cardiology Progress Note ---
Subjective Date Seen by Provider: Jul 22, 2022 Time Seen by Provider: 10:10 Subjective/Events-last exam Patient was seen at bedside, laying down comfortably. Still having shortness of breath Review of Systems General: No Chills, No Night Sweats, No Fatigue, No Malaise, No Appetite, No Other HEENT: No Head Aches, No Visual Changes, No Eye Pain, No Ear Pain, No Dyspha mor, No Sinus Congestion, No Post Nasal Drip, No Sore Throat, No Other Pulmonary: No Dyspnea, No Cough, No Pleuritic Chest Pain, No Other Cardiovascular: Chest Pain, Edema; No: Palpitations, Orthopnea, Paroxysmal Noc. Dyspnea, Lt Headedness, Other Focused Exam Lactate Level 07/21/22 13:05: Lactic Acid Level 1.13 Objective-Cardiology Exam Last Set of Vital Signs Vital Signs 07/21/22 07/22/22 07/22/22 07/22/22 16:22 08:17 09:00 09:31 Temp 37.8 Pulse 95 Resp 20 B/P (MAP) 110/84 (93) Pulse Ox 96 O2 Delivery Room Air FiO2 21 I&O Intake and Output 07/22/22 00:00 Intake Total 4298 ml Output Total 550 ml Balance 3748 ml Intake Oral 1423 ml IV Total 2875 ml Output Urine Total 550 ml General: Alert, Oriented X3, Cooperative HEENT: Atraumatic, PERRLA Neck: Supple, No JVD, No Thyromegaly Lungs: Normal Air Movement, Other (Bilateral rhonchi) Heart: Normal S1, Normal S2, No Murmurs, Other (Irregular rhythm) Abdomen: Normal Bowel Sounds, Soft, No Tenderness, No Hepatosplenomegaly, No Masses Extremities: Normal Pulses, No Tenderness/Swelling, Other (Cellulitis and swelling in the left foot) Skin: Other (Ulcer on the third toe with cellulitis) Neuro: Normal Speech, Normal Tone, Sensation Intact Psych/Mental Status: Mental Status NL, Mood NL Results Lab Laboratory Tests 07/21/22 11:13 07/22/22 05:25 A/P-Cardiology Admission Diagnosis Atrial fibrillation with rapid ventricular response Palpitation Cellulitis Chronic renal insufficiency Assessment/Plan Paroxysmal atrial fibrillation with rapid ventricular response Patient was hospitalized in May 2022 with atrial flutter. She did not respond to amiodarone. She was discharged on Xarelto and metoprolol. I will switch her to oral Cardizem, monitor heart rate and blood pressure and add metoprolol Nausea and vomiting, loss of appetite secondary to infection Starting IV fluid and monitor tolerance and response Hypokalemia, being replaced Cellulitis of the foot. Receiving antibiotics. Mitral valve stenosis, mild to moderate per echocardiogram in May 2022. Hypertension, monitor blood pressure Chronic renal insufficiency, continue to monitor renal function Tobaccoism, educated on smoking cessation. RAMIRO MONTERROSO MD Jul 22, 2022 10:12
[2022-07-22] MEDS: meTOprolol TARTRATE 25 MG (LOPRESSOR) TABLET PO SCH ×2 (11:04→20:53)
[2022-07-22] MEDS: RIVAROXABAN 20 MG TABLET (XARELTO) PO SCH (15:10)
[2022-07-22 16:53] LABS: POTASSIUM 4.2 MMOL/L (3.6-5.0)
[2022-07-22 16:55] LABS: CALCIUM 7.1 MG/DL (8.5-10.1)
[2022-07-22 16:59] LABS: CREATININE SERUM 0.97 MG/DL (0.60-1.30)
[2022-07-22] MEDS: traZODone 100 MG (DESYREL) TAB PO SCH (20:53)
--- NOTE | 2022-07-22 22:42 | Progress Note - Surgery ---
Subjective Date Seen by a Provider: Jul 22, 2022 Time Seen by a Provider: 11:58 Subjective/Events-last exam Patient left foot still in pain. Got more of a blister on dorsal side of foot near 3rd/4th toe and having bloody purulent drainage. Extremely tender to touch. She is not comfortable. Moving it hurts nothing making it better. Denies n/v fever sweats chills shortness of breath or chest pain at this time. Focused Exam Lactate Level 07/21/22 13:05: Lactic Acid Level 1.13 Objective Exam Vital Signs Date Time Temp Pulse Resp B/P (MAP) Pulse Ox O2 Delivery O2 Flow Rate FiO2 07/22/22 20:31 98 Room Air 07/22/22 19:57 38.0 07/22/22 19:34 93 Room Air 07/22/22 19:00 100 07/22/22 18:00 87 16 108/59 (75) Room Air 07/22/22 17:00 90 20 112/60 (77) Room Air 07/22/22 16:04 37.3 07/22/22 16:00 109 10 108/57 (74) 93 Room Air 07/22/22 16:00 95 Room Air 07/22/22 15:08 97 Room Air 07/22/22 15:00 71 17 104/65 (78) 98 Room Air 07/22/22 14:00 78 22 102/65 (77) 96 Room Air 07/22/22 13:01 37.0 07/22/22 13:00 102 13 107/66 (80) Room Air 07/22/22 12:55 90 07/22/22 12:00 85 19 99/87 (91) 92 Room Air 07/22/22 12:00 95 Room Air 07/22/22 11:00 110 16 111/55 (73) 99 Room Air 07/22/22 10:00 86 19 113/58 (76) 97 Room Air 07/22/22 09:31 95 07/22/22 09:00 114 20 110/84 (93) 96 Room Air 07/22/22 08:17 37.8 07/22/22 08:00 95 Room Air 07/22/22 08:00 120 17 142/91 (108) 98 Room Air 07/22/22 07:16 98 Room Air 07/22/22 07:00 120 20 118/68 (85) 95 Room Air 07/22/22 07:00 135 07/22/22 06:00 120 24 105/77 (86) Room Air 07/22/22 05:00 134 17 117/96 (103) Room Air 07/22/22 04:15 97 11 119/68 (85) 98 Room Air 07/22/22 03:56 36.6 96 Room Air 07/22/22 03:55 95 Room Air 07/22/22 03:00 113 15 136/67 (90) 100 Room Air 07/22/22 02:28 98 Room Air 07/22/22 02:00 104 14 126/71 (89) 94 Room Air 07/22/22 01:00 108 14 117/77 (90) 88 Room Air 07/22/22 01:00 108 07/22/22 00:25 36.5 Room Air 07/22/22 00:22 97 Room Air 07/22/22 00:00 134 18 132/81 (98) Room Air 07/21/22 23:00 134 24 102/77 (85) Room Air I & O 07/22/22 07:00 Intake Total 4798 ml Output Total 1050 ml Balance 3748 ml Capillary Refill : Less Than 3 Seconds General Appearance: WD/WN, Anxious, Thin HEENT: PERRL/EOMI, Normal ENT Inspection Neck: Normal Inspection, Non Tender Respiratory: Chest Non Tender, No Accessory Muscle Use, No Respiratory Distress Cardiovascular: Irregularly Irregular, Tachycardia Gastrointestinal: non tender, soft Extremity: Other (Left lower extremity demonstrates edema, tenderness, warmth, and swelling from the toes up to the left leg. 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) Neurologic/Psychiatric: Alert, Oriented x3, No Motor/Sensory Deficits, Other (Anxious) Skin: Warm/Dry, Other (See extremity exam) Lymphatic: No Adenopathy Results Lab Laboratory Tests 07/22/22 05:25: White Blood Count 4.6, Red Blood Count 2.47L, Hemoglobin 8.6#L, Hematocrit 27L, Mean Corpuscular Volume 108H, Mean Corpuscular Hemoglobin 35H, Mean Corpuscular Hemoglobin Concent 32, Red Cell Distribution Width 15.7H, Platelet Count 63L, Mean Platelet Volume 11.9, Immature Granulocyte % (Auto) 1, Neutrophils (%) (Auto) 73, Lymphocytes (%) (Auto) 9L, Monocytes (%) (Auto) 14H, Eosinophils (%) (Auto) 3, Basophils (%) (Auto) 0, Neutrophils # (Auto) 3.4, Lymphocytes # (Auto) 0.4L, Monocytes # (Auto) 0.7, Eosinophils # (Auto) 0.1, Basophils # (Auto) 0.0, Immature Granulocyte # (Auto) 0.1, Percent Immature Platelet Fraction 7.4, Sodium Level 134L, Potassium Level 2.8L, Chloride Level 105, Carbon Dioxide Level 21, Anion Gap 8, Blood Urea Nitrogen 13, Creatinine 0.83, Estimat Glomerular Filtration Rate 74, BUN/Creatinine Ratio 16, Glucose Level 109H, Calcium Level 6.6L, Corrected Calcium 7.7L, Phosphorus Level 1.8L, Magnesium Level 1.8, Total Bilirubin 0.8, Aspartate Amino Transf (AST/SGOT) 19, Alanine Aminotransferase (ALT/SGPT) 18, Alkaline Phosphatase 65, Total Protein 5.0L, Albumin 2.6L 07/22/22 10:49: Glucometer 196H 07/22/22 14:07: Sodium Level 137, Potassium Level 4.2, Chloride Level 108H, Carbon Dioxide Level 17L, Anion Gap 12, Blood Urea Nitrogen 15, Creatinine 0.97, Estimat Glomerular Filtration Rate 62, BUN/Creatinine Ratio 15, Glucose Level 98, Calcium Level 7.1L 07/22/22 15:19: Glucometer 126H 07/22/22 20:51: Glucometer 97 Microbiology 07/21/22 MRSA Screen - Final, Complete 07/21/22 Blood Culture - Preliminary, Resulted No growth Assessment/Plan Assessment/Plan Assessment/Plan left foot/lower extremity cellulitis left foot abscess afib rvr custodial anticogaulation continue abx i nowt feel fluctuance at foot with small opening and abscess, she does not tolerate exam to the area well secondary to pain we discussed incision and drainage of left foot abscess all other indicated procedures and she wishes to proceed. NPO after midnight nad plan for incision and drainage tomorrow. iv fluids on Cardizem drip continue to monitor foot for any changes, patient in agreement with plan. Clinical Quality Measures DVT/VTE Risk/Contraindication: Contraindications-Mechi: Other *list below* Other: leg cellulitis KORINA CRANE DO Jul 22, 2022 22:42
[2022-07-23] VITALS (8 sets, daily range): BP systolic 101–119; BP diastolic 57–93
[2022-07-23] MEDS: RT-ALBUTEROL/IPRATROPIUM 3 ML (DUONEB) VIAL INH SCH ×4 (02:34→21:05)
[2022-07-23] MEDS ORDERED: TROUGH ORDER-PHARMACY XX NR (04:00)
[2022-07-23] MEDS: NS IV 1000 ML 1,000 ML IV SCH ×2 (04:25→16:38)
[2022-07-23] MEDS: HYDROmorphone 2 MG/ML VIAL (DILAUDID) IV PRN ×5 (04:34→20:36)
[2022-07-23 04:59] LABS: ABG BASE EXCESS -4.7 MMOL/L (-2.5-2.5); ABG OXYGEN SATURATION 87 % (94-100); ABG PCO2 33 MMHG (35-45); ABG PH 7.39 (7.37-7.43); ABG PO2 51 MMHG (79-93); ABG TCO2 20.4 MMOL/L (21.0-31.0)
[2022-07-23 05:02] LABS: VENTILATOR NO
[2022-07-23 05:04] LABS: ALLENS TEST YES-POS; PATIENT TEMP 36.8
[2022-07-23] MEDS: MEROPENEM 500 MG in NS (IVPB) 100 ML IV SCH ×3 (05:45→22:32)
[2022-07-23 05:48] LABS: ALBUMIN 2.6 GM/DL (3.2-4.5); BILIRUBIN,TOTAL 0.7 MG/DL (0.1-1.0); CALCIUM 7.6 MG/DL (8.5-10.1); CREATININE SERUM 0.86 MG/DL (0.60-1.30); MAGNESIUM 1.4 MG/DL (1.6-2.4); PHOSPHORUS 2.5 MG/DL (2.3-4.7); POTASSIUM 4.3 MMOL/L (3.6-5.0); TOTAL PROTEIN 5.2 GM/DL (6.4-8.2)
[2022-07-23] MEDS: POTASSIUM CL 10MEQ/50ML IVPB 50 ML IV SCH (05:53)
[2022-07-23] MEDS: MAGNESIUM 1 GM/100 ML IVPB 100 ML IV SCH ×3 (05:54→07:33)
[2022-07-23] MEDS: inSUlin ASPART (NovoLOG) 1 UNIT/0.01 ML (CHARGE PER UNIT) SC SCH ×4 (05:54→20:44)
[2022-07-23] MEDS: KCL 20 MEQ TAB (K-DUR) PO SCH (05:54)
[2022-07-23 05:56] LABS: VANCOMYCIN,TROUGH 9.4 UG/ML (10.0-20.0)
[2022-07-23 05:59] LABS: HEMOGLOBIN 8.8 g/dL (11.5-16.0); LYMPHOCYTES % (AUTO) 16 % (12-44)
[2022-07-23 06:02] LABS: BASOPHILS % (AUTO) 1 % (0-10); EOSINOPHILS # (AUTO) 0.2 10^3/uL (0.0-0.3); EOSINOPHILS % (AUTO) 4 % (0-10); HEMATOCRIT 27 % (35-52); LYMPHOCYTES # (AUTO) 0.6 10^3/uL (1.0-4.0); MEAN CORPUSCULAR HEMOGLOBIN 35 pg (25-34); MEAN CORPUSCULAR HGB CONC 32 g/dL (32-36); MEAN CORPUSCULAR VOLUME 109 fL (80-99); MEAN PLATELET VOLUME 12.6 fL (9.0-12.2); MONOCYTES # (AUTO) 0.4 10^3/uL (0.0-1.0); MONOCYTES % (AUTO) 11 % (0-12); NEUTROPHILS # (AUTO) 2.6 10^3/uL (1.8-7.8); NEUTROPHILS % (AUTO) 67 % (42-75); PLATELET COUNT 79 10^3/uL (130-400)
[2022-07-23] MEDS: VANCOMYCIN 500 MG/NS 100 ML IVPB IV SCH ×2 (06:07)
[2022-07-23] MEDS: SENNOSIDES 8.6 MG (SENOKOT) TAB PO SCH ×2 (07:22→20:36)
[2022-07-23] MEDS: DOCUSATE SODIUM 100 MG (COLACE) CAP PO SCH ×2 (07:22→20:36)
[2022-07-23] MEDS: meTOprolol TARTRATE 25 MG (LOPRESSOR) TABLET PO SCH ×2 (07:33→20:26)
--- NOTE | 2022-07-23 09:14 | Diagnostic Imaging Report ---
EXAMINATION: Chest, 1 view. HISTORY: Dyspnea. COMPARISON: 07/22/2022. FINDINGS: Heart size and pulmonary vasculature are normal. There are increasing interstitial opacities in the lung bases. Trace bilateral pleural effusions. No pneumothorax. The osseous structures are intact. IMPRESSION: Increasing bibasilar interstitial opacities with stable bilateral pleural effusions. Dictated by: Dictated on workstation # [id number]
--- NOTE | 2022-07-23 09:18 | Progress Note - Surgery ---
Subjective Date Seen by a Provider: Jul 23, 2022 Time Seen by a Provider: 09:18 Subjective/Events-last exam Still with pain in left foot. Still with drainage. Pain difficult to control she states. NPO Planning on surgery today. Denies n/v fever sweats chills shortness of breath or chest pain at this time. Focused Exam Lactate Level 07/21/22 13:05: Lactic Acid Level 1.13 Objective Exam Vital Signs Date Time Temp Pulse Resp B/P (MAP) Pulse Ox O2 Delivery O2 Flow Rate FiO2 07/23/22 09:00 102 21 111/68 (82) 90 Room Air 07/23/22 08:44 97 Room Air 0.00 07/23/22 08:00 37.3 07/23/22 08:00 100 Room Air 07/23/22 08:00 106 15 92/83 (86) 90 Room Air 07/23/22 07:02 93 07/23/22 07:00 91 16 100/74 (83) 93 Room Air 07/23/22 06:00 112 18 110/84 (93) 100 Room Air 07/23/22 05:00 89 15 129/95 (106) 96 Room Air 07/23/22 04:00 68 17 127/71 (89) 97 Room Air 07/23/22 04:00 96 Room Air 07/23/22 03:00 77 15 124/61 (82) 95 Room Air 07/23/22 02:00 72 15 116/59 (78) 99 Room Air 07/23/22 01:00 80 07/23/22 01:00 79 16 107/59 (75) 100 Room Air 07/23/22 00:33 37.6 79 17 114/61 (78) 100 Room Air 07/22/22 23:59 100 Room Air 07/22/22 23:00 78 19 123/66 (85) 99 Room Air 07/22/22 22:00 86 17 120/64 (82) 98 Room Air 07/22/22 21:00 76 23 117/60 (79) 96 Room Air 07/22/22 20:31 98 Room Air 07/22/22 20:00 86 17 120/72 (88) 94 Room Air 07/22/22 19:57 38.0 07/22/22 19:34 93 Room Air 07/22/22 19:00 100 07/22/22 19:00 95 23 128/81 (97) 94 Room Air 07/22/22 18:00 87 16 108/59 (75) Room Air 07/22/22 17:00 90 20 112/60 (77) Room Air 07/22/22 16:04 37.3 07/22/22 16:00 109 10 108/57 (74) 93 Room Air 07/22/22 16:00 95 Room Air 07/22/22 15:08 97 Room Air 07/22/22 15:00 71 17 104/65 (78) 98 Room Air 07/22/22 14:00 78 22 102/65 (77) 96 Room Air 07/22/22 13:01 37.0 07/22/22 13:00 102 13 107/66 (80) Room Air 07/22/22 12:55 90 07/22/22 12:00 85 19 99/87 (91) 92 Room Air 07/22/22 12:00 95 Room Air 07/22/22 11:00 110 16 111/55 (73) 99 Room Air 07/22/22 10:00 86 19 113/58 (76) 97 Room Air 07/22/22 09:31 95 I & O 07/23/22 07:00 Intake Total 3225 ml Output Total 650 ml Balance 2575 ml Capillary Refill : Less Than 3 Seconds General Appearance: WD/WN, Anxious, Thin HEENT: PERRL/EOMI, Normal ENT Inspection Neck: Normal Inspection, Non Tender Respiratory: Chest Non Tender, No Accessory Muscle Use, No Respiratory Distress Cardiovascular: Irregularly Irregular, Tachycardia Gastrointestinal: non tender, soft Extremity: Other (Left lower extremity demonstrates edema, tenderness, warmth, and swelling from the toes up to the left leg. enrober tender, with small area fluctuant and draining dorsal aspect) Neurologic/Psychiatric: Alert, Oriented x3, No Motor/Sensory Deficits, Other (Anxious) Skin: Warm/Dry, Other (See extremity exam) Lymphatic: No Adenopathy Results Lab Laboratory Tests 07/22/22 10:49: Glucometer 196H 07/22/22 14:07: Sodium Level 137, Potassium Level 4.2, Chloride Level 108H, Carbon Dioxide Level 17L, Anion Gap 12, Blood Urea Nitrogen 15, Creatinine 0.97, Estimat Glomerular Filtration Rate 62, BUN/Creatinine Ratio 15, Glucose Level 98, Calcium Level 7.1L 07/22/22 15:19: Glucometer 126H 07/22/22 20:51: Glucometer 97 07/23/22 04:51: Blood Gas Puncture Site RIGHT RADIAL, Blood Gas Patient Temperature 36.8, Arterial Blood pH 7.39, Arterial Blood Partial Pressure CO2 33L, Arterial Blood Partial Pressure O2 51L, Arterial Blood HCO3 19L, Arterial Blood Total CO2 20.4L , Arterial Blood Oxygen Saturation 87L, Arterial Blood Base Excess -4.7L, Drew Test YES-POS, Blood Gas Ventilator Setting NO, Blood Gas Inspired Oxygen NA 07/23/22 04:54: White Blood Count 4.0L, Red Blood Count 2.51L, Hemoglobin 8.8L, Hematocrit 27L, Mean Corpuscular Volume 109H, Mean Corpuscular Hemoglobin 35H, Mean Corpuscular Hemoglobin Concent 32, Red Cell Distribution Width 15.8H, Platelet Count 79L, Mean Platelet Volume 12.6H, Immature Granulocyte % (Auto) 1, Neutrophils (%) (Auto) 67, Lymphocytes (%) (Auto) 16, Monocytes (%) (Auto) 11, Eosinophils (%) (Auto) 4, Basophils (%) (Auto) 1, Neutrophils # (Auto) 2.6, Lymphocytes # (Auto) 0.6L, Monocytes # (Auto) 0.4, Eosinophils # (Auto) 0.2, Basophils # (Auto) 0.0, Immature Granulocyte # (Auto) 0.0, Percent Immature Platelet Fraction 8.0H, Sodium Level 139, Potassium Level 4.3, Chloride Level 112H, Carbon Dioxide Level 20L, Anion Gap 7, Blood Urea Nitrogen 14, Creatinine 0.86, Estimat Glomerular Filtration Rate 71, BUN/Creatinine Ratio 16, Glucose Level 106H, Calcium Level 7.6L, Corrected Calcium 8.7, Phosphorus Level 2.5, Magnesium Level 1.4L, Total Bilirubin 0.7, Aspartate Amino Transf (AST/SGOT) 11, Alanine Aminotransferase (ALT/SGPT) 15, Alkaline Phosphatase 74, Total Protein 5.2L, Albumin 2.6L, Vancomycin Level Trough 9.4L Microbiology 07/22/22 Gram Stain - Final, Resulted 07/22/22 Wound Culture - Preliminary, Resulted Staphylococcus aureus 07/21/22 MRSA Screen - Final, Complete 07/21/22 Blood Culture - Preliminary, Resulted No growth Assessment/Plan Assessment/Plan Assessment/Plan left foot/lower extremity cellulitis left foot abscess afib rvr fdc anticogaulation continue abx i now feel fluctuance at foot with small opening and abscess, she does not tolerate exam to the area well secondary to pain we discussed incision and drainage of left foot abscess all other indicated procedures and she wishes to proceed. NPO iv fluids on Cardizem drip continue to monitor foot for any changes, surgery today patient in agreement with plan. Clinical Quality Measures DVT/VTE Risk/Contraindication: Contraindications-Mechi: Other *list below* Other: leg cellulitis KORINA CRANE DO Jul 23, 2022 09:18
--- NOTE | 2022-07-23 09:39 | Progress Note ---
Subjective Subjective/Events-last exam Pt is anxious and tearful about having her foot I&D today. Is having some back pain as well. Focused Exam Lactate Level 07/21/22 13:05: Lactic Acid Level 1.13 Objective Exam Last Set of Vital Signs Vital Signs Date Time Temp Pulse Resp B/P (MAP) Pulse Ox O2 Delivery O2 Flow Rate FiO2 07/23/22 09:00 102 21 111/68 (82) 90 Room Air 07/23/22 08:44 0.00 07/23/22 08:00 37.3 07/21/22 16:22 21 Capillary Refill : Less Than 3 Seconds I&O Intake and Output 07/23/22 00:00 Intake Total 2525 ml Output Total 750 ml Balance 1775 ml Intake Oral 2325 ml IV Total 200 ml Output Urine Total 750 ml # Voids 3 # Bowel Movements 1 General: Alert, Mild Distress Lungs: Clear to Auscultation Heart: Other (irregularly irregular, systolic murmur) Abdomen: Normal Bowel Sounds, Soft Skin: Other (Left foot with dorsal swelling and erythema) Psych/Mental Status: Mental Status NL, Mood NL Results/Procedures Lab Laboratory Tests 07/22/22 10:49: Glucometer 196H 07/22/22 14:07: Sodium Level 137, Potassium Level 4.2, Chloride Level 108H, Carbon Dioxide Level 17L, Anion Gap 12, Blood Urea Nitrogen 15, Creatinine 0.97, Estimat Glomerular Filtration Rate 62, BUN/Creatinine Ratio 15, Glucose Level 98, Calcium Level 7.1L 07/22/22 15:19: Glucometer 126H 07/22/22 20:51: Glucometer 97 07/23/22 04:51: Blood Gas Puncture Site RIGHT RADIAL, Blood Gas Patient Temperature 36.8, Arterial Blood pH 7.39, Arterial Blood Partial Pressure CO2 33L, Arterial Blood Partial Pressure O2 51L, Arterial Blood HCO3 19L, Arterial Blood Total CO2 20.4L , Arterial Blood Oxygen Saturation 87L, Arterial Blood Base Excess -4.7L, Drew Test YES-POS, Blood Gas Ventilator Setting NO, Blood Gas Inspired Oxygen NA 07/23/22 04:54: White Blood Count 4.0L, Red Blood Count 2.51L, Hemoglobin 8.8L, Hematocrit 27L, Mean Corpuscular Volume 109H, Mean Corpuscular Hemoglobin 35H, Mean Corpuscular Hemoglobin Concent 32, Red Cell Distribution Width 15.8H, Platelet Count 79L, Mean Platelet Volume 12.6H, Immature Granulocyte % (Auto) 1, Neutrophils (%) (Auto) 67, Lymphocytes (%) (Auto) 16, Monocytes (%) (Auto) 11, Eosinophils (%) (Auto) 4, Basophils (%) (Auto) 1, Neutrophils # (Auto) 2.6, Lymphocytes # (Auto) 0.6L, Monocytes # (Auto) 0.4, Eosinophils # (Auto) 0.2, Basophils # (Auto) 0.0, Immature Granulocyte # (Auto) 0.0, Percent Immature Platelet Fraction 8.0H, Sodium Level 139, Potassium Level 4.3, Chloride Level 112H, Carbon Dioxide Level 20L, Anion Gap 7, Blood Urea Nitrogen 14, Creatinine 0.86, Estimat Glomerular Filtration Rate 71, BUN/Creatinine Ratio 16, Glucose Level 106H, Calcium Level 7.6L, Corrected Calcium 8.7, Phosphorus Level 2.5, Magnesium Level 1.4L, Total Bilirubin 0.7, Aspartate Amino Transf (AST/SGOT) 11, Alanine Aminotransferase (ALT/SGPT) 15, Alkaline Phosphatase 74, Total Protein 5.2L, Albumin 2.6L, Vancomycin Level Trough 9.4L Microbiology 07/22/22 Gram Stain - Final, Resulted 07/22/22 Wound Culture - Preliminary, Resulted Staphylococcus aureus 07/21/22 MRSA Screen - Final, Complete 07/21/22 Blood Culture - Preliminary, Resulted No growth Assessment/Plan Assessment/Plan (1) Cellulitis of left foot Status: Acute Assessment & Plan: On meropenem and vancomycin, to OR today for drainage. Culture presumptive MRSA, no growth in blood cultures to date. (2) Atrial fibrillation with RVR Status: Acute Assessment & Plan: Initially on cardizem drip, changed to PO, appreciate Cardiology recommendations. Xarelto for anticoagulation. (3) Anxiety Status: Chronic Assessment & Plan: Resume home buspirone (4) History of multiple myeloma Status: Chronic Assessment & Plan: Resume home pain medications. (5) Thrombocytopenia Status: Chronic Assessment & Plan: Intermittent, worse at current than prior, suspect related to MM. Monitor closely. (6) Anemia Status: Chronic Assessment & Plan: Suspect anemia of chronic disease. Monitor for stability. (7) Hypokalemia Status: Resolved Assessment & Plan: Replaced (8) Hypomagnesemia Status: Acute Assessment & Plan: Replace and monitor Clinical Quality Measures DVT/VTE Risk/Contraindication: Contraindications-Mechi: Other *list below* Other: leg cellulitis DAMARIS STEPHENS MD Jul 23, 2022 09:39
--- NOTE | 2022-07-23 09:58 | Tele-ICU Progress Note ---
Subjective Date Seen by a Provider: Jul 23, 2022 Time Seen by a Provider: 12:51 Subjective/Events-last exam (Tele-ICU Physician , consultation) Available chart/ vitals / labs / Images reviewed H&P is from ER notes Patient's information available about PMH, allergy reviewed in EMR. ROS as per chart and RN report Video assessment done using teleICU camera, rest of exam as per RN Discussed with RN. She is a 71-year-old female with past medical history of COPD, multiple myeloma, chronic kidney disease and paroxysmal atrial fibrillation presented to the emergency room with a complaint of for pain and swelling in her left foot and she had a erythema. She is found to have a atrial fibrillation with rapid ventricular rate. Cardiology consultation has been requested and subsequently admitted to the intensive care unit on Cardizem drip. She is found to have low platelet count when compared to before but she was not on any heparin she was on Xarelto. She also has a chronic anemia probably related to her multiple myeloma. Impression 1. Atrial fibrillation with rapid ventricular rate. NOW rate controlled 2. Left foot cellulitis with abscess with staph aureus.. 3. History of mitral stenosis mild to moderate 4. Chronic kidney disease 5. Thrombocytopenia probably related to her multiple myeloma and or due to sepsis but will monitor 6. History of tobacco abuse disorder. 7. Thrombocytopenia improving 8. bilateral small pleural effusions with possible pneumonia. Recommendations 1. Atrial fibrillation management per cardiology 2. Continue IV antibiotics broad-spectrum for her foot infection 3. Continue to monitor her platelet count. 4. She would probably benefit from a oncology consultation. 5. Gen. Surgery consult appreciated. she is going for I&D of foot today 6. will give 40 mg of iv lasix. Coordination of care with consultants and primary MD. Sepsis Event Evaluation Height, Weight, BMI Height: 5'5.00" Weight: 150lbs. oz. 68.424178jd; 24.33 BMI Method:Estimated Focused Exam Lactate Level 07/21/22 13:05: Lactic Acid Level 1.13 Exam Exam Patient acknowledged, consented, and participated in this virtual visit which was conducted using real time audio/video Vital Signs Date Time Temp Pulse Resp B/P (MAP) Pulse Ox O2 Delivery O2 Flow Rate FiO2 07/23/22 09:00 102 21 111/68 (82) 90 Room Air 07/23/22 08:44 97 Room Air 0.00 07/23/22 08:00 37.3 07/23/22 08:00 100 Room Air 07/23/22 08:00 106 15 92/83 (86) 90 Room Air 07/23/22 07:02 93 07/23/22 07:00 91 16 100/74 (83) 93 Room Air 07/23/22 06:00 112 18 110/84 (93) 100 Room Air 07/23/22 05:00 89 15 129/95 (106) 96 Room Air 07/23/22 04:00 68 17 127/71 (89) 97 Room Air 07/23/22 04:00 96 Room Air 07/23/22 03:00 77 15 124/61 (82) 95 Room Air 07/23/22 02:00 72 15 116/59 (78) 99 Room Air 07/23/22 01:00 80 07/23/22 01:00 79 16 107/59 (75) 100 Room Air 07/23/22 00:33 37.6 79 17 114/61 (78) 100 Room Air 07/22/22 23:59 100 Room Air 07/22/22 23:00 78 19 123/66 (85) 99 Room Air 07/22/22 22:00 86 17 120/64 (82) 98 Room Air 07/22/22 21:00 76 23 117/60 (79) 96 Room Air 07/22/22 20:31 98 Room Air 07/22/22 20:00 86 17 120/72 (88) 94 Room Air 07/22/22 19:57 38.0 07/22/22 19:34 93 Room Air 07/22/22 19:00 100 07/22/22 19:00 95 23 128/81 (97) 94 Room Air 07/22/22 18:00 87 16 108/59 (75) Room Air 07/22/22 17:00 90 20 112/60 (77) Room Air 07/22/22 16:04 37.3 07/22/22 16:00 109 10 108/57 (74) 93 Room Air 07/22/22 16:00 95 Room Air 07/22/22 15:08 97 Room Air 07/22/22 15:00 71 17 104/65 (78) 98 Room Air 07/22/22 14:00 78 22 102/65 (77) 96 Room Air 07/22/22 13:01 37.0 07/22/22 13:00 102 13 107/66 (80) Room Air 07/22/22 12:55 90 07/22/22 12:00 85 19 99/87 (91) 92 Room Air 07/22/22 12:00 95 Room Air 07/22/22 11:00 110 16 111/55 (73) 99 Room Air 07/22/22 10:00 86 19 113/58 (76) 97 Room Air I & O 07/23/22 07:00 Intake Total 3225 ml Output Total 650 ml Balance 2575 ml Height & Weight Height: 5'5.00" Weight: 150lbs. oz. 68.252023xc; 24.33 BMI Method:Estimated General Appearance: WD/WN, Anxious, Thin HEENT: PERRL/EOMI, Normal ENT Inspection Neck: Normal Inspection, Non Tender Respiratory: Chest Non Tender, No Accessory Muscle Use, No Respiratory Distress Cardiovascular: Irregularly Irregular, Tachycardia Capillary Refill: Less Than 3 Seconds Gastrointestinal: non tender, soft Extremity: Other (Left lower extremity demonstrates edema, tenderness, warmth, and swelling from the toes up to the left leg. opener tender, with small area fluctuant and draining dorsal aspect) Neurologic/Psychiatric: Alert, Oriented x3, No Motor/Sensory Deficits, Other (Anxious) Skin: Warm/Dry, Other (See extremity exam) Lymphatic: No Adenopathy Other comments PE PER RN Results Lab Laboratory Tests 07/21/22 11:13 07/22/22 05:25 07/22/22 14:07 07/23/22 04:54 Assessment/Plan Assessment/Plan as above Critical Care: Critically Ill Patient Time spent with patient (mins): 25 MARIVEL ALARCON MD Jul 23, 2022 09:58
[2022-07-23] MEDS ORDERED: FUROSEMIDE 40 MG/4 ML INJ (LASIX) IVP NR (10:15)
--- NOTE | 2022-07-23 10:41 | Physical Therapy Progress Note ---
Therapy Progress Note Patient yelling in room. Per RN, patient will have surgery on this date on left foot. PT will evaluate patient tomorrow. ODILON HENDRICKSON PT Jul 23, 2022 10:41
--- NOTE | 2022-07-23 11:27 | Occ Therapy Progress Note ---
Therapy Progress Note OT order received, chart reviewed. Will hold this date as pt. is having surgery. Will check back in a.m. [id number] KINGSLEY SOLO OT Jul 23, 2022 11:27
[2022-07-23] MEDS ORDERED: SEVOFLURANE (ULTANE) 15 ML INHAL SOLN ONE ×2 (12:43→13:42)
[2022-07-23] MEDS ORDERED: ONDANSETRON 4 MG/2 ML (SDV) Z0FRAN ONE (12:43)
[2022-07-23] MEDS ORDERED: LIDOCAINE PF 2% 5 ML (XYLOCAINE) VIAL ONE (12:43)
[2022-07-23] MEDS ORDERED: proPOfol 200 MG/20 ML (DIPRIVAN) VIAL IV ONE (12:43)
[2022-07-23] MEDS ORDERED: fentaNYL INJ 100 MCG/2 ML AMP ONE (12:43)
[2022-07-23] MEDS ORDERED: HYDROmorphone 2 MG/ML VIAL (DILAUDID) IV ONE (13:00)
[2022-07-23] MEDS ORDERED: MEPERIDINE (DEMEROL) INJ 50 MG/ML IVP ONE (13:00)
[2022-07-23] MEDS ORDERED: LACTATED RINGERS 1,000 ML IV PRN ×2 (13:00→13:45)
[2022-07-23] MEDS ORDERED: ONDANSETRON 4 MG/2 ML (SDV) Z0FRAN IVP PRN (13:00)
[2022-07-23] MEDS ORDERED: BUPIVACAINE 0.5% 30 ML (SENSORCAINE) VIAL ONE (13:10)
[2022-07-23] MEDS: busPIRone 10 MG (BUSPAR) TAB PO SCH ×2 (13:10→20:26)
[2022-07-23] MEDS ORDERED: PHENYLEPHRINE 100 MCG/ML 10 ML (ANESTHESIA) SYR ONE (13:16)
[2022-07-23] MEDS ORDERED: BUPIVACAINE 0.25% 30 ML (SENSORCAINE) VIAL INJ ONE (13:28)
--- NOTE | 2022-07-23 13:40 | Cardiology Progress Note ---
Subjective Date Seen by Provider: Jul 23, 2022 Time Seen by Provider: 13:39 Subjective/Events-last exam Patient was seen at bedside, having significant pain in her toe. Having pus discharge. Focused Exam Lactate Level 07/21/22 13:05: Lactic Acid Level 1.13 Objective-Cardiology Exam Last Set of Vital Signs Vital Signs 07/21/22 07/23/22 07/23/22 07/23/22 16:22 08:44 12:00 12:38 Temp 37.2 Pulse 87 Resp 19 B/P (MAP) 107/70 (82) Pulse Ox 97 O2 Delivery Room Air O2 Flow Rate 0.00 FiO2 21 I&O Intake and Output 07/23/22 00:00 Intake Total 2525 ml Output Total 750 ml Balance 1775 ml Intake Oral 2325 ml IV Total 200 ml Output Urine Total 750 ml # Voids 3 # Bowel Movements 1 General: Alert, Cooperative, Mild Distress HEENT: Atraumatic, PERRLA Neck: Supple, No JVD, No Thyromegaly Lungs: Clear to Auscultation Heart: Other (irregularly irregular, systolic murmur) Abdomen: Normal Bowel Sounds, Soft Extremities: Normal Pulses, No Tenderness/Swelling, Other (Cellulitis and swelling in the left foot) Skin: Other (Left foot with dorsal swelling and erythema) Neuro: Normal Speech, Normal Tone, Sensation Intact Psych/Mental Status: Mental Status NL, Mood NL Results Lab Laboratory Tests 07/22/22 14:07 07/23/22 04:54 A/P-Cardiology Admission Diagnosis Atrial fibrillation with rapid ventricular response Palpitation Cellulitis Chronic renal insufficiency Assessment/Plan Paroxysmal atrial fibrillation with rapid ventricular response Patient was hospitalized in May 2022 with atrial flutter. She did not respond to amiodarone. She was discharged on Xarelto and metoprolol. I will switch her to oral Cardizem, monitor heart rate and blood pressure and add metoprolol Nausea and vomiting, loss of appetite secondary to infection Starting IV fluid and monitor tolerance and response Hypokalemia, being replaced Cellulitis and abscess on the toe. Still having significant swelling and tenderness Patient is scheduled for I&D today. Mitral valve stenosis, mild to moderate per echocardiogram in May 2022. Hypertension, monitor blood pressure Chronic renal insufficiency, continue to monitor renal function Tobaccoism, educated on smoking cessation. RAMIRO MONTERROSO MD Jul 23, 2022 13:40
--- NOTE | 2022-07-23 13:55 | Anesthesia-General Post-Op ---
General Patient Condition Mental Status/LOC: Same as Preop Cardiovascular: Satisfactory Nausea/Vomiting: Absent Respiratory: Satisfactory Pain: Controlled Complications: Absent Post Op Complications Complications None Follow Up Care/Instructions Patient Instructions None needed. Anesthesia/Patient Condition Patient Condition Patient is doing well, no complaints, stable vital signs, no apparent adverse anesthesia problems. No complications reported per nursing. D/C home per [facility] [place] Criteria: Yes ELISABETH HANDLEY CRNA Jul 23, 2022 13:55
[2022-07-23] MEDS: VANCOMYCIN 750 MG/NS 250 ML IVPB IV SCH ×2 (16:14)
[2022-07-23] MEDS: RIVAROXABAN 20 MG TABLET (XARELTO) PO SCH (16:37)
--- NOTE | 2022-07-23 19:07 | OPERATIVE REPORT ---
DATE OF SERVICE: 07/23/2022 PREOPERATIVE DIAGNOSIS: Left foot abscess, cellulitis. POSTOPERATIVE DIAGNOSIS: Left foot abscess, cellulitis. PROCEDURE: Left ankle block, left foot incision and drainage, debridement of skin and subcutaneous tissue between third and fourth rays. SURGEON: Korina Akers DO ANESTHESIA: General LMA. ESTIMATED BLOOD LOSS: Minimal. COMPLICATIONS: None. INDICATIONS: The patient is a 71-year-old female with abscess, cellulitis of the left foot. She understands the risks and benefits of the procedure and wishes to proceed. Consent was on chart. DESCRIPTION OF PROCEDURE: The patient was taken to the operating suite. She was prepped and draped in sterile fashion. Timeout was performed. Left ankle block was performed injecting a total of 20 mL of Marcaine without epinephrine posterior to the fibular head and medial malleolus and then this was then band across the dorsum of the foot proximally. Foot was then inspected. The distal portion of the third and fourth rays, right near the toes, ulceration with small opening was present. A 15 blade scalpel was used to open this area and lot of necrotic tissue present. Skin and subcutaneous tissue was debrided to healthy good tissue. Hemostasis was achieved. The wound was then irrigated with copious amounts of irrigation. Overall, area approximately 2.5 x 1 cm. Wound was then packed with 1/2-inch iodoform gauze and sterile bandage was applied. The patient tolerated the procedure well without any complications, taken to recovery room in stable condition. Job ID: [id number] DocumentID: [id number] Dictated Date: 07/23/2022 15:40:15 Mill Helper Date: 07/23/2022 19:04:00 Dictated By: KORINA AKERS DO
[2022-07-23] MEDS: traZODone 100 MG (DESYREL) TAB PO SCH (20:26)
[2022-07-24] MEDS: NS IV 1000 ML 1,000 ML IV SCH ×2 (01:35→20:35)
[2022-07-24] MEDS: RT-ALBUTEROL/IPRATROPIUM 3 ML (DUONEB) VIAL INH SCH ×3 (03:08→15:11)
[2022-07-24 03:33] VITALS: BP 96/75
[2022-07-24] MEDS: VANCOMYCIN 750 MG/NS 250 ML IVPB IV SCH ×4 (04:03→16:12)
[2022-07-24] MEDS: HYDROmorphone 2 MG/ML VIAL (DILAUDID) IV PRN ×6 (04:12→23:31)
[2022-07-24 04:29] LABS: BASOPHILS % (AUTO) 0 % (0-10); EOSINOPHILS % (AUTO) 0 % (0-10); LYMPHOCYTES # (AUTO) 0.3 10^3/uL (1.0-4.0)
[2022-07-24 04:31] LABS: HEMATOCRIT 27 % (35-52); HEMOGLOBIN 8.6 g/dL (11.5-16.0); LYMPHOCYTES % (AUTO) 7 % (12-44); MEAN CORPUSCULAR HEMOGLOBIN 34 pg (25-34); MEAN CORPUSCULAR HGB CONC 32 g/dL (32-36); MEAN CORPUSCULAR VOLUME 107 fL (80-99); MEAN PLATELET VOLUME 12.2 fL (9.0-12.2); MONOCYTES # (AUTO) 0.3 10^3/uL (0.0-1.0); MONOCYTES % (AUTO) 8 % (0-12); NEUTROPHILS # (AUTO) 2.9 10^3/uL (1.8-7.8); NEUTROPHILS % (AUTO) 83 % (42-75); PLATELET COUNT 94 10^3/uL (130-400); WHITE BLOOD COUNT 3.5 10^3/uL (4.3-11.0)
[2022-07-24 04:34] LABS: ALBUMIN 2.6 GM/DL (3.2-4.5); POTASSIUM 4.2 MMOL/L (3.6-5.0)
[2022-07-24 04:35] LABS: CALCIUM 7.8 MG/DL (8.5-10.1)
[2022-07-24 04:37] LABS: TOTAL PROTEIN 5.3 GM/DL (6.4-8.2)
[2022-07-24 04:38] LABS: BILIRUBIN,TOTAL 0.5 MG/DL (0.1-1.0)
[2022-07-24 04:40] LABS: CREATININE SERUM 0.91 MG/DL (0.60-1.30); PHOSPHORUS 3.7 MG/DL (2.3-4.7)
[2022-07-24 04:43] LABS: MAGNESIUM 1.6 MG/DL (1.6-2.4)
[2022-07-24 04:56] LABS: VANCOMYCIN,TROUGH 12.4 UG/ML (10.0-20.0)
[2022-07-24 05:14] LABS: LYMPHOCYTES % (MANUAL) 8 %; MONOCYTES % (MANUAL) 1 %; NEUTROPHILS % (MANUAL) 91 %; RBC MORPH NORMAL
[2022-07-24] MEDS: inSUlin ASPART (NovoLOG) 1 UNIT/0.01 ML (CHARGE PER UNIT) SC SCH ×4 (06:31→20:39)
[2022-07-24] MEDS: MEROPENEM 500 MG in NS (IVPB) 100 ML IV SCH (06:31)
[2022-07-24 07:39] VITALS: BP 122/77
[2022-07-24] MEDS: DOCUSATE SODIUM 100 MG (COLACE) CAP PO SCH ×2 (07:48→20:39)
[2022-07-24] MEDS: meTOprolol TARTRATE 25 MG (LOPRESSOR) TABLET PO SCH ×2 (07:48→20:22)
[2022-07-24] MEDS: busPIRone 10 MG (BUSPAR) TAB PO SCH ×3 (07:48→20:22)
[2022-07-24] MEDS: SENNOSIDES 8.6 MG (SENOKOT) TAB PO SCH ×2 (07:48→20:39)
--- NOTE | 2022-07-24 09:13 | Occupational Therapy Eval ---
OT Evaluation-General/PLF Medical Diagnosis Admission Date Jul 21, 2022 at 13:05 Medical Diagnosis: afib with RVR Onset Date: Jul 21, 2022 Therapy Diagnosis Therapy Diagnosis: decreased ADL status Height/Weight Height (Feet): 5 Height (Inches): 5.00 Weight (Pounds): 150 Precautions Precautions/Isolations: Contact Isolation Weight Bear Status Weight Bearing Restriction: Non Weight Bearing NWB L foot until further clarification orders obtained. Referral Physician: Kenan Referral Reason: Evaluation/Treatment Medical History Pertinent Medical History: Atrial Fib, COPD, HTN, Hypothroidism Additional Medical History COPD, afib, HTN, DDD, chronic back pain, kidney disease stage 3, multiple myeloma Current History ED with cellulitis and early abscess formation requiring general surgery consult and I&D, & Afib with RVR Social History Home: Single Level Current Living Status: Alone Entry Into Home: Stairs With Railing Steps Into Home: 2 ADL-Prior Level of Function SCALE: Activities may be completed with or without assistive devices. 8-Onkgwvnjsq-yrryhrf completes the activity by him/herself with no assistance from a helper. 5-Set-up or Clean-up Assistance-helper sets up or cleans up; patient completes activity. [place] assists only prior to or following the activity. 4-Supervision or Touching Assistance-helper provides verbal cues and/or touching/steadying and/or contact guard assistance as patient completes activity. Assistance may be provided throughout the activity or intermittently. 3-Partial/Moderate Assistance-helper does LESS THAN HALF the effort. [place] lifts, holds or supports trunk or limbs, but provides less than half the effort. 2-Substantial/Maximal Assistance-helper does MORE THAN HALF the effort. [place] lifts or holds trunk or limbs and provides more than half the effort. 9-Sgkrpnrdo-kgwaxc does ALL the effort. Patient does none of the effort to c omplete the activity. Or, the assistance of 2 or more helpers is required for the patient to complete the activity. If activity was not attempted, code reason: 7-Patient Refused. 9-Not Applicable-not attempted and the patient did not perform the activity before the current illness, exacerbation or injury. 10-Not Attempted due to Environmental Limitations-(lack of equipment, weather restraints, etc.). 88-Not Attempted due to Medical Conditions or Safety Concerns. ADL PLOF Comments Pt reports IND with ADLs and functional mobility, no AD. She has a tub/shower, no SC. Self Care: Independent Functional Cognition: Independent DME/Equipment: Tub/Shower OT Current Status Subjective Eval/tx attempted at 0804: Pt in bed eating lunch, pt talked very loudly to this therapist stating she has been interrupted 7 times while trying to eat breakfast, she is "starving to ", and states being interrupted this many times is "unacceptable". OT provided therapeutic listening/communication to pt and informed pt OT will come back later. 08: Pt finished with breakfast, agreeable to OT evaluation and tx at this time. Pt did not mention anything about being upset this visit. Mental Status/Objective Patient Orientation: Person, Place, Situation Attachments: IV Current Upper Extremity ROM WFL Upper Extremity Strength grossly 3+/5 ADL-Treatment Eating (QC): 6 Oral Hygiene (QC): 5 Upper Body Dressing (QC): 5 On/Off Footwear (QC): 3 (Pt required mod A to don R gripper sock, L not assessed due to ragini wrap/bandages) Other Treatments Pt in bed, transferred supine to sit EOB independently. Pt attempted to don R gripper sock, requiring moderate assistance. Pt used FWW to transfer to recline r, CGA. Pt able to put weight through BUEs and R leg, maintaining NWB LLE with min cues. Pt assisted to positioning to comfort. Post tx, pt in recliner, call light in reach and all needs met. Education OT Patient Education: Correct positioning, Energy conservation, Modified ADL techniques, Progress toward Goal/Update tx plan, Purpose of tx/functional activities Teaching Recipient: Patient Teaching Methods: Discussion Response to Teaching: Verbalize Understanding OT Winemaker Goals Senior Care Goals Time Frame: Aug 03, 2022 Eating (QC): 6 Oral Hygiene (QC): 6 Toileting Hygiene (QC): 6 Shower/Bathe Self (QC): 6 Upper Body Dressing (QC): 6 Lower Body Dressing (QC): 6 On/Off Footwear (QC): 6 Additional Goals: 1-Demonstrate ADL Tasks, 2-Verbalize Understanding, 3- ImproveStrength/Elton 1=Demonstrate adherence to instructed precautions during ADL tasks. 2=Patient will verbalize/demonstrate understanding of assistive devices/modifications for ADL. 3=Patient will improve strength/tolerance for activity to enable patient to perform ADL's. OT Education/Plan Problem List/Assessment Assessment: Decreased Activ Tolerance, Decreased UE Strength, Impaired Funct Balance, Impaired I ADL's, Impaired Self-Care Skills Discharge Recommendations Plan/Recommendations: Continue POC Equpiment Recommendations-D/C: Bath Chair Treatment Plan/Plan of Care Patient would benefit from OT for education, treatment and training to promote independence in ADL's, mobility, safety and/or upper extremity function for ADL's. Plan of Care: ADL Retraining, Functional Mobility, UE Funct Exercise/Act Treatment Duration: Aug 03, 2022 Frequency: 3 times per week (3-5 times per week) Estimated Hrs Per Day: .25 hour per day Agreement: Yes Rehab Potential: Guarded Time Start Time: 08:30 Stop Time: 08:43 DATE: Jul 24, 2022 Total Time Billed (hr/min): 13 Billed Treatment Time 1, ALISIA MEDRANO OT Jul 24, 2022 09:13
--- NOTE | 2022-07-24 10:46 | Cardiology Progress Note ---
Subjective Date Seen by Provider: Jul 24, 2022 Time Seen by Provider: 10:44 Subjective/Events-last exam Patient was seen at bedside, laying down comfortably, feeling better. No new complaint. Focused Exam Lactate Level 07/21/22 13:05: Lactic Acid Level 1.13 Objective-Cardiology Exam Last Set of Vital Signs Vital Signs 07/21/22 07/24/22 07/24/22 16:22 07:39 09:49 Temp 36.6 Pulse 103 Resp 18 B/P (MAP) 122/77 (92) Pulse Ox 91 O2 Delivery Room Air O2 Flow Rate 0.00 FiO2 21 I&O Intake and Output 07/24/22 00:00 Intake Total 2280 ml Output Total 1000 ml Balance 1280 ml Intake Oral 880 ml IV Total 1400 ml Output Urine Total 1000 ml General: Alert, Cooperative, Mild Distress HEENT: Atraumatic, PERRLA Neck: Supple, No JVD, No Thyromegaly Lungs: Clear to Auscultation Heart: Other (irregularly irregular, systolic murmur) Abdomen: Normal Bowel Sounds, Soft Extremities: Normal Pulses, No Tenderness/Swelling, Other (Cellulitis and swelling in the left foot) Skin: Other (Left foot with dorsal swelling and erythema) Neuro: Normal Speech, Normal Tone, Sensation Intact Psych/Mental Status: Mental Status NL, Mood NL Results Lab Laboratory Tests 07/24/22 04:15 A/P-Cardiology Admission Diagnosis Atrial fibrillation with rapid ventricular response Palpitation Cellulitis Chronic renal insufficiency Assessment/Plan Paroxysmal atrial fibrillation with rapid ventricular response Patient was hospitalized in May 2022 with atrial flutter. She did not respond to amiodarone. She was discharged on Xarelto and metoprolol. Currently tolerating oral Cardizem and doing well. Continue to monitor Nausea and vomiting, loss of appetite secondary to infection Reporting improvement. Continue to monitor Hypokalemia, being replaced Cellulitis and abscess on the toe. Still having significant swelling and ten derness Status post I&D. Feeling better. Continue to monitor Mitral valve stenosis, mild to moderate per echocardiogram in May 2022. Hypertension, monitor blood pressure Chronic renal insufficiency, continue to monitor renal function Tobaccoism, educated on smoking cessation. RAMIRO MONTERROSO MD Jul 24, 2022 10:46
--- NOTE | 2022-07-24 10:57 | Physical Therapy Evaluation ---
PT Evaluation-General Medical Diagnosis Admission Date Jul 21, 2022 at 13:05 Medical Diagnosis: afib with RVR Onset Date: Jul 21, 2022 Therapy Diagnosis Therapy Diagnosis: debility/weakness Height/Weight Height (Feet): 5 Height (Inches): 5.00 Weight (Pounds): 150 Precautions Precautions/Isolations: Contact Isolation Weight Bear Status Right Lower Extremity: Right Weight Bearing/Tolerated Left Lower Extremity: Left Weight Bearing/Tolerated Need clearification on weight bearing left foot due to recent I&D Referral Physician: Kenan Reason for Referral: Evaluation/Treatment Medical History Pertinent Medical History: Atrial Fib, COPD, HTN, Hypothroidism, Renal Insufficiency Additional Medical History Gout/multiple myeloma Current History EMS secondary to left foot wound and patient's inability to care for self. Reviewed History: Yes Social History Home: Single Level Current Living Status: Alone Entry Into Home: Stairs With Railing PT Steps Into Home: 2 Prior Prior Level of Function SCALE: Activities may be completed with or without assistive devices. 3-Wxplejpskg-rdpbpnf completes the activity by him/herself with no assistance from a helper. 5-Set-up or Clean-up Assistance-helper sets up or cleans up; patient completes activity. [place] assists only prior to or following the activity. 4-Supervision or Touching Assistance-helper provides verbal cues and/or touching/steadying and/or contact guard assistance as patient completes activi ty. Assistance may be provided throughout the activity or intermittently. 3-Partial/Moderate Assistance-helper does LESS THAN HALF the effort. [place] lifts, holds or supports trunk or limbs, but provides less than half the effort. 2-Substantial/Maximal Assistance-helper does MORE THAN HALF the effort. [place] lifts or holds trunk or limbs and provides more than half the effort. 1-Szlktmtic-cizlyl does ALL the effort. Patient does none of the effort to complete the activity. Or, the assistance of 2 or more helpers is required for the patient to complete the activity. If activity was not attempted, code reason: 7-Patient Refused. 9-Not Applicable-not attempted and the patient did not perform the activity before the current illness, exacerbation or injury. 10-Not Attempted due to Environmental Limitations-(lack of equipment, weather restraints, etc.). 88-Not Attempted due to Medical Conditions or Safety Concerns. Bed Mobility: 6 Transfers (B,C,W/C): 6 Gait: 6 Stairs: 6 Indoor Mobility (Ambulation): Independent Stairs: Independent Prior Devices Use: Walker (PRN per patient report) PT Evaluation-Current Subjective Patient agrees to PT and states "I'm not putting any weight on that foot." (pointing to left foot) Pain Numeric Pain Scale: 5-Moderate Pain Location: Left Location Body Site: Foot Pain Description: Acute Objective Patient Orientation: Normal For Age Attachments: IV ROM/Strength ROM Lower Extremities bilateral LE WFL Strength Lower Extremities right LE 4-/5 grossly/left LE NT Integumentary/Posture Integumentary refer to nursing notes Bowel Incontinence: No Bladder Incontinence: Yes Posture slight trunk flexed posture Neuromuscular (Tone, Coordination, Reflexes) grossly intact Sensory Vision: Functional Hearing: Functional Transfers Lying to Sitting/Side of Bed(Q: 4 Sit to Stand (QC): 4 Chair/Bgd-rt-Whzwr Xfer(QC): 4 Gait Does the Patient Walk?: No and Walking Goal IS indicated Walk 10 feet (QC): 7 Walk 50 ft with 2 Turns(QC): 88 Walk 150 ft (QC): 88 Gait Assistive Device: FWW Comments/Gait Description patient requests NWB left foot Balance Sitting Static: Normal Sitting Dynamic: Normal Standing Static: Fair Standing Dynamic: Fair Assessment/Needs Patient will benefit from skilled PT to address functional strength and mobility to improve current LOF. Patient reports she is unable to care for herself at home at this time. 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 Pump Station Operator Chief Goals Time Frame: Aug 11, 2022 Roll Left & Right (QC): 6 Sit to Lying (QC): 6 Lying-Sitting on Side/Bed(QC): 6 Sit to Stand (QC): 5 Chair/Rvn-nr-Smjuq Xfer(QC): 5 Toilet Transfer (QC): 5 Walk 10 feet (QC): 4 Walk 50ft with 2 Turns (QC): 4 Walk 150 ft (QC): 4 PT Plan Problem List Problem List: Activity Tolerance, Functional Strength, Safety, Balance, Gait, Transfer, Bed Mobility Treatment/Plan Treatment Plan: Continue Plan of Care Treatment Plan: Bed Mobility, Education, Functional Activity [place], Functional Strength, Gait, Safety, Therapeutic Exercise, Transfers Treatment Duration: Aug 11, 2022 Frequency: 6 times per week Estimated Hrs Per Day: .25 hour per day Patient and/or Family Agrees t: Yes Time Time In: 953 Time Out: 1005 DATE: Jul 24, 2022 Total Billed Treatment Time: 12 Total Billed Treatment 1 visit [facility] 12 min ODILON HENDRICKSON PT Jul 24, 2022 10:57
--- NOTE | 2022-07-24 11:19 | Progress Note ---
Subjective Subjective/Events-last exam Appetite is good, is not sleeping well. Pain comes and goes. States she is getting around a little. Focused Exam Lactate Level 07/21/22 13:05: Lactic Acid Level 1.13 Objective Exam Last Set of Vital Signs Vital Signs Date Time Temp Pulse Resp B/P (MAP) Pulse Ox O2 Delivery O2 Flow Rate FiO2 07/24/22 09:49 91 Room Air 0.00 07/24/22 07:39 36.6 103 18 122/77 (92) 07/21/22 16:22 21 Capillary Refill : Less Than 3 Seconds I&O Intake and Output 07/24/22 00:00 Intake Total 2280 ml Output Total 1000 ml Balance 1280 ml Intake Oral 880 ml IV Total 1400 ml Output Urine Total 1000 ml General: Alert, No Acute Distress Lungs: Other (ronchi) Heart: Regular Rate Extremities: Other (left foot wrapped) Neuro: Normal Speech Psych/Mental Status: Other (appears anxious, occasionally tearful) Results/Procedures Lab Laboratory Tests 07/23/22 15:21: Glucometer 113H 07/23/22 20:33: Glucometer 323H 07/24/22 04:15: White Blood Count 3.5L, Red Blood Count 2.52L, Hemoglobin 8.6L, Hematocrit 27L, Mean Corpuscular Volume 107H, Mean Corpuscular Hemoglobin 34, Mean Corpuscular Hemoglobin Concent 32, Red Cell Distribution Width 15.6H, Platelet Count 94L, Mean Platelet Volume 12.2, Immature Granulocyte % (Auto) 1, Neutrophils (%) (Auto) 83H, Lymphocytes (%) (Auto) 7L, Monocytes (%) (Auto) 8, Eosinophils (%) (Auto) 0, Basophils (%) (Auto) 0, Neutrophils # (Auto) 2.9, Lymphocytes # (Auto) 0.3L, Monocytes # (Auto) 0.3, Eosinophils # (Auto) 0.0, Basophils # (Auto) 0.0, Immature Granulocyte # (Auto) 0.0, Neutrophils % (Manual) 91, Lymphocytes % (Manual) 8, Monocytes % (Manual) 1, Percent Immature Platelet Fraction 7.2, Blood Morphology Comment NORMAL, Sodium Level 138, Potassium Level 4.2, Chloride Level 108H, Carbon Dioxide Level 18L, Anion Gap 12, Blood Urea Nitrogen 21H, Creatinine 0.91, Estimat Glomerular Filtration Rate 67, BUN/Creatinine Ratio 23, Glucose Level 220H, Calcium Level 7.8L, Corrected Calcium 8.9, Phosphorus Level 3.7, Magnesium Level 1.6, Total Bilirubin 0.5, Aspartate Amino Transf (AST/SGOT) 11, Alanine Aminotransferase (ALT/SGPT) 19, Alkaline Phosphatase 73, Total Protein 5.3L, Albumin 2.6L, Vancomycin Level Trough 12.4 07/24/22 05:22: Glucometer 170H 07/24/22 05:32: Glucometer 186H Microbiology 07/22/22 Gram Stain - Final, Resulted 07/22/22 Wound Culture - Preliminary, Resulted Staphylococcus aureus 07/21/22 MRSA Screen - Final, Complete 07/21/22 Blood Culture - Preliminary, Resulted No growth Assessment/Plan Assessment/Plan (1) Cellulitis of left foot Status: Acute Assessment & Plan: 07/23- On meropenem and vancomycin, to OR today for drainage. Culture presumptive MRSA, no growth in blood cultures to date. 07/24- s/p drainage, cultures still with MRSA only, will d/c meropenem (2) Atrial fibrillation with RVR Status: Acute Assessment & Plan: Initially on cardizem drip, changed to PO, appreciate Cardiology recommendations. Xarelto for anticoagulation. (3) Anxiety Status: Chronic Assessment & Plan: Resume home buspirone (4) History of multiple myeloma Status: Chronic Assessment & Plan: Resume home pain medications. (5) Thrombocytopenia Status: Chronic Assessment & Plan: Intermittent, worse at current than prior, suspect related to MM. Monitor closely. (6) Anemia Status: Chronic Assessment & Plan: Suspect anemia of chronic disease. Monitor for stability. (7) Hypokalemia Status: Resolved Assessment & Plan: Replaced (8) Hypomagnesemia Status: Acute Assessment & Plan: Replace and monitor (9) DVT prophylaxis Status: Acute Assessment & Plan: Rivaroxaban for a fib Clinical Quality Measures DVT/VTE Risk/Contraindication: Contraindications-Mechi: Other *list below* Other: leg cellulitis DAMARIS STEPHENS MD Jul 24, 2022 11:19
[2022-07-24 12:04] VITALS: BP 105/72
[2022-07-24] MEDS ORDERED: TROUGH ORDER-PHARMACY XX NR (15:00)
[2022-07-24] MEDS ORDERED: meTOprolol 5 MG/5 ML (LOPRESSOR) VIAL IV NR (15:30)
[2022-07-24 16:11] VITALS: BP 103/75
[2022-07-24] MEDS: RIVAROXABAN 20 MG TABLET (XARELTO) PO SCH (16:12)
--- NOTE | 2022-07-24 17:18 | Progress Note - Surgery ---
Subjective Date Seen by a Provider: Jul 24, 2022 Time Seen by a Provider: 13:38 Subjective/Events-last exam Foot feels better slightly. Less drainage and pain. Swellling seems to be improved she states. Sill with intermittent pain though. Denies any new complaints. Denies n/v fever sweats chills shortness of breath or chest pain. Objective Exam Vital Signs Date Time Temp Pulse Resp B/P (MAP) Pulse Ox O2 Delivery O2 Flow Rate FiO2 07/24/22 16:11 36.5 94 20 103/75 (84) 98 Room Air 07/24/22 15:11 97 Room Air 07/24/22 13:08 107 07/24/22 12:04 36.8 84 18 105/72 (83) 99 Room Air 07/24/22 09:49 91 Room Air 0.00 07/24/22 08:00 96 Room Air 0.00 07/24/22 07:39 36.6 103 18 122/77 (92) 96 Room Air 07/24/22 07:16 107 07/24/22 04:42 36.6 07/24/22 04:12 36.6 07/24/22 03:33 36.6 76 18 96/75 (82) 94 Room Air 07/24/22 03:08 97 Room Air 0.00 07/24/22 02:09 36.7 07/24/22 01:39 36.7 07/24/22 01:00 106 07/23/22 23:30 36.7 89 19 117/61 (79) 96 Room Air 07/23/22 23:02 36.9 07/23/22 22:32 36.9 07/23/22 21:06 36.9 07/23/22 21:06 96 Room Air 0.00 07/23/22 20:36 36.9 07/23/22 20:00 Room Air 07/23/22 19:26 36.9 97 16 107/57 (74) 92 Room Air 07/23/22 19:00 90 07/23/22 17:35 37.5 109 20 126/71 (89) 92 Room Air I & O 07/24/22 07:00 Intake Total 1530 ml Output Total 800 ml Balance 730 ml Capillary Refill : Less Than 3 Seconds General Appearance: WD/WN, Anxious, Thin HEENT: PERRL/EOMI, Normal ENT Inspection Neck: Normal Inspection, Non Tender Respiratory: Chest Non Tender, No Accessory Muscle Use, No Respiratory Distress Cardiovascular: Irregularly Irregular, Tachycardia Gastrointestinal: non tender, soft Extremity: Other (lle edema less and less erytema, open wound no purulent drainage at this time. less tender) Neurologic/Psychiatric: Alert, Oriented x3, No Motor/Sensory Deficits, Other (anxious) Skin: Warm/Dry, Other (See extremity exam) Lymphatic: No Adenopathy Results Lab Laboratory Tests 07/23/22 20:33: Glucometer 323H 07/24/22 04:15: White Blood Count 3.5L, Red Blood Count 2.52L, Hemoglobin 8.6L, Hematocrit 27L, Mean Corpuscular Volume 107H, Mean Corpuscular Hemoglobin 34, Mean Corpuscular Hemoglobin Concent 32, Red Cell Distribution Width 15.6H, Platelet Count 94L, Mean Platelet Volume 12.2, Immature Granulocyte % (Auto) 1, Neutrophils (%) (Auto) 83H, Lymphocytes (%) (Auto) 7L, Monocytes (%) (Auto) 8, Eosinophils (%) (Auto) 0, Basophils (%) (Auto) 0, Neutrophils # (Auto) 2.9, Lymphocytes # (Auto) 0.3L, Monocytes # (Auto) 0.3, Eosinophils # (Auto) 0.0, Basophils # (Auto) 0.0, Immature Granulocyte # (Auto) 0.0, Neutrophils % (Manual) 91, Lymphocytes % (Manual) 8, Monocytes % (Manual) 1, Percent Immature Platelet Fraction 7.2, Blood Morphology Comment NORMAL, Sodium Level 138, Potassium Level 4.2, Chloride Level 108H, Carbon Dioxide Level 18L, Anion Gap 12, Blood Urea Nitrogen 21H, Creatinine 0.91, Estimat Glomerular Filtration Rate 67, BUN/Creatinine Ratio 23, Glucose Level 220H, Calcium Level 7.8L, Corrected Calcium 8.9, Phosphorus Level 3.7, Magnesium Level 1.6, Total Bilirubin 0.5, Aspartate Amino Transf (AST/SGOT) 11, Alanine Aminotransferase (ALT/SGPT) 19, Alkaline Phosphatase 73, Total Protein 5.3L, Albumin 2.6L, Vancomycin Level Trough 12.4 07/24/22 05:22: Glucometer 170H 07/24/22 05:32: Glucometer 186H 07/24/22 11:31: Glucometer 193H 07/24/22 15:25: Vancomycin Level Trough 15.7 07/24/22 15:58: Glucometer 135H Microbiology 07/22/22 Gram Stain - Final, Resulted 07/22/22 Wound Culture - Preliminary, Resulted Staphylococcus aureus 07/21/22 MRSA Screen - Final, Complete 07/21/22 Blood Culture - Preliminary, Resulted No growth Assessment/Plan Assessment/Plan Assessment/Plan left foot/lower extremity cellulitis left foot abscess afib rvr fpc anticogaulation s/p incision and drainage left foot c debridement continue abx iv fluids continue to monitor foot for any changes, Wound care patient in agreement with plan. Clinical Quality Measures DVT/VTE Risk/Contraindication: Contraindications-Mechi: Other *list below* Other: leg cellulitis KORINA CRANE DO Jul 24, 2022 17:18
[2022-07-24 19:14] VITALS: BP 115/67
[2022-07-24] MEDS ORDERED: RT-LEVALBUTEROL (XOPENEX) 1.25 MG/3 ML NEB NON-FORMULARY INH PRN (19:45)
[2022-07-24] MEDS: ALPRAZolam 0.25 MG (XANAX) TAB PO PRN (20:33)
[2022-07-24] MEDS: RT-LEVALBUTEROL (XOPENEX) 1.25 MG/3 ML NEB NON-FORMULARY INH SCH (21:12)
[2022-07-24] MEDS: traZODone 100 MG (DESYREL) TAB PO SCH (21:54)
[2022-07-24 23:21] VITALS: BP 128/88
[2022-07-25 03:32] VITALS: BP 102/57
[2022-07-25] MEDS: VANCOMYCIN 750 MG/NS 250 ML IVPB IV SCH ×2 (04:42)
[2022-07-25 05:34] LABS: BASOPHILS % (AUTO) 0 % (0-10); EOSINOPHILS % (AUTO) 0 % (0-10)
[2022-07-25] MEDS: fentaNYL PATCH 25 MCG (DURAGESIC) TD SCH (05:34)
[2022-07-25 05:36] LABS: HEMATOCRIT 26 % (35-52); HEMOGLOBIN 8.3 g/dL (11.5-16.0); LYMPHOCYTES # (AUTO) 0.8 10^3/uL (1.0-4.0); LYMPHOCYTES % (AUTO) 22 % (12-44); MEAN CORPUSCULAR HEMOGLOBIN 34 pg (25-34); MEAN CORPUSCULAR HGB CONC 32 g/dL (32-36); MEAN CORPUSCULAR VOLUME 108 fL (80-99); MEAN PLATELET VOLUME 11.9 fL (9.0-12.2); MONOCYTES # (AUTO) 0.5 10^3/uL (0.0-1.0); MONOCYTES % (AUTO) 14 % (0-12); NEUTROPHILS # (AUTO) 2.3 10^3/uL (1.8-7.8); NEUTROPHILS % (AUTO) 63 % (42-75); PLATELET COUNT 124 10^3/uL (130-400); WHITE BLOOD COUNT 3.7 10^3/uL (4.3-11.0)
[2022-07-25] MEDS: ALPRAZolam 0.25 MG (XANAX) TAB PO PRN ×2 (05:40→13:32)
[2022-07-25] MEDS: inSUlin ASPART (NovoLOG) 1 UNIT/0.01 ML (CHARGE PER UNIT) SC SCH ×2 (05:55→11:52)
[2022-07-25 06:02] LABS: ALBUMIN 2.4 GM/DL (3.2-4.5); BILIRUBIN,TOTAL 0.3 MG/DL (0.1-1.0); CALCIUM 7.7 MG/DL (8.5-10.1); CREATININE SERUM 0.89 MG/DL (0.60-1.30); PHOSPHORUS 3.7 MG/DL (2.3-4.7); TOTAL PROTEIN 4.8 GM/DL (6.4-8.2)
[2022-07-25 07:23] VITALS: BP 114/59
--- NOTE | 2022-07-25 08:38 | Occupational Ther Daily Note ---
OT Current Status-Daily Note Subjective Pt supine in bed w/ sheet over body and anxious breathe request Dilaudid and nurse notified Pain Numeric Pain Scale: 5-Moderate Pain Location: Left Location Body Site: Foot Pain Description: Pressure, Stabbing, Throbbing, Burning Mental Status/Objective Patient Orientation: Person, Place, Situation Attachments: Other-See Comments Kvng wrap and dressinn on foot d/t MRSA ADL-Treatment Requires moderate amount of encouragement to sit up reclined in bed to perform face and hait grooming, refuses OOB activity Therapy Code Descriptions/Definitions Functional [place] Measure: 0=Not Assessed/NA 4=Minimal Assistance 1=Total Assistance 5=Supervision or Setup 2=Maximal Assistance 6=Modified [place] 3=Moderate Assistance 7=Complete IndependenceSCALE: Activities may be completed with or without assistive devices. 2-Kmojtjhkgj-hfnxsis completes the activity by him/herself with no assistance from a helper. 5-Set-up or Clean-up Assistance-helper sets up or cleans up; patient completes activity. [place] assists only prior to or following the activity. 4-Supervision or Touching Assistance-helper provides verbal cues and/or touching/steadying and/or contact guard assistance as patient completes activity. Assistance may be provided throughout the activity or intermittently. 3-Partial/Moderate Assistance-helper does LESS THAN HALF the effort. [place] lifts, holds or supports trunk or limbs, but provides less than half the effort. 2-Substantial/Maximal Assistance-helper does MORE THAN HALF the effort. [place] lifts or holds trunk or limbs and provides more than half the effort. 9-Somqvhujx-xduvgb does ALL the effort. Patient does none of the effort to complete the activity. Or, the assistance of 2 or more helpers is required for the patient to complete the activity. If activity was not attempted, code reason: 7-Patient Refused. 9-Not Applicable-not attempted and the patient did not perform the activity before the current illness, exacerbation or injury. 10-Not Attempted due to Environmental Limitations-(lack of equipment, weather restraints, etc.). 88-Not Attempted due to Medical Conditions or Safety Concerns. Education OT Patient Education: Correct positioning, Progress toward Goal/Update tx plan, Purpose of tx/functional activities, Reviewed precautions, Rehab process, Safety issues Teaching Recipient: Patient Teaching Methods: Discussion Response to Teaching: Verbalize Understanding, Reinforcement Needed OT Mcfp Goals Expansion Joint Finisher Goals Time Frame: Aug 03, 2022 Eating (QC): 6 Oral Hygiene (QC): 6 Toileting Hygiene (QC): 6 Shower/Bathe Self (QC): 6 Upper Body Dressing (QC): 6 Lower Body Dressing (QC): 6 On/Off Footwear (QC): 6 Additional Goals: 1-Demonstrate ADL Tasks, 2-Verbalize Understanding, 3-Improv eStrength/[place] 1=Demonstrate adherence to instructed precautions during ADL tasks. 2=Patient will verbalize/demonstrate understanding of assistive devices/modifications for ADL. 3=Patient will improve strength/tolerance for activity to enable patient to p erform ADL's. OT Education/Plan Discharge Recommendations Plan/Recommendations: Continue POC Therapy Discharge Recommendati: Post Acute OT Treatment Plan/Plan of Care Treatment,Training & Education: Yes Patient would benefit from OT for education, treatment and training to promote independence in ADL's, mobility, safety and/or upper extremity function for ADL's. Plan of Care: ADL Retraining, Functional Mobility, UE Funct Exercise/Act Treatment Duration: Aug 03, 2022 Frequency: 3 times per week (3-5 times per week) Estimated Hrs Per Day: .25 hour per day Agreement: Yes Rehab Potential: Guarded Time Start Time: 08:14 Stop Time: 08:30 DATE: Jul 25, 2022 Total Time Billed (hr/min): 16 Billed Treatment Time 1 visit, 1 ADL 16 minutes JAIRON REYNOSO OT Jul 25, 2022 08:38
[2022-07-25] MEDS: busPIRone 10 MG (BUSPAR) TAB PO SCH ×2 (09:07→11:50)
[2022-07-25] MEDS: SENNOSIDES 8.6 MG (SENOKOT) TAB PO SCH (09:07)
[2022-07-25] MEDS: meTOprolol TARTRATE 25 MG (LOPRESSOR) TABLET PO SCH (09:07)
[2022-07-25] MEDS: DOCUSATE SODIUM 100 MG (COLACE) CAP PO SCH (09:07)
[2022-07-25] MEDS: HYDROmorphone 2 MG/ML VIAL (DILAUDID) IV PRN (09:07)
[2022-07-25] MEDS: RT-LEVALBUTEROL (XOPENEX) 1.25 MG/3 ML NEB NON-FORMULARY INH SCH (09:35)
[2022-07-25] MEDS ORDERED: HYPOCHLOROUS ACID/NaCl (VASHE) 250 ML IR PRN ×2 (10:45)
--- NOTE | 2022-07-25 11:04 | Progress Note - Cardiology ---
Cardiology SOAP Progress Note Subjective: C/O discomfort of the left foot No c/o CP or SOB at this time Objective: I&O/Vital Signs 07/25/22 07/25/22 07/25/22 07/25/22 03:32 05:34 05:34 06:04 Temp 36.9 36.9 36.9 36.9 Pulse 74 Resp 20 B/P (MAP) 102/57 (72) Pulse Ox 94 O2 Delivery Room Air O2 Flow Rate 0.00 0.00 07/25/22 07/25/22 07/25/22 07/25/22 06:04 07:16 07:23 08:00 Temp 36.9 36.6 Pulse 66 64 Resp 18 B/P (MAP) 114/59 (77) Pulse Ox 93 94 O2 Delivery Room Air Room Air O2 Flow Rate 0.00 07/25/22 11:18 Temp 36.6 Pulse 66 Resp 18 B/P (MAP) 117/62 (80) Pulse Ox 94 O2 Delivery Room Air 07/25/22 00:00 Intake Total 1490 ml Output Total 650 ml Balance 840 ml Weight (Pounds): 150 Weight (Calculated Kilograms): 68.560384 Constitutional: AAO x 3, other (thin) Respiratory: No accessory muscle use, No respiratory distress; chest expansion is symmetric, chest is bilaterally symmetric, other (good air entry) Cardiovascular: irregularly irregular; No JVD; S1 and S2 Gastrointestional: No tender; soft, audible bowel sounds Extremities: no lower extremity edema bilateral Neurologic/Psychiatric: grossly intact (moves all extremities) Skin: other (left foot with swelling of the toes and post I&D site with clear drainage) Results/Procedures: Labs Laboratory Tests 07/24/22 15:25: Vancomycin Level Trough 15.7 07/24/22 15:58: Glucometer 135H 07/24/22 20:14: Glucometer 92 07/24/22 21:17: Glucometer 130H 07/25/22 05:07: Glucometer 110 07/25/22 05:22: White Blood Count 3.7L, Red Blood Count 2.41L, Hemoglobin 8.3L, Hematocrit 26L, Mean Corpuscular Volume 108H, Mean Corpuscular Hemoglobin 34, Mean Corpuscular Hemoglobin Concent 32, Red Cell Distribution Width 15.6H, Platelet Count 124L, Mean Platelet Volume 11.9, Immature Granulocyte % (Auto) 1, Neutrophils (%) (Auto) 63, Lymphocytes (%) (Auto) 22, Monocytes (%) (Auto) 14H, Eosinophils (%) (Auto) 0, Basophils (%) (Auto) 0, Neutrophils # (Auto) 2.3, Lymphocytes # (Auto) 0.8L, Monocytes # (Auto) 0.5, Eosinophils # (Auto) 0.0, Basophils # (Auto) 0.0, Immature Granulocyte # (Auto) 0.0, Percent Immature Platelet Fraction 6.5, Sodium Level 139, Potassium Level 4.0, Chloride Level 115H, Carbon Dioxide Level 17L, Anion Gap 7, Blood Urea Nitrogen 24H, Creatinine 0.89, Estimat Glomerular Filtration Rate 68, BUN/Creatinine Ratio 27, Glucose Level 114H, Calcium Level 7.7L, Corrected Calcium 9.0, Phosphorus Level 3.7, Magnesium Level 2.0, Total Bilirubin 0.3, Aspartate Amino Transf (AST/SGOT) 28, Alanine Aminotransferase (ALT/SGPT) 35, Alkaline Phosphatase 63, Total Protein 4.8L, Albumin 2.4L 07/25/22 11:00: Glucometer 167H Microbiology 07/22/22 Gram Stain - Final, Complete 07/22/22 Wound Culture - Final, Complete Staphylococcus aureus 07/21/22 MRSA Screen - Final, Complete 07/21/22 Blood Culture - Preliminary, Resulted No growth A/P: Assessment: Cellulitis and abscess of the left foot Still having significant swelling and tenderness Status post I&D - managed by Dr. Akers H/O Syncope of undetermined etiology - ILR implanted 03-27-22 - multiple episodes of A Fib/flutter with RVR documented. No significant bradycardia documented so far PAF/Fl - Supra-therapeutic INR at presentation on 03/25/22. Warfarin dc'd at time of discharge by medical services - currently on Xarelto - Echo on 05/31/22 (Dr Sterling): LVEF 60-65%, grade 1 diastolic dysfunction, mod MS, AoV sclerosis w/o stenosis, PASP approx 40 mmHg Multiple myeloma and chronic anemia - Reports this is followed by her Hemo/Onc, Dr Bravo in [place], [place] Chronic tobacco use Ac on chronic bronchitis H/o hypertension TSH normal on 03/25/22 Plan: Review of chart for this hospitalization has been done Management of left foot wound is per surgical/medical services Change short acting Diltiazem to long acting Continue OAC with Xarelto for stroke prophylaxis Monitor lab Replace electrolytes as indicated RAFAEL MOON Jul 25, 2022 11:04
--- NOTE | 2022-07-25 11:16 | Physical Therapy Daily Note ---
PT Daily Note-Current Subjective Patient in bed pre tx, agrees to PT, has 10/10 pain in left foot. Patient states she has to have a BM and wants to use commode. Pain Section J - Health Conditions 1. Rarely or not at all 2. Occasionally 3. Frequently 4. Almost constantly 8. Unable to answer Pain Effect on Sleep: 4 Pain Interference with Therapy: 4 Pain Interference w/Day-to-Day: 4 Appearance Patient in bed post tx with nurse call, phone, tray, all needs met. Mental Status Patient Orientation: Person, Place, Situation Attachments: IV Transfers SCALE: Activities may be completed with or without assistive devices. 0-Javiicwpky-zyjhzpt completes the activity by him/herself with no assistance from a helper. 5-Set-up or Clean-up Assistance-helper sets up or cleans up; patient completes activity. [place] assists only prior to or following the activity. 4-Supervision or Touching Assistance-helper provides verbal cues and/or touching/steadying and/or contact guard assistance as patient completes activity. Assistance may be provided throughout the activity or intermittently. 3-Partial/Moderate Assistance-helper does LESS THAN HALF the effort. [place] lift s, holds or supports trunk or limbs, but provides less than half the effort. 2-Substantial/Maximal Assistance-helper does MORE THAN HALF the effort. [place] lifts or holds trunk or limbs and provides more than half the effort. 5-Lgwbsztcr-rcttki does ALL the effort. Patient does none of the effort to complete the activity. Or, the assistance of 2 or more helpers is required for the patient to complete the activity. If activity was not attempted, code reason: 7-Patient Refused. 9-Not Applicable-not attempted and the patient did not perform the activity before the current illness, exacerbation or injury. 10-Not Attempted due to Environmental Limitations-(lack of equipment, weather restraints, etc.). 88-Not Attempted due to Medical Conditions or Safety Concerns. Roll Left & Right (QC): 6 Sit to Lying (QC): 6 Lying to Sitting/Side of Bed(Q: 6 Sit to Stand (QC): 4 Chair/Clb-if-Oedgp Xfer(QC): 4 CGA for sit to stand and transfer to commode. Patient is able to manage her brief and wipe on her own. After laying back down patient is pretty emotional because of the pain. Weight Bearing Right Lower Extremity: Right Weight Bearing/Tolerated Left Lower Extremity: Left Weight Bearing/Tolerated Need clearification on weight bearing left foot due to recent I&D Exercises Supine Ex: Ankle pumps, Heel Slides Supine Reps: 20 Treatments toileting, bed mobility and transfers, LE ROM Assessment Current Status: Fair Progress improving transfers PT Snf Goals Railways Assistant Goals PT Railways Assistant Goals Time Frame: Aug 11, 2022 Roll Left & Right (QC): 6 Sit to Lying (QC): 6 Lying-Sitting on Side/Bed(QC): 6 Sit to Stand (QC): 5 Chair/Ett-sp-Rvuqi Xfer(QC): 5 Toilet Transfer (QC): 5 Walk 10 feet (QC): 4 Walk 50ft with 2 Turns (QC): 4 Walk 150 ft (QC): 4 PT Plan Problem List Problem List: Activity Tolerance, Functional Strength, Safety, Balance, Gait, Transfer, Bed Mobility, ROM Treatment/Plan Treatment Plan: Continue Plan of Care Treatment Plan: Bed Mobility, Education, Functional Activity [place], Functional Strength, Gait, Safety, Therapeutic Exercise, Transfers Treatment Duration: Aug 11, 2022 Frequency: 6 times per week Estimated Hrs Per Day: .25 hour per day Patient and/or Family Agrees t: Yes Safety Risks/Education Patient Education: Transfer Techniques, Correct Positioning, Safety Issues Teaching Recipient: Patient Teaching Methods: Demonstration, Discussion Response to Teaching: Reinforcement Needed Time Time In: 1041 Time Out: 1053 DATE: Jul 25, 2022 Total Billed Treatment Time: 12 Total Billed Treatment [address] PT Jul 25, 2022 11:16
[2022-07-25 11:18] VITALS: BP 117/62
--- NOTE | 2022-07-25 11:25 | Progress Note - Surgery ---
Subjective Date Seen by a Provider: Jul 25, 2022 Time Seen by a Provider: 11:18 Subjective/Events-last exam Pain present but better. Left foot improving. Tolerating wound dressing changes to left foot. Denies n/v fever sweats chills shortness of breath or chest pain. Objective Exam Vital Signs Date Time Temp Pulse Resp B/P (MAP) Pulse Ox O2 Delivery O2 Flow Rate FiO2 07/25/22 07:23 36.6 64 18 114/59 (77) 93 Room Air 07/25/22 07:16 66 07/25/22 06:04 36.9 07/25/22 06:04 36.9 07/25/22 05:34 36.9 07/25/22 05:34 36.9 07/25/22 03:32 36.9 74 20 102/57 (72) 94 Room Air 0.00 0.00 07/25/22 01:00 69 07/25/22 00:01 36.8 07/24/22 23:31 36.8 07/24/22 23:21 36.8 96 20 128/88 (101) 94 Room Air 0.00 0.00 07/24/22 21:13 95 Room Air 07/24/22 20:52 36.9 07/24/22 20:22 36.9 07/24/22 20:00 Room Air 07/24/22 19:14 36.9 96 20 115/67 (83) 98 Room Air 07/24/22 19:00 97 07/24/22 16:11 36.5 94 20 103/75 (84) 98 Room Air 07/24/22 15:11 97 Room Air 07/24/22 13:08 107 07/24/22 12:04 36.8 84 18 105/72 (83) 99 Room Air I & O 07/25/22 07:00 Intake Total 1640 ml Output Total 650 ml Balance 990 ml Capillary Refill : Less Than 3 Seconds General Appearance: WD/WN, Anxious, Thin HEENT: PERRL/EOMI, Normal ENT Inspection Neck: Normal Inspection, Non Tender Respiratory: Chest Non Tender, No Accessory Muscle Use, No Respiratory Distress Cardiovascular: Irregularly Irregular, Tachycardia Gastrointestinal: non tender, soft Extremity: Other (lle edema less and less erytema, open wound no purulent drainage at this time. less tender) Neurologic/Psychiatric: Alert, Oriented x3, No Motor/Sensory Deficits, Other (anxious) Skin: Warm/Dry, Other (See extremity exam) Lymphatic: No Adenopathy Results Lab Laboratory Tests 07/24/22 11:31: Glucometer 193H 07/24/22 15:25: Vancomycin Level Trough 15.7 07/24/22 15:58: Glucometer 135H 07/24/22 20:14: Glucometer 92 07/24/22 21:17: Glucometer 130H 07/25/22 05:07: Glucometer 110 07/25/22 05:22: White Blood Count 3.7L, Red Blood Count 2.41L, Hemoglobin 8.3L, Hematocrit 26L, Mean Corpuscular Volume 108H, Mean Corpuscular Hemoglobin 34, Mean Corpuscular Hemoglobin Concent 32, Red Cell Distribution Width 15.6H, Platelet Count 124L, Mean Platelet Volume 11.9, Immature Granulocyte % (Auto) 1, Neutrophils (%) (Auto) 63, Lymphocytes (%) (Auto) 22, Monocytes (%) (Auto) 14H, Eosinophils (%) (Auto) 0, Basophils (%) (Auto) 0, Neutrophils # (Auto) 2.3, Lymphocytes # (Auto) 0.8L, Monocytes # (Auto) 0.5, Eosinophils # (Auto) 0.0, Basophils # (Auto) 0.0, Immature Granulocyte # (Auto) 0.0, Percent Immature Platelet Fraction 6.5, Sodium Level 139, Potassium Level 4.0, Chloride Level 115H, Carbon Dioxide Level 17L, Anion Gap 7, Blood Urea Nitrogen 24H, Creatinine 0.89, Estimat Glomerular Filtration Rate 68, BUN/Creatinine Ratio 27, Glucose Level 114H, Calcium Level 7.7L, Corrected Calcium 9.0, Phosphorus Level 3.7, Magnesium Level 2.0, Total Bilirubin 0.3, Aspartate Amino Transf (AST/SGOT) 28, Alanine Aminotransferase ( ALT/SGPT) 35, Alkaline Phosphatase 63, Total Protein 4.8L, Albumin 2.4L 07/25/22 11:00: Glucometer 167H Microbiology 07/22/22 Gram Stain - Final, Complete 07/22/22 Wound Culture - Final, Complete Staphylococcus aureus 07/21/22 MRSA Screen - Final, Complete 07/21/22 Blood Culture - Preliminary, Resulted No growth Assessment/Plan Assessment/Plan Assessment/Plan left foot/lower extremity cellulitis left foot abscess afib rvr correction anticogaulation s/p incision and drainage left foot c debridement continue abx iv fluids Could be discharged with outpatient followup Wound care patient in agreement with plan. Clinical Quality Measures DVT/VTE Risk/Contraindication: Contraindications-Mechi: Other *list below* Other: leg cellulitis KORINA CRANE DO Jul 25, 2022 11:25
[2022-07-25] MEDS ORDERED: ATOR40TA70 PO ×2 (11:46→12:05)
[2022-07-25] MEDS ORDERED: DILT180C67 PO ×2 (11:46→12:05)
[2022-07-25] MEDS ORDERED: FERR325T18 PO ×2 (11:46→12:05)
[2022-07-25] MEDS ORDERED: LENA10CA PO ×2 (11:48→12:05)
[2022-07-25] MEDS ORDERED: RIVA20TA2 PO ×2 (11:51→12:05)
[2022-07-25] MEDS ORDERED: CALC625T29 PO ×2 (11:51→12:05)
[2022-07-25] MEDS ORDERED: BUSP10TA95 PO (12:05)
[2022-07-25] MEDS ORDERED: OMEP20CA18 PO (12:05)
[2022-07-25] MEDS ORDERED: DOXY100T2 PO (12:05)
[2022-07-25] MEDS ORDERED: ALPR.25T PO (12:05)
[2022-07-25] MEDS ORDERED: METO-333 PO (12:05)
[2022-07-25] MEDS ORDERED: LEVO-129 PO (12:05)
[2022-07-25] MEDS ORDERED: ALLO100T PO (12:05)
[2022-07-25] MEDS ORDERED: CYAN500T8 PO (12:05)
[2022-07-25] MEDS ORDERED: CALC-823 PO (12:05)
[2022-07-25] MEDS ORDERED: TRAZ-227 PO (12:05)
[2022-07-25] MEDS ORDERED: FENT1PAT8 TD (12:05)
[2022-07-25] MEDS ORDERED: MAGN400T39 PO (12:05)
[2022-07-25] MEDS ORDERED: HYDR-3820 PO (12:05)
[2022-07-25] MEDS ORDERED: CHOL100048 PO (12:05)
[2022-07-25] MEDS ORDERED: LIDO700A45 TD (12:05)
--- NOTE | 2022-07-25 12:08 | Discharge Inst-Skilled Nursing ---
Discharge Inst-Skilled NF Patient Instructions Patient Problems: Foot infection Multiple myeloma Debility Consult/Follow Up/Orders Skilled NF Admit to: [facility] Certifications SNF I certify that SNF services are required to be given on an inpatient basis because of the above named patient's need for custodial care on a continuing basis for the conditions(s) for which he/she was receiving inpatient hospital services prior to his/her transfer to the SNF. Long-Term Facility Order: Nursing Services, Funeral Greeter-Evaluate & Treat, Physical Therapy-Evaluate & Treat Oxygen Delivery Method: Room Air Discharge Diet: No Restrictions Daily Activity as Tolerated: No (non weight bearing left foot) New & Resume Previous Orders Other Instructions Clean wound with Vashe daily and redress Discharge Medications New, Converted or Re-Newed RX: Transmitted to Pharmacy New Medications: Doxycycline Hyclate (Doxycycline Hyclate) 100 Mg Tablet 100 MG PO BID for 4 Days, #8 TAB 0 Refills ALPRAZolam (Xanax Tablet) 0.25 Mg Tab 0.25 MG PO Q8H PRN for ANXIETY, #10 TAB 0 Refills Changed Medications: Lidocaine (Lidocaine 5% Patch) 5 % Adh..patch 1 PATCH TD DAILY PRN for PAIN-BREAKTHROUGH, #30 TAB 0 Refills (Changed from: 1-2 PATCH; Refills: ) APPLY TO LOWER BACK Continued Medications: Allopurinol (Allopurinol) 100 Mg Tablet 100 MG PO HS, #30 TAB 0 Refills (This prescription has been renewed) Atorvastatin Calcium (Atorvastatin Calcium) 40 Mg Tablet 40 MG PO DAILY, #30 TAB 0 Refills (This prescription has been renewed) Buspirone HCl (Buspirone HCl) 10 Mg Tablet 5 MG PO TID, #30 TAB 0 Refills (This prescription has been renewed) TAKES OF A 10MG Calcium Carbonate (Calcium) 500 Mg Calcium (1250 Mg) Tablet 500 MG PO BID, #60 TAB 0 Refills (This prescription has been renewed) Calcium Polycarbophil (Fiber Tabs) 625 Mg Tablet 625 MG PO TID, #90 TAB 0 Refills (This prescription has been renewed) Cholecalciferol (Vitamin D3) (Vitamin D3) 25 Mcg (1000 Unit) Capsule 100 MCG PO 1200, #120 CAP 0 Refills (This prescription has been renewed) TAKES 4 CAPS Cyanocobalamin (Vitamin B-12) (Vitamin B-12) 500 Mcg Tablet 500 MCG PO HS, #30 TAB 0 Refills (This prescription has been renewed) Diltiazem HCl (Cardizem Cd) 180 Mg Cap.er.24h 180 MG PO DAILY, #30 CAP 0 Refills (This prescription has been renewed) Fentanyl (Fentanyl Patch 25 MCG) 25 Mcg/Hour Patch.td72 25 MCG TD Q72H, #14 PATCH 0 Refills (This prescription has been renewed) Ferrous Sulfate (Ferrous Sulfate) 325 Mg (65 Mg Iron) Tablet 325 MG PO DAILY, #30 TAB 0 Refills (This prescription has been renewed) Hydrocodone/Acetaminophen (Hydrocodone-Acetamin 10-325 mg) 10 Mg-325 Mg Tablet 10-325 MG PO TID PRN for PAIN-MODERATE (5-7), #21 TAB 0 Refills (This prescription has been renewed) Lenalidomide (Revlimid) 10 Mg Capsule 10 MG PO HS, #30 CAP 0 Refills (This prescription has been renewed) Levothyroxine Sodium (Euthyrox) 50 Mcg Tablet 50 MG PO DAILY, #30 TAB 0 Refills (This prescription has been renewed) Magnesium Oxide (Magnesium) 400 Mg Magnesium Tablet 400 MG PO 3X WEEKLY, #15 TAB 0 Refills (This prescription has been renewed) Metoprolol Tartrate (Metoprolol Tartrate) 25 Mg Tablet 25 MG PO BID, #60 TAB 0 Refills (This prescription has been renewed) LAST FILLED 02-21-2022 #180/90 DAY SUPPLY Omeprazole (Omeprazole) 20 Mg Capsule.dr 20 MG PO DAILY, #30 CAP 0 Refills (This prescription has been renewed) LAST FILL 03-22-2022 #90/90 DAY SUPPLY Rivaroxaban (Xarelto Tablet) 20 Mg Tablet 20 MG PO HS, #30 TAB 0 Refills (This prescription has been renewed) Trazodone HCl (Trazodone HCl) 100 Mg Tablet 100 MG PO HS, #30 TAB 0 Refills (This prescription has been renewed) Discontinued Medications: Furosemide (Furosemide) 20 Mg Tablet 20 MG PO DAILY, TAB LAST FILLED 03-22-2022 #90/90 DAY SUPPLY Potassium Chloride (Potassium Chloride) 20 Meq Tab.er.prt 20 MEQ PO DAILY Damaris Birch Jul 25, 2022 12:07 DAMARIS BIRCH MD Jul 25, 2022 12:08
--- NOTE | 2022-07-25 12:52 | Progress Note - Cardiology ---
Cardiology SOAP Progress Note Subjective: Gen weakness and malaise present No focal weakness No n/v/d No cp or palp or syncope Objective: I&O/Vital Signs 07/25/22 07/25/22 07/25/22 07/25/22 01:00 03:32 05:34 05:34 Temp 36.9 36.9 36.9 Pulse 69 74 Resp 20 B/P (MAP) 102/57 (72) Pulse Ox 94 O2 Delivery Room Air O2 Flow Rate 0.00 0.00 07/25/22 07/25/22 07/25/22 07/25/22 06:04 06:04 07:16 07:23 Temp 36.9 36.9 36.6 Pulse 66 64 Resp 18 B/P (MAP) 114/59 (77) Pulse Ox 93 O2 Delivery Room Air 07/25/22 07/25/22 08:00 11:18 Temp 36.6 Pulse 66 Resp 18 B/P (MAP) 117/62 (80) Pulse Ox 94 94 O2 Delivery Room Air Room Air O2 Flow Rate 0.00 07/25/22 00:00 Intake Total 1490 ml Output Total 650 ml Balance 840 ml Weight (Pounds): 150 Weight (Calculated Kilograms): [id number] Constitutional: AAO x 3, other (thin) Respiratory: No accessory muscle use, No respiratory distress; chest expansion is symmetric, chest is bilaterally symmetric, other (good air entry) Cardiovascular: irregularly irregular; No JVD; S1 and S2 Gastrointestional: No tender; soft, audible bowel sounds Extremities: no lower extremity edema bilateral Neurologic/Psychiatric: other (moves all limbs equally) Skin: other (left foot with swelling of the toes and post I&D site with clear drainage) Results/Procedures: Labs Laboratory Tests 07/24/22 15:25: Vancomycin Level Trough 15.7 07/24/22 15:58: Glucometer 135H 07/24/22 20:14: Glucometer 92 07/24/22 21:17: Glucometer 130H 07/25/22 05:07: Glucometer 110 07/25/22 05:22: White Blood Count 3.7L, Red Blood Count 2.41L, Hemoglobin 8.3L, Hematocrit 26L, Mean Corpuscular Volume 108H, Mean Corpuscular Hemoglobin 34, Mean Corpuscular Hemoglobin Concent 32, Red Cell Distribution Width 15.6H, Platelet Count 124L, Mean Platelet Volume 11.9, Immature Granulocyte % (Auto) 1, Neutrophils (%) (Auto) 63, Lymphocytes (%) (Auto) 22, Monocytes (%) (Auto) 14H, Eosinophils (%) (Auto) 0, Basophils (%) (Auto) 0, Neutrophils # (Auto) 2.3, Lymphocytes # (Auto) 0.8L, Monocytes # (Auto) 0.5, Eosinophils # (Auto) 0.0, Basophils # (Auto) 0.0, Immature Granulocyte # (Auto) 0.0, Percent Immature Platelet Fraction 6.5, Sodium Level 139, Potassium Level 4.0, Chloride Level 115H, Carbon Dioxide Level 17L, Anion Gap 7, Blood Urea Nitrogen 24H, Creatinine 0.89, Estimat Glomerular Filtration Rate 68, BUN/Creatinine Ratio 27, Glucose Level 114H, Calcium Level 7.7L, Corrected Calcium 9.0, Phosphorus Level 3.7, Magnesium Level 2.0, Total Bilirubin 0.3, Aspartate Amino Transf (AST/SGOT) 28, Alanine Aminotransferase (ALT/SGPT) 35, Alkaline Phosphatase 63, Total Protein 4.8L, Albumin 2.4L 07/25/22 11:00: Glucometer 167H Microbiology 07/22/22 Gram Stain - Final, Complete 07/22/22 Wound Culture - Final, Complete Staphylococcus aureus 07/21/22 MRSA Screen - Final, Complete 07/21/22 Blood Culture - Preliminary, Resulted No growth Laboratory Tests 07/24/22 04:15 07/25/22 05:22 A/P: Assessment: Cellulitis and abscess of the left foot - Status post I&D - managed by Dr. Akers H/O Syncope of undetermined etiology - ILR implanted 03-27-22 - multiple episodes of A Fib/flutter with RVR documented. No significant bradycardia documented so far PAF/Fl - Supra-therapeutic INR at presentation on 03/25/22. Warfarin dc'd at time of discharge by medical services - currently on Xarelto - Echo on 05/31/22 (Dr Sterling): LVEF 60-65%, grade 1 diastolic dysfunction, mod MS, AoV sclerosis w/o stenosis, PASP approx 40 mmHg Multiple myeloma and chronic anemia - Reports this is followed by her Hemo/Onc, Dr Bravo in [place], [place] Chronic tobacco use Ac on chronic bronchitis H/o hypertension TSH normal on 03/25/22 Plan: I interviewed and examined her and reviewed her record Management of left foot wound is per surgical/medical services Change short-acting Diltiazem to long-acting Continue OAC with Xarelto for stroke prophylaxis Monitor lab Replace electrolytes as indicated DIANNE KESSLER MD FACP FACC CCDS Jul 25, 2022 12:52
[2022-07-25] MEDS ORDERED: TROUGH ORDER-PHARMACY XX NR (15:00)
--- NOTE | 2022-07-25 18:57 | Physician Query Clarification ---
Physician Query-General Query to Physician: The medical record reflects the following clinical scenario: History/Risk factors: right foot cellulitis with early abscess formation, advanced age Clinical Findings: Admission VS/Labs: HR 116, RR 16, BP 120/104, SpO2 98% sat on room air T 36.7, WBC 4.8, bilirubin 2.0, lactic acid 1.13, Wound to left foot with Staphylococcus aureus, Treatment: ER: Normal saline 1 L, Meropenem IV, Question: Is Sepsis a clinically valid diagnosis? Sepsis was documented on the H and P and one consult note with no further documentation of Sepsis in the medical record. If yes, please document in the Progress Notes and Discharge Summary. 1. Yes, Sepsis is clinically valid and present on admission, condition resolved 2. No, Sepsis ruled out 3. Other, with explanation of clinical findings 4. Undetermined, no explanation for clinical findings In responding to this query, please exercise your independent professional judgment. The purpose of this communication is to more accurately reflect the complexity of your patients condition. The fact that a question is asked does not imply that any particular answer is desired or expected. Thank you for your timely response to this clarification. Ninfa Cardona MSN, RN Clinical Family Physician [email or web address] PHYSICIAN RESPONSE: Based on the clinical findings in the record, please respond to the query above on this document as an addendum. Physician Response: Physician Response 2 If you have questions please contact: Fresh Work Wrapper Layer: Ext: Thank you for your time and cooperation. Clinical Family Physician/Fresh Work Wrapper Layer This is a permanent part of the medical record NINFA CARDONA Jul 25, 2022 18:57 DAMARIS STEPHENS MD Jul 26, 2022 16:41
--- NOTE | 2022-07-26 10:39 | Physician Query Clarification ---
PQ-Uncertain Diagnosis Admission/Discharge Admission Date: Jul 21, 2022 at 13:05 Discharge Date: Jul 25, 2022 at 14:15 Dr. Birch, The medical record reflects the following clinical scenario: History/Risk Factors: cellulitis Lt lower extremity, abscess Lt. toe, multiple myeloma Clinical Findings: PH 7:39, PC02 33, P02 51 Treatment: Oxymask Question: Is acute on chronic respiratory failure a clinically valid diagnosis? Acute on chronic respiratory failure was documented in the 07/[address] Grayson with no further documentation in the medical record. Please document a response in Progress Note or Discharge Summary. 1. Yes, clinically valid, condition resolved. 2. No, condition ruled out. 3. Other, with explanation of clinical findings. 4. Undetermined, no explanation for clinical findings. PHYSICIAN RESPONSE Diagnosis clinically valid: Yes, Conditon resolved In responding to this query, please exercise your independent professional judgment. The purpose of this communication is to more accurately reflect the complexity of your patients condition. The fact that a question is asked does not imply that any particular answer is desired or expected. Thank you for your timely response to this clarification. Requestors name: Tressa THIS PHYSICIAN QUERY FORM IS A PERMANENT PART OF THE MEDICAL RECORD TRESSA MOULTON Jul 26, 2022 10:39 DAMARIS BIRCH MD Jul 26, 2022 20:38
--- NOTE | 2022-07-26 10:44 | Physician Query Clarification ---
PQ-Further Specificity Admission/Discharge Admission Date: Jul 21, 2022 at 13:05 Discharge Date: Jul 25, 2022 at 14:15 Dr. Birch, The medical record reflects the following clinical scenario: History/Risk Factors: cellulitis Lt lower extremity, abscess Lt. toe, multiple myeloma Clinical Findings: Small left pleural effusion with overlying atelectasis or pneumonia. Treatment: IV Meropenem, IV Vancomycin Question: Can you further specify the patient's respiratory condition per the clinical indicators above? Please document a response in the Progress Notes or Discharge Summary. 1. pneumonia 2. acute on chronic bronchitis 3. Other, with explanation of the clinical findings. 4. Clinically undetermined, no explanation for the clinical findings. PHYSICIAN RESPONSE Can you specify per above: Other, explanation/clinical finding (atalectasis) In responding to this query, please exercise your independent professional judgment. The purpose of this communication is to more accurately reflect the complexity of your patients condition. The fact that a question is asked does not imply that any particular answer is desired or expected. Thank you for your timely response to this clarification. Requestors name: Tressa THIS PHYSICIAN QUERY FORM IS A PERMANENT PART OF THE MEDICAL RECORD TRESSA MOULTON Jul 26, 2022 10:44 DAMARIS BIRCH MD Jul 26, 2022 16:44
--- NOTE | 2022-07-26 16:47 | Discharge Summary ---
Discharge Summary Hospital Course Problems/Diagnosis: (1) Cellulitis of left foot Status: Acute Assessment & Plan: 07/23- On meropenem and vancomycin, to OR today for drainage. Culture presumptive MRSA, no growth in blood cultures to date. 07/24- s/p drainage, cultures still with MRSA only, will d/c meropenem 07/26- discharged on doxycycline per sensitivities (2) Atrial fibrillation with RVR Status: Acute Assessment & Plan: Initially on cardizem drip, changed to PO, appreciate Cardiology recommendations. Xarelto for anticoagulation. (3) Anxiety Status: Chronic Assessment & Plan: Resume home buspirone (4) History of multiple myeloma Status: Chronic Assessment & Plan: Resume home pain medications. (5) Thrombocytopenia Status: Chronic Assessment & Plan: Intermittent, worse at current than prior, suspect related to MM. Monitor closely. (6) Anemia Status: Chronic Assessment & Plan: Suspect anemia of chronic disease. Monitor for stability. (7) Hypokalemia Status: Resolved Resolution Date/Time: 07/22/22 @ 12:27 Assessment & Plan: Replaced (8) Hypomagnesemia Status: Acute Assessment & Plan: Replaced Hospital Course Date of Admission: Jul 21, 2022 at 13:05 Admission Diagnosis : Family Physician/Provider: Michelle Cruz Aprn Date of Discharge: 07/26/22 Discharge Diagnosis: See problem list Hospital Course: See problem list Labs and Pending Lab Test: Microbiology 07/22/22 Gram Stain - Final, Complete 07/22/22 Wound Culture - Final, Complete Staphylococcus aureus 07/21/22 MRSA Screen - Final, Complete 07/21/22 Blood Culture - Final, Complete No growth Home Meds Active Doxycycline Hyclate 100 Mg Tablet 100 Mg PO BID 4 Days Xanax Tablet (Alprazolam) 0.25 Mg Tab 0.25 Mg PO Q8H PRN Fiber Tabs (Calcium Polycarbophil) 625 Mg Tablet 625 Mg PO TID Xarelto Tablet (Rivaroxaban) 20 Mg Tablet 20 Mg PO HS Revlimid (Lenalidomide) 10 Mg Capsule 10 Mg PO HS Ferrous Sulfate 325 Mg (65 Mg Iron) Tablet 325 Mg PO DAILY Cardizem Cd (Diltiazem HCl) 180 Mg Cap.er.24h 180 Mg PO DAILY Atorvastatin Calcium 40 Mg Tablet 40 Mg PO DAILY Magnesium (Magnesium Oxide) 400 Mg Magnesium Tablet 400 Mg PO 3X WEEKLY Vitamin B-12 (Cyanocobalamin (Vitamin B-12)) 500 Mcg Tablet 500 Mcg PO HS Vitamin D3 (Cholecalciferol (Vitamin D3)) 25 Mcg (1000 Unit) Capsule 100 Mcg PO 1200 TAKES 4 CAPS Calcium (Calcium Carbonate) 500 Mg Calcium (1250 Mg) Tablet 500 Mg PO BID Buspirone HCl 10 Mg Tablet 5 Mg PO TID TAKES OF A 10MG Metoprolol Tartrate 25 Mg Tablet 25 Mg PO BID LAST FILLED 02-21-2022 #180/90 DAY SUPPLY Hydrocodone-Acetamin 10-325 mg (Hydrocodone/Acetaminophen) 10 Mg-325 Mg Tablet 10-325 Mg PO TID PRN Allopurinol 100 Mg Tablet 100 Mg PO HS Trazodone HCl 100 Mg Tablet 100 Mg PO HS Fentanyl Patch 25 MCG (Fentanyl) 25 Mcg/Hour Patch.td72 25 Mcg TD Q72H Lidocaine 5% Patch (Lidocaine) 5 % Adh..patch 1 Patch TD DAILY PRN APPLY TO LOWER BACK Euthyrox (Levothyroxine Sodium) 50 Mcg Tablet 50 Mg PO DAILY Omeprazole 20 Mg Capsule.dr 20 Mg PO DAILY LAST FILL 03-22-2022 #90/90 DAY SUPPLY Assessment/Pt DC Instructions Follow up through SNF and with primary after d/c. Discharge Diet: No Restrictions Activity as Tolerated: No (non-weight bearing I&D foot) Discharge Physical Examination Allergies: Coded Allergies: Penicillins (Verified Allergy, Severe, RASH, 03/03/17) General Appearance: Anxious Respiratory: Lungs Clear Cardiovascular: Regular Rate, Rhythm, No Edema Gastrointestinal: Normal Bowel Sounds, Soft Skin: Warm/Dry, Other (foot wrapped, no drainage on bandage) Neurologic/Psychiatric: Alert, Other (frequently tearful, anxious) Clinical Quality Measures DVT/VTE Risk/Contraindication: Contraindications-Mechi: Other *list below* Other: leg cellulitis DAMARIS STEPHENS MD Jul 26, 2022 16:47
== END 2022-07-25 14:15 | DRG 570 ==
LOC: ER 10:30 → EDUNIT# 10:30 → ICU 13:05 → 4TH 07-23 16:51
PROVIDERS: ADMIT Internal Medicine; ATTEND Family Medicine
PROC: 0JBR0ZZ Excision of Left Foot Subcutaneous Tissue and Fascia, Open Approach (ICD-10-PCS; principal; 2022-07-23 15:30)
DX: L03.116 Cellulitis of left lower limb (principal); J96.00 Acute respiratory failure, unspecified whether with hypoxia or hypercapnia; C90.00 Multiple myeloma not having achieved remission; L02.612 Cutaneous abscess of left foot; I48.92 Unspecified atrial flutter; J98.11 Atelectasis; A49.02 Methicillin resistant Staphylococcus aureus infection, unspecified site; M10.9 Gout, unspecified; I48.0 Paroxysmal atrial fibrillation; Z79.01 Long term (current) use of anticoagulants; F41.9 Anxiety disorder, unspecified; F17.210 Nicotine dependence, cigarettes, uncomplicated; I12.9 Hypertensive chronic kidney disease with stage 1 through stage 4 chronic kidney disease, or unspecified chronic kidney disease; N18.31 Chronic kidney disease, stage 3a; J44.9 Chronic obstructive pulmonary disease, unspecified; E78.00 Pure hypercholesterolemia, unspecified; E03.9 Hypothyroidism, unspecified; F32.A Depression, unspecified; D69.6 Thrombocytopenia, unspecified; E87.6 Hypokalemia; I05.0 Rheumatic mitral stenosis; E83.42 Hypomagnesemia; D63.0 Anemia in neoplastic disease
CPT/HCPCS: 36415; 71045; 73701; 80048; 80053; 80202; 82805; 82947; 83605; 83735; 84100; 84439; 84443; 84550; 85007; 85025; 85027; 85610; 85652; 85730; 86141; 87040; 87070; 87077; 87081; 87186; 87205; 93005; 93041; 94640; 94760; 96361; 96365; 96366; 96375

== ENCOUNTER 2022-10-25 18:06 | Inpatient (IN) | payer MEDICARE, MEDICAID ==
[~2022-10-25] VITALS: Ht 157.4 cm; Wt 54.0 kg
[~2022-10-25 18:06] MED LIST changes: +ALPR.25T PO; +ATOR40TA70 PO; +CALC625T29 PO; +DILT180C67 PO; +DOXY100T2 PO; +FERR325T18 PO; +LENA10CA PO; +RIVA20TA2 PO
--- NOTE | 2022-10-25 18:20 | ED General ---
General Chief Complaint: Respiratory Problems Stated Complaint: SEPSIS Nursing Triage Note: PT FOUND AT 1700 TO BE AMS, IN AFIB, O2 60% ON ROOM AIR. PT PLACED ON 4L O2 WHICH BROUGHT HER UP TO 85%. BROUGHT IN BY EMS FROM THE [facility]. DIAGNOSED WITH AN ILEUS EARLIER THIS WEEK. Source of Information: EMS, Jail Records, Old Records, Other (ALL HISTORY IS FROM PRIOR RECORDS AND INTERMEDIATE PAPERS) Exam Limitations: Other (PT UNABLE TO GIVE ANY INFORMATION) History of Present Illness Date Seen by Provider: Oct 25, 2022 Time Seen by Provider: 18:04 Initial Comments PT ARRIVES VIA EMS FROM [facility] CALLED FOR PT WITH LOW O2 SATS IN THE 60'S-70'S SYMPTOMS HAVE BEEN ONGOING SINCE SATURDAY, WAS PLACED ON O2 AT 3L / NC THIS MORNING AT INTERMEDIATE EMS REPORT THAT PT HAD CT OF ABDOMEN ON SATURDAY FOR ABDOMINAL DISTENTION AND DX WITH ILEUS NO OTHER INFORMATION ABOUT CURRENT CONDITION IS OBTAINABLE, AND PT NOT ANSWERING SPECIFIC QUESTIONS ABOUT HER SYMPTOMS OR WHY SHE IS HERE. PT IS AT NORMAL BASELINE MENTATION O2 SATS 70-95% ON 3L/NC PER EMS HR 160 PER EMS BP 110/76 PER EMS PT IS DNR/DNI PT WITH A MULTITUDE OF VISITS, HAD BEEN LIVING AT HOME BY HERSELF, UNTIL HER LAST ADMIT 07/21-07/25/22, WHEN SHE WAS PLACED IN A INTERMEDIATE WHEN SHE WAS DISMISSED. THAT ADMIT HAD BEEN FOR AFIB/RVR. PT IS ON CARDIZEM, METOPROLOL, WELL XARELTO. IT IS UNKNOWN WHETHER SHE HAS BEEN TAKING HER MEDICATIONS OR NOT--INTERMEDIATE NURSE THAT GAVE REPORT DID NOT KNOW ANYTHING ABOUT THE PATIENT, AND WAS BRAND NEW TO FACILITY. PCP: DR. LIAO / [facility] [place] Allergies and Home Medications Allergies Coded Allergies: Penicillins (Verified Allergy, Severe, RASH, 03/03/17) Patient Home Medication List ALPRAZolam (Xanax Tablet) 0.25 Mg Tab, 0.25 MG PO Q8H PRN for ANXIETY Prescribed by: DAMARIS STEPHENS on 07/25/22 1207 Allopurinol (Allopurinol) 100 Mg Tablet, 100 MG PO HS Prescribed by: DAMARIS STEPHENS on 07/25/22 1205 Atorvastatin Calcium (Atorvastatin Calcium) 40 Mg Tablet, 40 MG PO DAILY Prescribed by: DAMARIS STEPHENS on 07/25/22 120 Buspirone HCl (Buspirone HCl) 10 Mg Tablet, 5 MG PO TID Prescribed by: DAMARIS STEPHENS on 07/25/22 120 Calcium Carbonate (Calcium) 500 Mg Calcium (1250 Mg) Tablet, 500 MG PO BID Prescribed by: DAMARIS STEPHENS on 07/25/22 120 Calcium Polycarbophil (Fiber Tabs) 625 Mg Tablet, 625 MG PO TID Prescribed by: DAMARIS STEPHENS on 07/25/22 120 Cholecalciferol (Vitamin D3) (Vitamin D3) 25 Mcg (1000 Unit) Capsule, 100 MCG PO 1200 Prescribed by: DAMARIS STEPHENS on 07/25/22 120 Cyanocobalamin (Vitamin B-12) (Vitamin B-12) 500 Mcg Tablet, 500 MCG PO HS Prescribed by: DAMARIS STEPHESN on 07/25/22 120 Diltiazem HCl (Cardizem Cd) 180 Mg Cap.er.24h, 180 MG PO DAILY Prescribed by: DAMARIS STEPHENS on 07/25/22 120 Doxycycline Hyclate (Doxycycline Hyclate) 100 Mg Tablet, 100 MG PO BID Prescribed by: DAMARIS STEPHENS on 07/25/22 120 Fentanyl (Fentanyl Patch 25 MCG) 25 Mcg/Hour Patch.td72, 25 MCG TD Q72H Prescribed by: DAMARIS STEPHENS on 07/25/22 120 Ferrous Sulfate (Ferrous Sulfate) 325 Mg (65 Mg Iron) Tablet, 325 MG PO DAILY Prescribed by: DAMARIS STEPHENS on 07/25/22 120 Hydrocodone/Acetaminophen (Hydrocodone-Acetamin 10-325 mg) 10 Mg-325 Mg Tablet, 10-325 MG PO TID PRN for PAIN-MODERATE (5-7) Prescribed by: DAMARIS STEPHENS on 07/25/22 120 Lenalidomide (Revlimid) 10 Mg Capsule, 10 MG PO HS Prescribed by: DAMARIS STEPHENS on 07/25/22 120 Levothyroxine Sodium (Euthyrox) 50 Mcg Tablet, 50 MG PO DAILY Prescribed by: DAMARIS STEPHENS on 07/25/22 120 Lidocaine (Lidocaine 5% Patch) 5 % Adh..patch, 1 PATCH TD DAILY PRN for PAIN- BREAKTHROUGH Prescribed by: DAMARIS STEPHENS on 07/25/221204 Magnesium Oxide (Magnesium) 400 Mg Magnesium Tablet, 400 MG PO 3X WEEKLY Prescribed by: DAMARIS STEPHENS on 07/25/221204 Metoprolol Tartrate (Metoprolol Tartrate) 25 Mg Tablet, 25 MG PO BID Prescribed by: DAMARIS STEPHENS on 07/25/221204 Omeprazole (Omeprazole) 20 Mg Capsule.dr, 20 MG PO DAILY Prescribed by: DAMARIS STEPHENS on 07/25/221204 Rivaroxaban (Xarelto Tablet) 20 Mg Tablet, 20 MG PO HS Prescribed by: DAMARIS STEPHENS on 07/25/221204 Trazodone HCl (Trazodone HCl) 100 Mg Tablet, 100 MG PO HS Prescribed by: DAMARIS STEPHENS on 07/25/221204 Review of Systems Review of Systems Constitutional: other (PT WILL NOT ANSWER QUESTIONS, BUT IS TALKING LOUDLY AND YELLING CONTINUOUSLY ABOUT ALL ASPECTS OF CARE. SHE IS ORIENTED TO PERSON, KNOWS SHE IS IN HOSPITAL, THIS IS PT'S NORMAL BASELINE. 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 Genitourinary: Yes (CHRONIC KIDNEY DISEASE--NO DIALYSIS) Gastrointestinal: Yes Gastroesophageal Reflux Musculoskeletal: Yes (NARCOTIC DEPENDENT) Degenerate Disk Disease, Arthritis, Chronic Back Pain, Gout Endocrine: Yes Hypothyroidsim HEENT: Yes (PAROTIDITIS 05/02/22; EDENTULOUS) Cancer: Yes (Multiple Myeloma) Did You Recieve Any Treatments: Yes What Type of Treatment Did You: Chemotherapy MULTIPLE MYELOMA Psychosocial: Yes Sleep Difficulties, Anxiety, Depression Integumentary: Yes (ABSCESSES) Blood Disorders: Yes (MULTIPLY MYELOMA; THROMBOCYTOPENIA; ANEMIA) Family Medical History Heart Disease Physical Exam Vital Signs Vital Signs - First Documented 10/25/22 18:06 Temp 36.3 Pulse 166 Resp 15 B/P (MAP) 112/82 (92) Pulse Ox 100 O2 Delivery OxyMask O2 Flow Rate 6.00 FiO2 100 Capillary Refill : Height, Weight, BMI Height: 5'5.00" Weight: 150lbs. oz. 68.911247wn; 24.96 BMI Method:Estimated General Appearance: No Apparent Distress, Thin, Other (PT TALKING NON-STOP, MAKING MULTIPLE DEMANDS AND COMPLAINING ABOUT EVERYTHING LITERALLY FROM THE MINUTE SHE ARRIVES--YELLING "I WANT MY PAIN PILL" ON ARRIVAL, COMPLAINING ABOUT BP CUFF, O2 SAT PROBE, IV STICKS, PILLOW, BED POSITION, ETC, LITERALLY FROM TIME OF ARRIVAL. SHE DOES NOT APPEAR TO BE IN ANY DISCOMFORT OR DISTRESS. YELLING VERY LOUDLY. SPEECH IS CLEAR. ) HEENT: Other (EDENTULOUS) Neck: JVD Respiratory: No Accessory Muscle Use, No Respiratory Distress, Rales, Rhonci, Other (BILATERAL RALES/RHONCHI) Cardiovascular: No Edema, No Murmur, Normal Peripheral Pulses, Irregularly Irregular, JVD, Tachycardia Gastrointestinal: Normal Bowel Sounds, Non Tender, Soft, Distended; No Tenderness Extremity: Normal Range of Motion, No Pedal Edema Neurologic/Psychiatric: Alert, No Motor/Sensory Deficits, Other (ORIENTED TO PERSON, PLACE, GROSSLY ORIENTED TO SITUATION. PT IS AT NORMAL BASELINE) Skin: Normal Color, Warm/Dry Focused Exam Sepsis Stage: Sepsis (POSSIBLE) Possible Source: Pulmonary Lactate Level 10/25/22 18:18: Lactic Acid Level 1.25 Time of Focused Exam: 19:50 Respiratory: No Accessory Muscle Use, No Respiratory Distress, Rales Cardiovascular: Irregularly Irregular (NO LONGER TACHYCARDIC) Skin: normal color, warm/dry Lactic Acid Level Laboratory Tests Test 10/25/22 18:18 Lactic Acid Level 1.25 MMOL/L (0.50-2.00) Within 3hrs of presentation: Admin ABX, Blood cultures prior to ABX's, Focus exam, Lactate level, Other (NO FLUIDS GIVEN PT IS IN CHF ) Progress/Results/Core Measures Suspected Sepsis SIRS Temperature: Pulse: 166 Respiratory Rate: 15 Laboratory Tests 10/25/22 18:18: White Blood Count 6.8 Blood Pressure 112 /82 Mean: 92 10/25/22 18:18: Lactic Acid Level 1.25 Laboratory Tests 10/25/22 18:18: Creatinine 1.06, INR Comment 2.3H, Platelet Count 213, Total Bilirubin 0.4 Results/Orders Lab Results Laboratory Tests Test 10/25/22 18:18 10/25/22 18:23 10/25/22 18:36 Range/Units White Blood Count 6.8 4.3-11.0 10^3/uL Red Blood Count 3.21 L 3.80-5.11 10^6/uL Hemoglobin 11.3 L 11.5-16.0 g/dL Hematocrit 37 35-52 % Mean Corpuscular Volume 117 H 80-99 fL Mean Corpuscular Hemoglobin 35 H 25-34 pg Mean Corpuscular Hemoglobin Concent 30 L 32-36 g/dL Red Cell Distribution Width 16.6 H 10.0-14.5 % Platelet Count 213 130-400 10^3/uL Mean Platelet Volume 10.2 9.0-12.2 fL Immature Granulocyte % (Auto) 0 % Neutrophils (%) (Auto) 69 42-75 % Lymphocytes (%) (Auto) 23 12-44 % Monocytes (%) (Auto) 8 0-12 % Eosinophils (%) (Auto) 0 0-10 % Basophils (%) (Auto) 1 0-10 % Neutrophils # (Auto) 4.6 1.8-7.8 10^3/uL Lymphocytes # (Auto) 1.5 1.0-4.0 10^3/uL Monocytes # (Auto) 0.5 0.0-1.0 10^3/uL Eosinophils # (Auto) 0.0 0.0-0.3 10^3/uL Basophils # (Auto) 0.0 0.0-0.1 10^3/uL Immature Granulocyte # (Auto) 0.0 0.0-0.1 10^3/uL Erythrocyte Sedimentation Rate 21 0-30 MM/HR Prothrombin Time 25.4 H 12.2-14.7 SEC INR Comment 2.3 H 0.8-1.4 Activated Partial Thromboplast Time 41 H 24-35 SEC Sodium Level 142 135-145 MMOL/L Potassium Level 4.6 3.6-5.0 MMOL/L Chloride Level 106 98-107 MMOL/L Carbon Dioxide Level 26 21-32 MMOL/L Anion Gap 10 5-14 MMOL/L Blood Urea Nitrogen 24 H 7-18 MG/DL Creatinine 1.06 0.60-1.30 MG/DL Estimat Glomerular Filtration Rate 55 BUN/Creatinine Ratio 23 Glucose Level 140 H 70-105 MG/DL Lactic Acid Level 1.25 0.50-2.00 MMOL/L Calcium Level 8.6 8.5-10.1 MG/DL Corrected Calcium 9.3 8.5-10.1 MG/DL Magnesium Level 1.8 1.6-2.4 MG/DL Total Bilirubin 0.4 0.1-1.0 MG/DL Aspartate Amino Transf (AST/SGOT) 12 5-34 U/L Alanine Aminotransferase (ALT/SGPT) 20 0-55 U/L Alkaline Phosphatase 130 40-136 U/L Total Creatine Kinase 57 29-168 U/L Creatine Kinase MB 2.7 <6.6 NG/ML Myoglobin 64.6 10.0-92.0 NG/ML Troponin I 0.091 H <0.028 NG/ML C-Reactive Protein High Sensitivity 2.22 H 0.00-0.50 MG/DL B-Type Natriuretic Peptide 957.3 H <100.0 PG/ML Total Protein 5.9 L 6.4-8.2 GM/DL Albumin 3.1 L 3.2-4.5 GM/DL Amylase Level 13 L 25-125 U/L Lipase 6 L 8-78 U/L TSH [place] Testing 1.53 0.35-4.94 UIU/ML Influenza Type A (RT-PCR) Not Detected Not Detecte Influenza Type B (RT-PCR) Not Detected Not Detecte SARS-CoV-2 RNA (RT-PCR) Not Detected Not Detecte Urine Color YELLOW Urine Clarity CLEAR Urine pH 6.0 5-9 Urine Specific [place] 1.025 H 1.016-1.022 Urine Protein 1+ H NEGATIVE Urine Glucose (UA) NEGATIVE NEGATIVE Urine Ketones NEGATIVE NEGATIVE Urine Nitrite NEGATIVE NEGATIVE Urine Bilirubin NEGATIVE NEGATIVE Urine Urobilinogen 1.0 < = 1.0 MG/DL Urine Leukocyte Esterase NEGATIVE NEGATIVE Urine RBC (Auto) NEGATIVE NEGATIVE Urine RBC 2-5 H /HPF Urine WBC RARE /HPF Urine Squamous Epithelial Cells NONE /HPF Urine Crystals NONE /LPF Urine Bacteria TRACE /HPF Urine Casts PRESENT /LPF Urine Hyaline Casts 0-2 H /LPF Urine Mucus NEGATIVE /LPF Urine Culture Indicated NO My Orders Orders - MEL CHILDRESS DO Ed Iv/Invasive Line Start (10/25/22 18:08) Ekg Tracing (10/25/22 18:08) Catheter(Urinary) Insert & Ass 03,15 (10/25/22 18:08) O2 (10/25/22 18:08) Monitor-Rhythm Ecg Trace Only (10/25/22 18:08) Amylase (10/25/22 18:08) Bnp [place]ady (10/25/22 18:08) Cbc With Automated Diff (10/25/22 18:08) Comprehensive Metabolic Panel (10/25/22 18:08) Creatine Kinase (10/25/22 18:08) Creatine Kinase Mb (10/25/22 18:08) Hs C Reactive Protein (10/25/22 18:08) Lipase (10/25/22 18:08) Magnesium (10/25/22 18:08) Protime With Inr (10/25/22 18:08) Partial Thromboplastin Time (10/25/22 18:08) Thyroid Analyzer (10/25/22 18:08) Ua Culture If Indicated (10/25/22 18:08) Erythrocyte Sedimentation Rate (10/25/22 18:08) Myoglobin Serum (10/25/22 18:08) Troponin I [place] (10/25/22 18:08) Chest 1 View, Ap/Pa Only (10/25/22 18:08) Covid 19 Inhouse Test (10/25/22 18:08) Influenza A And B By Pcr (10/25/22 18:08) Isolation Central Supply Req (10/25/22 18:08) Aspirin Chewable Tablet (Baby Aspirin Ch (10/25/22 18:30) Enoxaparin Injection (Lovenox Injection) (10/25/22 18:30) Diltiazem Injection (Cardizem Injection) (10/25/22 18:30) Diltiazem Drip Pre-Mix (Cardizem Drip Pr (10/25/22 18:30) Furosemide Injection (Lasix Injection) (10/25/22 18:30) Restraints: Behavioral/Violent .once (10/25/22 18:56) Behavioral Restraints Q15 M Ch Q15M (10/25/22 18:56) Behavioral Restraint Q2hr Chec Q2H (10/25/22 18:56) Renewal Ordered Needed (Q3h Ad Q3H (10/25/22 18:56) Lactic Acid Analyzer (10/25/22 19:00) Blood Culture (10/25/22 19:00) Meropenem (Merrem 500 Mg) (10/25/22 19:00) Digoxin Injection (Lanoxin Injection) (10/25/22 19:15) Ed Admission (Communication) (10/25/22 19:13) Code/Resuscitation (10/25/22 19:13) Ekg Tracing (10/25/22 19:51) Medications Given in ED Current Medications Medications Dose Ordered Sig/Tirso Route Start Time Stop Time Status Last Admin Dose Admin Aspirin 324 mg ONCE ONCE PO 10/25/22 18:30 10/25/22 18:31 DC 10/25/22 18:32 324 MG Digoxin 0.25 mg ONCE ONCE IV 10/25/22 19:15 10/25/22 19:16 DC 10/25/22 19:36 0.25 MG Diltiazem HCl 10 mg ONCE ONCE IVP 10/25/22 18:30 10/25/22 18:31 DC 10/25/22 18:25 10 MG Enoxaparin Sodium 50 mg ONCE ONCE SC 10/25/22 18:30 10/25/22 18:31 DC 10/25/22 18:26 50 MG Furosemide 40 mg ONCE ONCE IVP 10/25/22 18:30 10/25/22 18:31 DC 10/25/22 18:33 40 MG Meropenem 500 mg/ Sodium Chloride 100 ml @ 200 mls/hr ONCE ONCE IV 10/25/22 19:00 10/25/22 19:29 DC 10/25/22 19:37 200 MLS/HR Vital Signs/I&O 10/25/22 10/25/22 10/25/22 10/25/22 18:06 18:06 18:25 18:26 Temp 36.3 Pulse 166 163 166 Resp 15 B/P (MAP) 112/82 (92) 112/86 Pulse Ox 100 90 O2 Delivery OxyMask Room Air O2 Flow Rate 6.00 FiO2 100 10/25/22 19:00 O2 Delivery Nasal Cannula Capillary Refill : Blood Pressure Mean: 92 Progress Note : Progress Note BELLIGERENT, CURSING, CALLING ALL STAFF "STUPID FUCKING BITCHES" FROM ARRIVAL PT YELLING AND SCREAMING ABOUT EVERYTHING FROM TIME ARRIVAL NURSING STAFF ATTEMPTING TO PLACE AN IV, SHE STATES "THAT'S WORSE THAN BLOOD GASES" PT VERY VIGORUOSLY FIGHTING STAFF --HITTING AND KICKING STAFF, THRASHING, ETC. THIS IS PT'S BEHAVIOR EVERY TIME SHE COMES TO THE HOSPITAL. PLACED IN SOFT WRIST RESTRAINTS DUE TO THIS BEHAVIOR. WANTING PAIN PILLS FROM TIME OF ARRIVAL, BUT DOES NOT ACTUALLY COMPLAIN OF ANY SPECIFIC PAIN . PT HAS A FENTANYL PATCH ON, AND IS PRESCRIBED SCHEDULED HYDROCODONE TID. HR 160'S WITH AFIB RVR BP 112/82 PT PLACED ON OXIMASK AT 6L--O2 SATS 100% GIVEN: -ASPIRIN -LOVENOX -LASIX -CARDIZEM BOLUS AND DRIP -DIGOXIN -MEROPENEM 1950--RATE DOWN TO 90'S AND SHOWING ATRIAL FLUTTER ON MONITOR, REPEAT EKG ORDERED BP STABLE IN THE 110'S SYSTOLIC. SEPSIS LAB ORDERED AFTER RECEIVING RADIOLOGIST REPORT OF PERSISTENT RLL INFILTRATE/OPACITY SINCE JULY. PT GIVEN ANTIBIOTICS PRECAUTION NO DETERIORATION IN PT'S CONDITION DURING ER STAY HR DOWN, BP REMAINS > 100 SYSTOLIC, O2 SATS 100% ON OXIMASK AT 6L NO COUGH NO DYSPNEA AT ANY TIME NO SPECIFIC COMPLAINTS AT ANY TIME SHE EVENTUALLY CALMED AFTER WRIST RESTRAINTS PLACED, THESE WERE LATER REMOVED. EXPLAINED PT'S CONDITION TO HER, AND EXPLAINED NEED FOR ADMIT. REVIEWED PRIOR RECORDS, ER VISITS, ADMITS/H&P'S/CONSULTS/DISCHARGE SUMMARIES, TESTS/PROCEDURES ECG Initial ECG Impression Date: Oct 25, 2022 Initial ECG Impression Time: 18:49 (164) Initial ECG Rhythm: SVT Comment INTERPRETED BY ME. SUSPECT UNDERLYING AFIB/FLUTTER EKG : EKG Time: 19:53 Rate: 93 Rhythm: A Fib/Flutter Intervals QRS 104 QT/QTC 454/565 ECG Impression: Nonspecific Changes Comment ATRIAL FLUTTER WITH RATE OF 93 Diagnostic Imaging Comments CXR--PER RADIOLOGIST REPORT AT 1859 COMPARISON: 08/10/2022. FINDINGS: There is a persistent right-sided airspace opacity abutting the hilum at the right lower lobe. No pneumothorax. No pleural effusion. There is moderate edema. Heart size is normal. IMPRESSION: 1. Persistent right-sided airspace opacity. Chest CT with contrast recommended. 2. Moderate edema. Reviewed: Reviewed by Me Departure Communication (Admissions) 1901--SPOKE WITH DR. MAGALLANES, HOSPITALIST FOR [facility]. ACCEPTS PT FOR ADMIT, SHE WILL DO ADMIT ORDERS 1904--SPOKE WITH DR. KESSLER, TRANSFER AND PUMPHOUSE OPERATOR CHIEF, ORDERS NOTED Impression Primary Impression: Atrial flutter with rapid ventricular response Additional Impressions: CHF (congestive heart failure) Elevated troponin PERSISITENT RLL INFILTRATE Disposition: ADMITTED INPATIENT Condition: Stable Admissions Decision to Admit Reason: Admit from ER (General) Decision to Admit/Date: Oct 25, 2022 Time/Decision to Admit Time: 19:05 Departure-Patient Inst. Referrals: [facility] (PCP) Primary Care Physician RIVAS HEART APRN (Family) Primary Care Physician MEL CHILDRESS DO Oct 25, 2022 18:20
[2022-10-25] MEDS: dilTIAZem DRIP PRE-MIX 125 ML IV SCH (18:26)
[2022-10-25 18:29] LABS: BASOPHILS % (AUTO) 1 % (0-10); EOSINOPHILS % (AUTO) 0 % (0-10); HEMATOCRIT 37 % (35-52); HEMOGLOBIN 11.3 g/dL (11.5-16.0); LYMPHOCYTES # (AUTO) 1.5 10^3/uL (1.0-4.0); LYMPHOCYTES % (AUTO) 23 % (12-44); MEAN CORPUSCULAR HEMOGLOBIN 35 pg (25-34); MEAN CORPUSCULAR HGB CONC 30 g/dL (32-36); MEAN CORPUSCULAR VOLUME 117 fL (80-99); MEAN PLATELET VOLUME 10.2 fL (9.0-12.2); MONOCYTES # (AUTO) 0.5 10^3/uL (0.0-1.0); MONOCYTES % (AUTO) 8 % (0-12); NEUTROPHILS # (AUTO) 4.6 10^3/uL (1.8-7.8); NEUTROPHILS % (AUTO) 69 % (42-75); PLATELET COUNT 213 10^3/uL (130-400); WHITE BLOOD COUNT 6.8 10^3/uL (4.3-11.0)
[2022-10-25] MEDS ORDERED: FUROSEMIDE 40 MG/4 ML INJ (LASIX) IVP ONE (18:30)
[2022-10-25] MEDS ORDERED: ASPIRIN 81 MG CHEW (CHILDREN'S ASA) PO ONE (18:30)
[2022-10-25] MEDS ORDERED: ENOXAPARIN 60 MG/0.6 ML (LOVENOX) SYR SC ONE (18:30)
[2022-10-25 18:40] LABS: ALBUMIN 3.1 GM/DL (3.2-4.5); POTASSIUM 4.6 MMOL/L (3.6-5.0)
[2022-10-25 18:41] LABS: CALCIUM 8.6 MG/DL (8.5-10.1); INR 2.3 (0.8-1.4); PROTHROMBIN TIME PATIENT 25.4 SEC (12.2-14.7)
[2022-10-25 18:43] LABS: BILIRUBIN,URINE NEGATIVE (NEGATIVE); CLARITY,URINE CLEAR; COLOR,URINE YELLOW; GLUCOSE, URINE (UA) NEGATIVE (NEGATIVE); KETONES,URINE NEGATIVE (NEGATIVE); LEUKOCYTE ESTERASE ,URINE NEGATIVE (NEGATIVE); NITRITE,URINE NEGATIVE (NEGATIVE); PROTEIN,URINE 1+ (NEGATIVE)
[2022-10-25 18:43] LABS: TOTAL PROTEIN 5.9 GM/DL (6.4-8.2)
[2022-10-25 18:46] LABS: CREATININE SERUM 1.06 MG/DL (0.60-1.30)
[2022-10-25 18:49] LABS: MAGNESIUM 1.8 MG/DL (1.6-2.4)
[2022-10-25 18:53] LABS: WBC,URINE RARE /HPF
[2022-10-25 18:54] LABS: BACTERIA,URINE TRACE /HPF; HYALINE CASTS, URINE 0-2 /LPF
--- NOTE | 2022-10-25 18:57 | Diagnostic Imaging Report ---
EXAMINATION: Chest 1 view. HISTORY: Hypoxia and atrial fibrillation. COMPARISON: 08/10/2022. FINDINGS: There is a persistent right-sided airspace opacity abutting the hilum at the right lower lobe. No pneumothorax. No pleural effusion. There is moderate edema. Heart size is normal. IMPRESSION: 1. Persistent right-sided airspace opacity. Chest CT with contrast recommended. 2. Moderate edema. Dictated by: Dictated on workstation # [id number]
[2022-10-25 18:58] LABS: CREATINE KINASE MB 2.7 NG/ML (<6.6)
[2022-10-25] MEDS ORDERED: MEROPENEM 500 MG in NS (IVPB) 100 ML IV ONE (19:00)
[2022-10-25 19:03] LABS: ERYTHROCYTE SEDIMENTATION RATE 21 MM/HR (0-30)
[2022-10-25 19:10] LABS: TSH (THYROID ANALYZER) 1.53 UIU/ML (0.35-4.94)
[2022-10-25] MEDS ORDERED: DIGOXIN 0.25 MG/ML (LANOXIN) 2 ML AMP IV ONE (19:15)
[2022-10-25 19:31] LABS: BILIRUBIN,TOTAL 0.4 MG/DL (0.1-1.0)
[2022-10-25 20:42] VITALS: BP 112/82
[2022-10-25] MEDS ORDERED: ONDANSETRON 4 MG/2 ML (SDV) Z0FRAN IV PRN (20:45)
[2022-10-25] MEDS ORDERED: diphenhydrAMINE 25 MG TAB (BENADRYL) PO PRN (20:45)
[2022-10-25] MEDS ORDERED: dilTIAZem DRIP PRE-MIX 125 ML IV SCH (20:45)
[2022-10-25] MEDS ORDERED: NS IV 500 ML 500 ML IV PRN (20:45)
[2022-10-25] MEDS ORDERED: MILK OF MAGNESIA 400 MG/5 ML 30 ML UDC PO PRN (20:45)
[2022-10-25] MEDS ORDERED: LACTULOSE SYRUP 10GM/15ML (ENULOSE) 30ML UDC PO PRN (20:45)
[2022-10-25] MEDS ORDERED: ONDANSETRON 4 MG (ZOFRAN) ORAL DISSOLVE TAB PO PRN (20:45)
[2022-10-25] MEDS ORDERED: CALCIUM CARBONATE 500 MG (TUMS) TAB.CHEW PO PRN (20:45)
[2022-10-25] MEDS ORDERED: NALOXONE 0.4 MG/ML 1 ML (NARCAN) VIAL IV PRN (20:45)
[2022-10-25] MEDS ORDERED: BISACODYL 10 MG SUPP (DULCOLAX) PR PRN (20:45)
[2022-10-25] MEDS ORDERED: polyethylene glycoL POWDER 17 GM (MIRALAX) PACK PO PRN (20:45)
[2022-10-25] MEDS ORDERED: ANTACID SUSP 30 ML UDC (MYLANTA) PO PRN (20:45)
[2022-10-25] MEDS ORDERED: ACETAMINOPHEN 325 MG TABLET PO PRN (20:45)
[2022-10-25] MEDS: DOCUSATE SODIUM 100 MG (COLACE) CAP PO SCH (21:25)
[2022-10-25] MEDS: SENNOSIDES 8.6 MG (SENOKOT) TAB PO SCH (21:26)
--- NOTE | 2022-10-25 21:29 | Tele-ICU Consult ---
Progress Note New ICU admit, 72 yo F rapid afib on diltiazem gtt, heparin gtt. O2 oxymask 6 L with SPO2 100. Video assessment done, orders reviewed Patient awake, alert on Oxymask, not in distress HR 88-90 CXR showed atelectasis/pulm edema per report, COVID neg Lasix ordered Patient has DNR/DNI order in place per Dr. Grayson Diagnosis: Arrhythmia, acute hypoxemic respiratory failure A total of _ 12_ minutes of critical care time was devoted to this patient, including reviewing this patient's available data, including medical history, events of note and test results. This was required to treat and/or prevent further deterioration of critical care conditions ( as above ). Service provided to a patient admitted to ICU bed via interactive E-CARE system with real-time audio and video telecommunications from [facility] tele- ICU hub located in [place], [place] BENNY LANDIN MD Oct 25, 2022 21:29
[2022-10-25] MEDS: LORazepam 0.5 MG (ATIVAN) TABLET PO PRN (21:58)
[2022-10-25] MEDS: MELATONIN 3 MG TABLET PO PRN (21:58)
[2022-10-26] MEDS: LORazepam 0.5 MG (ATIVAN) TABLET PO PRN (01:56)
[2022-10-26] MEDS: DexMEDEtomidine 250 ML DRIP 250 ML IV SCH ×2 (02:19→22:17)
[2022-10-26] MEDS: dilTIAZem DRIP PRE-MIX 125 ML IV SCH (02:24)
[2022-10-26] MEDS: LORazepam INJ 2 MG/ML (ATIVAN) VIAL IVP PRN ×3 (04:14→17:15)
[2022-10-26 04:23] LABS: BASOPHILS % (AUTO) 1 % (0-10); EOSINOPHILS # (AUTO) 0.1 10^3/uL (0.0-0.3); EOSINOPHILS % (AUTO) 3 % (0-10); HEMATOCRIT 29 % (35-52); LYMPHOCYTES # (AUTO) 1.2 10^3/uL (1.0-4.0); LYMPHOCYTES % (AUTO) 29 % (12-44); MEAN CORPUSCULAR HEMOGLOBIN 35 pg (25-34); MEAN CORPUSCULAR HGB CONC 31 g/dL (32-36); MEAN CORPUSCULAR VOLUME 114 fL (80-99); MEAN PLATELET VOLUME 10.3 fL (9.0-12.2); MONOCYTES # (AUTO) 0.4 10^3/uL (0.0-1.0); MONOCYTES % (AUTO) 10 % (0-12); NEUTROPHILS # (AUTO) 2.4 10^3/uL (1.8-7.8); NEUTROPHILS % (AUTO) 57 % (42-75); PLATELET COUNT 169 10^3/uL (130-400); WHITE BLOOD COUNT 4.2 10^3/uL (4.3-11.0)
[2022-10-26 04:40] LABS: ALBUMIN 2.7 GM/DL (3.2-4.5); POTASSIUM 4.2 MMOL/L (3.6-5.0)
[2022-10-26 04:41] LABS: CALCIUM 7.8 MG/DL (8.5-10.1)
[2022-10-26 04:43] LABS: TOTAL PROTEIN 5.1 GM/DL (6.4-8.2)
[2022-10-26 04:44] LABS: BILIRUBIN,TOTAL 0.4 MG/DL (0.1-1.0)
[2022-10-26 04:46] LABS: CREATININE SERUM 1.02 MG/DL (0.60-1.30); PHOSPHORUS 4.3 MG/DL (2.3-4.7)
[2022-10-26 04:50] LABS: MAGNESIUM 1.5 MG/DL (1.6-2.4)
[2022-10-26] MEDS: POTASSIUM CL 10MEQ/50ML IVPB 50 ML IV SCH (05:02)
[2022-10-26] MEDS: MAGNESIUM 1 GM/100 ML IVPB 100 ML IV SCH ×4 (05:02→08:44)
[2022-10-26] MEDS: KCL 20 MEQ TAB (K-DUR) PO SCH (05:02)
[2022-10-26] MEDS ORDERED: FUROSEMIDE 40 MG/4 ML INJ (LASIX) IVP SCH (07:00)
[2022-10-26] MEDS: RT-ALBUTEROL/IPRATROPIUM 3 ML (DUONEB) VIAL INH SCH ×2 (07:15→21:37)
[2022-10-26] MEDS ORDERED: ASPIRIN 81 MG CHEW (CHILDREN'S ASA) PO SCH (09:00)
[2022-10-26] MEDS: SENNOSIDES 8.6 MG (SENOKOT) TAB PO SCH ×2 (09:00→22:54)
[2022-10-26] MEDS: DOCUSATE SODIUM 100 MG (COLACE) CAP PO SCH ×2 (09:00→22:54)
--- NOTE | 2022-10-26 10:13 | Tele-ICU Progress Note ---
Subjective Date Seen by a Provider: Oct 26, 2022 Time Seen by a Provider: 10:13 Subjective/Events-last exam (Tele-ICU Physician , Progress Note ) Service provided via interactive audio and video telecommunications E-CARE system to a patient admitted to ICU bed in [facility]. Patient is seen today due to persistent need of ICU care Available chart/ vitals / labs / Images reviewed Video assessment done using teleICU camera, rest of exam as per RN Discussed with RN Events overnight : Afebrile hemodynamically stable Respiratory - 3l I/O = Drips: off Pressors- no Hospital course: (10/25) 72yr F admitted for Afib RVR, CHF, Elevated Troponin, RLL Infiltrate. Patient from [place] with low O2 Sats 60's-70's since Saturday she was placed on 3L NC this morning. Also Afib RVR on monitor. 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 Discussed with RN to reach out if any questions or concerns Case and care daily discussed on multidisciplinary rounds ( RN, PharmD, Beam Sealer , Respiratory Therapy, load out worker ) A total of 25 minutes of critical care time was devoted to this patient today, required to treat and/or prevent further deterioration of critical care condition ( as above ) . I am remotely monitoring this patient from another state. I am unable to do the bedside exam, and history/physical and pertinent information is taken from other notes in the computer and bedside staff. Sepsis Event Evaluation Height, Weight, BMI Height: 5'5.00" Weight: 150lbs. oz. 68.306047mz; 22.15 BMI Method:Estimated Focused Exam Lactate Level 10/25/22 18:18: Lactic Acid Level 1.25 Time of Focused Exam: 19:50 Exam Exam Patient acknowledged, consented, and participated in this virtual visit which was conducted using real time audio/video Vital Signs Date Time Temp Pulse Resp B/P (MAP) Pulse Ox O2 Delivery O2 Flow Rate FiO2 10/26/22 08:00 93 Nasal Cannula 3.00 10/26/22 08:00 76 12 84/57 (65) 93 Nasal Cannula 3.00 10/26/22 07:31 93 Nasal Cannula 4.00 10/26/22 07:00 79 10/26/22 07:00 106 20 92/71 (76) 91 Nasal Cannula 3.00 10/26/22 06:00 106 27 87/69 (75) 97 Nasal Cannula 3.00 10/26/22 05:00 78 27 84/56 (65) 94 Nasal Cannula 3.00 10/26/22 04:00 95 Nasal Cannula 3.00 10/26/22 04:00 36.2 10/26/22 04:00 84 17 91/61 (71) 92 Nasal Cannula 3.00 10/26/22 03:00 101 25 106/79 (88) 95 Nasal Cannula 3.00 10/26/22 02:24 102 109/78 10/26/22 02:19 124 109/78 10/26/22 02:00 98 30 109/78 (88) 99 Nasal Cannula 3.00 10/26/22 01:00 88 15 108/66 (80) 98 Nasal Cannula 3.00 10/26/22 01:00 85 10/26/22 00:00 83 24 94/68 (77) 99 Nasal Cannula 3.00 10/26/22 00:00 36.6 10/25/22 23:59 97 OxyMask 3.00 10/25/22 23:06 97 OxyMask 3.00 10/25/22 23:00 Nasal Cannula 3.00 10/25/22 22:15 79 14 102/65 (77) 100 OxyMask 5.00 10/25/22 21:45 90 22 112/72 (85) 92 OxyMask 5.00 10/25/22 21:15 84 21 111/73 (86) OxyMask 5.00 10/25/22 21:00 93 13 115/81 (92) OxyMask 5.00 10/25/22 20:45 83 11 93/52 (66) OxyMask 5.00 10/25/22 20:42 36.3 166 100 10/25/22 20:30 81 11 118/58 (78) OxyMask 5.00 10/25/22 20:24 90 10/25/22 20:15 97 OxyMask 5.00 10/25/22 20:15 37.0 OxyMask 5.00 10/25/22 19:57 36.3 93 15 115/70 100 OxyMask 6.00 6.00 10/25/22 19:00 Nasal Cannula 10/25/22 18:26 166 112/86 10/25/22 18:25 163 10/25/22 18:06 36.3 166 15 112/82 (92) 90 Room Air 10/25/22 18:06 100 OxyMask 6.00 100 I & O 10/26/22 06:59 Intake Total 600 ml Output Total 1875 ml Balance -1275 ml Height & Weight Height: 5'5.00" Weight: 150lbs. oz. 68.994081ax; 22.15 BMI Method:Estimated General Appearance: No Apparent Distress, Thin, Other (PT TALKING NON-STOP, MAKING MULTIPLE DEMANDS AND COMPLAINING ABOUT EVERYTHING LITERALLY FROM THE MINUTE SHE ARRIVES--YELLING "I WANT MY PAIN PILL" ON ARRIVAL, COMPLAINING ABOUT BP CUFF, O2 SAT PROBE, IV STICKS, PILLOW, BED POSITION, ETC, LITERALLY FROM TIME OF ARRIVAL. SHE DOES NOT APPEAR TO BE IN ANY DISCOMFORT OR DISTRESS. YELLING VERY LOUDLY. SPEECH IS CLEAR. ) HEENT: Other (EDENTULOUS) Neck: JVD Respiratory: No Accessory Muscle Use, No Respiratory Distress, Rales Cardiovascular: Irregularly Irregular (NO LONGER TACHYCARDIC) Extremity: Normal Range of Motion, No Pedal Edema Neurologic/Psychiatric: Alert, No Motor/Sensory Deficits, Other (ORIENTED TO PERSON, PLACE, GROSSLY ORIENTED TO SITUATION. PT IS AT NORMAL BASELINE) Skin: Normal Color, Warm/Dry Results Lab Laboratory Tests 10/25/22 18:18 10/26/22 04:16 Assessment/Plan Assessment/Plan 1 CM RIVERA MD Oct 26, 2022 10:13
--- NOTE | 2022-10-26 10:16 | History & Physical-Hospitalist ---
DANIELLE CAPONE 10/26/22 1016: History of Present Illness HPI/Chief Complaint Ms. Soto is a 72 yo female with pmhx of HTN, multiple myeloma, Gout, Afib, CKD, thrombopcytopenia, and anemia brought in by EMS from [facility] on the day of admission 10/25 for low O2 sats in the 60-70s. In ED pt refused to answer questions and has been aggressive to nursing staff. Today patient refused ABG and CXR. Source: RN/MD, RN notes reviewed Date Seen 10/26/22 Time Seen by a Provider: 10:30 Attending Physician [facility] PCP Admitting Physician: Ruth Grayson DO Attending Physician: Ruth Grayson DO Referring Physician Date of Admission Oct 25, 2022 at 19:59 Home Medications & Allergies Home Medications Reviewed patient Home Medication Reconciliation performed by pharmacy medication reconciliations train control technician and/or nursing. Patients Allergies have been reviewed. Allergies Allergies Coded Allergies Penicillins (Verified Allergy, Severe, RASH, 03/03/17) Past Orffiof-Emhmzt-Eqtugn Hx Patient Social History Tobacco Use?: No Use of E-Cig and/or Vaping dev: No Substance use?: No Alcohol Use?: No Pt feels they are or have been: No Immunizations Up To Date Date of Influenza Vaccine: May 22, 2022 First/Initial COVID19 Vaccinat: UNKNOWN Second COVID19 Vaccination Carlos: 2020 Tetanus Booster (TDap): Unknown Current Status status: No Advance Directives: Yes Advance Directive Location: [facility] Communicates: Verbally Primary Language: Finnish Preferred Spoken Language: Finnish Is interpretation needed?: No Implanted or Applied Medical D: None Past Medical History COPD Atrial Fibrillation, High Cholesterol, Hypertension, Valvular Heart Disease CHAIN [facility]OOKER History: Menopausal Gastroesophageal Reflux Degenerate Disk Disease, Arthritis, Chronic Back Pain, Gout Hypothyroidsim Did You Recieve Any Treatments: Yes What Type of Treatment Did You: Chemotherapy MULTIPLE MYELOMA Sleep Difficulties, Anxiety, Depression Blood Disorders: Yes (MULTIPLY MYELOMA; THROMBOCYTOPENIA; ANEMIA) Family Medical History Heart Disease Review of Systems Musculoskeletal: other (generalized pain secondary to MM) All Other Systems Reviewed Negative Unless Noted: Yes Physical Exam Physical Exam Vital Signs Vital Signs - First Documented 10/25/22 18:06 Temp 36.3 Pulse 166 Resp 15 B/P (MAP) 112/82 (92) Pulse Ox 100 O2 Delivery OxyMask O2 Flow Rate 6.00 FiO2 100 Capillary Refill : Height, Weight, BMI Height: 5'5.00" Weight: 150lbs. oz. 68.146241ne; 22.15 BMI Method:Estimated General Appearance: No Apparent Distress, WD/WN HEENT: PERRL/EOMI Respiratory: Chest Non Tender, No Accessory Muscle Use, No Respiratory Distress, Rales, Rhonci Cardiovascular: Irregularly Irregular, Tachycardia Gastrointestinal: No Pulsatile Mass, Non Tender, Soft Extremity: Normal Capillary Refill, No Pedal Edema Skin: Normal Color, Warm/Dry Lymphatic: No Adenopathy Results Results/Procedures Labs Laboratory Tests 10/25/22 18:18 10/26/22 04:16 Patient resulted labs reviewed. Imaging: Reviewed Imaging Report Assessment/Plan Admission Diagnosis A fib RVR and acute hypoxemic respiratory failure Admission Status: Inpatient Order (span 2 midnights) Reason for Inpatient Admission: A fib RVR and acute hypoxemic respiratory failure Assessment and Plan Pulmonary Edema Afib RVR Acute hypoxemic respiratory failure Diltiazam gtt Heprin gtt O2 oxy mask 6L Lasix eICU appreciated Disposition: likely greater than 2 midnights pending pt status Code status: DNR RUTH GRAYSON DO 10/27/22 0650: Review of Systems Constitutional: see HPI Physical Exam Physical Exam General Appearance: No Apparent Distress, Chronically ill Respiratory: Decreased Breath Sounds, Rales, Wheezing Cardiovascular: Irregularly Irregular, Tachycardia Assessment/Plan Admission Diagnosis AF RVR COPD CHF Admission Status: Inpatient Order (span 2 midnights) Reason for Inpatient Admission: resp failure Supervisory-Addendum Brief Verification & Attestation Participated in pt care: history, MDM, physical Personally performed: exam, history, MDM, supervision of care Care discussed with: Medical Student Procedures: n/a Results interpretation: Verified all documentation Verification and Attestation of Medical Student E/M Service A medical student performed and documented this service in my presence. I reviewed and verified all information documented by the medical student and made modifications to such information, when appropriate. I personally performed the physical exam and medical decision making. Ruth Grayson, Oct 27, 2022,06:50 DANIELLE CAPONE Oct 26, 2022 10:16 RUTH GRAYSON DO Oct 27, 2022 06:50
[2022-10-26] MEDS ORDERED: ONDA4TAB11 SL (10:28)
[2022-10-26] MEDS ORDERED: LIDO700A45 TP (10:28)
[2022-10-26] MEDS ORDERED: HYDR-3820 PO ×2 (10:28)
[2022-10-26] MEDS ORDERED: ALLO100T PO (10:28)
[2022-10-26] MEDS ORDERED: ATOR40TA70 PO (10:28)
[2022-10-26] MEDS ORDERED: ALB0.5V INH (10:28)
[2022-10-26] MEDS ORDERED: OMEP20CA18 PO (10:28)
[2022-10-26] MEDS ORDERED: [UNRECOGNIZED DRUG - CODE] PO (10:28)
[2022-10-26] MEDS ORDERED: METO-333 PO (10:28)
[2022-10-26] MEDS ORDERED: CHOL10007 PO (10:28)
[2022-10-26] MEDS ORDERED: CLON1TAB PO (10:28)
[2022-10-26] MEDS ORDERED: DILT180T9 PO (10:28)
[2022-10-26] MEDS ORDERED: BENZ200C51 PO (10:28)
[2022-10-26] MEDS ORDERED: MAGN400C PO (10:28)
[2022-10-26] MEDS ORDERED: OLN5T PO (10:28)
[2022-10-26] MEDS ORDERED: PHEN26CR2 RC (10:28)
[2022-10-26] MEDS ORDERED: ACET325T38 PO (10:28)
[2022-10-26] MEDS ORDERED: LENA10CA4 PO (10:28)
[2022-10-26] MEDS ORDERED: CLON1TAB13 PO (10:28)
[2022-10-26] MEDS ORDERED: LEVO50TA6 PO (10:28)
[2022-10-26] MEDS ORDERED: DOCU100C37 PO (10:28)
[2022-10-26] MEDS ORDERED: FERR-74 PO (10:28)
[2022-10-26] MEDS ORDERED: CYAN500T8 PO (10:28)
[2022-10-26] MEDS ORDERED: FENT1PAT8 TD (10:28)
[2022-10-26] MEDS ORDERED: RIVA15TA PO (10:28)
[2022-10-26] MEDS ORDERED: NS IV 1000 ML 1,000 ML ONE (11:04)
[2022-10-26] MEDS: NS IV 1000 ML 1,000 ML IV SCH (11:15)
[2022-10-26] MEDS ORDERED: dilTIAZem120 MG (CARDIZEM CD) CAP PO NR (11:30)
[2022-10-26] MEDS ORDERED: DIGOXIN 0.25 MG (LANOXIN) TAB PO NR (11:30)
--- NOTE | 2022-10-26 12:02 | Consultation-Cardiology ---
HPI-Cardiology Cardiology Consultation: Date of Consultation 10/26/22 Time Seen by a Provider: 10:30 Date of Admission Attending Physician [place] Admitting Physician Admitting Physician: Ruth Grayson DO Attending Physician: Ruth Grayson DO Consulting Physician DIANNE KESSLER MD, MA, FACP, FACC, FSCAI, CCDS HPI: Chief Complaint: Reason for Card consult: A Fib with RVR 72 yo woman, [facility] [place] [facility] because of low oxygen sats. She herself is not stating any specific symptoms other than chronic, gen body pains. Does not report cp or palp or syncope or shortness of breath or swelling. Does not report n/v/d Review of Systems-Cardiology Review of Systems Constitutional: malaise; No weight loss, No weight gain Eyes: No vision change Ears/Nose/Throat: No ear discharge, No nasal drainage, No recent hearing loss Respiratory: As described under HPI Cardiovascular: As described under HPI Gastrointestinal: As described under HPI Genitourinary: No dysuria, No hematuria Musculoskeletal: back pain (chronic), joint pain (chronic) Skin: No rash, No ulcerations Psychiatric/Neurological: No seizure, No focal weakness, No syncope Hematologic: No bleeding abnormalities All Other Systems Reviewed Negative Unless Noted: Yes KVQ-Qdbqax-Bhlpwp Hx Patient Social History Have you traveled recently?: No Alcohol Use?: No Pt feels they are or have been: No Immunizations Up To Date Date of Influenza Vaccine: May 22, 2022 Past Medical History PMH As described under Assessment. Family Medical History Family Medical History: Does not report fam h/o early CAD Allergies and Home Medications Allergies Coded Allergies: Penicillins (Verified Allergy, Severe, RASH, 03/03/17) Patient Home Medication List Home Medication List Reviewed: Yes Acetaminophen (Tylenol) 325 Mg Tablet, 325 MG PO Q4 -6H PRN for PAIN-MILD (1-4), (Reported) Entered as Reported by: MOLLY JOHNSON on 10/26/22 1028 Last Action: Reviewed Albuterol Sulfate (Albuterol Sulfate) 2.5 Mg/0.5 Ml Vial.neb, 2.5 MG INH Q6H PRN for SHORTNESS OF BREATH, (Reported) Entered as Reported by: MOLLY JOHNSON on 10/26/22 1028 Last Action: Reviewed Allopurinol (Allopurinol) 100 Mg Tablet, 100 MG PO HS, (Reported) Entered as Reported by: MOLLY JOHNSON on 10/26/221027 Last Action: Reviewed Atorvastatin Calcium (Atorvastatin Calcium) 40 Mg Tablet, 40 MG PO DAILY, (Reported) Entered as Reported by: MOLLY JOHNSON on 10/26/221027 Last Action: Reviewed Benzonatate (Benzonatate) 200 Mg Capsule, 200 MG PO TID, (Reported) Entered as Reported by: MOLLY JOHNSON on 10/26/221027 Last Action: Reviewed Cholecalciferol (Vitamin D3) (Vitamin D3) 25 Mcg (1000 Unit) Capsule, 25 MCG PO DAILY, (Reported) Entered as Reported by: MOLLY JOHNSON on 10/26/221027 Last Action: Reviewed Clonazepam (Clonazepam) 1 Mg Tablet, 1 MG PO BID, (Reported) Entered as Reported by: MOLLY JOHNSON on 10/26/221027 Last Action: Reviewed Clonazepam (Klonopin) 1 Mg Tablet, 1 MG PO DAILY PRN for ANXIETY, (Reported) Entered as Reported by: MOLLY JOHNSON on 10/26/221027 Last Action: Reviewed Cyanocobalamin (Vitamin B-12) (Vitamin B-12) 500 Mcg Tablet, 500 MCG PO DAILY, (Reported) Entered as Reported by: MOLLY JOHNSON on 10/26/221027 Last Action: Reviewed Diltiazem HCl (Diltiazem ER) 180 Mg Tab.er.24h, 180 MG PO DAILY, (Reported) Entered as Reported by: MOLLY JOHNSON on 10/26/221027 Last Action: Reviewed Docusate Sodium (Docusate Sodium) 100 Mg Capsule, 100 MG PO Q12H, (Reported) Entered as Reported by: MOLLY JOHNSON on 10/26/221027 Last Action: Reviewed Fentanyl (Fentanyl Patch 25 MCG) 25 Mcg/Hour Patch.td72, 25 MCG TD Q72H, (Reported) Entered as Reported by: MOLLY JOHNSON on 10/26/221027 Last Action: Reviewed Ferrous Sulfate (Ferrous Sulfate) 325 Mg (65 Mg Iron) Tablet, 325 MG PO DAILY, (Reported) Entered as Reported by: MOLLY JOHNSON on 10/26/221027 Last Action: Reviewed Guaifenesin/Dextromethorphan (G-Zyncof 20-400 mg/5 ml Liquid) 400 Mg-20 Mg/5 Ml Liquid, 20 ML PO BID PRN for COUGH, (Reported) Entered as Reported by: MOLLY JOHNSON on 10/26/221027 Last Action: Reviewed Hydrocodone/Acetaminophen (Hydrocodone-Acetamin 10-325 mg) 10 Mg-325 Mg Tablet, 1 EACH PO 0600,1400,2200, (Reported) Entered as Reported by: MOLLY JOHNSON on 10/26/221027 Last Action: Reviewed Hydrocodone/Acetaminophen (Hydrocodone-Acetamin 10-325 mg) 10 Mg-325 Mg Tablet, 1 EACH PO DAILY PRN for PAIN-MODERATE (5-7), (Reported) Entered as Reported by: MOLLY JOHNSON on 10/26/221027 Last Action: Reviewed Lenalidomide (Lenalidomide) 10 Mg Capsule, 10 MG PO HS, (Reported) Entered as Reported by: MOLLY JOHNSON on 10/26/221027 Last Action: Reviewed Levothyroxine Sodium (Levothyroxine Sodium) 50 Mcg Tablet, 50 MCG PO DAILY, (Reported) Entered as Reported by: MOLLY JOHNSON on 10/26/221027 Last Action: Reviewed Lidocaine (Lidocaine 5% Patch) 5 % Adh..patch, 1 EACH TP DAILY PRN for PAIN-BREAKTHROUGH, (Reported) Entered as Reported by: MOLLY JOHNSON on 10/26/221027 Last Action: Reviewed Magnesium Oxide (Magnesium) 400 Mg Magnesium Capsule, 400 MG PO MO,WE,FR, (Reported) Entered as Reported by: MOLLY JOHNSON on 10/26/221027 Last Action: Reviewed Metoprolol Tartrate (Metoprolol Tartrate) 25 Mg Tablet, 25 MG PO BID, (Reported) Entered as Reported by: MOLLY JOHNSON on 10/26/221027 Last Action: Reviewed Olanzapine (Olanzapine) 5 Mg Tablet, 5 MG PO Q12H, (Reported) Entered as Reported by: MOLLY JOHNSON on 10/26/221027 Last Action: Reviewed Omeprazole (Omeprazole) 20 Mg Capsule.dr, 20 MG PO DAILY, (Reported) Entered as Reported by: MOLLY JOHNSON on 10/26/221027 Last Action: Reviewed Ondansetron (Ondansetron Odt) 4 Mg Tab.rapdis, 4 MG SL Q8H PRN for NAUSEA/VOMITING-1ST LINE, (Reported) Entered as Reported by: MOLLY JOHNSON on 10/26/221027 Last Action: Reviewed Phenyleph/Pramoxin/Glycr/W.pet (Preparation H Cream) 0.25 %-1 % Cream..g., 1 APPLIC RC QID PRN for HEMMORRHOID DISCOMFORT, (Reported) Entered as Reported by: MOLLY JOHNSON on 10/26/221027 Last Action: Reviewed Rivaroxaban (Xarelto) 15 Mg Tablet, 15 MG PO DAILY, (Reported) Entered as Reported by: MOLLY JOHNSON on 10/26/22 102 Last Action: Reviewed Discontinued Medications ALPRAZolam (Xanax Tablet) 0.25 Mg Tab, 0.25 MG PO Q8H PRN for ANXIETY Discontinued Reason: No Longer Taking Prescribed by: DAMARIS STEPHENS on 07/25/221206 Last Action: Discontinued Allopurinol (Allopurinol) 100 Mg Tablet, 100 MG PO HS Discontinued Reason: No Longer Taking Prescribed by: DAMARIS STEPHENS on 07/25/221204 Last Action: Discontinued Atorvastatin Calcium (Atorvastatin Calcium) 40 Mg Tablet, 40 MG PO DAILY Discontinued Reason: No Longer Taking Prescribed by: DAMARIS STEPHENS on 07/25/221204 Last Action: Discontinued Buspirone HCl (Buspirone HCl) 10 Mg Tablet, 5 MG PO TID Discontinued Reason: No Longer Taking Prescribed by: DAMARIS STEPHENS on 07/25/221204 Last Action: Discontinued Calcium Carbonate (Calcium) 500 Mg Calcium (1250 Mg) Tablet, 500 MG PO BID Discontinued Reason: No Longer Taking Prescribed by: DAMARIS STEPHENS on 07/25/221204 Last Action: Discontinued Calcium Polycarbophil (Fiber Tabs) 625 Mg Tablet, 625 MG PO TID Discontinued Reason: No Longer Taking Prescribed by: DAMARIS STEPHENS on 07/25/221204 Last Action: Discontinued Cholecalciferol (Vitamin D3) (Vitamin D3) 25 Mcg (1000 Unit) Capsule, 100 MCG PO 1200 Discontinued Reason: No Longer Taking Prescribed by: DAMARIS STEPHENS on 07/25/221204 Last Action: Discontinued Cyanocobalamin (Vitamin B-12) (Vitamin B-12) 500 Mcg Tablet, 500 MCG PO HS Discontinued Reason: No Longer Taking Prescribed by: DAMARIS STEPHENS on 07/25/221204 Last Action: Discontinued Diltiazem HCl (Cardizem Cd) 180 Mg Cap.er.24h, 180 MG PO DAILY Discontinued Reason: No Longer Taking Prescribed by: DAMARIS STEPHENS on 07/25/221204 Last Action: Discontinued Doxycycline Hyclate (Doxycycline Hyclate) 100 Mg Tablet, 100 MG PO BID Discontinued Reason: No Longer Taking Prescribed by: DAMARIS STEPHENS on 07/25/221204 Last Action: Discontinued Fentanyl (Fentanyl Patch 25 MCG) 25 Mcg/Hour Patch.td72, 25 MCG TD Q72H Discontinued Reason: No Longer Taking Prescribed by: DAMARIS STEPHENS on 07/25/221206 Last Action: Discontinued Ferrous Sulfate (Ferrous Sulfate) 325 Mg (65 Mg Iron) Tablet, 325 MG PO DAILY Discontinued Reason: No Longer Taking Prescribed by: DAMARIS STEPHENS on 07/25/221204 Last Action: Discontinued Hydrocodone/Acetaminophen (Hydrocodone-Acetamin 10-325 mg) 10 Mg-325 Mg Tablet, 10-325 MG PO TID PRN for PAIN-MODERATE (5-7) Discontinued Reason: No Longer Taking Prescribed by: DAMARIS STEPHENS on 07/25/221206 Last Action: Discontinued Lenalidomide (Revlimid) 10 Mg Capsule, 10 MG PO HS Discontinued Reason: No Longer Taking Prescribed by: DAMARIS STEPHENS on 07/25/221204 Last Action: Discontinued Levothyroxine Sodium (Euthyrox) 50 Mcg Tablet, 50 MG PO DAILY Discontinued Reason: No Longer Taking Prescribed by: DAMARIS STEPHENS on 07/25/221204 Last Action: Discontinued Lidocaine (Lidocaine 5% Patch) 5 % Adh..patch, 1 PATCH TD DAILY PRN for PAIN- BREAKTHROUGH Discontinued Reason: No Longer Taking Prescribed by: DAMARIS STEPHENS on 07/25/221204 Last Action: Discontinued Magnesium Oxide (Magnesium) 400 Mg Magnesium Tablet, 400 MG PO 3X WEEKLY Discontinued Reason: No Longer Taking Prescribed by: DAMARIS STEPHENS on 07/25/221204 Last Action: Discontinued Metoprolol Tartrate (Metoprolol Tartrate) 25 Mg Tablet, 25 MG PO BID Discontinued Reason: No Longer Taking Prescribed by: DAMARIS STEPHENS on 07/25/221204 Last Action: Discontinued Omeprazole (Omeprazole) 20 Mg Capsule.dr, 20 MG PO DAILY Discontinued Reason: No Longer Taking Prescribed by: DAMARIS STEPHENS on 07/25/221204 Last Action: Discontinued Rivaroxaban (Xarelto Tablet) 20 Mg Tablet, 20 MG PO HS Discontinued Reason: No Longer Taking Prescribed by: DAMARIS STEPHENS on 07/25/221204 Last Action: Discontinued Trazodone HCl (Trazodone HCl) 100 Mg Tablet, 100 MG PO HS Discontinued Reason: No Longer Taking Prescribed by: DAMARIS STEPHENS on 07/25/221204 Last Action: Discontinued Physical Exam-Cardiology Physical Exam Vital Signs/I&O 10/25/22 10/26/22 10/26/22 10/26/22 23:59 00:00 00:00 01:00 Temp 36.6 Pulse 83 85 Resp 24 B/P (MAP) 94/68 (77) Pulse Ox 97 99 O2 Delivery OxyMask Nasal Cannula O2 Flow Rate 3.00 3.00 10/26/22 10/26/22 10/26/22 10/26/22 01:00 02:00 02:19 02:24 Pulse 88 98 124 102 Resp 15 30 B/P (MAP) 108/66 (80) 109/78 (88) 109/78 109/78 Pulse Ox 98 99 O2 Delivery Nasal Cannula Nasal Cannula O2 Flow Rate 3.00 3.00 10/26/22 10/26/22 10/26/22 10/26/22 03:00 04:00 04:00 04:00 Temp 36.2 Pulse 101 84 Resp 25 17 B/P (MAP) 106/79 (88) 91/61 (71) Pulse Ox 95 92 95 O2 Delivery Nasal Cannula Nasal Cannula Nasal Cannula O2 Flow Rate 3.00 3.00 3.00 10/26/22 10/26/22 10/26/22 10/26/22 05:00 06:00 07:00 07:00 Pulse 78 106 106 79 Resp 27 27 20 B/P (MAP) 84/56 (65) 87/69 (75) 92/71 (76) Pulse Ox 94 97 91 O2 Delivery Nasal Cannula Nasal Cannula Nasal Cannula O2 Flow Rate 3.00 3.00 3.00 10/26/22 10/26/22 10/26/22 10/26/22 07:31 08:00 08:00 09:00 Pulse 76 105 Resp 12 18 B/P (MAP) 84/57 (65) 92/59 (68) Pulse Ox 93 93 93 92 O2 Delivery Nasal Cannula Nasal Cannula Nasal Cannula Nasal Cannula O2 Flow Rate 4.00 3.00 3.00 3.00 10/26/22 10/26/22 10:00 11:00 Pulse 112 114 Resp 27 15 B/P (MAP) 95/62 (73) 77/63 (68) Pulse Ox 97 O2 Delivery Nasal Cannula Nasal Cannula O2 Flow Rate 3.00 3.00 10/25/22 23:59 Intake Total 100 ml Output Total 1350 ml Balance -1250 ml Capillary Refill : Constitutional: well-developed, other (frail and thin-appearing, mildly confused) HEENT: PERRL, other (edentulous jaws), EOMI Neck: carotid pulses are 2 + bilaterally, with good upstrokes Respiratory: No accessory muscle use; chest expansion is symmetric, other (fair to good, bilateral air entry; bs diminished at the bases) Cardiovascular: irregularly irregular, S1 and S2, systolic murmur (soft DOMONIQUE at card base) Gastrointestinal: No tender; soft; No guarding, No rebound; audible bowel sounds Extremities: No clubbing, No cyanosis, No significant edema Neurologic/Psychiatric: other (mildly confused, talkative but unfocused, moves all limbs) Skin: normal color, warm/dry Data Review Labs Laboratory Tests 10/25/22 18:18: White Blood Count 6.8, Red Blood Count 3.21L, Hemoglobin 11.3L, Hematocrit 37, Mean Corpuscular Volume 117H, Mean Corpuscular Hemoglobin 35H, Mean Corpuscular Hemoglobin Concent 30L, Red Cell Distribution Width 16.6H, Platelet Count 213, Mean Platelet Volume 10.2, Immature Granulocyte % (Auto) 0, Neutrophils (%) (Auto) 69, Lymphocytes (%) (Auto) 23, Monocytes (%) (Auto) 8, Eosinophils (%) (Auto) 0, Basophils (%) (Auto) 1, Neutrophils # (Auto) 4.6, Lymphocytes # (Auto) 1.5, Monocytes # (Auto) 0.5, Eosinophils # (Auto) 0.0, Basophils # (Auto) 0.0, Immature Granulocyte # (Auto) 0.0, Erythrocyte Sedimentation Rate 21, Prothrombin Time 25.4H, INR Comment 2.3H, Activated Partial Thromboplast Time 41H, Sodium Level 142, Potassium Level 4.6, Chloride Level 106, Carbon Dioxide Level 26, Anion Gap 10, Blood Urea Nitrogen 24H, Creatinine 1.06, Estimat Glomerular Filtration Rate 55, BUN/Creatinine Ratio 23, Glucose Level 140H, Lactic Acid Level 1.25, Calcium Level 8.6, Corrected Calcium 9.3, Magnesium Level 1.8, Total Bilirubin 0.4, Aspartate Amino Transf (AST/SGOT) 12, Alanine Aminotransferase (ALT/SGPT) 20, Alkaline Phosphatase 130, Total Creatine Kinase 57, Creatine Kinase MB 2.7, Myoglobin 64.6, Troponin I 0.091H, C-Reactive Protein High Sensitivity 2.22H, B-Type Natriuretic Peptide 957.3H, Total Protein 5.9L, Albumin 3.1L, Amylase Level 13L, Lipase 6L, TSH [place] Testing 1.53 10/25/22 18:23: Influenza Type A (RT-PCR) Not Detected, Influenza Type B (RT-PCR) Not Detected, SARS-CoV-2 RNA (RT-PCR) Not Detected 10/25/22 18:36: Urine Color YELLOW, Urine Clarity CLEAR, Urine pH 6.0, Urine Specific [place] 1.025H, Urine Protein 1+H, Urine Glucose (UA) NEGATIVE, Urine Ketones NEGATIVE, Urine Nitrite NEGATIVE, Urine Bilirubin NEGATIVE, Urine Urobilinogen 1.0, Urine Leukocyte Esterase NEGATIVE, Urine RBC (Auto) NEGATIVE, Urine RBC 2-5H, Urine WBC RARE, Urine Squamous Epithelial Cells NONE, Urine Crystals NONE, Urine Bacteria TRACE, Urine Casts PRESENT, Urine Hyaline Casts 0-2H, Urine Mucus NEGATIVE, Urine Culture Indicated NO 10/26/22 04:16: White Blood Count 4.2L, Red Blood Count 2.57L, Hemoglobin 9.0#L, Hematocrit 29L, Mean Corpuscular Volume 114H, Mean Corpuscular Hemoglobin 35H, Mean Corpuscular Hemoglobin Concent 31L, Red Cell Distribution Width 16.3H, Platelet Count 169, Mean Platelet Volume 10.3, Immature Granulocyte % (Auto) 0, Neutrophils (%) (Auto) 57, Lymphocytes (%) (Auto) 29, Monocytes (%) (Auto) 10, Eosinophils (%) (Auto) 3, Basophils (%) (Auto) 1, Neutrophils # (Auto) 2.4, Lymphocytes # (Auto) 1.2, Monocytes # (Auto) 0.4, Eosinophils # (Auto) 0.1, Basophils # (Auto) 0.0, Immature Granulocyte # (Auto) 0.0, Sodium Level 142, Potassium Level 4.2, Chloride Level 106, Carbon Dioxide Level 26, Anion Gap 10, Blood Urea Nitrogen 24H, Creatinine 1.02, Estimat Glomerular Filtration Rate 58, BUN/Creatinine Ratio 24, Glucose Level 111H, Calcium Level 7.8L, Corrected Calcium 8.8, Magnesium Level 1.5L, Total Bilirubin 0.4, Aspartate Amino Transf (AST/SGOT) 10, Alanine Aminotransferase (ALT/SGPT) 15, Alkaline Phosphatase 104, Total Protein 5.1L, Albumin 2.7L, Phosphorus Level 4.3 Laboratory Tests 10/25/22 18:18 10/26/22 04:16 A/P-Cardiology Assessment/Admission Diagnosis PAF with RVR - h/o ILR implanted on 03-27-22 that has shown PAF with RVR but no bradycardia - currently on Xarelto for stroke prophylaxis - ? ac diastolic CHF due to PAF with RVR - Echo on 05/31/22 (Dr Sterling): LVEF 60-65%, grade 1 diastolic dysfunction, mod MS, AoV sclerosis w/o stenosis, PASP approx 40 mmHg R lung consolidation/opacity managed by her attending Dr Grayson Chronically low bp Multiple myeloma and chronic anemia - Reports this is followed by her Hemo/Onc, Dr Bravo in [place], [place] Chronically low bp Chronic tobacco use H/o hypertension TSH normal on 03/25/22 Discussion and Recomendations * Dilt and dig for vent rate control * Xarelto for stoke prophylaxis. Change dose to 15 mg due to significant anemia for which chronic occult GI bleed has not been excluded * We recommend w/u for anemia (Dr Grayson managing) * We recommend w/u for R lung opacity (Dr Grayson managing) * Does not appear to be in significant clinical heart failure; LVEF is normal; initiate iv fluids in effort to improve bp * Monitor labs DIANNE KESSLER MD FACP FAC CCDS Oct 26, 2022 12:02
[2022-10-26] MEDS ORDERED: NON-FORMULARY MEDICATION 1 EA EA (Magnesium Oxide (Magnesium) 400 MG) PO SCH (13:15)
[2022-10-26] MEDS ORDERED: NON-FORMULARY MEDICATION 1 EA EA (Olanzapine 5 MG) PO SCH (13:15)
[2022-10-26] MEDS ORDERED: [UNRECOGNIZED DRUG - OTHER] RC PRN (13:15)
[2022-10-26] MEDS ORDERED: DOCUSATE SODIUM 100 MG (COLACE) CAP PO SCH (13:15)
[2022-10-26] MEDS ORDERED: DEXTROMETHORPHAN PO PRN (13:15)
[2022-10-26] MEDS ORDERED: PHENYLEPHRINE RC PRN (13:15)
[2022-10-26] MEDS ORDERED: PRAMOXINE RC PRN (13:15)
[2022-10-26] MEDS ORDERED: GLYCERIN RC PRN (13:15)
[2022-10-26] MEDS ORDERED: GUAIFENESIN PO PRN (13:15)
[2022-10-26] MEDS ORDERED: clonazePAM 1 MG (KlonoPIN) TAB PO PRN (13:15)
[2022-10-26] MEDS ORDERED: LIDOCAINE 4% (SALONPAS) PATCH TP PRN (13:15)
[2022-10-26] MEDS ORDERED: ACETAMINOPHEN 325 MG TABLET PO PRN (13:15)
[2022-10-26] MEDS ORDERED: ONDANSETRON 4 MG (ZOFRAN) ORAL DISSOLVE TAB SL PRN (13:15)
[2022-10-26] MEDS ORDERED: [UNRECOGNIZED DRUG - OTHER] PO PRN (13:15)
[2022-10-26] MEDS ORDERED: PETROLATUM RC PRN (13:15)
[2022-10-26] MEDS ORDERED: guaiFENesin/DM (ROBITUSSIN DM) 10 ML UDC PO PRN (13:30)
[2022-10-26] MEDS ORDERED: LIDOCAINE PATCH REMOVAL TP PRN (13:30)
[2022-10-26] MEDS ORDERED: PREPARATION H OINTMENT 57 GR TUBE PR PRN (13:45)
[2022-10-26] MEDS ORDERED: BENZONATATE 100 MG (TESSALON) CAPSULE PO PRN (13:45)
[2022-10-26] MEDS: RIVAROXABAN 15 MG TABLET (XARELTO) PO SCH (15:54)
[2022-10-26] MEDS: MAGNESIUM OXIDE (MAG-OX)400 MG TAB PO SCH (15:55)
[2022-10-26] MEDS ORDERED: RIVAROXABAN 20 MG TABLET (XARELTO) PO SCH (17:00)
[2022-10-26] MEDS ORDERED: HALOPERIDOL 5 MG/ML (HALDOL) VIAL IV ONE (17:00)
[2022-10-26] MEDS ORDERED: HALOPERIDOL 5 MG/ML (HALDOL) VIAL ONE (17:02)
[2022-10-26] MEDS ORDERED: NON-FORMULARY MEDICATION 1 EA EA (Benzonatate 200 MG) PO SCH (21:00)
[2022-10-26] MEDS ORDERED: LENALIDOMIDE 10 MG PO SCH (21:00)
[2022-10-26] MEDS: meTOprolol TARTRATE 25 MG (LOPRESSOR) TABLET PO SCH (22:51)
[2022-10-26] MEDS: clonazePAM 1 MG (KlonoPIN) TAB PO SCH (22:54)
[2022-10-26] MEDS: ALLOPURINOL 100 MG (ZYLOPRIM) TAB PO SCH (22:54)
[2022-10-26] MEDS: OLANZapine 5 MG ODT (ZyPREXA ZYDIS) PO SCH (22:55)
[2022-10-27] MEDS: NS IV 1000 ML 1,000 ML IV SCH (03:15)
[2022-10-27 03:48] LABS: BASOPHILS % (AUTO) 1 % (0-10); EOSINOPHILS # (AUTO) 0.2 10^3/uL (0.0-0.3); EOSINOPHILS % (AUTO) 6 % (0-10); HEMATOCRIT 31 % (35-52); HEMOGLOBIN 9.8 g/dL (11.5-16.0); LYMPHOCYTES # (AUTO) 1.2 10^3/uL (1.0-4.0); LYMPHOCYTES % (AUTO) 34 % (12-44); MEAN CORPUSCULAR HEMOGLOBIN 35 pg (25-34); MEAN CORPUSCULAR HGB CONC 31 g/dL (32-36); MEAN CORPUSCULAR VOLUME 112 fL (80-99); MEAN PLATELET VOLUME 10.4 fL (9.0-12.2); MONOCYTES # (AUTO) 0.3 10^3/uL (0.0-1.0); MONOCYTES % (AUTO) 10 % (0-12); NEUTROPHILS # (AUTO) 1.7 10^3/uL (1.8-7.8); NEUTROPHILS % (AUTO) 50 % (42-75); PLATELET COUNT 138 10^3/uL (130-400); WHITE BLOOD COUNT 3.5 10^3/uL (4.3-11.0)
[2022-10-27 04:16] LABS: ALBUMIN 2.4 GM/DL (3.2-4.5); BILIRUBIN,TOTAL 0.4 MG/DL (0.1-1.0); CALCIUM 7.9 MG/DL (8.5-10.1); CREATININE SERUM 0.76 MG/DL (0.60-1.30); MAGNESIUM 1.8 MG/DL (1.6-2.4); PHOSPHORUS 4.5 MG/DL (2.3-4.7); POTASSIUM 4.2 MMOL/L (3.6-5.0)
[2022-10-27] MEDS: POTASSIUM CL 10MEQ/50ML IVPB 50 ML IV SCH (06:41)
[2022-10-27] MEDS: MAGNESIUM 1 GM/100 ML IVPB 100 ML IV SCH ×3 (06:41→08:16)
[2022-10-27] MEDS: LEVOTHYROXINE 50 MCG (LEVOTHROID) TAB PO SCH (06:41)
[2022-10-27] MEDS: KCL 20 MEQ TAB (K-DUR) PO SCH (06:41)
--- NOTE | 2022-10-27 07:22 | Progress Note - Hospitalist ---
Subjective HPI/CC On Admission Date Seen by Provider: Oct 27, 2022 Time Seen by Provider: 11:00 Ms. Soto is a 72 yo female with pmhx of HTN, multiple myeloma, Gout, Afib, CKD, thrombopcytopenia, and anemia brought in by EMS from [facility] on the day of admission 10/25 for low O2 sats in the 60-70s. In ED pt refused to answer questions and has been aggressive to nursing staff. Today patient refused ABG and CXR. Subjective/Events-last exam Converted to NSR Moving down to 4th floor Lives at [facility] No issues Review of Systems General: Fatigue, Malaise Focused Exam Lactate Level 10/25/22 18:18: Lactic Acid Level 1.25 Time of Focused Exam: 19:50 Objective Exam Vital Signs Vital Signs Date Time Temp Pulse Resp B/P (MAP) Pulse Ox O2 Delivery O2 Flow Rate FiO2 10/27/22 20:50 Room Air 2.00 10/27/22 19:57 90 30 138/73 (94) 95 10/27/22 19:16 37.6 10/25/22 18:06 100 Capillary Refill : General Appearance: No Apparent Distress, WD/WN, Chronically ill Respiratory: Lungs Clear, Normal Breath Sounds Cardiovascular: Regular Rate, Rhythm Neurologic/Psychiatric: Alert, Oriented x3, Depressed Affect Results/Procedures Lab Laboratory Tests 10/27/22 03:26 Patient resulted labs reviewed. Imaging: Reviewed Imaging Report Assessment/Plan Assessment and Plan Assess & Plan/Chief Complaint Pulmonary Edema Afib RVR Acute hypoxemic respiratory failure MM Dementia Chronic debility Plan: Move to 4th floor Cardiology appreciated YANA MAGALLANES DO Oct 27, 2022 07:22
--- NOTE | 2022-10-27 07:50 | Diagnostic Imaging Report ---
EXAM: CHEST 1 VIEW, AP/PA ONLY INDICATION: Congestive heart failure. Atrial fibrillation. COMPARISON: 10/25/2022. FINDINGS: Normal heart size. Bilateral pleural effusions. Mild prominence of the central pulmonary vascularity. No pneumothorax. Implanted loop recorder. Surgical clips left upper quadrant. Mitral annular calcifications. IMPRESSION: Increasing layering pleural effusions. Stable prominence of the central pulmonary vascularity. Dictated by: Dictated on workstation # [id number]
[2022-10-27] MEDS: fentaNYL PATCH 25 MCG (DURAGESIC) TD SCH (08:14)
[2022-10-27] MEDS: RT-ALBUTEROL/IPRATROPIUM 3 ML (DUONEB) VIAL INH SCH ×2 (08:15→21:37)
--- NOTE | 2022-10-27 08:26 | Cardiology Progress Note ---
Subjective Date Seen by Provider: Oct 27, 2022 Time Seen by Provider: 08:21 Subjective/Events-last exam Patient is sleeping, currently on Precedex Converted to sinus rhythm overnight, currently bradycardic, blood pressure is stable Review of Systems General: Other (Unable to provide review of system) Focused Exam Lactate Level 10/25/22 18:18: Lactic Acid Level 1.25 Time of Focused Exam: 19:50 Objective-Cardiology Exam Last Set of Vital Signs Vital Signs 10/25/22 10/27/22 10/27/22 10/27/22 10/27/22 10/27/22 18:06 06:00 06:51 07:00 07:59 08:00 Temp 36.2 Pulse 45 Resp 17 B/P (MAP) 130/77 Pulse Ox 100 O2 Delivery Nasal Cannula O2 Flow Rate 2.00 FiO2 100 I&O Intake and Output 10/27/22 00:00 Intake Total 1350 ml Output Total 2350 ml Balance -1000 ml Intake Oral 1000 ml IV Total 350 ml Output Urine Total 2350 ml General: No Acute Distress, Other (Sedated) HEENT: Atraumatic, PERRLA Neck: Supple Lungs: Clear to Auscultation, Normal Air Movement Heart: Regular Rate, Normal S1, Normal S2, Other (Systolic murmur at the left sternal border) Abdomen: Normal Bowel Sounds Extremities: No Clubbing, No Cyanosis Skin: No Rashes Neuro: Other (Sedated) Psych/Mental Status: Other (Sedated) Results Lab Laboratory Tests 10/27/22 03:26 A/P-Cardiology Admission Diagnosis Paroxysmal atrial fibrillation Type II myocardial infarction Change in mental status Hypotension Assessment/Plan Acute change in mental status, confusion and agitation Probably secondary to hypoxemia Currently sedated on Precedex. Paroxysmal atrial fibrillation with rapid ventricular response Known to have borderline hypotension Converted to sinus rhythm on October 27, 2022 Maintained on Xarelto. Mild elevation in troponin, type II myocardial infarction, probably secondary to hypotension and tachycardia. Conservative management is recommended. 2D echo was done in May 2022 with ejection fraction 60 to 65%, grade 1 diastolic dysfunction, moderate mitral stenosis, aortic valve sclerosis, PA pressure 40 mmHg Hypotension, especially while in atrial fibrillation Currently blood pressure is stable History of multiple myeloma with chronic anemia, Continue to monitor H&H Chronic tobaccoism Hypothyroidism, maintained on levothyroxine, followed by primary care physician RAMIRO MONTERROSO MD Oct 27, 2022 08:25
[2022-10-27] MEDS ORDERED: OMEPRAZOLE 20 MG (PriLOSEC) CAP NON-FORMULARY PO SCH (09:00)
[2022-10-27] MEDS ORDERED: RIVAROXABAN 15 MG TABLET (XARELTO) PO SCH (09:00)
[2022-10-27] MEDS ORDERED: NON-FORMULARY MEDICATION 1 EA EA (Cholecalciferol (Vitamin D3) (Vitamin D3) 25 MCG) PO SCH (09:00)
[2022-10-27] MEDS ORDERED: NON-FORMULARY MEDICATION 1 EA EA (Cyanocobalamin (Vitamin B-12) (Vitamin B-12) 500 MCG) PO SCH (09:00)
--- NOTE | 2022-10-27 09:38 | Tele-ICU Progress Note ---
Progress Note 72 y/o now DNr admitted with PNA and sepsis Has hx of a fib on xarelto currently awaiting an ECHOcardiogram but otherwise hemodynamicallu normal PE: sleeping comfortably in bed HR 64 irregular O2 sat 100% BP: 112/65 IMP: PNA, sepsis improved PLAN: continue treatment for PNA await ECHO comfort care, DNR I am remotely monitoring this patient from another state. I am unable to do the bedside exam, and history/physical and pertinent information is taken from other notes in the computer and bedside staff. . Time spent in eval: 15 minutes Focused Exam Lactate Level 10/25/22 18:18: Lactic Acid Level 1.25 Height, Weight, BMI Height: 5'5.00" Weight: 150lbs. oz. 68.450604fi; 22.15 BMI Method:Estimated Time of Focused Exam: 19:50 Labs Laboratory Tests 10/27/22 03:26 Results Results/Procedures Labs Laboratory Tests 10/25/22 18:18 10/26/22 04:16 10/27/22 03:26 Patient resulted labs reviewed. Imaging: Reviewed Imaging Report Results Labs Labs Laboratory Tests 10/27/22 03:26: White Blood Count 3.5L, Red Blood Count 2.80L, Hemoglobin 9.8L, Hematocrit 31L, Mean Corpuscular Volume 112H, Mean Corpuscular Hemoglobin 35H, Mean Corpuscular Hemoglobin Concent 31L, Red Cell Distribution Width 15.7H, Platelet Count 138, Mean Platelet Volume 10.4, Immature Granulocyte % (Auto) 0, Neutrophils (%) (Auto) 50, Lymphocytes (%) (Auto) 34, Monocytes (%) (Auto) 10, Eosinophils (%) (Auto) 6, Basophils (%) (Auto) 1, Neutrophils # (Auto) 1.7L, Lymphocytes # (Auto) 1.2, Monocytes # (Auto) 0.3, Eosinophils # (Auto) 0.2, Basophils # (Auto) 0.0, Immature Granulocyte # (Auto) 0.0, Sodium Level 144, Potassium Level 4.2, Chloride Level 108H, Carbon Dioxide Level 27, Anion Gap 9, Blood Urea Nitrogen 21H, Creatinine 0.76, Estimat Glomerular Filtration Rate 82, BUN/Creatinine Ratio 28, Glucose Level 120H, Calcium Level 7.9L, Corrected Calcium 9.2, Phosphorus Level 4.5, Magnesium Level 1.8, Total Bilirubin 0.4, Aspartate Amino Transf (AST/SGOT) 12, Alanine Aminotransferase (ALT/SGPT) 16, Alkaline Phosphatase 105, Total Protein 5.0L, Albumin 2.4L Microbiology 10/25/22 MRSA Screen - Final, Complete 10/25/22 Blood Culture - Preliminary, Resulted No growth ELIZABETH AHUMADA MD Oct 27, 2022 09:38
[2022-10-27] MEDS: PANTOPRAZOLE 20 MG TABLET (PROTONIX) PO SCH (10:54)
[2022-10-27] MEDS: OLANZapine 5 MG ODT (ZyPREXA ZYDIS) PO SCH ×2 (10:54→20:15)
[2022-10-27] MEDS: clonazePAM 1 MG (KlonoPIN) TAB PO SCH ×2 (10:54→20:15)
[2022-10-27] MEDS: dilTIAZem120 MG (CARDIZEM CD) CAP PO SCH (10:56)
[2022-10-27] MEDS: DIGOXIN 0.25 MG (LANOXIN) TAB PO SCH (10:59)
[2022-10-27] MEDS: CYANOCOBALAMIN 1,000 MCG (VITAMIN B-12) TABLET PO SCH (10:59)
[2022-10-27] MEDS: FENTANYL PATCH REMOVAL TP SCH (10:59)
[2022-10-27] MEDS: DOCUSATE SODIUM 100 MG (COLACE) CAP PO SCH ×2 (10:59→20:15)
[2022-10-27] MEDS: meTOprolol TARTRATE 25 MG (LOPRESSOR) TABLET PO SCH ×2 (11:00→20:15)
[2022-10-27] MEDS: VITAMIN D3 25 MCG (1,000 UNITS) TABLET PO SCH (11:00)
[2022-10-27] MEDS: SENNOSIDES 8.6 MG (SENOKOT) TAB PO SCH ×2 (11:00→20:15)
[2022-10-27] MEDS: FERROUS SULF 325 MG (IRON) TAB PO SCH (11:05)
[2022-10-27] MEDS: LORazepam INJ 2 MG/ML (ATIVAN) VIAL IVP PRN ×2 (14:11→23:56)
[2022-10-27 15:25] VITALS: BP 126/74
[2022-10-27] MEDS: RIVAROXABAN 15 MG TABLET (XARELTO) PO SCH (16:31)
[2022-10-27 19:16] VITALS: BP 164/85
[2022-10-27 19:57] VITALS: BP 138/73
[2022-10-27] MEDS: ALLOPURINOL 100 MG (ZYLOPRIM) TAB PO SCH (20:15)
[2022-10-27] MEDS: MELATONIN 3 MG TABLET PO PRN (20:15)
[2022-10-27 23:24] VITALS: BP 107/77
[2022-10-28] VITALS (7 sets, daily range): BP systolic 101–120; BP diastolic 71–104
[2022-10-28] MEDS ORDERED: dilTIAZem DRIP PRE-MIX 125 ML IV ONE (01:11)
[2022-10-28] MEDS: dilTIAZem DRIP PRE-MIX 125 ML IV SCH (01:48)
[2022-10-28] MEDS: LORazepam INJ 2 MG/ML (ATIVAN) VIAL IVP PRN ×5 (03:27→23:57)
[2022-10-28 04:40] LABS: BASOPHILS % (AUTO) 1 % (0-10); EOSINOPHILS # (AUTO) 0.1 10^3/uL (0.0-0.3); EOSINOPHILS % (AUTO) 1 % (0-10); HEMATOCRIT 30 % (35-52); HEMOGLOBIN 9.2 g/dL (11.5-16.0); LYMPHOCYTES # (AUTO) 1.9 10^3/uL (1.0-4.0); LYMPHOCYTES % (AUTO) 29 % (12-44); MEAN CORPUSCULAR HEMOGLOBIN 34 pg (25-34); MEAN CORPUSCULAR HGB CONC 31 g/dL (32-36); MEAN CORPUSCULAR VOLUME 112 fL (80-99); MEAN PLATELET VOLUME 10.8 fL (9.0-12.2); MONOCYTES # (AUTO) 0.8 10^3/uL (0.0-1.0); MONOCYTES % (AUTO) 12 % (0-12); NEUTROPHILS # (AUTO) 3.7 10^3/uL (1.8-7.8); NEUTROPHILS % (AUTO) 57 % (42-75); PLATELET COUNT 172 10^3/uL (130-400); WHITE BLOOD COUNT 6.4 10^3/uL (4.3-11.0)
[2022-10-28 05:10] LABS: ALBUMIN 2.6 GM/DL (3.2-4.5); BILIRUBIN,TOTAL 0.3 MG/DL (0.1-1.0); CALCIUM 7.9 MG/DL (8.5-10.1); CREATININE SERUM 0.88 MG/DL (0.60-1.30); MAGNESIUM 1.8 MG/DL (1.6-2.4); POTASSIUM 3.9 MMOL/L (3.6-5.0); TOTAL PROTEIN 5.2 GM/DL (6.4-8.2)
[2022-10-28] MEDS ORDERED: RT-HYPERTONIC SALINE 3% 4 ML NEB INH PRN (05:15)
[2022-10-28] MEDS ORDERED: NS IV 500 ML 500 ML IV PRN (05:30)
--- NOTE | 2022-10-28 06:04 | Progress Note - Hospitalist ---
Subjective HPI/CC On Admission Date Seen by Provider: Oct 28, 2022 Time Seen by Provider: 09:00 Ms. Soto is a 72 yo female with pmhx of HTN, multiple myeloma, Gout, Afib, CKD, thrombopcytopenia, and anemia brought in by EMS from [facility] on the day of admission 10/25 for low O2 sats in the 60-70s. In ED pt refused to answer questions and has been aggressive to nursing staff. Today patient refused ABG and CXR. Subjective/Events-last exam Psychosis has returned Haldol initiated Very difficult issues Had recurrent AF RVR requiring ICU transfer again Review of Systems General: Fatigue, Malaise Musculoskeletal: back pain Neurological: Confusion Focused Exam Lactate Level 10/25/22 18:18: Lactic Acid Level 1.25 Time of Focused Exam: 19:50 Objective Exam Vital Signs Vital Signs Date Time Temp Pulse Resp B/P (MAP) Pulse Ox O2 Delivery O2 Flow Rate FiO2 10/28/22 14:00 58 17 111/62 (83) 96 Nasal Cannula 2.00 10/28/22 12:00 36.0 10/25/22 18:06 100 Capillary Refill : General Appearance: Chronically ill, Moderate Distress, Other (confused) Results/Procedures Lab Laboratory Tests 10/28/22 03:54 Patient resulted labs reviewed. Imaging: Reviewed Imaging Report Assessment/Plan Assessment and Plan Assess & Plan/Chief Complaint Pulmonary Edema Afib RVR Acute hypoxemic respiratory failure MM Dementia Chronic debility Acute psychosis with dementia requiring Haldol Plan: ICU care for AF RVR Cardiology appreciated YANA MAGALLANES DO Oct 28, 2022 06:04
[2022-10-28] MEDS: LEVOTHYROXINE 50 MCG (LEVOTHROID) TAB PO SCH (06:28)
[2022-10-28] MEDS: CYANOCOBALAMIN 1,000 MCG (VITAMIN B-12) TABLET PO SCH (06:28)
[2022-10-28] MEDS: POTASSIUM CL 10MEQ/50ML IVPB 50 ML IV SCH ×2 (06:35→09:14)
[2022-10-28] MEDS: KCL 20 MEQ TAB (K-DUR) PO SCH (06:35)
[2022-10-28] MEDS: MAGNESIUM 1 GM/100 ML IVPB 100 ML IV SCH ×2 (06:35→09:13)
--- NOTE | 2022-10-28 07:02 | Diagnostic Imaging Report ---
INDICATION: Coarse breath sounds. Comparison is made with prior exam of 10/27/2022. FINDINGS: There is cardiomegaly. There is some venous congestion. There are patchy bibasilar infiltrates. There is a small left pleural effusion. No pneumothorax. Mediastinum unremarkable. IMPRESSION: Patchy bibasilar pulmonary infiltrates with a small left pleural effusion. Cardiomegaly and mild central pulmonary venous congestion. Dictated by: Dictated on workstation # [id number]
[2022-10-28] MEDS ORDERED: AMIODARONE FOR BOLUS 150 MG in NS (IVPB) 100 ML IV NR (08:00)
[2022-10-28] MEDS: RT-ALBUTEROL/IPRATROPIUM 3 ML (DUONEB) VIAL INH SCH ×2 (08:00→22:09)
[2022-10-28] MEDS: diphenhydrAMINE 50 MG/ML INJ (BENADRYL) IVP PRN ×3 (08:11→20:33)
--- NOTE | 2022-10-28 08:11 | Tele-ICU Progress Note ---
Subjective Date Seen by a Provider: Oct 28, 2022 Time Seen by a Provider: 08:05 Subjective/Events-last exam Service provided via interactive audio and video telecommunications E-CARE system to a patient admitted to ICU bed in [facility]. Patient is seen today due to persistent need of ICU care Available chart/ vitals / labs / Images reviewed Video assessment done using teleICU camera, rest of exam as per RN Discussed with RN On iV Cardizem for a fib with RVR-converted, now on IV amodarone, also metoprolol, Xarelto, no cough CXR shows bilateral infiltrates, with enlarged HS, WBC 6.4 Covid, flu serology negative Sepsis Event Evaluation Height, Weight, BMI Height: 5'5.00" Weight: 150lbs. oz. 68.609481xf; 22.15 BMI Method:Estimated Focused Exam Lactate Level 10/25/22 18:18: Lactic Acid Level 1.25 Time of Focused Exam: 19:50 Exam Exam Patient acknowledged, consented, and participated in this virtual visit which was conducted using real time audio/video Vital Signs Date Time Temp Pulse Resp B/P (MAP) Pulse Ox O2 Delivery O2 Flow Rate FiO2 10/28/22 06:00 101 22 101/80 (87) 95 Nasal Cannula 2.00 10/28/22 05:22 93 Nasal Cannula 2.00 10/28/22 05:00 110 33 115/104 (108) 93 Nasal Cannula 2.00 10/28/22 04:00 113 15 119/77 (91) 99 Nasal Cannula 2.00 10/28/22 03:00 117 15 118/77 (91) 98 Nasal Cannula 2.00 10/28/22 02:00 128 12 101/71 (81) 97 Nasal Cannula 2.00 10/28/22 01:48 143 120/73 10/28/22 01:25 143 10/28/22 01:00 131 12 102/89 (93) 98 Nasal Cannula 2.00 10/28/22 00:53 37.8 145 32 120/73 (89) 93 Nasal Cannula 2.00 10/27/22 23:24 38.0 120 30 107/77 (87) 93 Room Air 0.00 0.00 10/27/22 20:50 Room Air 2.00 10/27/22 19:57 90 30 138/73 (94) 95 Room Air 10/27/22 19:16 37.6 83 36 164/85 (111) 90 Room Air 10/27/22 15:25 36.4 82 16 126/74 (91) 89 Room Air 10/27/22 12:00 100 Nasal Cannula 2.00 10/27/22 11:55 37.1 10/27/22 11:00 85 28 143/91 (102) 91 Nasal Cannula 2.00 10/27/22 10:00 64 22 126/75 (89) 100 Nasal Cannula 2.00 10/27/22 09:00 61 16 119/60 (95) 100 Nasal Cannula 2.00 10/27/22 08:15 100 Nasal Cannula 2.00 I & O 10/28/22 07:00 Intake Total 940 ml Output Total 1075 ml Balance -135 ml Height & Weight Height: 5'5.00" Weight: 150lbs. oz. 68.709734zd; 22.15 BMI Method:Estimated General Appearance: No Apparent Distress, WD/WN, Chronically ill HEENT: PERRL/EOMI Neck: JVD Respiratory: Lungs Clear, Normal Breath Sounds, Rhonci (sounds congested, to get IV Lasix) Cardiovascular: Regular Rate, Rhythm Extremity: Normal Capillary Refill, No Pedal Edema Neurologic/Psychiatric: Alert, Oriented x3, Depressed Affect Skin: Normal Color, Warm/Dry Lymphatic: No Adenopathy Results Lab Laboratory Tests 10/27/22 03:26 10/28/22 03:54 Assessment/Plan Assessment/Plan A fib has converted to sinus, will continue with IV amiodarone on 1 mg/min PNA? no tmep and no WBc, will observe BP is good is congested, will continue hypertonic saline as expectorant, to get IV lasix Critical Care: Critically Ill Patient Time spent with patient (mins): 25 ELIZABETH MESSINA MD Oct 28, 2022 08:11
[2022-10-28] MEDS: HALOPERIDOL 5 MG/ML (HALDOL) VIAL IM PRN ×4 (08:55→23:00)
[2022-10-28] MEDS: OLANZapine 5 MG ODT (ZyPREXA ZYDIS) PO SCH ×2 (09:08→20:42)
[2022-10-28] MEDS: clonazePAM 1 MG (KlonoPIN) TAB PO SCH ×2 (09:10→20:41)
[2022-10-28] MEDS: DIGOXIN 0.25 MG (LANOXIN) TAB PO SCH (09:11)
[2022-10-28] MEDS: PANTOPRAZOLE 20 MG TABLET (PROTONIX) PO SCH (09:11)
[2022-10-28] MEDS: meTOprolol TARTRATE 25 MG (LOPRESSOR) TABLET PO SCH ×2 (09:11→20:41)
[2022-10-28] MEDS: VITAMIN D3 25 MCG (1,000 UNITS) TABLET PO SCH (09:12)
[2022-10-28] MEDS: dilTIAZem120 MG (CARDIZEM CD) CAP PO SCH ×2 (09:12→09:22)
[2022-10-28] MEDS: FERROUS SULF 325 MG (IRON) TAB PO SCH (09:12)
[2022-10-28] MEDS: SENNOSIDES 8.6 MG (SENOKOT) TAB PO SCH ×2 (09:17→20:41)
[2022-10-28] MEDS: DOCUSATE SODIUM 100 MG (COLACE) CAP PO SCH ×2 (09:17→20:40)
[2022-10-28] MEDS: AMIODARONE INJECTION 450 MG in NORMAL SALINE 250 ML IV SCH ×2 (09:32→18:31)
--- NOTE | 2022-10-28 09:32 | Cardiology Progress Note ---
Subjective Date Seen by Provider: Oct 28, 2022 Time Seen by Provider: 09:30 Subjective/Events-last exam Patient went back to atrial fibrillation last night, She was started on Cardizem drip and transferred to ICU. Currently back in sinus rhythm Review of Systems General: No Chills, No Night Sweats; Fatigue, Malaise; No Appetite, No Other HEENT: No Head Aches, No Visual Changes, No Eye Pain, No Ear Pain, No Dysphasia, No Sinus Congestion, No Post Nasal Drip, No Sore Throat, No Other Pulmonary: Dyspnea; No Cough, No Pleuritic Chest Pain, No Other Cardiovascular: No: Chest Pain, Palpitations, Orthopnea, Paroxysmal Noc. D yspnea, Edema, Lt Headedness, Other Focused Exam Lactate Level 10/25/22 18:18: Lactic Acid Level 1.25 Time of Focused Exam: 19:50 Objective-Cardiology Exam Last Set of Vital Signs Vital Signs 10/25/22 10/28/22 10/28/22 10/28/22 18:06 06:00 08:00 09:23 Temp 36.9 Pulse 87 Resp 22 B/P (MAP) 101/80 Pulse Ox 95 O2 Delivery Nasal Cannula O2 Flow Rate 2.00 FiO2 100 I&O Intake and Output 10/28/22 00:00 Intake Total 840 ml Output Total 1125 ml Balance -285 ml Intake Oral 440 ml IV Total 400 ml Output Urine Total 1125 ml # Bowel Movements 2 General: No Acute Distress, Other (Sedated) HEENT: Atraumatic, PERRLA Neck: Supple Lungs: Normal Air Movement, Other (Bilateral rhonchi) Heart: Regular Rate, Normal S1, Normal S2 Abdomen: Normal Bowel Sounds Extremities: No Clubbing, No Cyanosis Skin: No Rashes Neuro: Normal Speech, Other (Sedated) Psych/Mental Status: Mood NL, Other (Sedated) Results Lab Laboratory Tests 10/28/22 03:54 A/P-Cardiology Admission Diagnosis Paroxysmal atrial fibrillation Type II myocardial infarction Change in mental status Hypotension Assessment/Plan Acute change in mental status, confusion and agitation Probably secondary to hypoxemia Better at this time, feeling better, still confused Paroxysmal atrial fibrillation with rapid ventricular response Known to have borderline hypotension Converted to sinus rhythm on October 27, 2022 Went back to atrial fibrillation and she was started on Cardizem drip, converted back to sinus rhythm on October 28, 2022 Started on amiodarone bolus and a drip in addition to the Xarelto. We will start oral amiodarone on October 29, 2022 Mild elevation in troponin, type II myocardial infarction, probably secondary to hypotension and tachycardia. Conservative management is recommended. 2D echo was done in May 2022 with ejection fraction 60 to 65%, grade 1 diastolic dysfunction, moderate mitral stenosis, aortic valve sclerosis, PA pressure 40 mmHg Hypotension, especially while in atrial fibrillation Currently blood pressure is stable History of multiple myeloma with chronic anemia, Continue to monitor H&H Chronic tobaccoism Hypothyroidism, maintained on levothyroxine, followed by primary care physician RAMIRO MONTERROSO MD Oct 28, 2022 09:32
[2022-10-28] MEDS ORDERED: FUROSEMIDE 40 MG/4 ML INJ (LASIX) IVP NR (10:30)
[2022-10-28] MEDS: RIVAROXABAN 15 MG TABLET (XARELTO) PO SCH (17:54)
[2022-10-28] MEDS: ALLOPURINOL 100 MG (ZYLOPRIM) TAB PO SCH (20:41)
[2022-10-29] MEDS: diphenhydrAMINE 50 MG/ML INJ (BENADRYL) IVP PRN (02:22)
[2022-10-29] MEDS: HALOPERIDOL 5 MG/ML (HALDOL) VIAL IM PRN ×2 (02:23→05:42)
[2022-10-29] MEDS: dilTIAZem DRIP PRE-MIX 125 ML IV SCH (02:34)
[2022-10-29] MEDS: LORazepam INJ 2 MG/ML (ATIVAN) VIAL IVP PRN ×3 (05:23→20:12)
[2022-10-29] MEDS: KCL 20 MEQ TAB (K-DUR) PO SCH (05:32)
[2022-10-29] MEDS: POTASSIUM CL 10MEQ/50ML IVPB 50 ML IV SCH (05:32)
[2022-10-29] MEDS: MAGNESIUM 1 GM/100 ML IVPB 100 ML IV SCH ×5 (05:32→10:56)
[2022-10-29 05:38] LABS: BASOPHILS % (AUTO) 1 % (0-10); EOSINOPHILS # (AUTO) 0.3 10^3/uL (0.0-0.3); EOSINOPHILS % (AUTO) 5 % (0-10); HEMATOCRIT 32 % (35-52); LYMPHOCYTES # (AUTO) 1.3 10^3/uL (1.0-4.0); LYMPHOCYTES % (AUTO) 24 % (12-44); MEAN CORPUSCULAR HEMOGLOBIN 35 pg (25-34); MEAN CORPUSCULAR HGB CONC 31 g/dL (32-36); MEAN CORPUSCULAR VOLUME 113 fL (80-99); MEAN PLATELET VOLUME 10.1 fL (9.0-12.2); MONOCYTES # (AUTO) 0.6 10^3/uL (0.0-1.0); MONOCYTES % (AUTO) 10 % (0-12); NEUTROPHILS # (AUTO) 3.3 10^3/uL (1.8-7.8); NEUTROPHILS % (AUTO) 60 % (42-75); PLATELET COUNT 152 10^3/uL (130-400); WHITE BLOOD COUNT 5.5 10^3/uL (4.3-11.0)
[2022-10-29 06:04] LABS: ALBUMIN 2.7 GM/DL (3.2-4.5); BILIRUBIN,TOTAL 0.6 MG/DL (0.1-1.0); CALCIUM 8.2 MG/DL (8.5-10.1); CREATININE SERUM 0.81 MG/DL (0.60-1.30); MAGNESIUM 1.7 MG/DL (1.6-2.4); POTASSIUM 4.4 MMOL/L (3.6-5.0); TOTAL PROTEIN 5.4 GM/DL (6.4-8.2)
[2022-10-29] MEDS: LEVOTHYROXINE 50 MCG (LEVOTHROID) TAB PO SCH (06:08)
[2022-10-29] MEDS: CYANOCOBALAMIN 1,000 MCG (VITAMIN B-12) TABLET PO SCH (06:09)
[2022-10-29] MEDS: RT-ALBUTEROL/IPRATROPIUM 3 ML (DUONEB) VIAL INH SCH ×2 (07:33→21:41)
[2022-10-29] MEDS: DIGOXIN 0.25 MG (LANOXIN) TAB PO SCH (07:56)
[2022-10-29] MEDS: DOCUSATE SODIUM 100 MG (COLACE) CAP PO SCH ×2 (07:56→19:49)
[2022-10-29] MEDS: VITAMIN D3 25 MCG (1,000 UNITS) TABLET PO SCH (07:56)
[2022-10-29] MEDS: meTOprolol TARTRATE 25 MG (LOPRESSOR) TABLET PO SCH ×2 (07:56→19:49)
[2022-10-29] MEDS: SENNOSIDES 8.6 MG (SENOKOT) TAB PO SCH ×2 (07:56→19:49)
[2022-10-29] MEDS: clonazePAM 1 MG (KlonoPIN) TAB PO SCH ×2 (07:56→19:49)
[2022-10-29] MEDS: MAGNESIUM OXIDE (MAG-OX)400 MG TAB PO SCH (07:57)
[2022-10-29] MEDS: FERROUS SULF 325 MG (IRON) TAB PO SCH (07:57)
[2022-10-29] MEDS: PANTOPRAZOLE 20 MG TABLET (PROTONIX) PO SCH (07:57)
[2022-10-29] MEDS: OLANZapine 5 MG ODT (ZyPREXA ZYDIS) PO SCH ×2 (07:57→19:49)
[2022-10-29] MEDS: dilTIAZem120 MG (CARDIZEM CD) CAP PO SCH (07:57)
--- NOTE | 2022-10-29 08:40 | Physical Therapy Progress Note ---
Therapy Progress Note Patient currently sedated and sleeping. PT will attempt later today. ODILON HENDRICKSON PT Oct 29, 2022 08:40
--- NOTE | 2022-10-29 08:45 | Cardiology Progress Note ---
Subjective Date Seen by Provider: Oct 29, 2022 Time Seen by Provider: 08:44 Subjective/Events-last exam Patient was sleeping this morning She has been sedated, had change in mental status, was agitated and confused. Review of Systems General: Other (Unable to provide review of system) Focused Exam Time of Focused Exam: 19:50 Objective-Cardiology Exam Last Set of Vital Signs Vital Signs 10/25/22 10/29/22 10/29/22 18:06 07:33 08:00 Temp 36.4 Pulse 107 Resp 12 B/P (MAP) 120/98 (105) Pulse Ox 90 O2 Delivery Nasal Cannula O2 Flow Rate 2.00 FiO2 100 I&O Intake and Output 10/29/22 00:00 Intake Total 675 ml Output Total 2300 ml Balance -1625 ml Intake Oral 675 ml Output Urine Total 2300 ml General: No Acute Distress, Other (Sedated) HEENT: Atraumatic, PERRLA Neck: Supple Lungs: Normal Air Movement, Other (Bilateral rhonchi) Heart: Normal S1, Normal S2, Other (Atrial fibrillation) Abdomen: Normal Bowel Sounds Extremities: No Clubbing, No Cyanosis Skin: No Rashes Neuro: Normal Speech, Other (Sedated) Psych/Mental Status: Mood NL, Other (Sedated) Results Lab Laboratory Tests 10/29/22 05:30 A/P-Cardiology Admission Diagnosis Paroxysmal atrial fibrillation Type II myocardial infarction Change in mental status Hypotension Assessment/Plan Acute change in mental status, confusion and agitation Probably secondary to hypoxemia Sedated this morning. Did not wake with stimulation. Paroxysmal atrial fibrillation with rapid ventricular response Known to have borderline hypotension Converted to sinus rhythm on October 27, 2022 Went back to atrial fibrillation and she was started on Cardizem drip, converted back to sinus rhythm on October 28, 2022 Received amiodarone bolus and a drip in addition to the Xarelto. Starting oral amiodarone Mild elevation in troponin, type II myocardial infarction, probably secondary to hypotension and tachycardia. Conservative management is recommended. 2D echo was done in May 2022 with ejection fraction 60 to 65%, grade 1 diastolic dysfunction, moderate mitral stenosis, aortic valve sclerosis, PA pressure 40 mmHg Hypotension, especially while in atrial fibrillation Currently blood pressure is stable History of multiple myeloma with chronic anemia, Continue to monitor H&H Chronic tobaccoism Hypothyroidism, maintained on levothyroxine, followed by primary care physician RAMIRO MONTERROSO MD Oct 29, 2022 08:45
[2022-10-29] MEDS: AMIODARONE 200 MG (CORDARONE) TAB PO SCH ×2 (09:15→19:49)
--- NOTE | 2022-10-29 11:48 | Progress Note ---
Subjective Subjective/Events-last exam Patient is open eyes and answer simple Y/N questions but sedated this AM. Denies any pain. She is rate controlled this AM and on 2LPM NC Review of Systems General: Fatigue Pulmonary: Dyspnea Cardiovascular: No: Chest Pain Gastrointestinal: No: Nausea, Vomiting, Abdominal Pain Neurological: Weakness, Incoordination, Confusion, Other (agitated ON) Focused Exam Time of Focused Exam: 19:50 Objective Exam Last Set of Vital Signs Vital Signs Date Time Temp Pulse Resp B/P (MAP) Pulse Ox O2 Delivery O2 Flow Rate FiO2 10/29/22 11:00 64 13 124/71 (88) 95 Nasal Cannula 2.00 10/29/22 07:33 36.4 10/25/22 18:06 100 Capillary Refill : I&O Intake and Output 10/29/22 00:00 Intake Total 675 ml Output Total 2300 ml Balance -1625 ml Intake Oral 675 ml Output Urine Total 2300 ml General: Other (Opens eyes, NAD) Lungs: Clear to Auscultation, Normal Air Movement Heart: Other (rate controlled, SR, no murmur) Abdomen: Normal Bowel Sounds, Soft, No Tenderness Results/Procedures Lab Laboratory Tests 10/29/22 05:30: White Blood Count 5.5, Red Blood Count 2.85L, Hemoglobin 10.0L, Hematocrit 32L, Mean Corpuscular Volume 113H, Mean Corpuscular Hemoglobin 35H, Mean Corpuscular Hemoglobin Concent 31L, Red Cell Distribution Width 15.7H, Platelet Count 152, Mean Platelet Volume 10.1, Immature Granulocyte % (Auto) 0, Neutrophils (%) (Auto) 60, Lymphocytes (%) (Auto) 24, Monocytes (%) (Auto) 10, Eosinophils (%) (Auto) 5, Basophils (%) (Auto) 1, Neutrophils # (Auto) 3.3, Lymphocytes # (Auto) 1.3, Monocytes # (Auto) 0.6, Eosinophils # (Auto) 0.3, Basophils # (Auto) 0.0, Immature Granulocyte # (Auto) 0.0, Sodium Level 143, Potassium Level 4.4, Chloride Level 106, Carbon Dioxide Level 26, Anion Gap 11, Blood Urea Nitrogen 19H, Creatinine 0.81, Estimat Glomerular Filtration Rate 76, BUN/Creatinine Ratio 23, Glucose Level 87, Calcium Level 8.2L, Corrected Calcium 9.2, Magnesium Level 1.7, Total Bilirubin 0.6, Aspartate Amino Transf (AST/SGOT) 13, Alanine Aminotransferase (ALT/SGPT) 14, Alkaline Phosphatase 104, Total Protein 5.4L, Albumin 2.7L Microbiology 10/25/22 MRSA Screen - Final, Complete 10/25/22 Blood Culture - Preliminary, Resulted No growth Assessment/Plan Assessment/Plan (1) Altered mental status Status: Acute Assessment & Plan: 10/29: 2/2 to dementia and hypoxia, has not received sedation this AM Qualifiers: Qualified Codes: R41.0 - Disorientation, unspecified (2) Acute psychosis Status: Acute (3) Atrial fibrillation with RVR Status: Acute Assessment & Plan: 10/29: Cardiology consulted, appreciate recommendations, SR this AM, rate controlled, switching to PO meds, possible transfer to floor later today (4) Type 2 AMI (acute myocardial infarction) Status: Acute (5) Dementia with behavioral disturbance Status: Acute (6) History of multiple myeloma Status: Chronic Assessment & Plan: 10/29: Chronic anemia, seems at her baseline upon review, no signs of acute anemia ERLINDA BONILLA MD Oct 29, 2022 11:48
--- NOTE | 2022-10-29 12:14 | Tele-ICU Progress Note ---
Subjective Date Seen by a Provider: Oct 29, 2022 Time Seen by a Provider: 12:14 Subjective/Events-last exam (Tele-ICU Physician , Progress Note ) Service provided via interactive audio and video telecommunications E-CARE system to a patient admitted to ICU bed in [facility]. Patient is seen today due to persistent need of ICU care Available chart/ vitals / labs / Images reviewed Video assessment done using teleICU camera, rest of exam as per RN Discussed with RN Events overnight : Afebrile hemodynamically stable Respiratory - 3l I/O = Drips: off Pressors- no Hospital course: (10/25) 72yr F admitted for Afib RVR, CHF, Elevated Troponin, RLL Infiltrate. Patient from [place] with low O2 Sats 60's-70's since Saturday she was placed on 3L NC this morning. Also Afib RVR on monitor. A/P A fib RVR- intermittedt sinus - cardizem gtt to be stopp today - as per cards: on PO - AC on xrelto [employer] - cont - ECHO 05/2022 -60 to 65%, grade 1 diastolic dysfunction, moderate mitral stenosis, aortic valve sclerosis, Suspected CHF - good UO Hypoxia - on 3 L last few days - consider more agressive diureis - as per cardw Chronic Anemia - Hb 10 - close to chonic level , no active bleeding Anxiety / confusion - back to NL self now - xanax prn Coagulopathy - on xarelto PA pressure 40 mmHg - to follow reported chronic musculr pain - as per PCP reported chronic diarrhea - as per RN had no BM here h/o MM hypothyroidism Lines : , (Central Line Necessity Reviewed) Saravia: + OG: Nutrition: Analgesia: Anxiety/ delirium VTE Prophylaxis: xarelto Stress Ulcer Prophylaxis: na Plans in collaboration with bedside consultants and IM MDs. Discussed with RN to reach out if any questions or concerns Case and care daily discussed on multidisciplinary rounds ( RN, PharmD, Fuel Operator , Respiratory Therapy, foot worker ) A total of 15 minutes of critical care time was devoted to this patient today, required to treat and/or prevent further deterioration of critical care condition ( as above ) . I am remotely monitoring this patient from another state. I am unable to do the bedside exam, and history/physical and pertinent information is taken from other notes in the computer and bedside staff. Sepsis Event Evaluation Height, Weight, BMI Height: 5'5.00" Weight: 150lbs. oz. 68.674740cl; 22.15 BMI Method:Estimated Focused Exam Time of Focused Exam: 19:50 Exam Exam Patient acknowledged, consented, and participated in this virtual visit which was conducted using real time audio/video Vital Signs Date Time Temp Pulse Resp B/P (MAP) Pulse Ox O2 Delivery O2 Flow Rate FiO2 10/29/22 11:52 36.4 10/29/22 11:00 64 13 124/71 (88) 95 Nasal Cannula 2.00 10/29/22 10:00 66 14 123/74 (90) 92 Nasal Cannula 2.00 10/29/22 09:00 80 17 114/76 (89) 94 Nasal Cannula 2.00 10/29/22 08:00 107 12 120/98 (105) 90 Nasal Cannula 2.00 10/29/22 08:00 Nasal Cannula 2.00 10/29/22 07:34 100 Nasal Cannula 2.00 10/29/22 07:33 36.4 10/29/22 07:29 36.1 10/29/22 07:08 71 10/29/22 07:00 71 13 138/76 (96) 99 Nasal Cannula 2.00 10/29/22 06:00 79 15 134/77 (96) 98 Nasal Cannula 2.00 10/29/22 05:00 65 11 134/67 (89) 100 Nasal Cannula 2.00 10/29/22 04:00 68 13 128/70 (89) 98 Nasal Cannula 2.00 10/29/22 04:00 Nasal Cannula 2.00 10/29/22 03:00 70 13 130/70 (90) 99 Nasal Cannula 2.00 10/29/22 02:00 71 38 131/67 (88) 99 Nasal Cannula 2.00 10/29/22 01:00 65 21 136/71 (92) 99 Nasal Cannula 2.00 10/29/22 00:48 77 10/29/22 00:00 78 142/92 (109) 99 Nasal Cannula 2.00 10/29/22 00:00 Nasal Cannula 2.00 10/28/22 23:00 73 14 156/79 (104) 100 Nasal Cannula 2.00 10/28/22 22:00 66 20 151/93 (112) 100 Nasal Cannula 2.00 10/28/22 21:00 68 45 129/82 (98) 100 Nasal Cannula 2.00 10/28/22 20:00 Room Air 2.00 10/28/22 20:00 64 27 139/85 (103) 97 Nasal Cannula 2.00 10/28/22 20:00 36.7 10/28/22 19:00 56 18 127/70 (89) 99 Nasal Cannula 2.00 10/28/22 19:00 66 10/28/22 18:31 36.7 10/28/22 18:00 69 16 147/79 (110) 100 Nasal Cannula 2.00 10/28/22 17:00 61 14 124/68 (93) 99 Nasal Cannula 2.00 10/28/22 16:00 Room Air 2.00 10/28/22 16:00 60 13 121/64 (88) 98 Nasal Cannula 2.00 10/28/22 15:58 36.7 10/28/22 15:00 56 15 111/62 (86) 100 Nasal Cannula 2.00 10/28/22 14:00 58 17 111/62 (83) 96 Nasal Cannula 2.00 10/28/22 13:00 59 28 100/55 (78) 94 Nasal Cannula 2.00 10/28/22 13:00 60 I & O 10/29/22 07:00 Intake Total 575 ml Output Total 2450 ml Balance -1875 ml Height & Weight Height: 5'5.00" Weight: 150lbs. oz. 68.983894kq; 22.15 BMI Method:Estimated General Appearance: Chronically ill, Moderate Distress, Other (confused) HEENT: PERRL/EOMI Neck: JVD Respiratory: Lungs Clear, Normal Breath Sounds, Rhonci (sounds congested, to get IV Lasix) Cardiovascular: Regular Rate, Rhythm Extremity: Normal Capillary Refill, No Pedal Edema Neurologic/Psychiatric: Alert, Oriented x3, Depressed Affect Skin: Normal Color, Warm/Dry Lymphatic: No Adenopathy Results Lab Laboratory Tests 10/28/22 03:54 10/29/22 05:30 Assessment/Plan Assessment/Plan 1 CM RIVREA MD Oct 29, 2022 12:14
--- NOTE | 2022-10-29 14:00 | Physical Therapy Evaluation ---
PT Evaluation-General Medical Diagnosis Admission Date Oct 25, 2022 at 19:59 Medical Diagnosis: A-fib with RVR Onset Date: Oct 25, 2022 Therapy Diagnosis Therapy Diagnosis: generalized weakness/debility Height/Weight Height (Feet): 5 Height (Inches): 5.00 Weight (Pounds): 150 Precautions Precautions/Isolations: Fall Prevention, Standard Precautions Referral Physician: Kenan Reason for Referral: Evaluation/Treatment Medical History Pertinent Medical History: Atrial Fib, COPD, HTN, Hypothroidism, Renal Insufficiency Current History EMS from [place] secondary to AMS, A-fib, SAO2 60% RA Reviewed History: Yes Social History Home: [facility] Prior Prior Level of Function SCALE: Activities may be completed with or without assistive devices. 7-Ghxmkyesnl-rrzyrzl completes the activity by him/herself with no assistance from a helper. 5-Set-up or Clean-up Assistance-helper sets up or cleans up; patient completes activity. [place] assists only prior to or following the activity. 4-Supervision or Touching Assistance-helper provides verbal cues and/or touching/steadying and/or contact guard assistance as patient completes activity. Assistance may be provided throughout the activity or intermittently. 3-Partial/Moderate Assistance-helper does LESS THAN HALF the effort. [place] lifts, holds or supports trunk or limbs, but provides less than half the effort. 2-Substantial/Maximal Assistance-helper does MORE THAN HALF the effort. [place] lifts or holds trunk or limbs and provides more than half the effort. 7-Uxilzkvkn-zzaxfw does ALL the effort. Patient does none of the effort to compl ete the activity. Or, the assistance of 2 or more helpers is required for the patient to complete the activity. If activity was not attempted, code reason: 7-Patient Refused. 9-Not Applicable-not attempted and the patient did not perform the activity before the current illness, exacerbation or injury. 10-Not Attempted due to Environmental Limitations-(lack of equipment, weather restraints, etc.). 88-Not Attempted due to Medical Conditions or Safety Concerns. Bed Mobility: 4 Transfers (B,C,W/C): 4 Gait: 4 Indoor Mobility (Ambulation): Needed Some Help PT Evaluation-Current Subjective Patient is lethargic but agrees to therapy. Objective Patient Orientation: Confused Attachments: Oxygen, Saravia Catheter ROM/Strength ROM Lower Extremities bilateral LE WFL Strength Lower Extremities 3/5 grossly bilateral LE all planes Integumentary/Posture Bladder Incontinence: Saravia Cath Posture kyphotic Neuromuscular (Tone, Coordination, Reflexes) diminished with all Sensory Vision: Unable to Assess Hearing: Functional Transfers Lying to Sitting/Side of Bed(Q: 2 Sit to Stand (QC): 2 Chair/Jne-qr-Oxwwr Xfer(QC): 2 Gait Mode of Locomotion: Walk Anticipated Mode of Locomotion: Walk Walk 10 feet (QC): 2 Walk 50 ft with 2 Turns(QC): 88 Walk 150 ft (QC): 88 Distance: 10' Gait Assistive Device: FWW Comments/Gait Description patient not safe to use FWW at this time (PT assit with all mobility) Balance Sitting Static: Fair Sitting Dynamic: Fair Standing Static: Poor Standing Dynamic: Poor Assessment/Needs Patient will benefit from skilled PT to address functional strength and mobility to improve current LOF. Rehab Potential: Guarded PT Half-Way Goals Half-Way Goals PT Half-Way Goals Time Frame: Nov 17, 2022 Roll Left & Right (QC): 3 Sit to Lying (QC): 3 Lying-Sitting on Side/Bed(QC): 3 Sit to Stand (QC): 3 Chair/Uic-zl-Ydrgp Xfer(QC): 3 Toilet Transfer (QC): 3 Walk 10 feet (QC): 3 Walk 50ft with 2 Turns (QC): 3 PT Plan Problem List Problem List: Activity Tolerance, Functional Strength, Safety, Balance, Gait, Transfer, Bed Mobility Treatment/Plan Treatment Plan: Continue Plan of Care Treatment Plan: Bed Mobility, Education, Functional Activity Elton, Functional Strength, Gait, Safety, Therapeutic Exercise, Transfers Treatment Duration: Nov 17, 2022 Frequency: 6 times per week Estimated Hrs Per Day: .25 hour per day Patient and/or Family Agrees t: Yes Time Time In: 1255 Time Out: 1311 DATE: Oct 29, 2022 Total Billed Treatment Time: 16 [facility] OD[facility]ENDRICK[facility] PT Oct 29, 2022 14:00
--- NOTE | 2022-10-29 14:00 | Occupational Therapy Eval ---
OT Evaluation-General/PLF Medical Diagnosis Admission Date Oct 25, 2022 at 19:59 Medical Diagnosis: dementia w/ hypoxia Onset Date: Oct 25, 2022 Therapy Diagnosis Therapy Diagnosis: weakness/confusion Height/Weight Height (Feet): 5 Height (Inches): 5.00 Weight (Pounds): 150 Precautions Precautions/Isolations: Standard Precautions Weight Bear Status Weight Bearing Restriction: Full Weight Bearing Referral Referral Reason: Evaluation/Treatment Medical History Pertinent Medical History: Atrial Fib, COPD, HTN, Hypothroidism, Renal Insufficiency Reviewed History: Yes Social History Home: Group Home Current Living Status: Alone [facility] ADL-Prior Level of Function SCALE: Activities may be completed with or without assistive devices. 3-Bjmjjcfubi-kgctfgg completes the activity by him/herself with no assistance from a helper. 5-Set-up or Clean-up Assistance-helper sets up or cleans up; patient completes activity. [place] assists only prior to or following the activity. 4-Supervision or Touching Assistance-helper provides verbal cues and/or touching/steadying and/or contact guard assistance as patient completes activity. Assistance may be provided throughout the activity or intermittently. 3-Partial/Moderate Assistance-helper does LESS THAN HALF the effort. [place] lifts, holds or supports trunk or limbs, but provides less than half the effort. 2-Substantial/Maximal Assistance-helper does MORE THAN HALF the effort. [place] lifts or holds trunk or limbs and provides more than half the effort. 1-Lgywxacxc-vujqmw does ALL the effort. Patient does none of the effort to comp lete the activity. Or, the assistance of 2 or more helpers is required for the patient to complete the activity. If activity was not attempted, code reason: 7-Patient Refused. 9-Not Applicable-not attempted and the patient did not perform the activity before the current illness, exacerbation or injury. 10-Not Attempted due to Environmental Limitations-(lack of equipment, weather restraints, etc.). 88-Not Attempted due to Medical Conditions or Safety Concerns. Self Care: Needed Some Help Functional Cognition: Needed Some Help Drive Self: No OT Current Status Subjective Selectively opens eyes to voice and follows verbal instruction, agrees to therapy Mental Status/Objective Patient Orientation: Person Mild curse words and swinging of BUES at staff Attachments: Saravia Catheter, IV, Oxygen, Telemetry Current Upper Extremity ROM WFLS observed Upper Extremity Coordination IMPAIRED Upper Extremity Sensation INTACT Upper Extremity Strength -4/5 ADL-Treatment Eating (QC): 3 (MISSES 50% OF FOOD INTAKE) Oral Hygiene (QC): 3 (NOT WEARING PARTIALS) Shower/Bathe Self (QC): 88 Upper Body Dressing (QC): 2 Lower Body Dressing (QC): 2 On/Off Footwear (QC): 2 Toileting Hygiene (QC): 3 Education OT Patient Education: Correct positioning, Modified ADL techniques, Progress toward Goal/Update tx plan, Purpose of tx/functional activities, Reviewed precautions, Rehab process, Safety issues, Transfer techniques Teaching Recipient: Patient Teaching Methods: Demonstration, Discussion Response to Teaching: Unable to Return Demonstration, Reinforcement Needed OT Intermediate Goals Mold Stacker Goals Eating (QC): 4 Oral Hygiene (QC): 4 Toileting Hygiene (QC): 4 Shower/Bathe Self (QC): 3 Upper Body Dressing (QC): 4 Lower Body Dressing (QC): 4 On/Off Footwear (QC): 4 1=Demonstrate adherence to instructed precautions during ADL tasks. 2=Patient will verbalize/demonstrate understanding of assistive devices/modifications for ADL. 3=Patient will improve strength/tolerance for activity to enable patient to perform ADL's. OT Education/Plan Problem List/Assessment Assessment: Decreased Activ Tolerance, Decreased Safety Aware, Decreased UE Strength, Impaired Cognition, Impaired Coordination, Impaired Funct Balance, Impaired Self-Care Skills Discharge Recommendations Plan/Recommendations: Continue POC Treatment Plan/Plan of Care Treatment,Training & Education: Yes Patient would benefit from OT for education, treatment and training to promote independence in ADL's, mobility, safety and/or upper extremity function for ADL's. Plan of Care: ADL Retraining, Cognitive Retraining, Concurrent Therapy, Functional Mobility, Group Exercise/Act as Ind, UE Funct Exercise/Act Treatment Duration: Nov 03, 2022 Frequency: 3 times per week (3-5 TIMES PER WEEK) Agreement: Yes Rehab Potential: Guarded Time Start Time: 13:00 Stop Time: 13:15 DATE: Oct 29, 2022 Total Time Billed (hr/min): 15 Billed Treatment Time EVM 154 MIN JAIRON REYNOSO OT Oct 29, 2022 14:00
[2022-10-29] MEDS: RIVAROXABAN 15 MG TABLET (XARELTO) PO SCH (16:40)
[2022-10-29] MEDS: ALLOPURINOL 100 MG (ZYLOPRIM) TAB PO SCH (19:49)
[2022-10-29] MEDS: MELATONIN 3 MG TABLET PO PRN (19:49)
[2022-10-30] MEDS: LORazepam INJ 2 MG/ML (ATIVAN) VIAL IVP PRN ×2 (02:58→12:04)
[2022-10-30] MEDS: HALOPERIDOL 5 MG/ML (HALDOL) VIAL IM PRN (03:17)
[2022-10-30 04:21] LABS: BASOPHILS % (AUTO) 1 % (0-10); EOSINOPHILS # (AUTO) 0.4 10^3/uL (0.0-0.3); EOSINOPHILS % (AUTO) 7 % (0-10); HEMATOCRIT 35 % (35-52); HEMOGLOBIN 10.5 g/dL (11.5-16.0); LYMPHOCYTES # (AUTO) 1.7 10^3/uL (1.0-4.0); LYMPHOCYTES % (AUTO) 30 % (12-44); MEAN CORPUSCULAR HEMOGLOBIN 34 pg (25-34); MEAN CORPUSCULAR HGB CONC 30 g/dL (32-36); MEAN CORPUSCULAR VOLUME 114 fL (80-99); MEAN PLATELET VOLUME 10.7 fL (9.0-12.2); MONOCYTES # (AUTO) 0.7 10^3/uL (0.0-1.0); MONOCYTES % (AUTO) 12 % (0-12); NEUTROPHILS # (AUTO) 2.9 10^3/uL (1.8-7.8); NEUTROPHILS % (AUTO) 50 % (42-75); PLATELET COUNT 173 10^3/uL (130-400); WHITE BLOOD COUNT 5.8 10^3/uL (4.3-11.0)
[2022-10-30 04:47] LABS: ALBUMIN 2.7 GM/DL (3.2-4.5); BILIRUBIN,TOTAL 0.5 MG/DL (0.1-1.0); CALCIUM 8.5 MG/DL (8.5-10.1); CREATININE SERUM 1.03 MG/DL (0.60-1.30); MAGNESIUM 2.4 MG/DL (1.6-2.4); TOTAL PROTEIN 5.4 GM/DL (6.4-8.2)
[2022-10-30] MEDS: LEVOTHYROXINE 50 MCG (LEVOTHROID) TAB PO SCH (05:19)
[2022-10-30] MEDS: CYANOCOBALAMIN 1,000 MCG (VITAMIN B-12) TABLET PO SCH (05:19)
[2022-10-30] MEDS: RT-ALBUTEROL/IPRATROPIUM 3 ML (DUONEB) VIAL INH SCH (06:32)
[2022-10-30] MEDS: FERROUS SULF 325 MG (IRON) TAB PO SCH (08:23)
[2022-10-30] MEDS: DIGOXIN 0.25 MG (LANOXIN) TAB PO SCH (08:23)
[2022-10-30] MEDS: meTOprolol TARTRATE 25 MG (LOPRESSOR) TABLET PO SCH (08:23)
[2022-10-30] MEDS: OLANZapine 5 MG ODT (ZyPREXA ZYDIS) PO SCH (08:23)
[2022-10-30] MEDS: clonazePAM 1 MG (KlonoPIN) TAB PO SCH (08:23)
[2022-10-30] MEDS: VITAMIN D3 25 MCG (1,000 UNITS) TABLET PO SCH (08:23)
[2022-10-30] MEDS: SENNOSIDES 8.6 MG (SENOKOT) TAB PO SCH (08:23)
[2022-10-30] MEDS: AMIODARONE 200 MG (CORDARONE) TAB PO SCH (08:23)
[2022-10-30] MEDS: FENTANYL PATCH REMOVAL TP SCH (08:24)
[2022-10-30] MEDS: PANTOPRAZOLE 20 MG TABLET (PROTONIX) PO SCH (08:24)
[2022-10-30] MEDS: fentaNYL PATCH 25 MCG (DURAGESIC) TD SCH (08:24)
[2022-10-30] MEDS: dilTIAZem120 MG (CARDIZEM CD) CAP PO SCH (08:24)
[2022-10-30] MEDS: DOCUSATE SODIUM 100 MG (COLACE) CAP PO SCH (08:24)
--- NOTE | 2022-10-30 08:43 | Progress Note - Cardiology ---
Cardiology SOAP Progress Note Objective: I&O/Vital Signs 10/30/22 10/30/22 10/30/22 10/30/22 05:10 06:34 07:26 08:10 Temp 36.7 36.3 36.3 Pulse 67 65 71 Resp 18 18 18 B/P (MAP) 131/70 (90) 129/81 (97) 141/72 (95) Pulse Ox 97 99 94 98 O2 Delivery Nasal Cannula Nasal Cannula Nasal Cannula Nasal Cannula O2 Flow Rate 3.00 2.00 3.00 3.00 10/30/22 10/30/22 10/30/22 10/30/22 08:45 11:00 11:05 11:52 Temp 36.7 36.7 Pulse 67 63 63 Resp 18 18 B/P (MAP) 113/64 (80) 113/64 (80) Pulse Ox 94 94 O2 Delivery Nasal Cannula Nasal Cannula Nasal Cannula O2 Flow Rate 3.00 3.00 10/30/22 10/30/22 12:23 13:19 Temp 36.7 Pulse 64 64 Resp 18 B/P (MAP) 113/64 Pulse Ox 94 O2 Delivery Nasal Cannula O2 Flow Rate 3.00 FiO2 100 10/30/22 00:00 Intake Total 300 ml Output Total 700 ml Balance -400 ml Weight (Pounds): 150 Weight (Calculated Kilograms): 68.068557 Constitutional: well-developed, other (frail and thin-appearing, mildly confused) Respiratory: No accessory muscle use; chest expansion is symmetric, other (fair to good, bilateral air entry; bs diminished at the bases) Cardiovascular: irregularly irregular, S1 and S2, systolic murmur (soft DOMONIQUE at card base) Gastrointestional: No tender; soft; No guarding, No rebound; audible bowel sounds Extremities: No clubbing, No cyanosis, No significant edema Neurologic/Psychiatric: other (mildly confused, talkative but unfocused, moves all limbs) Skin: normal color, warm/dry, other (multiple bruising to arms bilat) Results/Procedures: Labs Laboratory Tests 10/30/22 03:14: White Blood Count 5.8, Red Blood Count 3.05L, Hemoglobin 10.5L, Hematocrit 35, Mean Corpuscular Volume 114H, Mean Corpuscular Hemoglobin 34, Mean Corpuscular Hemoglobin Concent 30L, Red Cell Distribution Width 15.5H, Platelet Count 173, Mean Platelet Volume 10.7, Immature Granulocyte % (Auto) 1, Neutrophils (%) (Auto) 50, Lymphocytes (%) (Auto) 30, Monocytes (%) (Auto) 12, Eosinophils (%) (Auto) 7, Basophils (%) (Auto) 1, Neutrophils # (Auto) 2.9, Lymphocytes # (Auto) 1.7, Monocytes # (Auto) 0.7, Eosinophils # (Auto) 0.4H, Basophils # (Auto) 0.0, Immature Granulocyte # (Auto) 0.0, Sodium Level 143, Potassium Level 5.0, Chloride Level 107, Carbon Dioxide Level 27, Anion Gap 9, Blood Urea Nitrogen 26H, Creatinine 1.03, Estimat Glomerular Filtration Rate 57, BUN/Creatinine Ratio 25, Glucose Level 99, Calcium Level 8.5, Corrected Calcium 9.5, Magnesium Level 2.4, Total Bilirubin 0.5, Aspartate Amino Transf (AST/SGOT) 13, Alanine Aminotransferase (ALT/SGPT) 14, Alkaline Phosphatase 111, Total Protein 5.4L, Albumin 2.7L Microbiology 10/25/22 MRSA Screen - Final, Complete 10/25/22 Blood Culture - Preliminary, Resulted No growth Procedures NAME: BINDU MORRISON [facility] REC#: [id number] PT STATUS: ADM IN : 1950 PHYSICIAN: ANALILIA SPENCER MD ADMIT DATE: 10/25/22/ICU Signed Date of Exam:10/28/22 CHEST 1 VIEW, AP/PA ONLY INDICATION: Coarse breath sounds. Comparison is made with prior exam of 10/27/2022. FINDINGS: There is cardiomegaly. There is some venous congestion. There are patchy bibasilar infiltrates. There is a small left pleural effusion. No pneumothorax. Mediastinum unremarkable. IMPRESSION: Patchy bibasilar pulmonary infiltrates with a small left pleural effusion. Cardiomegaly and mild central pulmonary venous congestion. Dictated by: Dictated on workstation # [id number] Dict: 10/28/22 0644 Trans: 10/28/22 1430 CV [id number] Interpreted by: EARLINE ROBERSON MD Electronically signed by: EARLINE ROBERSON MD 10/28/22 1430 A/P: Assessment: Confusion with combativeness - improving PAF with RVR - currently SR with controlled rate - h/o ILR implanted on 03-27-22 that has shown PAF with RVR but no bradycardia - currently on Xarelto for stroke prophylaxis - reduced dose d/t anemia - ? 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 Change dose to 15 mg due to significant anemia for which chronic occult GI bleed has not been excluded * Management of anemia per medical services * Monitor labs RAFAEL MOON Oct 30, 2022 08:43
--- NOTE | 2022-10-30 10:20 | Physical Therapy Daily Note ---
PT Daily Note-Current Subjective Patient yelling profanities. Pain Section J - Health Conditions 1. Rarely or not at all 2. Occasionally 3. Frequently 4. Almost constantly 8. Unable to answer Pain Effect on Sleep: 8 Pain Interference with Therapy: 8 Pain Interference w/Day-to-Day: 8 Mental Status Patient Orientation: Confused Attachments: Oxygen, Saravia Catheter Transfers SCALE: Activities may be completed with or without assistive devices. 4-Efvxpaavuy-gghemcc completes the activity by him/herself with no assistance from a helper. 5-Set-up or Clean-up Assistance-helper sets up or cleans up; patient completes activity. [place] assists only prior to or following the activity. 4-Supervision or Touching Assistance-helper provides verbal cues and/or touching/steadying and/or contact guard assistance as patient completes activity. Assistance may be provided throughout the activity or intermittently. 3-Partial/Moderate Assistance-helper does LESS THAN HALF the effort. [place] lifts, holds or supports trunk or limbs, but provides less than half the effort. 2-Substantial/Maximal Assistance-helper does MORE THAN HALF the effort. [place] lifts or holds trunk or limbs and provides more than half the effort. 7-Czjqrjzjh-vfasji does ALL the effort. Patient does none of the effort to complete the activity. Or, the assistance of 2 or more helpers is required for the patient to complete the activity. If activity was not attempted, code reason: 7-Patient Refused. 9-Not Applicable-not attempted and the patient did not perform the activity before the current illness, exacerbation or injury. 10-Not Attempted due to Environmental Limitations-(lack of equipment, weather restraints, etc.). 88-Not Attempted due to Medical Conditions or Safety Concerns. Sit to Stand (QC): 2 Chair/Sst-oj-Icwwc Xfer(QC): 2 Gait Training Distance: 150' Walk 10 feet (QC): 2 Walk 50 ft with 2 Turns(QC): 2 Walk 150 ft (QC): 2 Gait Assistive Device: FWW PT assist to advance FWW Assessment Patient attempted to sit during ambulation with no chair present. Patient became combative and yelling profanities. PCT assist to bring chair to safely place patient. Patient very agitated and combative on this date. PT Senior Living Goals Senior Living Goals PT Visual Communications Instructor Goals Time Frame: Nov 17, 2022 Roll Left & Right (QC): 3 Sit to Lying (QC): 3 Lying-Sitting on Side/Bed(QC): 3 Sit to Stand (QC): 3 Chair/Ifm-nl-Xphoa Xfer(QC): 3 Toilet Transfer (QC): 3 Walk 10 feet (QC): 3 Walk 50ft with 2 Turns (QC): 3 PT Plan Treatment/Plan Treatment Plan: Continue Plan of Care Treatment Plan: Bed Mobility, Education, Functional Activity Elton, Functional Strength, Gait, Safety, Therapeutic Exercise, Transfers Treatment Duration: Nov 17, 2022 Frequency: 6 times per week Estimated Hrs Per Day: .25 hour per day Patient and/or Family Agrees t: Yes Time Time In: 845 Time Out: 855 DATE: Oct 30, 2022 Total Billed Treatment Time: 10 Total Billed Treatment 1 visit FA 10 min ODILON HENDRICKSON PT Oct 30, 2022 10:20
[2022-10-30 11:00] VITALS: BP 113/64
--- NOTE | 2022-10-30 11:52 | Discharge Summary ---
Discharge Summary Reconcile Patient Problems Problems Reviewed?: Yes Hospital Course Hospital Course Date of Admission: Oct 25, 2022 at 19:59 Admission Diagnosis : Family Physician/Provider: Michelle Cruz Boiler Shop Supervisor Date of Discharge: 10/30/22 Discharge Diagnosis: Altered Mental Status: At baseline Atrial fibrillation with RVR Type II PR Pulmonary Edema Multiple Myeloma Dementia Hospital Course: 72 yo F that presented with altered mental status and atrial fibrillation with RVR. Converted with medications. OAC was adjusted due to chronic anemia and her MM. Behaviors have improved in the last 24 hrs, patient more comfortable. Will send back to [place] with Skilled orders. Labs and Pending Lab Test: Laboratory Tests 10/30/22 03:14: White Blood Count 5.8, Red Blood Count 3.05L, Hemoglobin 10.5L, Hematocrit 35, Mean Corpuscular Volume 114H, Mean Corpuscular Hemoglobin 34, Mean Corpuscular Hemoglobin Concent 30L, Red Cell Distribution Width 15.5H, Platelet Count 173, Mean Platelet Volume 10.7, Immature Granulocyte % (Auto) 1, Neutrophils (%) (Auto) 50, Lymphocytes (%) (Auto) 30, Monocytes (%) (Auto) 12, Eosinophils (%) (Auto) 7, Basophils (%) (Auto) 1, Neutrophils # (Auto) 2.9, Lymphocytes # (Auto) 1.7, Monocytes # (Auto) 0.7, Eosinophils # (Auto) 0.4H, Basophils # (Auto) 0.0, Immature Granulocyte # (Auto) 0.0, Sodium Level 143, Potassium Level 5.0, Chloride Level 107, Carbon Dioxide Level 27, Anion Gap 9, Blood Urea Nitrogen 26H, Creatinine 1.03, Estimat Glomerular Filtration Rate 57, BUN/Creatinine Ratio 25, Glucose Level 99, Calcium Level 8.5, Corrected Calcium 9.5, Magnesium Level 2.4, Total Bilirubin 0.5, Aspartate Amino Transf (AST/SGOT) 13, Alanine Aminotransferase (ALT/SGPT) 14, Alkaline Phosphatase 111, Total Protein 5.4L, Albumin 2.7L Microbiology 10/25/22 MRSA Screen - Final, Complete 10/25/22 Blood Culture - Preliminary, Resulted No growth Home Meds Active Reported Albuterol Sulfate 2.5 Mg/0.5 Ml Vial.neb 2.5 Mg INH Q6H PRN G-Zyncof 20-400 mg/5 ml Liquid (Guaifenesin/Dextromethorphan) 400 Mg-20 Mg/5 Ml Liquid 20 Ml PO BID PRN Hydrocodone-Acetamin 10-325 mg (Hydrocodone/Acetaminophen) 10 Mg-325 Mg Tablet 1 Each PO DAILY PRN MAKE SURE THERE IS 4 HOURS IN BETWEEN DOSES Preparation H Cream (Phenyleph/Pramoxin/Glycr/W.pet) 0.25 %-1 % Cream..g. 1 Applic RC QID PRN Klonopin (Clonazepam) 1 Mg Tablet 1 Mg PO DAILY PRN Ondansetron Odt (Ondansetron) 4 Mg Tab.rapdis 4 Mg SL Q8H PRN Tylenol (Acetaminophen) 325 Mg Tablet 325 Mg PO Q4 -6H PRN Lidocaine 5% Patch (Lidocaine) 5 % Adh..patch 1 Each TP DAILY PRN MDD 2 APPLY TO LOWER BACK Fentanyl Patch 25 MCG (Fentanyl) 25 Mcg/Hour Patch.td72 25 Mcg TD Q72H Levothyroxine Sodium 50 Mcg Tablet 50 Mcg PO DAILY Lenalidomide 10 Mg Capsule 10 Mg PO HS PER DR. HARO PT WAS TO TAKE FOR 21 DAYS THEN HOLD FOR 7 DAYS Allopurinol 100 Mg Tablet 100 Mg PO HS Olanzapine 5 Mg Tablet 5 Mg PO Q12H Hydrocodone-Acetamin 10-325 mg (Hydrocodone/Acetaminophen) 10 Mg-325 Mg Tablet 1 Each PO 0600,1400,2200 Docusate Sodium 100 Mg Capsule 100 Mg PO Q12H Benzonatate 200 Mg Capsule 200 Mg PO TID Clonazepam 1 Mg Tablet 1 Mg PO BID Xarelto (Rivaroxaban) 15 Mg Tablet 15 Mg PO DAILY Vitamin B-12 (Cyanocobalamin (Vitamin B-12)) 500 Mcg Tablet 500 Mcg PO DAILY Omeprazole 20 Mg Capsule.dr 20 Mg PO DAILY Metoprolol Tartrate 25 Mg Tablet 25 Mg PO BID Magnesium (Magnesium Oxide) 400 Mg Magnesium Capsule 400 Mg PO MO,WE,FR Ferrous Sulfate 325 Mg (65 Mg Iron) Tablet 325 Mg PO DAILY Diltiazem ER (Diltiazem HCl) 180 Mg Tab.er.24h 180 Mg PO DAILY Vitamin D3 (Cholecalciferol (Vitamin D3)) 25 Mcg (1000 Unit) Capsule 25 Mcg PO DAILY Atorvastatin Calcium 40 Mg Tablet 40 Mg PO DAILY Skilled NF Admit to: [facility] [place] Certification (SNF) I certify that SNF services are required to be given on an inpatient basis because of the above named patient's need for long-term care on a continui ng basis for the conditions(s) for which he/she was receiving inpatient hospital services prior to his/her transfer to the SNF. Care Home Facility Order: Nursing Services, Dredge Boat Engineer-Evaluate & Treat, Physical Therapy-Evaluate & Treat, Speech Language-Evaluate & Treat (aspiration risk) Oxygen Delivery Method: Nasal Cannula Discharge Diet: Cardiac Diet Resuscitation Status: Do Not Resuscitate New & Resume Previous Orders Resume previous orders Please see medication changes made during stay Erlinda Cee Oct 30, 2022 11:47 Discharge Physical Exam General: Alert, Oriented X3, No Acute Distress Lungs: Other (end exp wheezing, normal work of breathing) Heart: Regular Rate, No Murmurs Abdomen: Normal Bowel Sounds, Soft Neuro: Normal Speech ERLINDA CEE MD Oct 30, 2022 11:52
[2022-10-30] MEDS ORDERED: DILT-27 PO (11:55)
[2022-10-30] MEDS ORDERED: AMIO200T65 PO (11:55)
--- NOTE | 2022-10-30 12:51 | Progress Note - Cardiology ---
Cardiology SOAP Progress Note Subjective: Reports gen body pain No specific cp No palp or syncope No shortness of breath at rest No n/v/d Objective: I&O/Vital Signs 10/30/22 10/30/22 10/30/22 10/30/22 05:10 06:34 07:26 08:10 Temp 36.7 36.3 36.3 Pulse 67 65 71 Resp 18 18 18 B/P (MAP) 131/70 (90) 129/81 (97) 141/72 (95) Pulse Ox 97 99 94 98 O2 Delivery Nasal Cannula Nasal Cannula Nasal Cannula Nasal Cannula O2 Flow Rate 3.00 2.00 3.00 3.00 10/30/22 10/30/22 10/30/22 10/30/22 08:45 11:00 11:05 11:52 Temp 36.7 36.7 Pulse 67 63 63 Resp 18 18 B/P (MAP) 113/64 (80) 113/64 (80) Pulse Ox 94 94 O2 Delivery Nasal Cannula Nasal Cannula Nasal Cannula O2 Flow Rate 3.00 3.00 10/29/22 23:59 Intake Total 300 ml Output Total 700 ml Balance -400 ml Weight (Pounds): 150 Weight (Calculated Kilograms): [id number] Constitutional: well-developed, other (frail and thin-appearing, mildly confused) Respiratory: No accessory muscle use; chest expansion is symmetric, other (fair to good, bilateral air entry; bs diminished at the bases) Cardiovascular: irregularly irregular, S1 and S2, systolic murmur (soft DOMONIQUE at card base) Gastrointestional: No tender; soft; No guarding, No rebound; audible bowel sounds Extremities: No clubbing, No cyanosis, No significant edema Neurologic/Psychiatric: other (mildly confused, talkative but unfocused, moves all limbs) Skin: normal color, warm/dry, other (multiple bruising to arms bilat) Results/Procedures: Labs Laboratory Tests 10/30/22 03:14: White Blood Count 5.8, Red Blood Count 3.05L, Hemoglobin 10.5L, Hematocrit 35, Mean Corpuscular Volume 114H, Mean Corpuscular Hemoglobin 34, Mean Corpuscular Hemoglobin Concent 30L, Red Cell Distribution Width 15.5H, Platelet Count 173, Mean Platelet Volume 10.7, Immature Granulocyte % (Auto) 1, Neutrophils (%) (Auto) 50, Lymphocytes (%) (Auto) 30, Monocytes (%) (Auto) 12, Eosinophils (%) (Auto) 7, Basophils (%) (Auto) 1, Neutrophils # (Auto) 2.9, Lymphocytes # (Auto) 1.7, Monocytes # (Auto) 0.7, Eosinophils # (Auto) 0.4H, Basophils # (Auto) 0.0, Immature Granulocyte # (Auto) 0.0, Sodium Level 143, Potassium Level 5.0, Chloride Level 107, Carbon Dioxide Level 27, Anion Gap 9, Blood Urea Nitrogen 26H, Creatinine 1.03, Estimat Glomerular Filtration Rate 57, BUN/Creatinine Ratio 25, Glucose Level 99, Calcium Level 8.5, Corrected Calcium 9.5, Magnesium Level 2.4, Total Bilirubin 0.5, Aspartate Amino Transf (AST/SGOT) 13, Alanine Aminotransferase (ALT/SGPT) 14, Alkaline Phosphatase 111, Total Protein 5.4L, Albumin 2.7L Microbiology 10/25/22 MRSA Screen - Final, Complete 10/25/22 Blood Culture - Preliminary, Resulted No growth Laboratory Tests 10/29/22 05:30 10/30/22 03:14 A/P: Assessment: Confusion with combativeness - improving PAF with RVR - currently SR with controlled rate - h/o ILR implanted on 03-27-22 that has shown PAF with RVR but no bradycardia - currently on Xarelto for stroke prophylaxis - reduced dose d/t anemia - ? ac diastolic CHF due to PAF with RVR - Echo on 05/31/22 (Dr Sterling): LVEF 60-65%, grade 1 diastolic dysfunction, mod MS, AoV sclerosis w/o stenosis, PASP approx 40 mmHg R lung consolidation/opacity managed by her attending Dr Grayson Chronically low bp - currently controlled Multiple myeloma and chronic anemia - Reports this is followed by her Hemo/Onc, Dr Bravo in [place], [place] Mildly elevated troponin, likely Type 2 [place] - likely secondary to a-fib with RVR Chronic tobacco use Anemia - managed by medical services Plan: * Maintaining SR, currently on Amiodarone, Cardizem, BB and Dig - stop digoxin - having on 4 agents increases her risk of bradycardia * BP has improved * Continue Xarelto for stoke prophylaxis. Change dose to 15 mg due to significant anemia for which chronic occult GI bleed has not been excluded * Management of anemia and gen body pain is per Medical services * Monitor labs DIANNE KESSLER MD FACP FACC CCDS Oct 30, 2022 12:50
[2022-10-30 13:19] VITALS: BP 113/64
== END 2022-10-30 14:50 | DRG 871 ==
LOC: EDUNIT# 18:06 → ER 18:11 → ICU 19:59 → 4TH 10-27 14:04 → ICU 10-28 01:05 → 4TH 10-30 08:40
PROVIDERS: ADMIT Internal Medicine; ATTEND Family Medicine
DX: A41.9 Sepsis, unspecified organism (principal); I21.A1 Myocardial infarction type 2; J18.9 Pneumonia, unspecified organism; J96.01 Acute respiratory failure with hypoxia; I50.31 Acute diastolic (congestive) heart failure; C90.00 Multiple myeloma not having achieved remission; J44.0 Chronic obstructive pulmonary disease with (acute) lower respiratory infection; I48.92 Unspecified atrial flutter; Z66 Do not resuscitate; I13.0 Hypertensive heart and chronic kidney disease with heart failure and stage 1 through stage 4 chronic kidney disease, or unspecified chronic kidney disease; I47.1 Supraventricular tachycardia; F03.911 Unspecified dementia, unspecified severity, with agitation; F05 Delirium due to known physiological condition; D68.32 Hemorrhagic disorder due to extrinsic circulating anticoagulants; I48.0 Paroxysmal atrial fibrillation; N18.9 Chronic kidney disease, unspecified; M10.9 Gout, unspecified; I95.9 Hypotension, unspecified; I08.0 Rheumatic disorders of both mitral and aortic valves; E78.00 Pure hypercholesterolemia, unspecified; K21.9 Gastro-esophageal reflux disease without esophagitis; E03.9 Hypothyroidism, unspecified; F41.9 Anxiety disorder, unspecified; F32.A Depression, unspecified; D64.9 Anemia, unspecified; D69.6 Thrombocytopenia, unspecified; T45.515A Adverse effect of anticoagulants, initial encounter; Z79.01 Long term (current) use of anticoagulants; Z79.899 Other long term (current) drug therapy; Z88.0 Allergy status to penicillin; R53.81 Other malaise
CPT/HCPCS: 36415; 51702; 71045; 80053; 81000; 82150; 82550; 82553; 83605; 83690; 83735; 83874; 83880; 84100; 84443; 84484; 85025; 85610; 85652; 85730; 86141; 87040; 87081; 87636; 93005; 93041; 93306; 94640